=== PATIENT | female | born 1955 | race Two or more races ===

== ENCOUNTER 2016-03-25 16:49 | Emergency (ER) | payer MEDICAID ==
[~2016-03-25] VITALS: Ht 165.1 cm; Wt 102.1 kg
[~2016-03-25 16:49] MED LIST: ALBU18 IN; ALBU2TAB4 NEB; PRED10SO PO
[2016-03-25 17:57] LABS: Basophils # (auto) 0.1 uL; Basophils % (auto) 0.9 % (0.0-2.0); DEFINITIVE VIEW TRANSMISSION; Eosinophils # (auto) 0.4 uL; Eosinophils % (auto) 5.8 % (0.0-7.0); Hemoglobin 9.3 g/dL (12.2-16.2); Lymphocytes # (auto) 2.8 uL; Mean Corpuscular Hemoglobin 23.3 pg (28.0-32.0); Mean Corpuscular Volume 74.9 fL (80.0-100.0); Mean Platelet Volume 8.7 fL (7.4-10.4); Monocytes # (auto) 0.5 uL; Monocytes % (auto) 6.9 % (0.0-12.0); Neutrophils # (auto) 3.8 uL; Neutrophils % (auto) 49.4 % (37.0-80.0); Platelet Count (auto) 312 10^3/uL (140-450); Red Cell Distribution Width 18.5 % (11.6-16.0); White Blood Cell 7.6 10^3/uL (4.4-10.8)
[2016-03-25 18:04] LABS: Albumin 3.2 g/dL (3.4-5.0); BUN/Creatinine Ratio 19.8; Calcium 8.3 mg/dL (8.5-10.1); Magnesium 2.3 mg/dL (1.6-2.6); Potassium 4.2 mmol/L (3.5-5.1)
[2016-03-25 18:07] LABS: Bilirubin, Total 0.2 mg/dL (0.2-1.0); Total Protein 6.9 g/dL (6.4-8.2)
[2016-03-25 19:07] VITALS: BP 122/80
[2016-03-25] MEDS ORDERED: SODIUM CHLORIDE 0.9% 1,000 ML IV ONE (19:08)
[2016-03-25] MEDS ORDERED: MORPHINE SULFATE 4 MG/ML SYRG IV ONE (19:15)
[2016-03-25] MEDS ORDERED: ONDANSETRON HCL 4 MG/2 ML VIAL IV ONE (19:15)
[2016-03-25 19:46] LABS: Anisocytosis Slight; Hypochromia Slight; Platelet Estimate Adequate
[2016-03-25] MEDS ORDERED: PROMETHAZINE HCL 25 MG/ML 1ML IV ONE (20:00)
== END 2016-03-25 20:48 | disposition home or self-care (01) ==
LOC: ER 16:52
DX: R10.9 Unspecified abdominal pain (principal); R11.2 Nausea with vomiting, unspecified; E11.9 Type 2 diabetes mellitus without complications; J45.909 Unspecified asthma, uncomplicated; Z88.6 Allergy status to analgesic agent; Z88.1 Allergy status to other antibiotic agents; Z88.8 Allergy status to other drugs, medicaments and biological substances; Z90.49 Acquired absence of other specified parts of digestive tract; Z90.710 Acquired absence of both cervix and uterus; Z87.440 Personal history of urinary (tract) infections
CPT/HCPCS: 36415; 71010; 74176; 80053; 83690; 83735; 84484; 85025; 93005; 96361; 96374; 96375; 99285; J2270; J2550; J7030

== ENCOUNTER 2016-03-30 10:34 | Inpatient (IN) | payer MEDICAID ==
[~2016-03-30] VITALS: Ht 165.1 cm; Wt 99.2 kg
[2016-03-30] MEDS ORDERED: SODIUM CHLORIDE 0.9% 1,000 ML IV ONE (11:38)
[2016-03-30] MEDS ORDERED: PROMETHAZINE HCL 25 MG/ML 1ML IV ONE (11:45)
[2016-03-30] MEDS ORDERED: IPRATROPIUM BROM 0.5 MG/2.5ML INH SOL NEB ONE (11:45)
[2016-03-30] MEDS ORDERED: NALBUPHINE HCL 10 MG/1ml INJECTION IV ONE (11:45)
[2016-03-30] MEDS ORDERED: ALBUTEROL SULF 2.5 MG/0.5ML(0.5%) NEB SOLN NEB ONE (11:45)
[2016-03-30 12:01] LABS: Albumin 3.7 g/dL (3.4-5.0); BUN/Creatinine Ratio 29.7; Bilirubin, Total 0.3 mg/dL (0.2-1.0); Calcium 8.8 mg/dL (8.5-10.1); Potassium 4.3 mmol/L (3.5-5.1); Total Protein 7.4 g/dL (6.4-8.2)
[2016-03-30 12:03] LABS: Amylase 82 U/L (25-115)
[2016-03-30 12:49] LABS: Basophils # (auto) 0.1 uL; Basophils % (auto) 0.9 % (0.0-2.0); DEFINITIVE VIEW TRANSMISSION; Eosinophils # (auto) 0.5 uL; Eosinophils % (auto) 7.9 % (0.0-7.0); Hematocrit 32.5 % (36.0-46.0); Hemoglobin 10.3 g/dL (12.2-16.2); Lymphocytes # (auto) 1.7 uL; Lymphocytes % (auto) 24.8 % (10.0-50.0); Mean Corpuscular Hemoglobin 23.7 pg (28.0-32.0); Mean Corpuscular Hgb Conc. 31.6 g/dL (32.0-36.0); Mean Platelet Volume 8.7 fL (7.4-10.4); Monocytes # (auto) 0.5 uL; Monocytes % (auto) 8.1 % (0.0-12.0); Neutrophils # (auto) 3.9 uL; Neutrophils % (auto) 58.3 % (37.0-80.0); Platelet Count (auto) 292 10^3/uL (140-450); Red Cell Distribution Width 18.5 % (11.6-16.0); White Blood Cell 6.7 10^3/uL (4.4-10.8)
[2016-03-30] MEDS ORDERED: PIPERACILLIN-TAZOB 3.375GM 100 ML IV ONE (13:15)
[2016-03-30] MEDS ORDERED: DEXTROSE (50%) 50ML SYRG IV PRN (13:30)
[2016-03-30] MEDS ORDERED: NITROGLYCERIN 0.4 MG SL TAB SL PRN (13:30)
[2016-03-30] MEDS ORDERED: MORPHINE SULFATE 4 MG/ML SYRG IV PRN (13:30)
[2016-03-30] MEDS ORDERED: LORazepam 0.5 MG TAB PO PRN (13:30)
[2016-03-30] MEDS ORDERED: ALBUTEROL SULF 2.5 MG/0.5ML(0.5%) NEB SOLN NEB PRN (13:30)
[2016-03-30] MEDS ORDERED: MORPHINE SULF INJ 2 MG/ML SYRINGE 1ML IV PRN (13:30)
[2016-03-30] MEDS ORDERED: cefTRIAXone 1GM/50ML D5W 50 ML IV ONE (13:45)
[2016-03-30] MEDS: SODIUM CHLORIDE 0.9% 1,000 ML IV SCH ×2 (14:32→20:31)
[2016-03-30] MEDS: FAMOTIDINE (10MG/ML) 2ML VL IV SCH (14:32)
[2016-03-30 15:40] LABS: Urine Bilirubin Negative (Negative); Urine Blood TRACE /uL (Negative); Urine Color Yellow (Yellow); Urine Glucose Normal (Normal); Urine Ketone Negative (Negative); Urine Mucus FEW (None Seen); Urine Nitrite Negative (Negative); Urine RBC 2 /hpf (0 - 4); Urine Squamous Epithelial Cell FEW /hpf (<5); Urine Urobilinogen Normal (Negative)
[2016-03-30] MEDS: MORPHINE SULF INJ 2 MG/ML SYRINGE 1ML IV PRN ×2 (15:54→20:44)
[2016-03-30] MEDS: metroNIDAZOLE 500MG/100ML 100 ML IV SCH ×2 (15:54→21:11)
[2016-03-30 16:26] VITALS: BP 135/58
[2016-03-30] MEDS: ACCU-CHEK COMFORT CURVE STRIP VI SCH ×2 (17:41→23:40)
[2016-03-30] MEDS: ALBUTEROL SULF 2.5 MG/0.5ML(0.5%) NEB SOLN NEB SCH (18:00)
[2016-03-30 22:00] VITALS: BP 106/58
[2016-03-30 22:48] VITALS: BP 135/58
[2016-03-30] MEDS: TEMAZEPAM 15 MG CAP PO PRN (23:43)
[2016-03-31] MEDS: FAMOTIDINE (10MG/ML) 2ML VL IV SCH ×2 (01:04→13:51)
[2016-03-31] MEDS: ALBUTEROL SULF 2.5 MG/0.5ML(0.5%) NEB SOLN NEB SCH ×4 (01:08→19:25)
[2016-03-31] MEDS: SODIUM CHLORIDE 0.9% 1,000 ML IV SCH ×4 (03:27→22:39)
[2016-03-31] MEDS: metroNIDAZOLE 500MG/100ML 100 ML IV SCH ×3 (05:36→21:54)
[2016-03-31] MEDS: ACCU-CHEK COMFORT CURVE STRIP VI SCH ×3 (05:40→17:14)
[2016-03-31] MEDS: MORPHINE SULF INJ 2 MG/ML SYRINGE 1ML IV PRN ×4 (05:46→21:54)
[2016-03-31 05:52] VITALS: BP 127/58
[2016-03-31 07:13] LABS: Albumin 3.3 g/dL (3.4-5.0); BUN/Creatinine Ratio 21.1; Bilirubin, Total 0.5 mg/dL (0.2-1.0); Calcium 8.6 mg/dL (8.5-10.1); Total Protein 6.4 g/dL (6.4-8.2)
[2016-03-31 08:03] LABS: Basophils # (auto) 0 uL; Basophils % (auto) 0.8 % (0.0-2.0); DEFINITIVE VIEW TRANSMISSION; Eosinophils # (auto) 0.4 uL; Eosinophils % (auto) 7.3 % (0.0-7.0); Hematocrit 30.4 % (36.0-46.0); Hemoglobin 9.6 g/dL (12.2-16.2); Lymphocytes # (auto) 1.3 uL; Lymphocytes % (auto) 22.6 % (10.0-50.0); Mean Corpuscular Hemoglobin 23.5 pg (28.0-32.0); Mean Corpuscular Hgb Conc. 31.5 g/dL (32.0-36.0); Mean Corpuscular Volume 74.3 fL (80.0-100.0); Mean Platelet Volume 8.4 fL (7.4-10.4); Monocytes # (auto) 0.4 uL; Monocytes % (auto) 6.9 % (0.0-12.0); Neutrophils # (auto) 3.6 uL; Neutrophils % (auto) 62.4 % (37.0-80.0); Platelet Count (auto) 325 10^3/uL (140-450); Red Cell Distribution Width 18.6 % (11.6-16.0); White Blood Cell 5.8 10^3/uL (4.4-10.8)
[2016-03-31 08:40] VITALS: BP 120/57
[2016-03-31] MEDS: cefTRIAXone 1GM/50ML D5W 50 ML IV SCH (09:19)
[2016-03-31 12:35] VITALS: BP 128/67
[2016-03-31] MEDS ORDERED: PROMETHAZINE-DM 5 ML ORAL SYRUP PO PRN (13:30)
[2016-03-31 17:00] VITALS: BP 133/69
[2016-03-31] MEDS: PROMETHAZINE HCL 25 MG/ML 1ML IV PRN (17:07)
[2016-03-31 22:00] VITALS: BP 153/58
[2016-04-01] MEDS: ALBUTEROL SULF 2.5 MG/0.5ML(0.5%) NEB SOLN NEB SCH ×4 (00:31→18:02)
[2016-04-01] MEDS: FAMOTIDINE (10MG/ML) 2ML VL IV SCH ×2 (02:13→14:04)
[2016-04-01] MEDS: MORPHINE SULF INJ 2 MG/ML SYRINGE 1ML IV PRN ×4 (02:21→21:42)
[2016-04-01] MEDS: SODIUM CHLORIDE 0.9% 1,000 ML IV SCH ×3 (05:23→20:47)
[2016-04-01] MEDS: metroNIDAZOLE 500MG/100ML 100 ML IV SCH ×3 (05:51→21:37)
[2016-04-01] MEDS: ACCU-CHEK COMFORT CURVE STRIP VI SCH ×4 (05:53→17:30)
[2016-04-01 06:10] VITALS: BP 114/78
[2016-04-01 06:24] LABS: Basophils # (auto) 0 uL; Basophils % (auto) 0.8 % (0.0-2.0); DEFINITIVE VIEW TRANSMISSION; Eosinophils # (auto) 0.5 uL; Eosinophils % (auto) 8.7 % (0.0-7.0); Hematocrit 28.1 % (36.0-46.0); Lymphocytes # (auto) 1.1 uL; Mean Corpuscular Hemoglobin 23.7 pg (28.0-32.0); Mean Corpuscular Volume 74.2 fL (80.0-100.0); Mean Platelet Volume 8.2 fL (7.4-10.4); Monocytes # (auto) 0.4 uL; Monocytes % (auto) 8.1 % (0.0-12.0); Neutrophils # (auto) 3.1 uL; Neutrophils % (auto) 60.4 % (37.0-80.0); Platelet Count (auto) 287 10^3/uL (140-450); Red Cell Distribution Width 18.6 % (11.6-16.0); White Blood Cell 5.2 10^3/uL (4.4-10.8)
[2016-04-01 06:52] LABS: Albumin 3.2 g/dL (3.4-5.0); BUN/Creatinine Ratio 11.8; Bilirubin, Total 0.4 mg/dL (0.2-1.0); Calcium 8.7 mg/dL (8.5-10.1); Potassium 3.8 mmol/L (3.5-5.1); Total Protein 6.4 g/dL (6.4-8.2)
[2016-04-01 08:09] VITALS: BP 129/66
[2016-04-01] MEDS: cefTRIAXone 1GM/50ML D5W 50 ML IV SCH (08:54)
[2016-04-01 13:23] VITALS: BP 126/82
[2016-04-01 17:01] VITALS: BP 111/68
[2016-04-01] MEDS: SUCRALFATE 1 GM/10 ML ORAL SUSP PO SCH ×2 (17:33→21:37)
[2016-04-01 21:52] VITALS: BP 115/50
[2016-04-01] MEDS: TEMAZEPAM 15 MG CAP PO PRN (22:46)
[2016-04-02] MEDS: ACCU-CHEK COMFORT CURVE STRIP VI SCH ×4 (00:18→17:49)
[2016-04-02] MEDS: ALBUTEROL SULF 2.5 MG/0.5ML(0.5%) NEB SOLN NEB SCH ×4 (00:48→18:49)
[2016-04-02] MEDS: FAMOTIDINE (10MG/ML) 2ML VL IV SCH ×2 (01:33→14:29)
[2016-04-02] MEDS: SODIUM CHLORIDE 0.9% 1,000 ML IV SCH ×4 (01:33→22:44)
[2016-04-02] MEDS: ACETAMINOPHEN 325 MG TAB PO PRN ×2 (04:06→22:15)
[2016-04-02] MEDS: MORPHINE SULF INJ 2 MG/ML SYRINGE 1ML IV PRN ×4 (04:11→22:43)
[2016-04-02 05:03] VITALS: BP 133/48
[2016-04-02] MEDS: metroNIDAZOLE 500MG/100ML 100 ML IV SCH ×3 (06:29→22:16)
[2016-04-02] MEDS: SUCRALFATE 1 GM/10 ML ORAL SUSP PO SCH ×4 (06:29→22:16)
[2016-04-02] MEDS: PROMETHAZINE HCL 25 MG/ML 1ML IV PRN ×2 (08:49→16:40)
[2016-04-02] MEDS: cefTRIAXone 1GM/50ML D5W 50 ML IV SCH (08:49)
[2016-04-02 09:00] VITALS: BP 108/57
[2016-04-02 10:45] LABS: Albumin 3.1 g/dL (3.4-5.0); BUN/Creatinine Ratio 15.1; Bilirubin, Total 0.2 mg/dL (0.2-1.0); Calcium 9.2 mg/dL (8.5-10.1); Potassium 3.8 mmol/L (3.5-5.1); Total Protein 6.6 g/dL (6.4-8.2)
[2016-04-02 12:04] VITALS: BP 119/53
[2016-04-02 16:56] VITALS: BP 122/50
[2016-04-02 22:00] VITALS: BP 119/58
[2016-04-03] MEDS: ACCU-CHEK COMFORT CURVE STRIP VI SCH ×2 (00:28→06:12)
[2016-04-03] MEDS: ALBUTEROL SULF 2.5 MG/0.5ML(0.5%) NEB SOLN NEB SCH ×5 (00:28→23:33)
[2016-04-03] MEDS: FAMOTIDINE (10MG/ML) 2ML VL IV SCH ×2 (01:40→12:38)
[2016-04-03] MEDS: MORPHINE SULF INJ 2 MG/ML SYRINGE 1ML IV PRN ×5 (04:28→20:54)
[2016-04-03 05:33] VITALS: BP 108/56
[2016-04-03] MEDS: metroNIDAZOLE 500MG/100ML 100 ML IV SCH ×3 (06:11→22:08)
[2016-04-03] MEDS: SODIUM CHLORIDE 0.9% 1,000 ML IV SCH ×3 (06:12→16:08)
[2016-04-03] MEDS: SUCRALFATE 1 GM/10 ML ORAL SUSP PO SCH ×4 (06:12→22:08)
[2016-04-03 06:15] LABS: Basophils # (auto) 0 uL; Basophils % (auto) 0.7 % (0.0-2.0); DEFINITIVE VIEW TRANSMISSION; Eosinophils # (auto) 0.5 uL; Eosinophils % (auto) 10.9 % (0.0-7.0); Hematocrit 27.9 % (36.0-46.0); Hemoglobin 8.8 g/dL (12.2-16.2); Lymphocytes # (auto) 1.6 uL; Mean Corpuscular Hemoglobin 23.6 pg (28.0-32.0); Mean Corpuscular Hgb Conc. 31.4 g/dL (32.0-36.0); Mean Corpuscular Volume 74.9 fL (80.0-100.0); Mean Platelet Volume 8.7 fL (7.4-10.4); Monocytes # (auto) 0.4 uL; Neutrophils # (auto) 1.9 uL; Neutrophils % (auto) 43.4 % (37.0-80.0); Platelet Count (auto) 283 10^3/uL (140-450); Red Cell Distribution Width 18.5 % (11.6-16.0); White Blood Cell 4.3 10^3/uL (4.4-10.8)
[2016-04-03 06:41] LABS: BUN/Creatinine Ratio 13.7; Bilirubin, Total 0.3 mg/dL (0.2-1.0); Calcium 8.4 mg/dL (8.5-10.1); Potassium 3.9 mmol/L (3.5-5.1); Total Protein 6.2 g/dL (6.4-8.2)
[2016-04-03] MEDS: cefTRIAXone 1GM/50ML D5W 50 ML IV SCH (08:42)
[2016-04-03 09:00] VITALS: BP 101/59
[2016-04-03 09:05] VITALS: BP 122/50
[2016-04-03 13:00] VITALS: BP 118/42
[2016-04-03] MEDS ORDERED: methylPREDNISolone SOD SUCC 125 MG/2 ML VL IV ONE (16:30)
[2016-04-03 16:44] VITALS: BP 150/65
[2016-04-03] MEDS ORDERED: AZITHROMYCIN 500MG/D5W 250ML 250 ML IV ONE (16:45)
[2016-04-03] MEDS: BUDESONIDE (INHALATION) 0.5 MG/2 ML NEB NEB SCH (18:23)
[2016-04-03 22:00] VITALS: BP 113/68
[2016-04-04] MEDS: SODIUM CHLORIDE 0.9% 1,000 ML IV SCH ×3 (00:11→13:28)
[2016-04-04] MEDS: FAMOTIDINE (10MG/ML) 2ML VL IV SCH ×2 (01:31→13:50)
[2016-04-04] MEDS: MORPHINE SULF INJ 2 MG/ML SYRINGE 1ML IV PRN ×2 (02:52→09:02)
[2016-04-04] MEDS: ACETAMINOPHEN 325 MG TAB PO PRN (05:02)
[2016-04-04 05:47] VITALS: BP 126/75
[2016-04-04] MEDS: SUCRALFATE 1 GM/10 ML ORAL SUSP PO SCH ×2 (05:51→11:46)
[2016-04-04] MEDS: metroNIDAZOLE 500MG/100ML 100 ML IV SCH ×2 (05:51→13:50)
[2016-04-04] MEDS: ALBUTEROL SULF 2.5 MG/0.5ML(0.5%) NEB SOLN NEB SCH ×2 (06:14→11:17)
[2016-04-04] MEDS: BUDESONIDE (INHALATION) 0.5 MG/2 ML NEB NEB SCH (06:15)
[2016-04-04 09:00] VITALS: BP 117/73
[2016-04-04] MEDS: cefTRIAXone 1GM/50ML D5W 50 ML IV SCH (09:01)
[2016-04-04] MEDS ORDERED: AZITHROMYCIN 500MG/D5W 250ML 250 ML IV SCH (10:00)
[2016-04-04 10:15] VITALS: BP 117/73
[2016-04-04 13:38] VITALS: BP 87/66
== END 2016-04-04 15:40 | disposition home or self-care (01) | DRG 282 ==
LOC: ER 10:35 → TELE 10:36 → TELE-CENTR 16:21 → CENTRAL 04-01 09:25
PROVIDERS: ADMIT Internal Medicine; ATTEND Internal Medicine
DX: K85.90 Acute pancreatitis without necrosis or infection, unspecified (principal); N39.0 Urinary tract infection, site not specified; E11.9 Type 2 diabetes mellitus without complications; G89.29 Other chronic pain; E66.9 Obesity, unspecified; D64.9 Anemia, unspecified; K86.1 Other chronic pancreatitis; J45.909 Unspecified asthma, uncomplicated; Z87.11 Personal history of peptic ulcer disease; Z86.718 Personal history of other venous thrombosis and embolism; Z80.0 Family history of malignant neoplasm of digestive organs; Z80.1 Family history of malignant neoplasm of trachea, bronchus and lung; Z80.3 Family history of malignant neoplasm of breast; Z80.41 Family history of malignant neoplasm of ovary; Z80.7 Family history of other malignant neoplasms of lymphoid, hematopoietic and related tissues; Z80.8 Family history of malignant neoplasm of other organs or systems; Z82.0 Family history of epilepsy and other diseases of the nervous system; Z82.3 Family history of stroke; Z82.49 Family history of ischemic heart disease and other diseases of the circulatory system; Z82.5 Family history of asthma and other chronic lower respiratory diseases; Z83.3 Family history of diabetes mellitus; Z68.36 Body mass index [BMI] 36.0-36.9, adult; Z90.49 Acquired absence of other specified parts of digestive tract; Z90.710 Acquired absence of both cervix and uterus; Z88.6 Allergy status to analgesic agent; Z88.1 Allergy status to other antibiotic agents; Z88.8 Allergy status to other drugs, medicaments and biological substances; Z90.89 Acquired absence of other organs; Z81.8 Family history of other mental and behavioral disorders
CPT/HCPCS: 36415; 71010; 74176; 80053; 80061; 81001; 82150; 82378; 82962; 83036; 83690; 84484; 85025; 85049; 85652; 86141; 87040; 94640; 94761; 96361; 96365; 96375; J0696; J3490

== ENCOUNTER 2016-05-04 16:54 | Emergency (ER) | payer MEDICAID ==
[~2016-05-04] VITALS: Ht 165.1 cm; Wt 97.7 kg
[2016-05-04] MEDS ORDERED: IPRATROPIUM BROM 0.5 MG/2.5ML INH SOL NEB ONE (17:15)
[2016-05-04] MEDS ORDERED: ALBUTEROL SULF 2.5 MG/0.5ML(0.5%) NEB SOLN NEB ONE (17:15)
[2016-05-04 17:48] LABS: Basophils # (auto) 0.1 uL; DEFINITIVE VIEW TRANSMISSION; Eosinophils # (auto) 0.6 uL; Eosinophils % (auto) 10.3 % (0.0-7.0); Hemoglobin 9.1 g/dL (12.2-16.2); Lymphocytes # (auto) 2.1 uL; Lymphocytes % (auto) 35.5 % (10.0-50.0); Mean Corpuscular Hemoglobin 22.5 pg (28.0-32.0); Mean Corpuscular Hgb Conc. 30.5 g/dL (32.0-36.0); Mean Corpuscular Volume 73.7 fL (80.0-100.0); Mean Platelet Volume 8.6 fL (7.4-10.4); Monocytes # (auto) 0.3 uL; Monocytes % (auto) 5.9 % (0.0-12.0); Neutrophils # (auto) 2.8 uL; Neutrophils % (auto) 47.3 % (37.0-80.0); Platelet Count (auto) 358 10^3/uL (140-450); Red Cell Distribution Width 17.9 % (11.6-16.0); White Blood Cell 5.9 10^3/uL (4.4-10.8)
[2016-05-04 17:55] LABS: Albumin 3.6 g/dL (3.4-5.0); Alkaline Phosphatase 143 U/L (45-117); Anion Gap 8 (5-15); Aspartate Aminotransferase 22 U/L (15-37); BUN/Creatinine Ratio 30.6; Bilirubin, Total 0.2 mg/dL (0.2-1.0); Blood Urea Nitrogen 19 mg/dL (7-18); Calcium 8.5 mg/dL (8.5-10.1); Carbon Dioxide 23 mmol/L (21-32); Chloride 111 mmol/L (98-107); GFR African American 126 mL/min; GFR Non-African American 104 mL/min; Glucose 115 mg/dL (74-106); Potassium 4.1 mmol/L (3.5-5.1); Sodium 142 mmol/L (136-145); Total Protein 7.2 g/dL (6.4-8.2)
[2016-05-04 18:23] LABS: Hypochromia Moderate; Platelet Estimate Adequate
[2016-05-05] MEDS ORDERED: LORazepam 2MG/ML-1ML VIAL IV ONE (07:45)
[2016-05-05] MEDS ORDERED: IPRATROPIUM BROM 0.5 MG/2.5ML INH SOL NEB ONE ×2 (07:45→08:00)
[2016-05-05] MEDS ORDERED: ALBUTEROL SULF 2.5 MG/0.5ML(0.5%) NEB SOLN NEB ONE ×2 (07:45→08:00)
[2016-05-05] MEDS ORDERED: methylPREDNISolone SOD SUCC 125 MG/2 ML VL IV ONE (07:45)
[2016-05-05 08:23] LABS: Amylase 51 U/L (25-115)
[2016-05-05] MEDS ORDERED: KETOROLAC TROMETH 30 MG/ML 1ML VIAL IV ONE (09:15)
[2016-05-05] MEDS ORDERED: PIPERACILLIN-TAZOB 3.375GM 100 ML IV ONE (09:15)
[2016-05-05 09:52] VITALS: BP 116/53
== END 2016-05-05 11:31 | disposition home or self-care (01) ==
LOC: ER 17:01
DX: J45.901 Unspecified asthma with (acute) exacerbation (principal); E11.9 Type 2 diabetes mellitus without complications
CPT/HCPCS: 36415; 71020; 80053; 82150; 83690; 84484; 85025; 87040; 93005; 94640; 94761; 96365; 96375; 99285; J1885; J2060; J2543; J2930

== ENCOUNTER 2016-05-10 17:14 | Inpatient (IN) | payer MEDICAID ==
[~2016-05-10] VITALS: Ht 165.1 cm; Wt 100.5 kg
[2016-05-10 17:58] LABS: Basophils # (auto) 0.1 uL; Basophils % (auto) 0.7 % (0.0-2.0); DEFINITIVE VIEW TRANSMISSION; Eosinophils # (auto) 0.6 uL; Eosinophils % (auto) 8.6 % (0.0-7.0); Hematocrit 30.4 % (36.0-46.0); Hemoglobin 9.9 g/dL (12.2-16.2); Lymphocytes # (auto) 2.7 uL; Lymphocytes % (auto) 37.2 % (10.0-50.0); Mean Corpuscular Hemoglobin 23.4 pg (28.0-32.0); Mean Corpuscular Hgb Conc. 32.4 g/dL (32.0-36.0); Mean Corpuscular Volume 72.2 fL (80.0-100.0); Mean Platelet Volume 8.2 fL (7.4-10.4); Monocytes # (auto) 0.4 uL; Neutrophils # (auto) 3.4 uL; Neutrophils % (auto) 47.5 % (37.0-80.0); Platelet Count (auto) 376 10^3/uL (140-450); Red Cell Distribution Width 18.1 % (11.6-16.0); White Blood Cell 7.2 10^3/uL (4.4-10.8)
[2016-05-10 18:18] LABS: Albumin 3.7 g/dL (3.4-5.0); Alkaline Phosphatase 151 U/L (45-117); Anion Gap 10 (5-15); Aspartate Aminotransferase 23 U/L (15-37); BUN/Creatinine Ratio 33.9; Bilirubin, Total 0.3 mg/dL (0.2-1.0); Blood Urea Nitrogen 19 mg/dL (7-18); Calcium 8.7 mg/dL (8.5-10.1); Carbon Dioxide 25 mmol/L (21-32); Chloride 109 mmol/L (98-107); GFR African American 142 mL/min; GFR Non-African American 117 mL/min; Glucose 115 mg/dL (74-106); Potassium 4.2 mmol/L (3.5-5.1); Sodium 144 mmol/L (136-145); Total Protein 7.4 g/dL (6.4-8.2)
[2016-05-10] MEDS ORDERED: ALBUTEROL SULF 2.5 MG/0.5ML(0.5%) NEB SOLN HHN STA (18:35)
[2016-05-10] MEDS ORDERED: HYDROmorphone HCL 2 MG/ML VL IV ONE (18:45)
[2016-05-10] MEDS ORDERED: methylPREDNISolone SOD SUCC 125 MG/2 ML VL IV ONE (18:45)
[2016-05-10] MEDS ORDERED: IPRATROPIUM BROM 0.5 MG/2.5ML INH SOL NEB ONE (18:45)
[2016-05-10] MEDS ORDERED: PROMETHAZINE HCL 25 MG/ML 1ML IV ONE (18:45)
[2016-05-10] MEDS ORDERED: LEVOFLOXACIN 500MG 100 ML IV ONE (18:45)
[2016-05-10 19:06] LABS: Amylase 52 U/L (25-115)
[2016-05-10 19:23] LABS: Hypochromia Moderate; Platelet Estimate Adequate
[2016-05-10 19:46] LABS: B-Type Natriuretic Peptide 16.54 pg/mL (0-100)
[2016-05-10] MEDS ORDERED: ENOXAPARIN SOD 30 MG/0.3 ML SYRINGE SC SCH (21:14)
[2016-05-10] MEDS ORDERED: NITROGLYCERIN 0.4 MG SL TAB SL PRN (21:15)
[2016-05-10] MEDS ORDERED: ONDANSETRON HCL 4 MG/2 ML VIAL IV PRN (21:15)
[2016-05-10] MEDS ORDERED: MORPHINE SULF INJ 2 MG/ML SYRINGE 1ML IV PRN (21:15)
[2016-05-10] MEDS: SODIUM CHLORIDE 0.9% 1,000 ML IV SCH (21:16)
[2016-05-10] MEDS: ALBUTEROL SULF 2.5 MG/0.5ML(0.5%) NEB SOLN NEB SCH (22:00)
[2016-05-10] MEDS: IPRATROPIUM BROM 0.5 MG/2.5ML INH SOL NEB SCH (22:00)
[2016-05-10 22:30] VITALS: BP 106/55
[2016-05-10 22:47] VITALS: BP 115/60
[2016-05-11] VITALS (9 sets, daily range): BP systolic 100–130; BP diastolic 48–87
[2016-05-11] MEDS ORDERED: IPRATROPIUM BROM 0.5 MG/2.5ML INH SOL NEB SCH
[2016-05-11] MEDS ORDERED: LOR05T PO (00:21)
[2016-05-11] MEDS: HYDROmorphone HCL 2 MG/ML VL IV PRN ×6 (00:40→23:08)
[2016-05-11] MEDS: ALBUTEROL SULF 2.5 MG/0.5ML(0.5%) NEB SOLN NEB SCH ×6 (02:00→22:40)
[2016-05-11] MEDS: IPRATROPIUM BROM 0.5 MG/2.5ML INH SOL NEB SCH ×6 (04:02→22:40)
[2016-05-11 06:11] LABS: Basophils # (auto) 0 uL; Basophils % (auto) 0.1 % (0.0-2.0); DEFINITIVE VIEW TRANSMISSION; Eosinophils # (auto) 0 uL; Hematocrit 27.2 % (36.0-46.0); Hemoglobin 8.6 g/dL (12.2-16.2); Lymphocytes # (auto) 0.6 uL; Mean Corpuscular Hemoglobin 23.2 pg (28.0-32.0); Mean Corpuscular Hgb Conc. 31.8 g/dL (32.0-36.0); Mean Corpuscular Volume 72.9 fL (80.0-100.0); Mean Platelet Volume 8.9 fL (7.4-10.4); Monocytes # (auto) 0 uL; Monocytes % (auto) 0.3 % (0.0-12.0); Neutrophils # (auto) 7.6 uL; Neutrophils % (auto) 92.6 % (37.0-80.0); Platelet Count (auto) 301 10^3/uL (140-450); White Blood Cell 8.2 10^3/uL (4.4-10.8)
[2016-05-11 06:27] LABS: Albumin 3.3 g/dL (3.4-5.0); Calcium 8.9 mg/dL (8.5-10.1); Potassium 4.2 mmol/L (3.5-5.1)
[2016-05-11 06:30] LABS: Bilirubin, Total 0.2 mg/dL (0.2-1.0); Total Protein 6.6 g/dL (6.4-8.2)
[2016-05-11] MEDS ORDERED: methylPREDNISolone SOD SUCC 40 MG/ML VL IV SCH (10:00)
[2016-05-11] MEDS ORDERED: AZITHROMYCIN 250 MG TAB PO SCH (10:00)
[2016-05-11] MEDS ORDERED: LEVOFLOXACIN 500MG 100 ML IV SCH (10:00)
[2016-05-11] MEDS: ENOXAPARIN SOD 40 MG/0.4 ML SYRINGE SC SCH (10:12)
[2016-05-11] MEDS: PANTOPRAZOLE SODIUM 40 MG/10 ML VIAL IV SCH (10:24)
[2016-05-11] MEDS: SODIUM CHLORIDE 0.9% 1,000 ML IV SCH ×2 (11:25→23:07)
[2016-05-11] MEDS ORDERED: LEVOFLOXACIN 500MG 100 ML IV ONE (13:45)
[2016-05-11] MEDS ORDERED: TUSSINEX PO PRN (14:00)
[2016-05-11] MEDS ORDERED: DEXTROSE (50%) 50ML SYRG IV ONE (14:00)
[2016-05-11] MEDS ORDERED: guaiFENesin 200 MG/10 ML UD PO PRN (14:15)
[2016-05-11] MEDS: guaiFENesin 200 MG/10 ML UD PO PRN (16:32)
[2016-05-11] MEDS: methylPREDNISolone SOD SUCC 40 MG/ML VL IV SCH ×2 (16:33→23:06)
[2016-05-11] MEDS ORDERED: InsuLIN REG 1unit/0.01ml Soln (100units/ml) SC ONE (17:00)
[2016-05-11] MEDS ORDERED: ACCU-CHEK COMFORT CURVE STRIP VI ONE (17:00)
[2016-05-11] MEDS: ZOLPIDEM TARTRATE 5 MG TAB PO PRN (23:07)
[2016-05-12] MEDS: ALBUTEROL SULF 2.5 MG/0.5ML(0.5%) NEB SOLN NEB SCH ×6 (02:00→22:00)
[2016-05-12] MEDS: IPRATROPIUM BROM 0.5 MG/2.5ML INH SOL NEB SCH ×6 (02:00→22:00)
[2016-05-12 05:10] VITALS: BP 116/50
[2016-05-12 05:30] LABS: Basophils # (auto) 0 uL; DEFINITIVE VIEW TRANSMISSION; Eosinophils # (auto) 0 uL; Hematocrit 27.3 % (36.0-46.0); Hemoglobin 8.8 g/dL (12.2-16.2); Lymphocytes # (auto) 0.6 uL; Lymphocytes % (auto) 4.9 % (10.0-50.0); Mean Corpuscular Hemoglobin 23.4 pg (28.0-32.0); Mean Corpuscular Hgb Conc. 32.3 g/dL (32.0-36.0); Mean Corpuscular Volume 72.6 fL (80.0-100.0); Mean Platelet Volume 8.9 fL (7.4-10.4); Monocytes # (auto) 0.2 uL; Monocytes % (auto) 1.4 % (0.0-12.0); Neutrophils # (auto) 11.7 uL; Neutrophils % (auto) 93.7 % (37.0-80.0); Platelet Count (auto) 316 10^3/uL (140-450); Red Cell Distribution Width 18.6 % (11.6-16.0); White Blood Cell 12.5 10^3/uL (4.4-10.8)
[2016-05-12 05:43] LABS: Potassium 4.3 mmol/L (3.5-5.1)
[2016-05-12] MEDS: methylPREDNISolone SOD SUCC 40 MG/ML VL IV SCH ×3 (05:43→22:14)
[2016-05-12] MEDS: HYDROmorphone HCL 2 MG/ML VL IV PRN ×5 (05:44→22:11)
[2016-05-12 05:48] LABS: Albumin 3.3 g/dL (3.4-5.0); BUN/Creatinine Ratio 23.8; Calcium 8.9 mg/dL (8.5-10.1)
[2016-05-12 06:02] LABS: Bilirubin, Total 0.3 mg/dL (0.2-1.0); Total Protein 6.7 g/dL (6.4-8.2)
[2016-05-12] MEDS: guaiFENesin 200 MG/10 ML UD PO PRN ×3 (06:41→22:15)
[2016-05-12 08:00] VITALS: BP 111/68
[2016-05-12] MEDS ORDERED: DEXTROSE (50%) 50ML SYRG IV PRN (09:30)
[2016-05-12] MEDS: PANTOPRAZOLE SODIUM 40 MG/10 ML VIAL IV SCH (09:35)
[2016-05-12] MEDS: LEVOFLOXACIN 500MG 100 ML IV SCH (09:35)
[2016-05-12] MEDS: ENOXAPARIN SOD 40 MG/0.4 ML SYRINGE SC SCH (09:35)
[2016-05-12] MEDS: ACCU-CHEK COMFORT CURVE STRIP VI SCH ×3 (12:03→22:19)
[2016-05-12] MEDS: InsuLIN REG 1unit/0.01ml Soln (100units/ml) SC SCH ×3 (12:05→22:00)
[2016-05-12 13:00] VITALS: BP 131/69
[2016-05-12] MEDS: SODIUM CHLORIDE 0.9% 1,000 ML IV SCH ×2 (16:38→23:38)
[2016-05-12 17:00] VITALS: BP 134/67
[2016-05-12 22:09] VITALS: BP 126/62
[2016-05-12] MEDS: ZOLPIDEM TARTRATE 5 MG TAB PO PRN (22:13)
[2016-05-12] MEDS: LACTULOSE 20Gm/30ML SOLN PO PRN (22:14)
[2016-05-13] MEDS: IPRATROPIUM BROM 0.5 MG/2.5ML INH SOL NEB SCH ×6 (02:00→22:10)
[2016-05-13] MEDS: ALBUTEROL SULF 2.5 MG/0.5ML(0.5%) NEB SOLN NEB SCH ×6 (02:00→22:10)
[2016-05-13] MEDS: guaiFENesin 200 MG/10 ML UD PO PRN ×4 (04:37→21:34)
[2016-05-13] MEDS: HYDROmorphone HCL 2 MG/ML VL IV PRN ×4 (04:45→21:35)
[2016-05-13 05:11] VITALS: BP 126/77
[2016-05-13] MEDS: methylPREDNISolone SOD SUCC 40 MG/ML VL IV SCH ×3 (05:43→21:34)
[2016-05-13] MEDS: ACCU-CHEK COMFORT CURVE STRIP VI SCH ×4 (05:49→21:41)
[2016-05-13] MEDS: InsuLIN REG 1unit/0.01ml Soln (100units/ml) SC SCH ×4 (06:01→21:56)
[2016-05-13 06:20] LABS: Basophils # (auto) 0.1 uL; Basophils % (auto) 0.6 % (0.0-2.0); DEFINITIVE VIEW TRANSMISSION; Eosinophils # (auto) 0 uL; Hemoglobin 8.5 g/dL (12.2-16.2); Lymphocytes # (auto) 0.8 uL; Lymphocytes % (auto) 6.6 % (10.0-50.0); Mean Corpuscular Hemoglobin 22.9 pg (28.0-32.0); Mean Corpuscular Hgb Conc. 31.5 g/dL (32.0-36.0); Mean Corpuscular Volume 72.5 fL (80.0-100.0); Monocytes # (auto) 0.3 uL; Monocytes % (auto) 2.1 % (0.0-12.0); Neutrophils # (auto) 11.5 uL; Neutrophils % (auto) 90.7 % (37.0-80.0); Platelet Count (auto) 309 10^3/uL (140-450); Red Cell Distribution Width 18.4 % (11.6-16.0); White Blood Cell 12.7 10^3/uL (4.4-10.8)
[2016-05-13 07:10] LABS: Albumin 3.2 g/dL (3.4-5.0); BUN/Creatinine Ratio 27.4; Bilirubin, Total 0.2 mg/dL (0.2-1.0); Potassium 4.1 mmol/L (3.5-5.1); Total Protein 6.4 g/dL (6.4-8.2)
[2016-05-13 09:00] VITALS: BP 124/67
[2016-05-13] MEDS: ENOXAPARIN SOD 40 MG/0.4 ML SYRINGE SC SCH (09:33)
[2016-05-13] MEDS: LEVOFLOXACIN 500MG 100 ML IV SCH (09:33)
[2016-05-13] MEDS: PANTOPRAZOLE SODIUM 40 MG/10 ML VIAL IV SCH (09:33)
[2016-05-13] MEDS: LACTULOSE 20Gm/30ML SOLN PO PRN (09:33)
[2016-05-13] MEDS: SODIUM CHLORIDE 0.9% 1,000 ML IV SCH ×2 (11:36→17:32)
[2016-05-13 13:00] VITALS: BP 116/55
[2016-05-13 21:03] VITALS: BP 104/65
[2016-05-13] MEDS: ZOLPIDEM TARTRATE 5 MG TAB PO PRN (22:21)
[2016-05-14] VITALS (9 sets, daily range): BP systolic 104–145; BP diastolic 58–82
[2016-05-14] MEDS: IPRATROPIUM BROM 0.5 MG/2.5ML INH SOL NEB SCH ×6 (02:15→22:21)
[2016-05-14] MEDS: ALBUTEROL SULF 2.5 MG/0.5ML(0.5%) NEB SOLN NEB SCH ×6 (02:15→22:21)
[2016-05-14] MEDS: methylPREDNISolone SOD SUCC 40 MG/ML VL IV SCH ×3 (05:28→22:12)
[2016-05-14] MEDS: guaiFENesin 200 MG/10 ML UD PO PRN ×2 (05:51→14:58)
[2016-05-14] MEDS: HYDROmorphone HCL 2 MG/ML VL IV PRN ×4 (05:51→22:22)
[2016-05-14] MEDS: InsuLIN REG 1unit/0.01ml Soln (100units/ml) SC SCH ×4 (05:54→22:50)
[2016-05-14] MEDS: ACCU-CHEK COMFORT CURVE STRIP VI SCH ×4 (05:54→22:00)
[2016-05-14 06:11] LABS: Basophils # (auto) 0 uL; DEFINITIVE VIEW TRANSMISSION; Eosinophils # (auto) 0 uL; Hematocrit 25.4 % (36.0-46.0); Hemoglobin 8.2 g/dL (12.2-16.2); Lymphocytes # (auto) 1.1 uL; Lymphocytes % (auto) 14.7 % (10.0-50.0); Mean Corpuscular Hemoglobin 23.4 pg (28.0-32.0); Mean Corpuscular Hgb Conc. 32.3 g/dL (32.0-36.0); Mean Corpuscular Volume 72.5 fL (80.0-100.0); Mean Platelet Volume 8.4 fL (7.4-10.4); Monocytes # (auto) 0.4 uL; Monocytes % (auto) 5.2 % (0.0-12.0); Neutrophils # (auto) 6.1 uL; Neutrophils % (auto) 80.1 % (37.0-80.0); Platelet Count (auto) 277 10^3/uL (140-450); Red Cell Distribution Width 18.7 % (11.6-16.0); White Blood Cell 7.7 10^3/uL (4.4-10.8)
[2016-05-14 06:25] LABS: Albumin 2.9 g/dL (3.4-5.0); Calcium 8.3 mg/dL (8.5-10.1)
[2016-05-14 06:27] LABS: BUN/Creatinine Ratio 25.8
[2016-05-14 06:30] LABS: Bilirubin, Total 0.2 mg/dL (0.2-1.0); Total Protein 5.9 g/dL (6.4-8.2)
[2016-05-14] MEDS: LEVOFLOXACIN 500MG 100 ML IV SCH (10:23)
[2016-05-14] MEDS: ENOXAPARIN SOD 40 MG/0.4 ML SYRINGE SC SCH (10:23)
[2016-05-14] MEDS: PANTOPRAZOLE SODIUM 40 MG/10 ML VIAL IV SCH (10:23)
[2016-05-14] MEDS: SODIUM CHLORIDE 0.9% 1,000 ML IV SCH (13:00)
[2016-05-14] MEDS ORDERED: PROMETHAZINE HCL 25 MG/ML 1ML IV PRN (17:15)
[2016-05-15] MEDS: SODIUM CHLORIDE 0.9% 1,000 ML IV SCH (01:14)
[2016-05-15] MEDS: ALBUTEROL SULF 2.5 MG/0.5ML(0.5%) NEB SOLN NEB SCH ×3 (02:07→10:00)
[2016-05-15] MEDS: IPRATROPIUM BROM 0.5 MG/2.5ML INH SOL NEB SCH ×3 (02:07→10:00)
[2016-05-15 05:22] VITALS: BP 138/70
[2016-05-15] MEDS: methylPREDNISolone SOD SUCC 40 MG/ML VL IV SCH (06:27)
[2016-05-15] MEDS: ACCU-CHEK COMFORT CURVE STRIP VI SCH (06:28)
[2016-05-15] MEDS: InsuLIN REG 1unit/0.01ml Soln (100units/ml) SC SCH (06:29)
[2016-05-15 08:00] VITALS: BP 122/71
[2016-05-15 09:00] VITALS: BP 142/74
[2016-05-15] MEDS: HYDROmorphone HCL 2 MG/ML VL IV PRN (09:51)
[2016-05-15] MEDS: PANTOPRAZOLE SODIUM 40 MG/10 ML VIAL IV SCH (09:51)
[2016-05-15] MEDS: ENOXAPARIN SOD 40 MG/0.4 ML SYRINGE SC SCH (09:52)
[2016-05-15] MEDS: LEVOFLOXACIN 500MG 100 ML IV SCH (09:53)
== END 2016-05-15 11:07 | disposition home or self-care (01) | DRG 140 ==
LOC: ER 17:19 → TELE-WESTW 17:20
PROVIDERS: ADMIT Family Medicine; ATTEND Internal Medicine
DX: J44.0 Chronic obstructive pulmonary disease with (acute) lower respiratory infection (principal); J18.9 Pneumonia, unspecified organism; E44.0 Moderate protein-calorie malnutrition; J45.901 Unspecified asthma with (acute) exacerbation; K86.1 Other chronic pancreatitis; D64.9 Anemia, unspecified; M17.0 Bilateral primary osteoarthritis of knee; J98.11 Atelectasis; E11.9 Type 2 diabetes mellitus without complications; I10 Essential (primary) hypertension; Z80.9 Family history of malignant neoplasm, unspecified; Z90.49 Acquired absence of other specified parts of digestive tract; Z87.11 Personal history of peptic ulcer disease; Z90.710 Acquired absence of both cervix and uterus; Z90.89 Acquired absence of other organs; Z82.3 Family history of stroke; Z83.3 Family history of diabetes mellitus; Z82.49 Family history of ischemic heart disease and other diseases of the circulatory system; Z68.36 Body mass index [BMI] 36.0-36.9, adult
CPT/HCPCS: 36415; 71010; 71020; 73564; 80053; 82150; 82962; 83605; 83690; 83880; 84484; 85025; 87040; 93005; 94640; 94644; 96365; 96372; 96375; 97116; 97530; C9113; J1815; J1956

== ENCOUNTER 2016-06-22 10:24 | Inpatient (IN) | payer MEDICAID ==
[~2016-06-22] VITALS: Ht 165.1 cm; Wt 102.6 kg
[~2016-06-22 10:24] MED LIST changes: +LOR05T PO
[2016-06-22] MEDS ORDERED: ALBUTEROL SULF 2.5 MG/0.5ML(0.5%) NEB SOLN NEB ONE ×2 (10:30→13:30)
[2016-06-22] MEDS ORDERED: IPRATROPIUM BROM 0.5 MG/2.5ML INH SOL NEB ONE ×2 (10:30→13:30)
[2016-06-22 13:24] LABS: Urine Bilirubin Negative (Negative); Urine Blood Negative /uL (Negative); Urine Color Yellow (Yellow); Urine Glucose Normal (Normal); Urine Ketone Negative (Negative); Urine Nitrite Negative (Negative); Urine RBC <1 /hpf (0 - 4); Urine Squamous Epithelial Cell FEW /hpf (<5); Urine Urobilinogen Normal (Negative); Urine pH 6.5 (5.0-8.0)
[2016-06-22] MEDS ORDERED: SODIUM CHLORIDE 0.9% 1,000 ML IV ONE (13:25)
[2016-06-22] MEDS ORDERED: methylPREDNISolone SOD SUCC 125 MG/2 ML VL IV ONE (13:30)
[2016-06-22 14:05] LABS: DEFINITIVE VIEW TRANSMISSION; Hematocrit 29.1 % (36.0-46.0); Hemoglobin 9.2 g/dL (12.2-16.2); Mean Corpuscular Hemoglobin 22.9 pg (28.0-32.0); Mean Corpuscular Hgb Conc. 31.6 g/dL (32.0-36.0); Mean Corpuscular Volume 72.3 fL (80.0-100.0); Mean Platelet Volume 8.5 fL (7.4-10.4); Platelet Count (auto) 336 10^3/uL (140-450); Red Cell Distribution Width 19.6 % (11.6-16.0); White Blood Cell 6.8 10^3/uL (4.4-10.8)
[2016-06-22 14:11] LABS: Metamyelocytes % 0; Myelocytes % 0; Promyelocytes % 0; Reactive Lymphocytes 0
[2016-06-22 14:21] LABS: Albumin 3.8 g/dL (3.4-5.0); Calcium 8.6 mg/dL (8.5-10.1); Magnesium 2.4 mg/dL (1.6-2.6); Potassium 3.9 mmol/L (3.5-5.1)
[2016-06-22 14:25] LABS: Bilirubin, Total 0.3 mg/dL (0.2-1.0)
[2016-06-22 14:27] LABS: Anisocytosis Slight; Platelet Estimate Adequate
[2016-06-22 14:28] LABS: Hypochromia Slight
[2016-06-22] MEDS ORDERED: ALBUTEROL SULF 2.5 MG/0.5ML(0.5%) NEB SOLN NEB PRN (17:45)
[2016-06-22] MEDS ORDERED: DEXTROSE (50%) 50ML SYRG IV PRN (17:45)
[2016-06-22] MEDS ORDERED: LORazepam 0.5 MG TAB PO PRN (17:45)
[2016-06-22] MEDS ORDERED: MORPHINE SULF INJ 2 MG/ML SYRINGE 1ML IV PRN (17:45)
[2016-06-22] MEDS ORDERED: PROCHLORPERAZINE EDISYLATE 5 MG/ML 2ML VIAL IV PRN (17:45)
[2016-06-22] MEDS ORDERED: ACETAMINOPHEN 500 MG TAB PO PRN (17:45)
[2016-06-22] MEDS ORDERED: NITROGLYCERIN 0.4 MG SL TAB SL PRN (17:45)
[2016-06-22] MEDS ORDERED: LACTULOSE 20Gm/30ML SOLN PO PRN (17:45)
[2016-06-22] MEDS: MORPHINE SULFATE 4 MG/ML SYRG IV PRN ×2 (17:53→23:36)
[2016-06-22] MEDS: IPRATROPIUM BROM 0.5 MG/2.5ML INH SOL NEB SCH (18:34)
[2016-06-22] MEDS: ALBUTEROL SULF 2.5 MG/0.5ML(0.5%) NEB SOLN NEB SCH (18:34)
[2016-06-22] MEDS: ENOXAPARIN SOD 40 MG/0.4 ML SYRINGE SC SCH (18:42)
[2016-06-22] MEDS: DOXYCYCLINE HYC 100MG/250ML 250 ML IV SCH (18:42)
[2016-06-22] MEDS: SODIUM CHLORIDE 0.9% 1,000 ML IV SCH (18:42)
[2016-06-22] MEDS: methylPREDNISolone SOD SUCC 40 MG/ML VL IV SCH (18:42)
[2016-06-22 20:00] VITALS: BP 137/66
[2016-06-22] MEDS: MORPHINE SULF INJ 2 MG/ML SYRINGE 1ML IV PRN (21:01)
[2016-06-22] MEDS: ACCU-CHEK COMFORT CURVE STRIP VI SCH (21:59)
[2016-06-22] MEDS: InsuLIN REG 1unit/0.01ml Soln (100units/ml) SC SCH (22:00)
[2016-06-22] MEDS ORDERED: IPRASOL39 NEB (23:47)
[2016-06-23] VITALS (8 sets, daily range): BP systolic 91–137; BP diastolic 41–83
[2016-06-23] MEDS: methylPREDNISolone SOD SUCC 40 MG/ML VL IV SCH ×4 (00:40→17:40)
[2016-06-23] MEDS: MORPHINE SULFATE 4 MG/ML SYRG IV PRN ×2 (04:00→08:45)
[2016-06-23] MEDS: DOXYCYCLINE HYC 100MG/250ML 250 ML IV SCH ×2 (05:35→17:40)
[2016-06-23] MEDS: InsuLIN REG 1unit/0.01ml Soln (100units/ml) SC SCH ×4 (06:19→22:31)
[2016-06-23] MEDS: ACCU-CHEK COMFORT CURVE STRIP VI SCH ×4 (06:19→22:00)
[2016-06-23] MEDS: MORPHINE SULF INJ 2 MG/ML SYRINGE 1ML IV PRN ×2 (06:20→17:40)
[2016-06-23] MEDS: SODIUM CHLORIDE 0.9% 1,000 ML IV SCH ×2 (06:20→20:11)
[2016-06-23] MEDS: ALBUTEROL SULF 2.5 MG/0.5ML(0.5%) NEB SOLN NEB SCH ×4 (06:24→18:39)
[2016-06-23] MEDS: IPRATROPIUM BROM 0.5 MG/2.5ML INH SOL NEB SCH ×4 (06:24→18:39)
[2016-06-23 07:10] LABS: Basophils # (auto) 0 uL; Basophils % (auto) 0.1 % (0.0-2.0); DEFINITIVE VIEW TRANSMISSION; Eosinophils # (auto) 0 uL; Hematocrit 26.9 % (36.0-46.0); Hemoglobin 8.5 g/dL (12.2-16.2); Lymphocytes # (auto) 0.7 uL; Lymphocytes % (auto) 8.8 % (10.0-50.0); Mean Corpuscular Hemoglobin 23.3 pg (28.0-32.0); Mean Corpuscular Hgb Conc. 31.6 g/dL (32.0-36.0); Mean Corpuscular Volume 73.6 fL (80.0-100.0); Mean Platelet Volume 9.5 fL (7.4-10.4); Monocytes # (auto) 0.1 uL; Monocytes % (auto) 1.1 % (0.0-12.0); Neutrophils # (auto) 7.2 uL; Platelet Count (auto) 177 10^3/uL (140-450)
[2016-06-23 07:11] LABS: Red Cell Distribution Width 20.1 % (11.6-16.0)
[2016-06-23 07:34] LABS: Albumin 3.2 g/dL (3.4-5.0); Calcium 8.6 mg/dL (8.5-10.1); Potassium 4.3 mmol/L (3.5-5.1)
[2016-06-23 07:36] LABS: BUN/Creatinine Ratio 22.8
[2016-06-23 07:40] LABS: Bilirubin, Total 0.3 mg/dL (0.2-1.0); Total Protein 6.3 g/dL (6.4-8.2)
[2016-06-23 08:07] LABS: Anisocytosis Slight; Hypochromia Slight; Platelet Estimate Adequate
[2016-06-23] MEDS ORDERED: THROAT LOZENGES(CEPASTAT) MT PRN (09:00)
[2016-06-23] MEDS ORDERED: DEXTROSE (50%) 50ML SYRG IV PRN (09:15)
[2016-06-23] MEDS: ENOXAPARIN SOD 40 MG/0.4 ML SYRINGE SC SCH (09:57)
[2016-06-23] MEDS: PROMETHAZINE-DM 5 ML ORAL SYRUP GT PRN ×2 (10:27→22:33)
[2016-06-23] MEDS ORDERED: InsuLIN REG 1unit/0.01ml Soln (100units/ml) SC SCH (11:30)
[2016-06-23] MEDS: Boost Glucose Control 8 Ounces PO SCH (17:55)
[2016-06-23] MEDS: TEMAZEPAM 15 MG CAP PO PRN (22:39)
[2016-06-24] MEDS: ALBUTEROL SULF 2.5 MG/0.5ML(0.5%) NEB SOLN NEB SCH ×4 (00:35→19:16)
[2016-06-24] MEDS: IPRATROPIUM BROM 0.5 MG/2.5ML INH SOL NEB SCH ×4 (00:35→19:16)
[2016-06-24] MEDS: methylPREDNISolone SOD SUCC 40 MG/ML VL IV SCH ×4 (00:59→22:27)
[2016-06-24] MEDS: MORPHINE SULF INJ 2 MG/ML SYRINGE 1ML IV PRN ×3 (03:00→21:56)
[2016-06-24 05:00] VITALS: BP 99/53
[2016-06-24 05:46] LABS: Basophils # (auto) 0 uL; DEFINITIVE VIEW TRANSMISSION; Eosinophils # (auto) 0 uL; Hematocrit 27.9 % (36.0-46.0); Hemoglobin 8.8 g/dL (12.2-16.2); Lymphocytes # (auto) 0.6 uL; Lymphocytes % (auto) 4.8 % (10.0-50.0); Mean Corpuscular Hemoglobin 23.5 pg (28.0-32.0); Mean Corpuscular Hgb Conc. 31.7 g/dL (32.0-36.0); Mean Corpuscular Volume 74.2 fL (80.0-100.0); Mean Platelet Volume 9.1 fL (7.4-10.4); Monocytes # (auto) 0.2 uL; Monocytes % (auto) 1.7 % (0.0-12.0); Neutrophils # (auto) 11.5 uL; Neutrophils % (auto) 93.5 % (37.0-80.0); Platelet Count (auto) 290 10^3/uL (140-450); Red Cell Distribution Width 19.7 % (11.6-16.0); White Blood Cell 12.4 10^3/uL (4.4-10.8)
[2016-06-24] MEDS: DOXYCYCLINE HYC 100MG/250ML 250 ML IV SCH ×2 (06:00→18:05)
[2016-06-24] MEDS: ACCU-CHEK COMFORT CURVE STRIP VI SCH ×4 (06:05→22:00)
[2016-06-24 06:09] LABS: Potassium 4.6 mmol/L (3.5-5.1)
[2016-06-24 06:11] LABS: Albumin 3.4 g/dL (3.4-5.0); BUN/Creatinine Ratio 25.4; Calcium 8.7 mg/dL (8.5-10.1)
[2016-06-24 06:20] LABS: Bilirubin, Total 0.2 mg/dL (0.2-1.0); Total Protein 6.6 g/dL (6.4-8.2)
[2016-06-24] MEDS: InsuLIN REG 1unit/0.01ml Soln (100units/ml) SC SCH ×4 (07:13→22:39)
[2016-06-24 07:32] LABS: Anisocytosis Slight; Hypochromia Slight; Platelet Estimate Adequate
[2016-06-24 08:00] VITALS: BP 115/55
[2016-06-24] MEDS: Boost Glucose Control 8 Ounces PO SCH ×2 (08:00→17:59)
[2016-06-24 08:27] VITALS: BP 115/55
[2016-06-24] MEDS: SODIUM CHLORIDE 0.9% 1,000 ML IV SCH ×2 (09:31→23:05)
[2016-06-24] MEDS: ENOXAPARIN SOD 40 MG/0.4 ML SYRINGE SC SCH (10:51)
[2016-06-24 12:39] VITALS: BP 121/60
[2016-06-24] MEDS: PROMETHAZINE-DM 5 ML ORAL SYRUP GT PRN (13:44)
[2016-06-24 16:59] VITALS: BP 110/45
[2016-06-24 21:17] VITALS: BP 107/46
[2016-06-24] MEDS: TEMAZEPAM 15 MG CAP PO PRN (22:26)
[2016-06-25] MEDS: ALBUTEROL SULF 2.5 MG/0.5ML(0.5%) NEB SOLN NEB SCH ×4 (00:41→18:00)
[2016-06-25] MEDS: IPRATROPIUM BROM 0.5 MG/2.5ML INH SOL NEB SCH ×3 (00:41→11:43)
[2016-06-25] MEDS: MORPHINE SULF INJ 2 MG/ML SYRINGE 1ML IV PRN ×4 (03:23→21:22)
[2016-06-25 04:56] VITALS: BP 102/54
[2016-06-25 06:00] LABS: Basophils # (auto) 0 uL; DEFINITIVE VIEW TRANSMISSION; Eosinophils # (auto) 0 uL; Hematocrit 26.4 % (36.0-46.0); Hemoglobin 8.5 g/dL (12.2-16.2); Lymphocytes # (auto) 0.8 uL; Lymphocytes % (auto) 8.8 % (10.0-50.0); Mean Corpuscular Hemoglobin 23.4 pg (28.0-32.0); Mean Corpuscular Hgb Conc. 32.2 g/dL (32.0-36.0); Mean Corpuscular Volume 72.7 fL (80.0-100.0); Mean Platelet Volume 8.9 fL (7.4-10.4); Monocytes # (auto) 0.3 uL; Neutrophils # (auto) 8.2 uL; Neutrophils % (auto) 88.2 % (37.0-80.0); Platelet Count (auto) 280 10^3/uL (140-450); White Blood Cell 9.3 10^3/uL (4.4-10.8)
[2016-06-25 06:18] LABS: Potassium 4.9 mmol/L (3.5-5.1)
[2016-06-25] MEDS: DOXYCYCLINE HYC 100MG/250ML 250 ML IV SCH ×2 (06:21→18:12)
[2016-06-25 06:24] LABS: Albumin 3.1 g/dL (3.4-5.0); BUN/Creatinine Ratio 32.4; Calcium 8.4 mg/dL (8.5-10.1)
[2016-06-25 06:26] LABS: Bilirubin, Total 0.2 mg/dL (0.2-1.0); Total Protein 6.1 g/dL (6.4-8.2)
[2016-06-25 06:36] LABS: Anisocytosis Slight; Hypochromia Slight; Ovalocytes FEW; Platelet Estimate Adequate
[2016-06-25] MEDS: InsuLIN REG 1unit/0.01ml Soln (100units/ml) SC SCH ×4 (07:00→22:00)
[2016-06-25] MEDS: ACCU-CHEK COMFORT CURVE STRIP VI SCH ×4 (07:00→22:00)
[2016-06-25 07:11] VITALS: BP 114/72
[2016-06-25] MEDS: Boost Glucose Control 8 Ounces PO SCH ×2 (08:00→18:08)
[2016-06-25 08:20] VITALS: BP 114/72
[2016-06-25] MEDS: methylPREDNISolone SOD SUCC 40 MG/ML VL IV SCH ×2 (09:41→22:35)
[2016-06-25] MEDS: ENOXAPARIN SOD 40 MG/0.4 ML SYRINGE SC SCH (09:41)
[2016-06-25] MEDS: PROMETHAZINE-DM 5 ML ORAL SYRUP GT PRN (09:44)
[2016-06-25 11:48] VITALS: BP 117/46
[2016-06-25] MEDS: SODIUM CHLORIDE 0.9% 1,000 ML IV SCH (12:11)
[2016-06-25 16:20] VITALS: BP 111/68
[2016-06-25 22:00] VITALS: BP 105/55
[2016-06-26] VITALS (7 sets, daily range): BP systolic 105–114; BP diastolic 53–68
[2016-06-26] MEDS: ALBUTEROL SULF 2.5 MG/0.5ML(0.5%) NEB SOLN NEB SCH ×4 (00:25→18:39)
[2016-06-26] MEDS: IPRATROPIUM BROM 0.5 MG/2.5ML INH SOL NEB SCH ×4 (00:25→18:39)
[2016-06-26] MEDS: SODIUM CHLORIDE 0.9% 1,000 ML IV SCH ×2 (01:31→13:42)
[2016-06-26] MEDS: MORPHINE SULF INJ 2 MG/ML SYRINGE 1ML IV PRN ×4 (04:20→22:02)
[2016-06-26] MEDS: DOXYCYCLINE HYC 100MG/250ML 250 ML IV SCH (06:32)
[2016-06-26] MEDS: InsuLIN REG 1unit/0.01ml Soln (100units/ml) SC SCH ×4 (07:00→22:03)
[2016-06-26] MEDS: ACCU-CHEK COMFORT CURVE STRIP VI SCH ×4 (07:08→22:02)
[2016-06-26] MEDS: Boost Glucose Control 8 Ounces PO SCH ×2 (08:00→17:48)
[2016-06-26] MEDS: ENOXAPARIN SOD 40 MG/0.4 ML SYRINGE SC SCH (09:44)
[2016-06-26] MEDS: methylPREDNISolone SOD SUCC 40 MG/ML VL IV SCH ×2 (09:48→22:01)
[2016-06-26] MEDS: PROMETHAZINE-DM 5 ML ORAL SYRUP GT PRN (10:17)
[2016-06-26] MEDS: DOXYCYCLINE 100 MG TAB/CAP PO SCH (22:02)
[2016-06-27] MEDS: ALBUTEROL SULF 2.5 MG/0.5ML(0.5%) NEB SOLN NEB SCH ×3 (00:18→11:32)
[2016-06-27] MEDS: IPRATROPIUM BROM 0.5 MG/2.5ML INH SOL NEB SCH ×3 (00:18→11:32)
[2016-06-27] MEDS: MORPHINE SULF INJ 2 MG/ML SYRINGE 1ML IV PRN (04:43)
[2016-06-27] MEDS: PROMETHAZINE-DM 5 ML ORAL SYRUP GT PRN (04:43)
[2016-06-27 05:00] VITALS: BP 107/77
[2016-06-27 05:56] LABS: Basophils # (auto) 0 uL; Basophils % (auto) 0.1 % (0.0-2.0); DEFINITIVE VIEW TRANSMISSION; Eosinophils # (auto) 0 uL; Hematocrit 27.4 % (36.0-46.0); Hemoglobin 8.5 g/dL (12.2-16.2); Lymphocytes % (auto) 15.9 % (10.0-50.0); Mean Corpuscular Hemoglobin 22.9 pg (28.0-32.0); Mean Corpuscular Hgb Conc. 31.1 g/dL (32.0-36.0); Mean Corpuscular Volume 73.6 fL (80.0-100.0); Mean Platelet Volume 9.2 fL (7.4-10.4); Monocytes # (auto) 0.2 uL; Monocytes % (auto) 3.8 % (0.0-12.0); Neutrophils # (auto) 5.1 uL; Neutrophils % (auto) 80.2 % (37.0-80.0); Platelet Count (auto) 286 10^3/uL (140-450); Red Cell Distribution Width 19.8 % (11.6-16.0); White Blood Cell 6.4 10^3/uL (4.4-10.8)
[2016-06-27] MEDS: InsuLIN REG 1unit/0.01ml Soln (100units/ml) SC SCH ×2 (06:20→12:23)
[2016-06-27] MEDS: ACCU-CHEK COMFORT CURVE STRIP VI SCH ×2 (06:20→12:22)
[2016-06-27 06:34] LABS: BUN/Creatinine Ratio 37.5; Bilirubin, Total 0.2 mg/dL (0.2-1.0); Calcium 8.5 mg/dL (8.5-10.1); Potassium 4.5 mmol/L (3.5-5.1); Total Protein 6.1 g/dL (6.4-8.2)
[2016-06-27 08:00] VITALS: BP 102/48
[2016-06-27] MEDS: SODIUM CHLORIDE 0.9% 1,000 ML IV SCH (08:00)
[2016-06-27] MEDS: Boost Glucose Control 8 Ounces PO SCH (08:16)
[2016-06-27 08:24] VITALS: BP 102/48
[2016-06-27] MEDS: methylPREDNISolone SOD SUCC 40 MG/ML VL IV SCH (09:23)
[2016-06-27] MEDS: DOXYCYCLINE 100 MG TAB/CAP PO SCH (09:23)
[2016-06-27 11:44] VITALS: BP 122/49
[2016-06-27 12:28] VITALS: BP 122/49
== END 2016-06-27 13:45 | disposition home or self-care (01) | DRG 143 ==
LOC: ER 10:24 → TELE 10:25 → TELE-WESTW 20:00
PROVIDERS: ADMIT Internal Medicine; ATTEND Internal Medicine
DX: J80 Acute respiratory distress syndrome (principal); E44.0 Moderate protein-calorie malnutrition; J44.1 Chronic obstructive pulmonary disease with (acute) exacerbation; N39.0 Urinary tract infection, site not specified; J45.41 Moderate persistent asthma with (acute) exacerbation; Z90.3 Acquired absence of stomach [part of]; E11.9 Type 2 diabetes mellitus without complications; D50.9 Iron deficiency anemia, unspecified; E78.5 Hyperlipidemia, unspecified; D63.8 Anemia in other chronic diseases classified elsewhere; F41.9 Anxiety disorder, unspecified; F41.1 Generalized anxiety disorder; G89.29 Other chronic pain; D64.9 Anemia, unspecified; R79.89 Other specified abnormal findings of blood chemistry; Z80.0 Family history of malignant neoplasm of digestive organs; Z80.1 Family history of malignant neoplasm of trachea, bronchus and lung; Z80.3 Family history of malignant neoplasm of breast; Z86.718 Personal history of other venous thrombosis and embolism; Z80.41 Family history of malignant neoplasm of ovary; Z80.8 Family history of malignant neoplasm of other organs or systems; Z81.8 Family history of other mental and behavioral disorders; Z82.0 Family history of epilepsy and other diseases of the nervous system; Z82.3 Family history of stroke; Z82.49 Family history of ischemic heart disease and other diseases of the circulatory system; Z82.5 Family history of asthma and other chronic lower respiratory diseases; Z82.62 Family history of osteoporosis; Z83.3 Family history of diabetes mellitus; Z87.11 Personal history of peptic ulcer disease; Z90.49 Acquired absence of other specified parts of digestive tract; Z90.89 Acquired absence of other organs; Z90.710 Acquired absence of both cervix and uterus; Z82.61 Family history of arthritis; Z88.6 Allergy status to analgesic agent; Z88.8 Allergy status to other drugs, medicaments and biological substances; Z68.37 Body mass index [BMI] 37.0-37.9, adult
CPT/HCPCS: 36415; 71020; 80053; 81001; 82962; 83036; 83735; 84443; 85007; 85025; 85027; 93005; 94640; 94761; 96361; 96374; J1815; J3490

== ENCOUNTER 2016-08-20 14:53 | Inpatient (IN) | payer MEDICAID ==
[~2016-08-20] VITALS: Ht 165.1 cm; Wt 112.5 kg
[~2016-08-20 14:53] MED LIST changes: +IPRASOL39 NEB
[2016-08-20] MEDS ORDERED: ALBUTEROL SULF 2.5 MG/0.5ML(0.5%) NEB SOLN NEB ONE ×2 (15:30→19:45)
[2016-08-20] MEDS ORDERED: IPRATROPIUM BROM 0.5 MG/2.5ML INH SOL NEB ONE ×2 (15:30→19:45)
[2016-08-20 16:21] LABS: Basophils # (auto) 0 uL; Basophils % (auto) 0.3 % (0.0-2.0); DEFINITIVE VIEW TRANSMISSION; Eosinophils # (auto) 0.1 uL; Eosinophils % (auto) 1.2 % (0.0-7.0); Hemoglobin 9.9 g/dL (12.2-16.2); Lymphocytes # (auto) 2.7 uL; Lymphocytes % (auto) 23.6 % (10.0-50.0); Mean Corpuscular Hemoglobin 23.3 pg (28.0-32.0); Mean Corpuscular Hgb Conc. 31.8 g/dL (32.0-36.0); Mean Corpuscular Volume 73.2 fL (80.0-100.0); Mean Platelet Volume 8.5 fL (7.4-10.4); Monocytes # (auto) 0.6 uL; Monocytes % (auto) 5.6 % (0.0-12.0); Neutrophils # (auto) 7.8 uL; Neutrophils % (auto) 69.3 % (37.0-80.0); Platelet Count (auto) 443 10^3/uL (140-450); Red Cell Distribution Width 19.1 % (11.6-16.0); White Blood Cell 11.2 10^3/uL (4.4-10.8)
[2016-08-20 16:35] LABS: Calcium 8.8 mg/dL (8.5-10.1); Chloride 112 mmol/L (98-107); Potassium 3.8 mmol/L (3.5-5.1); Sodium 146 mmol/L (136-145)
[2016-08-20 16:39] LABS: Albumin 3.4 g/dL (3.4-5.0); Anion Gap 13 (5-15); Aspartate Aminotransferase 14 U/L (15-37); BUN/Creatinine Ratio 35.9; Blood Urea Nitrogen 23 mg/dL (7-18); Carbon Dioxide 21 mmol/L (21-32); GFR African American 121 mL/min; GFR Non-African American 100 mL/min; Glucose 117 mg/dL (74-106); Magnesium 2.1 mg/dL (1.6-2.6)
[2016-08-20 16:44] LABS: Alkaline Phosphatase 127 U/L (45-117); Bilirubin, Total 0.2 mg/dL (0.2-1.0); Total Protein 7.2 g/dL (6.4-8.2)
[2016-08-20 16:45] LABS: Anisocytosis Slight; Hypochromia Moderate; Microcytosis Moderate; Platelet Estimate Adequate
[2016-08-20] MEDS ORDERED: ONDANSETRON HCL 4 MG/2 ML VIAL IV ONE (20:30)
[2016-08-20] MEDS ORDERED: methylPREDNISolone SOD SUCC 125 MG/2 ML VL IV ONE (20:30)
[2016-08-20] MEDS ORDERED: MORPHINE SULFATE 4 MG/ML SYRG IV ONE (20:30)
[2016-08-20] MEDS ORDERED: SODIUM CHLORIDE 0.9% 1,000 ML IV ONE (20:30)
[2016-08-20 20:49] LABS: Amylase 71 U/L (25-115)
[2016-08-20] MEDS ORDERED: cefTRIAXone 1GM/50ML D5W 50 ML IV ONE (21:30)
[2016-08-20] MEDS ORDERED: ACETAMINOPHEN 325 MG TAB PO PRN (22:30)
[2016-08-20] MEDS ORDERED: DEXTROSE (50%) 50ML SYRG IV PRN (22:30)
[2016-08-20] MEDS: NALBUPHINE HCL 10 MG/1ml INJECTION IV PRN (23:25)
[2016-08-20 23:30] VITALS: BP 123/63
[2016-08-20 23:36] VITALS: BP 123/63
[2016-08-21] VITALS (7 sets, daily range): BP systolic 92–130; BP diastolic 44–63
[2016-08-21] MEDS: ACCU-CHEK COMFORT CURVE STRIP VI SCH ×4 (00:05→18:22)
[2016-08-21] MEDS: InsuLIN REG 1unit/0.01ml Soln (100units/ml) SC SCH ×4 (00:21→18:22)
[2016-08-21] MEDS: TEMAZEPAM 15 MG CAP PO PRN ×2 (00:22→21:18)
[2016-08-21] MEDS ORDERED: CYAN100023 PO (00:57)
[2016-08-21] MEDS ORDERED: MULTCAP45 PO (00:57)
[2016-08-21] MEDS ORDERED: MELA3TAB27 PO (00:57)
[2016-08-21] MEDS ORDERED: ASCO100T PO (00:57)
[2016-08-21] MEDS: ALBUTEROL SULF 2.5 MG/0.5ML(0.5%) NEB SOLN NEB PRN ×5 (05:41→22:11)
[2016-08-21] MEDS: IPRATROPIUM BROM 0.5 MG/2.5ML INH SOL NEB PRN ×5 (05:41→22:11)
[2016-08-21 07:01] LABS: Basophils # (auto) 0 uL; Basophils % (auto) 0.1 % (0.0-2.0); DEFINITIVE VIEW TRANSMISSION; Eosinophils # (auto) 0 uL; Hematocrit 28.5 % (36.0-46.0); Hemoglobin 9.1 g/dL (12.2-16.2); Lymphocytes # (auto) 0.5 uL; Lymphocytes % (auto) 6.6 % (10.0-50.0); Mean Corpuscular Hemoglobin 23.1 pg (28.0-32.0); Mean Corpuscular Hgb Conc. 31.8 g/dL (32.0-36.0); Mean Corpuscular Volume 72.6 fL (80.0-100.0); Monocytes # (auto) 0.1 uL; Monocytes % (auto) 0.6 % (0.0-12.0); Neutrophils # (auto) 7.7 uL; Neutrophils % (auto) 92.7 % (37.0-80.0); Platelet Count (auto) 387 10^3/uL (140-450); Red Cell Distribution Width 18.8 % (11.6-16.0); White Blood Cell 8.3 10^3/uL (4.4-10.8)
[2016-08-21 07:41] LABS: Albumin 3.4 g/dL (3.4-5.0); BUN/Creatinine Ratio 32.4; Bilirubin, Total 0.3 mg/dL (0.2-1.0); Calcium 8.9 mg/dL (8.5-10.1); Potassium 4.5 mmol/L (3.5-5.1); Total Protein 6.6 g/dL (6.4-8.2)
[2016-08-21] MEDS: NALBUPHINE HCL 10 MG/1ml INJECTION IV PRN ×3 (07:41→21:12)
[2016-08-21] MEDS: methylPREDNISolone SOD SUCC 125 MG/2 ML VL IV SCH ×2 (09:53→21:12)
[2016-08-21] MEDS: FAMOTIDINE 20 MG TAB PO SCH ×2 (09:54→21:11)
[2016-08-21] MEDS: ENOXAPARIN SOD 40 MG/0.4 ML SYRINGE SC SCH (09:54)
[2016-08-21] MEDS: cefTRIAXone 1GM/50ML D5W 50 ML IV SCH (09:54)
[2016-08-21] MEDS ORDERED: PROMETHAZINE-DM 5 ML ORAL SYRUP GT PRN (10:00)
[2016-08-21] MEDS: Boost Glucose Control 8 Ounces PO SCH ×2 (14:21→18:22)
[2016-08-21] MEDS: PROMETHAZINE-DM 5 ML ORAL SYRUP PO PRN (20:03)
[2016-08-22] MEDS: ACCU-CHEK COMFORT CURVE STRIP VI SCH ×5 (00:10→23:38)
[2016-08-22] MEDS: InsuLIN REG 1unit/0.01ml Soln (100units/ml) SC SCH ×5 (00:11→23:38)
[2016-08-22] MEDS: ALBUTEROL SULF 2.5 MG/0.5ML(0.5%) NEB SOLN NEB PRN ×3 (02:15→14:31)
[2016-08-22] MEDS: IPRATROPIUM BROM 0.5 MG/2.5ML INH SOL NEB PRN ×3 (02:15→14:31)
[2016-08-22] MEDS: PROMETHAZINE-DM 5 ML ORAL SYRUP PO PRN ×2 (03:38→21:45)
[2016-08-22] MEDS: NALBUPHINE HCL 10 MG/1ml INJECTION IV PRN ×3 (03:43→21:45)
[2016-08-22 05:00] VITALS: BP 115/43
[2016-08-22 05:47] LABS: Basophils # (auto) 0 uL; Basophils % (auto) 0.1 % (0.0-2.0); DEFINITIVE VIEW TRANSMISSION; Eosinophils # (auto) 0 uL; Hemoglobin 8.5 g/dL (12.2-16.2); Lymphocytes # (auto) 0.6 uL; Lymphocytes % (auto) 4.2 % (10.0-50.0); Mean Corpuscular Hemoglobin 23.1 pg (28.0-32.0); Mean Corpuscular Hgb Conc. 31.6 g/dL (32.0-36.0); Mean Corpuscular Volume 73.1 fL (80.0-100.0); Mean Platelet Volume 9.1 fL (7.4-10.4); Monocytes # (auto) 0.3 uL; Monocytes % (auto) 1.7 % (0.0-12.0); Neutrophils # (auto) 14.5 uL; Platelet Count (auto) 377 10^3/uL (140-450); Red Cell Distribution Width 19.7 % (11.6-16.0); White Blood Cell 15.4 10^3/uL (4.4-10.8)
[2016-08-22 05:59] LABS: BUN/Creatinine Ratio 29.7; Calcium 8.6 mg/dL (8.5-10.1); Potassium 4.4 mmol/L (3.5-5.1)
[2016-08-22 06:02] LABS: Bilirubin, Total 0.2 mg/dL (0.2-1.0); Total Protein 6.6 g/dL (6.4-8.2)
[2016-08-22 08:00] VITALS: BP 120/67
[2016-08-22] MEDS: Boost Glucose Control 8 Ounces PO SCH ×3 (08:00→18:00)
[2016-08-22] MEDS: cefTRIAXone 1GM/50ML D5W 50 ML IV SCH (09:37)
[2016-08-22] MEDS: SOD CHL 0.45% 1,000 ML IV SCH ×2 (09:45→23:25)
[2016-08-22 09:48] VITALS: BP 120/67
[2016-08-22] MEDS: FAMOTIDINE 20 MG TAB PO SCH ×2 (10:18→21:44)
[2016-08-22] MEDS: methylPREDNISolone SOD SUCC 125 MG/2 ML VL IV SCH ×2 (10:19→21:44)
[2016-08-22] MEDS: ENOXAPARIN SOD 40 MG/0.4 ML SYRINGE SC SCH (10:20)
[2016-08-22 13:56] VITALS: BP 120/84
[2016-08-22 17:15] VITALS: BP 117/46
[2016-08-22 21:27] VITALS: BP 131/69
[2016-08-22] MEDS: TEMAZEPAM 15 MG CAP PO PRN (21:45)
[2016-08-22] MEDS: BUDESONIDE (INHALATION) 0.5 MG/2 ML NEB NEB SCH (21:54)
[2016-08-22] MEDS: IPRATROPIUM BROM 0.5 MG/2.5ML INH SOL NEB SCH (21:54)
[2016-08-23] VITALS (7 sets, daily range): BP systolic 117–125; BP diastolic 59–68
[2016-08-23] MEDS: PROMETHAZINE-DM 5 ML ORAL SYRUP PO PRN ×2 (05:29→21:53)
[2016-08-23] MEDS: NALBUPHINE HCL 10 MG/1ml INJECTION IV PRN ×2 (05:29→13:37)
[2016-08-23] MEDS: ACCU-CHEK COMFORT CURVE STRIP VI SCH ×4 (05:30→23:14)
[2016-08-23] MEDS: InsuLIN REG 1unit/0.01ml Soln (100units/ml) SC SCH ×5 (05:32→23:18)
[2016-08-23] MEDS: IPRATROPIUM BROM 0.5 MG/2.5ML INH SOL NEB SCH ×5 (05:43→22:32)
[2016-08-23] MEDS: ALBUTEROL SULF 2.5 MG/0.5ML(0.5%) NEB SOLN NEB SCH ×5 (05:44→22:32)
[2016-08-23] MEDS: BUDESONIDE (INHALATION) 0.5 MG/2 ML NEB NEB SCH ×2 (05:46→18:40)
[2016-08-23 06:04] LABS: Basophils # (auto) 0 uL; DEFINITIVE VIEW TRANSMISSION; Eosinophils # (auto) 0 uL; Hematocrit 26.7 % (36.0-46.0); Hemoglobin 8.5 g/dL (12.2-16.2); Lymphocytes # (auto) 0.7 uL; Lymphocytes % (auto) 6.2 % (10.0-50.0); Mean Corpuscular Hemoglobin 23.1 pg (28.0-32.0); Mean Corpuscular Hgb Conc. 31.9 g/dL (32.0-36.0); Mean Corpuscular Volume 72.7 fL (80.0-100.0); Mean Platelet Volume 9.2 fL (7.4-10.4); Monocytes # (auto) 0.1 uL; Monocytes % (auto) 1.2 % (0.0-12.0); Neutrophils # (auto) 10.9 uL; Neutrophils % (auto) 92.6 % (37.0-80.0); Platelet Count (auto) 336 10^3/uL (140-450); Red Cell Distribution Width 18.8 % (11.6-16.0); White Blood Cell 11.8 10^3/uL (4.4-10.8)
[2016-08-23 06:24] LABS: Potassium 4.4 mmol/L (3.5-5.1)
[2016-08-23 06:28] LABS: Albumin 2.9 g/dL (3.4-5.0); BUN/Creatinine Ratio 40.6; Calcium 8.4 mg/dL (8.5-10.1)
[2016-08-23 06:31] LABS: Bilirubin, Total 0.1 mg/dL (0.2-1.0); Total Protein 6.5 g/dL (6.4-8.2)
[2016-08-23] MEDS: Boost Glucose Control 8 Ounces PO SCH ×3 (08:00→18:13)
[2016-08-23] MEDS: cefTRIAXone 1GM/50ML D5W 50 ML IV SCH (08:56)
[2016-08-23] MEDS: FAMOTIDINE 20 MG TAB PO SCH ×2 (10:33→21:37)
[2016-08-23] MEDS: methylPREDNISolone SOD SUCC 125 MG/2 ML VL IV SCH ×2 (10:34→21:53)
[2016-08-23] MEDS: ENOXAPARIN SOD 40 MG/0.4 ML SYRINGE SC SCH (10:34)
[2016-08-23] MEDS: SOD CHL 0.45% 1,000 ML IV SCH (12:47)
[2016-08-23] MEDS: HYDROmorphone HCL 2 MG/ML VL IV PRN ×2 (16:49→21:37)
[2016-08-23] MEDS: TEMAZEPAM 15 MG CAP PO PRN (21:37)
[2016-08-24] VITALS (7 sets, daily range): BP systolic 107–127; BP diastolic 49–66
[2016-08-24] MEDS: IPRATROPIUM BROM 0.5 MG/2.5ML INH SOL NEB SCH ×6 (02:09→22:18)
[2016-08-24] MEDS: SOD CHL 0.45% 1,000 ML IV SCH ×2 (02:44→16:55)
[2016-08-24] MEDS: PROMETHAZINE-DM 5 ML ORAL SYRUP PO PRN ×4 (04:37→22:03)
[2016-08-24] MEDS: HYDROmorphone HCL 2 MG/ML VL IV PRN ×5 (05:38→22:51)
[2016-08-24] MEDS: methylPREDNISolone SOD SUCC 125 MG/2 ML VL IV SCH ×3 (05:38→22:03)
[2016-08-24] MEDS: ACCU-CHEK COMFORT CURVE STRIP VI SCH ×4 (06:00→23:44)
[2016-08-24] MEDS: ALBUTEROL SULF 2.5 MG/0.5ML(0.5%) NEB SOLN NEB SCH ×4 (06:15→18:20)
[2016-08-24] MEDS: BUDESONIDE (INHALATION) 0.5 MG/2 ML NEB NEB SCH ×2 (06:16→22:18)
[2016-08-24] MEDS: InsuLIN REG 1unit/0.01ml Soln (100units/ml) SC SCH ×4 (07:35→23:44)
[2016-08-24 08:13] LABS: Albumin 2.9 g/dL (3.4-5.0); BUN/Creatinine Ratio 34.8; Bilirubin, Total 0.2 mg/dL (0.2-1.0); Calcium 8.5 mg/dL (8.5-10.1); Potassium 3.9 mmol/L (3.5-5.1); Total Protein 5.9 g/dL (6.4-8.2)
[2016-08-24 09:17] LABS: Basophils # (auto) 0 uL; DEFINITIVE VIEW TRANSMISSION; Eosinophils # (auto) 0 uL; Lymphocytes # (auto) 0.8 uL; Lymphocytes % (auto) 8.5 % (10.0-50.0); Monocytes % (auto) 1.6 % (0.0-12.0); Neutrophils # (auto) 8.5 uL; Neutrophils % (auto) 89.9 % (37.0-80.0); White Blood Cell 9.4 10^3/uL (4.4-10.8)
[2016-08-24 09:26] LABS: Hemoglobin 8.3 g/dL (12.2-16.2); Mean Corpuscular Hemoglobin 23.2 pg (28.0-32.0); Mean Corpuscular Hgb Conc. 32.1 g/dL (32.0-36.0); Mean Corpuscular Volume 72.3 fL (80.0-100.0); Mean Platelet Volume 9.2 fL (7.4-10.4); Monocytes # (auto) 0.1 uL; Platelet Count (auto) 328 10^3/uL (140-450); Red Cell Distribution Width 19.2 % (11.6-16.0)
[2016-08-24 09:37] LABS: Anisocytosis Slight; Hypochromia Moderate; Microcytosis Moderate; Platelet Estimate Adequate
[2016-08-24] MEDS: Boost Glucose Control 8 Ounces PO SCH ×3 (10:22→17:21)
[2016-08-24] MEDS: ENOXAPARIN SOD 40 MG/0.4 ML SYRINGE SC SCH (10:23)
[2016-08-24] MEDS: cefTRIAXone 1GM/50ML D5W 50 ML IV SCH (10:23)
[2016-08-24] MEDS: FAMOTIDINE 20 MG TAB PO SCH ×2 (10:23→22:03)
[2016-08-24] MEDS: TEMAZEPAM 15 MG CAP PO PRN (23:42)
[2016-08-25] MEDS: IPRATROPIUM BROM 0.5 MG/2.5ML INH SOL NEB SCH ×6 (02:00→22:46)
[2016-08-25] MEDS: HYDROmorphone HCL 2 MG/ML VL IV PRN ×5 (02:54→21:08)
[2016-08-25] MEDS: SOD CHL 0.45% 1,000 ML IV SCH (04:22)
[2016-08-25] MEDS: PROMETHAZINE-DM 5 ML ORAL SYRUP PO PRN ×4 (04:40→21:34)
[2016-08-25 05:00] VITALS: BP 105/57
[2016-08-25 05:44] LABS: Basophils # (auto) 0 uL; Basophils % (auto) 0.1 % (0.0-2.0); DEFINITIVE VIEW TRANSMISSION; Eosinophils # (auto) 0 uL; Hematocrit 28.7 % (36.0-46.0); Hemoglobin 9.3 g/dL (12.2-16.2); Lymphocytes # (auto) 0.8 uL; Lymphocytes % (auto) 6.7 % (10.0-50.0); Mean Corpuscular Hemoglobin 23.2 pg (28.0-32.0); Mean Corpuscular Hgb Conc. 32.3 g/dL (32.0-36.0); Mean Platelet Volume 8.4 fL (7.4-10.4); Monocytes # (auto) 0.3 uL; Monocytes % (auto) 2.4 % (0.0-12.0); Neutrophils # (auto) 10.7 uL; Neutrophils % (auto) 90.8 % (37.0-80.0); Platelet Count (auto) 367 10^3/uL (140-450); Red Cell Distribution Width 18.2 % (11.6-16.0); White Blood Cell 11.8 10^3/uL (4.4-10.8)
[2016-08-25] MEDS: methylPREDNISolone SOD SUCC 125 MG/2 ML VL IV SCH ×3 (05:53→21:34)
[2016-08-25] MEDS: ACCU-CHEK COMFORT CURVE STRIP VI SCH ×4 (05:54→23:51)
[2016-08-25] MEDS: InsuLIN REG 1unit/0.01ml Soln (100units/ml) SC SCH ×4 (05:56→23:52)
[2016-08-25 06:04] LABS: Bilirubin, Total 0.2 mg/dL (0.2-1.0); Calcium 8.4 mg/dL (8.5-10.1); Potassium 4.2 mmol/L (3.5-5.1); Total Protein 6.2 g/dL (6.4-8.2)
[2016-08-25] MEDS: ALBUTEROL SULF 2.5 MG/0.5ML(0.5%) NEB SOLN NEB SCH ×4 (06:37→18:43)
[2016-08-25 07:47] VITALS: BP 117/64
[2016-08-25 08:18] VITALS: BP 117/64
[2016-08-25] MEDS: FAMOTIDINE 20 MG TAB PO SCH ×2 (09:05→21:34)
[2016-08-25] MEDS: ENOXAPARIN SOD 40 MG/0.4 ML SYRINGE SC SCH (09:05)
[2016-08-25] MEDS: cefTRIAXone 1GM/50ML D5W 50 ML IV SCH (09:05)
[2016-08-25] MEDS: Boost Glucose Control 8 Ounces PO SCH ×3 (09:09→18:10)
[2016-08-25] MEDS: BUDESONIDE (INHALATION) 0.5 MG/2 ML NEB NEB SCH ×2 (10:16→22:46)
[2016-08-25 13:03] VITALS: BP 110/49
[2016-08-25 16:30] VITALS: BP 114/59
[2016-08-25] MEDS: TEMAZEPAM 15 MG CAP PO PRN (21:34)
[2016-08-25 22:00] VITALS: BP 117/61
[2016-08-26] MEDS: HYDROmorphone HCL 2 MG/ML VL IV PRN ×5 (01:21→21:02)
[2016-08-26] MEDS: IPRATROPIUM BROM 0.5 MG/2.5ML INH SOL NEB SCH ×6 (03:09→23:05)
[2016-08-26 05:33] VITALS: BP 115/61
[2016-08-26] MEDS: PROMETHAZINE-DM 5 ML ORAL SYRUP PO PRN ×3 (05:40→21:03)
[2016-08-26] MEDS: ACCU-CHEK COMFORT CURVE STRIP VI SCH ×3 (05:40→17:57)
[2016-08-26] MEDS: InsuLIN REG 1unit/0.01ml Soln (100units/ml) SC SCH ×3 (05:43→17:57)
[2016-08-26] MEDS: methylPREDNISolone SOD SUCC 125 MG/2 ML VL IV SCH ×3 (05:47→21:41)
[2016-08-26] MEDS: ALBUTEROL SULF 2.5 MG/0.5ML(0.5%) NEB SOLN NEB SCH ×4 (06:04→18:41)
[2016-08-26 06:40] LABS: Basophils # (auto) 0 uL; DEFINITIVE VIEW TRANSMISSION; Eosinophils # (auto) 0 uL; Hematocrit 26.5 % (36.0-46.0); Hemoglobin 8.6 g/dL (12.2-16.2); Lymphocytes % (auto) 9.8 % (10.0-50.0); Mean Corpuscular Hemoglobin 23.5 pg (28.0-32.0); Mean Corpuscular Hgb Conc. 32.5 g/dL (32.0-36.0); Mean Corpuscular Volume 72.2 fL (80.0-100.0); Mean Platelet Volume 8.5 fL (7.4-10.4); Monocytes # (auto) 0.5 uL; Monocytes % (auto) 4.8 % (0.0-12.0); Neutrophils # (auto) 8.5 uL; Neutrophils % (auto) 85.4 % (37.0-80.0); Platelet Count (auto) 335 10^3/uL (140-450); Red Cell Distribution Width 18.2 % (11.6-16.0); White Blood Cell 9.9 10^3/uL (4.4-10.8)
[2016-08-26] MEDS: SOD CHL 0.45% 1,000 ML IV SCH ×2 (07:02→19:55)
[2016-08-26 07:07] LABS: Albumin 2.8 g/dL (3.4-5.0); BUN/Creatinine Ratio 48.3; Bilirubin, Total 0.2 mg/dL (0.2-1.0); Calcium 8.3 mg/dL (8.5-10.1); Potassium 4.4 mmol/L (3.5-5.1); Total Protein 5.8 g/dL (6.4-8.2)
[2016-08-26 07:46] VITALS: BP 128/63
[2016-08-26 08:05] VITALS: BP 128/63
[2016-08-26] MEDS: Boost Glucose Control 8 Ounces PO SCH ×3 (09:17→17:56)
[2016-08-26] MEDS: cefTRIAXone 1GM/50ML D5W 50 ML IV SCH (09:18)
[2016-08-26] MEDS: ENOXAPARIN SOD 40 MG/0.4 ML SYRINGE SC SCH (10:11)
[2016-08-26] MEDS: FAMOTIDINE 20 MG TAB PO SCH ×2 (10:11→21:41)
[2016-08-26] MEDS: BUDESONIDE (INHALATION) 0.5 MG/2 ML NEB NEB SCH ×2 (10:22→18:42)
[2016-08-26 12:32] VITALS: BP 115/68
[2016-08-26 16:31] VITALS: BP 108/64
[2016-08-26] MEDS: TEMAZEPAM 15 MG CAP PO PRN (21:40)
[2016-08-26 22:00] VITALS: BP 114/61
[2016-08-27] VITALS (7 sets, daily range): BP systolic 106–138; BP diastolic 52–78
[2016-08-27] MEDS: HYDROmorphone HCL 2 MG/ML VL IV PRN ×5 (01:21→21:08)
[2016-08-27] MEDS: IPRATROPIUM BROM 0.5 MG/2.5ML INH SOL NEB SCH ×6 (02:00→22:22)
[2016-08-27] MEDS: PROMETHAZINE-DM 5 ML ORAL SYRUP PO PRN ×2 (04:32→21:07)
[2016-08-27] MEDS: methylPREDNISolone SOD SUCC 125 MG/2 ML VL IV SCH ×3 (05:41→21:08)
[2016-08-27] MEDS: ACCU-CHEK COMFORT CURVE STRIP VI SCH ×4 (05:42→18:17)
[2016-08-27] MEDS: ALBUTEROL SULF 2.5 MG/0.5ML(0.5%) NEB SOLN NEB SCH ×4 (05:53→18:26)
[2016-08-27] MEDS: InsuLIN REG 1unit/0.01ml Soln (100units/ml) SC SCH ×4 (05:54→18:21)
[2016-08-27 06:32] LABS: BUN/Creatinine Ratio 40.7; Calcium 8.1 mg/dL (8.5-10.1)
[2016-08-27] MEDS: Boost Glucose Control 8 Ounces PO SCH ×3 (07:41→18:17)
[2016-08-27] MEDS: BUDESONIDE (INHALATION) 0.5 MG/2 ML NEB NEB SCH ×2 (09:34→22:23)
[2016-08-27] MEDS: cefTRIAXone 1GM/50ML D5W 50 ML IV SCH (09:47)
[2016-08-27] MEDS: SOD CHL 0.45% 1,000 ML IV SCH ×2 (09:47→23:05)
[2016-08-27] MEDS: ENOXAPARIN SOD 40 MG/0.4 ML SYRINGE SC SCH (09:48)
[2016-08-27] MEDS: FAMOTIDINE 20 MG TAB PO SCH ×2 (09:48→21:07)
[2016-08-27] MEDS: TEMAZEPAM 15 MG CAP PO PRN (21:49)
[2016-08-28] MEDS: IPRATROPIUM BROM 0.5 MG/2.5ML INH SOL NEB SCH ×3 (02:01→09:58)
[2016-08-28 05:36] VITALS: BP 126/60
[2016-08-28] MEDS: HYDROmorphone HCL 2 MG/ML VL IV PRN ×2 (05:46→10:17)
[2016-08-28] MEDS: ACCU-CHEK COMFORT CURVE STRIP VI SCH ×3 (05:46→12:00)
[2016-08-28] MEDS: methylPREDNISolone SOD SUCC 125 MG/2 ML VL IV SCH (05:46)
[2016-08-28] MEDS: PROMETHAZINE-DM 5 ML ORAL SYRUP PO PRN ×2 (05:47→10:18)
[2016-08-28] MEDS: ALBUTEROL SULF 2.5 MG/0.5ML(0.5%) NEB SOLN NEB SCH ×2 (05:53→09:58)
[2016-08-28] MEDS: InsuLIN REG 1unit/0.01ml Soln (100units/ml) SC SCH ×3 (06:09→12:00)
[2016-08-28 06:54] LABS: Basophils # (auto) 0 uL; DEFINITIVE VIEW TRANSMISSION; Eosinophils # (auto) 0 uL; Eosinophils % (auto) 0.1 % (0.0-7.0); Hematocrit 27.8 % (36.0-46.0); Hemoglobin 8.9 g/dL (12.2-16.2); Lymphocytes # (auto) 0.7 uL; Lymphocytes % (auto) 6.2 % (10.0-50.0); Mean Corpuscular Hemoglobin 23.3 pg (28.0-32.0); Mean Corpuscular Hgb Conc. 32.1 g/dL (32.0-36.0); Mean Corpuscular Volume 72.5 fL (80.0-100.0); Mean Platelet Volume 8.7 fL (7.4-10.4); Monocytes # (auto) 0.4 uL; Monocytes % (auto) 3.9 % (0.0-12.0); Neutrophils # (auto) 9.6 uL; Neutrophils % (auto) 89.8 % (37.0-80.0); Platelet Count (auto) 336 10^3/uL (140-450); Red Cell Distribution Width 18.2 % (11.6-16.0); SUSPECT VIEW TRANSMISSION; White Blood Cell 10.6 10^3/uL (4.4-10.8)
[2016-08-28 06:55] LABS: Potassium 4.4 mmol/L (3.5-5.1)
[2016-08-28 06:57] LABS: Albumin 2.8 g/dL (3.4-5.0); Calcium 8.4 mg/dL (8.5-10.1)
[2016-08-28 07:07] LABS: Bilirubin, Total 0.2 mg/dL (0.2-1.0); Total Protein 5.8 g/dL (6.4-8.2)
[2016-08-28 07:12] LABS: Allen Test Modified; Base Excess 3.1 mmol/L (-2.0-2.0); Blood 02Sat 87.6 % (96-100); Blood COHb 0.3 % (0.5-1.5); Blood MetHb 0.4 % (0.0-1.5); HCO3 27.2 mmol/L (22-26.0); HHb 12.3 % (0.0-5.0); MODE ROOM AIR; PO2 54.9 mmHg (80.0-100.0); PO2(T) 54.9 mmHg (80.0-100.0); Sample Type Arterial; pH 7.451 (7.350-7.450)
[2016-08-28 08:00] VITALS: BP 104/50
[2016-08-28] MEDS: Boost Glucose Control 8 Ounces PO SCH ×2 (08:00→12:00)
[2016-08-28] MEDS: cefTRIAXone 1GM/50ML D5W 50 ML IV SCH (08:57)
[2016-08-28 09:00] VITALS: BP 109/50
[2016-08-28] MEDS: BUDESONIDE (INHALATION) 0.5 MG/2 ML NEB NEB SCH (09:58)
[2016-08-28] MEDS: ENOXAPARIN SOD 40 MG/0.4 ML SYRINGE SC SCH (10:17)
[2016-08-28] MEDS: FAMOTIDINE 20 MG TAB PO SCH (10:18)
[2016-08-28] MEDS: SOD CHL 0.45% 1,000 ML IV SCH (12:25)
[2016-08-28 13:00] VITALS: BP 127/73
[2016-08-28 13:17] VITALS: BP 104/50
== END 2016-08-28 14:05 | disposition home or self-care (01) | DRG 141 ==
LOC: ER 15:11 → TELE 15:12 → CENTRAL 23:15
PROVIDERS: ADMIT Nurse Practitioner; ATTEND Internal Medicine
DX: J45.901 Unspecified asthma with (acute) exacerbation (principal); E44.0 Moderate protein-calorie malnutrition; J44.0 Chronic obstructive pulmonary disease with (acute) lower respiratory infection; E11.9 Type 2 diabetes mellitus without complications; Z68.41 Body mass index [BMI] 40.0-44.9, adult; Z90.3 Acquired absence of stomach [part of]; J20.9 Acute bronchitis, unspecified; D63.8 Anemia in other chronic diseases classified elsewhere; Z85.89 Personal history of malignant neoplasm of other organs and systems; Z87.11 Personal history of peptic ulcer disease; Z80.0 Family history of malignant neoplasm of digestive organs; E66.01 Morbid (severe) obesity due to excess calories; J44.1 Chronic obstructive pulmonary disease with (acute) exacerbation; Z80.1 Family history of malignant neoplasm of trachea, bronchus and lung; Z80.3 Family history of malignant neoplasm of breast; Z80.41 Family history of malignant neoplasm of ovary; Z80.8 Family history of malignant neoplasm of other organs or systems; Z81.8 Family history of other mental and behavioral disorders; Z82.0 Family history of epilepsy and other diseases of the nervous system; Z82.3 Family history of stroke; Z82.49 Family history of ischemic heart disease and other diseases of the circulatory system; Z82.5 Family history of asthma and other chronic lower respiratory diseases; Z82.62 Family history of osteoporosis; Z83.3 Family history of diabetes mellitus; Z98.84 Bariatric surgery status; Z90.89 Acquired absence of other organs; Z90.49 Acquired absence of other specified parts of digestive tract; Z90.710 Acquired absence of both cervix and uterus; Z71.89 Other specified counseling; Z88.6 Allergy status to analgesic agent; Z88.5 Allergy status to narcotic agent; Z88.8 Allergy status to other drugs, medicaments and biological substances; Z82.61 Family history of arthritis; Z84.89 Family history of other specified conditions; Z83.49 Family history of other endocrine, nutritional and metabolic diseases
CPT/HCPCS: 36415; 36600; 71020; 80048; 80053; 82150; 82805; 82962; 83690; 83735; 84484; 85025; 87070; 87081; 87205; 93005; 94640; 96365; 96375; 99291; J0696; J1815; J2405

== ENCOUNTER 2016-09-21 14:41 | Emergency (ER) | payer MEDICAID ==
[~2016-09-21] VITALS: Ht 165.1 cm; Wt 99.8 kg
[~2016-09-21 14:41] MED LIST changes: +ASCO100T PO; +CYAN100023 PO; +MELA3TAB27 PO; +MULTCAP45 PO
[2016-09-21 15:27] LABS: Basophils # (auto) 0 uL; Basophils % (auto) 0.8 % (0.0-2.0); CONDITION Y; DEFINITIVE SEE PRINTOUT; Eosinophils # (auto) 0.1 uL; Eosinophils % (auto) 2.6 % (0.0-7.0); Hematocrit 29.8 % (36.0-46.0); Hemoglobin 9.5 g/dL (12.2-16.2); Lymphocytes # (auto) 1.9 uL; Lymphocytes % (auto) 42.8 % (10.0-50.0); Mean Corpuscular Hemoglobin 23.4 pg (28.0-32.0); Mean Corpuscular Hgb Conc. 31.9 g/dL (32.0-36.0); Mean Corpuscular Volume 73.4 fL (80.0-100.0); Mean Platelet Volume 8.3 fL (7.4-10.4); Monocytes # (auto) 0.4 uL; Monocytes % (auto) 8.7 % (0.0-12.0); Neutrophils % (auto) 45.1 % (37.0-80.0); Platelet Count (auto) 348 10^3/uL (140-450); White Blood Cell 4.5 10^3/uL (4.4-10.8)
[2016-09-21 15:38] LABS: Red Cell Distribution Width 20.2 % (11.6-16.0)
[2016-09-21 15:43] LABS: Albumin 3.3 g/dL (3.4-5.0); Amylase 60 U/L (25-115); Anion Gap 9 (5-15); Aspartate Aminotransferase 23 U/L (15-37); Blood Urea Nitrogen 13 mg/dL (7-18); Calcium 8.6 mg/dL (8.5-10.1); Carbon Dioxide 24 mmol/L (21-32); Chloride 111 mmol/L (98-107); GFR African American 125 mL/min; GFR Non-African American 104 mL/min; Glucose 157 mg/dL (74-106); Potassium 4.2 mmol/L (3.5-5.1); Sodium 144 mmol/L (136-145)
[2016-09-21 15:47] LABS: Alkaline Phosphatase 189 U/L (45-117); Bilirubin, Total 0.3 mg/dL (0.2-1.0); Total Protein 7.1 g/dL (6.4-8.2)
[2016-09-21 15:51] LABS: Hypochromia Moderate; Platelet Estimate Adequate
[2016-09-21 15:52] LABS: Anisocytosis Slight; Ovalocytes FEW; Polychromasia Slight
[2016-09-21 15:53] LABS: Burr Cells FEW; Giant Platelets Few
[2016-09-22] MEDS ORDERED: SODIUM CHLORIDE 0.9% 1,000 ML IV ONE (01:45)
[2016-09-22] MEDS ORDERED: MORPHINE SULFATE 4 MG/ML SYRG IV ONE (01:45)
[2016-09-22 01:56] LABS: Urine Bilirubin Negative (Negative); Urine Blood Negative /uL (Negative); Urine Color Yellow (Yellow); Urine Glucose Normal (Normal); Urine Ketone Negative (Negative); Urine Mucus FEW (None Seen); Urine Nitrite Negative (Negative); Urine RBC 8 /hpf (0 - 4); Urine Squamous Epithelial Cell FEW /hpf (<5); Urine Urobilinogen Normal (Negative)
[2016-09-22] MEDS ORDERED: cefTRIAXone 1GM/50ML D5W 50 ML IV ONE (03:00)
[2016-09-22 04:27] VITALS: BP 110/54
== END 2016-09-22 04:30 | disposition home or self-care (01) ==
LOC: ER 14:41
DX: K29.70 Gastritis, unspecified, without bleeding (principal); J45.909 Unspecified asthma, uncomplicated; E66.01 Morbid (severe) obesity due to excess calories; Z68.36 Body mass index [BMI] 36.0-36.9, adult; E11.9 Type 2 diabetes mellitus without complications; K21.9 Gastro-esophageal reflux disease without esophagitis; Z87.440 Personal history of urinary (tract) infections; Z90.49 Acquired absence of other specified parts of digestive tract; Z88.6 Allergy status to analgesic agent; Z88.1 Allergy status to other antibiotic agents; Z90.710 Acquired absence of both cervix and uterus
CPT/HCPCS: 36415; 74176; 80053; 81001; 82150; 83690; 84484; 85025; 93005; 96361; 96365; 96375; 99285; J0696; J2270; J7030

== ENCOUNTER 2016-10-24 07:05 | Emergency (ER) | payer MEDICAID ==
[~2016-10-24] VITALS: Ht 165.1 cm; Wt 99.8 kg
[2016-10-24 07:54] LABS: Basophils # (auto) 0.1 uL; Basophils % (auto) 1.2 % (0.0-2.0); CONDITION Y; DEFINITIVE SEE PRINTOUT; Eosinophils # (auto) 0.7 uL; Eosinophils % (auto) 13.3 % (0.0-7.0); Hematocrit 28.3 % (36.0-46.0); Lymphocytes # (auto) 1.7 uL; Lymphocytes % (auto) 31.7 % (10.0-50.0); Mean Corpuscular Hemoglobin 23.1 pg (28.0-32.0); Mean Corpuscular Hgb Conc. 31.9 g/dL (32.0-36.0); Mean Corpuscular Volume 72.4 fL (80.0-100.0); Mean Platelet Volume 8.6 fL (7.4-10.4); Monocytes # (auto) 0.3 uL; Neutrophils # (auto) 2.6 uL; Neutrophils % (auto) 47.8 % (37.0-80.0); Platelet Count (auto) 310 10^3/uL (140-450); Red Cell Distribution Width 19.3 % (11.6-16.0); White Blood Cell 5.4 10^3/uL (4.4-10.8)
[2016-10-24 08:00] LABS: Hemoglobin 9.2 g/dL (12.2-16.2)
[2016-10-24 08:26] LABS: Albumin 3.3 g/dL (3.4-5.0); Alkaline Phosphatase 119 U/L (45-117); Anion Gap 9 (5-15); Aspartate Aminotransferase 15 U/L (15-37); BUN/Creatinine Ratio 28.3; Bilirubin, Total 0.3 mg/dL (0.2-1.0); Blood Urea Nitrogen 17 mg/dL (7-18); Calcium 8.5 mg/dL (8.5-10.1); Carbon Dioxide 27 mmol/L (21-32); Chloride 108 mmol/L (98-107); GFR African American 130 mL/min; GFR Non-African American 108 mL/min; Glucose 100 mg/dL (74-106); Potassium 4.2 mmol/L (3.5-5.1); Sodium 144 mmol/L (136-145); Total Protein 6.8 g/dL (6.4-8.2)
[2016-10-24] MEDS ORDERED: SODIUM CHLORIDE 0.9% 1,000 ML IV ONE (08:41)
[2016-10-24] MEDS ORDERED: FAMOTIDINE 20 MG TAB PO ONE (08:45)
[2016-10-24] MEDS ORDERED: NALBUPHINE HCL 10 MG/1ml INJECTION IV ONE (08:45)
[2016-10-24] MEDS ORDERED: ALBUTEROL SULF 2.5 MG/0.5ML(0.5%) NEB SOLN NEB ONE (08:45)
[2016-10-24] MEDS ORDERED: IPRATROPIUM BROM 0.5 MG/2.5ML INH SOL NEB ONE (08:45)
[2016-10-24] MEDS ORDERED: PROMETHAZINE HCL 25 MG/ML 1ML IV PRN (08:45)
[2016-10-24 10:43] VITALS: BP 122/46
[2016-10-24 10:59] LABS: Urine Bilirubin Negative (Negative); Urine Blood Negative /uL (Negative); Urine Color Yellow (Yellow); Urine Glucose Normal (Normal); Urine Ketone Negative (Negative); Urine Mucus FEW (None Seen); Urine Nitrite Negative (Negative); Urine RBC <1 /hpf (0 - 4); Urine Squamous Epithelial Cell FEW /hpf (<5); Urine Urobilinogen Normal (Negative); Urine pH 5.5 (5.0-8.0)
== END 2016-10-24 13:29 ==
LOC: ER 07:05
DX: J44.1 Chronic obstructive pulmonary disease with (acute) exacerbation (principal); J45.901 Unspecified asthma with (acute) exacerbation; D50.8 Other iron deficiency anemias; E66.09 Other obesity due to excess calories; N39.0 Urinary tract infection, site not specified; E11.9 Type 2 diabetes mellitus without complications; K21.9 Gastro-esophageal reflux disease without esophagitis; Z90.710 Acquired absence of both cervix and uterus; Z90.89 Acquired absence of other organs; Z90.49 Acquired absence of other specified parts of digestive tract
CPT/HCPCS: 36415; 71020; 80053; 81001; 83690; 83735; 84484; 85025; 93005; 94640; 94761; 96361; 96374; 96375; 99285; J2300; J2550; J7030

== ENCOUNTER 2016-11-07 21:28 | Inpatient (IN) | payer MEDICAID ==
[~2016-11-07] VITALS: Ht 165.1 cm; Wt 97.0 kg
[2016-11-07] MEDS ORDERED: ALBUTEROL SULF 2.5 MG/0.5ML(0.5%) NEB SOLN NEB ONE (22:15)
[2016-11-07] MEDS ORDERED: IPRATROPIUM BROM 0.5 MG/2.5ML INH SOL NEB ONE (22:15)
[2016-11-07 22:32] LABS: Basophils # (auto) 0.1 uL; Basophils % (auto) 0.9 % (0.0-2.0); CONDITION Y; DEFINITIVE SEE PRINTOUT; Hematocrit 31.1 % (36.0-46.0); Hemoglobin 9.9 g/dL (12.2-16.2); Lymphocytes # (auto) 3.1 uL; Lymphocytes % (auto) 36.1 % (10.0-50.0); Mean Corpuscular Hemoglobin 23.2 pg (28.0-32.0); Mean Corpuscular Hgb Conc. 31.7 g/dL (32.0-36.0); Mean Corpuscular Volume 73.3 fL (80.0-100.0); Mean Platelet Volume 8.7 fL (7.4-10.4); Monocytes # (auto) 0.6 uL; Monocytes % (auto) 6.6 % (0.0-12.0); Neutrophils # (auto) 3.9 uL; Neutrophils % (auto) 45.4 % (37.0-80.0); Platelet Count (auto) 396 10^3/uL (140-450); White Blood Cell 8.7 10^3/uL (4.4-10.8)
[2016-11-07 22:45] LABS: Red Cell Distribution Width 21.8 % (11.6-16.0)
[2016-11-07 22:46] LABS: INR 1.01 (0.9-1.15); Partial Thromboplastin Time 23.3 sec (22.64-33.71)
[2016-11-07 22:49] LABS: Anisocytosis Moderate; Hypochromia Moderate; Microcytosis Moderate; Ovalocytes FEW; Platelet Estimate Adequate
[2016-11-07 22:50] LABS: Albumin 3.6 g/dL (3.4-5.0); Anion Gap 11 (5-15); Aspartate Aminotransferase 17 U/L (15-37); BUN/Creatinine Ratio 31.3; Blood Urea Nitrogen 21 mg/dL (7-18); Calcium 8.5 mg/dL (8.5-10.1); Carbon Dioxide 22 mmol/L (21-32); Chloride 111 mmol/L (98-107); GFR African American 115 mL/min; GFR Non-African American 95 mL/min; Glucose 114 mg/dL (74-106); Magnesium 2.4 mg/dL (1.6-2.6); Potassium 3.9 mmol/L (3.5-5.1); Sodium 144 mmol/L (136-145)
[2016-11-07 22:55] LABS: Alkaline Phosphatase 127 U/L (45-117); Bilirubin, Total 0.2 mg/dL (0.2-1.0); Total Protein 7.2 g/dL (6.4-8.2)
[2016-11-07 22:58] LABS: B-Type Natriuretic Peptide 12.44 pg/mL (0-100)
[2016-11-07 22:59] LABS: Temperature: 22.7 C (20.0-25.0)
[2016-11-08] MEDS ORDERED: MORPHINE SULFATE 4 MG/ML SYRG IV ONE (02:15)
[2016-11-08] MEDS ORDERED: cefTRIAXone 1GM/50ML D5W 50 ML IV ONE (02:15)
[2016-11-08] MEDS ORDERED: SODIUM CHLORIDE 0.9% 1,000 ML IV ONE (02:15)
[2016-11-08] MEDS ORDERED: methylPREDNISolone SOD SUCC 125 MG/2 ML VL IV ONE (02:15)
[2016-11-08] MEDS ORDERED: ONDANSETRON HCL 4 MG/2 ML VIAL IV ONE (02:15)
[2016-11-08] MEDS ORDERED: ALBUTEROL SULF 2.5 MG/0.5ML(0.5%) NEB SOLN NEB ONE (03:00)
[2016-11-08] MEDS ORDERED: IPRATROPIUM BROM 0.5 MG/2.5ML INH SOL NEB ONE (03:00)
[2016-11-08] MEDS: IPRATROPIUM BROM 0.5 MG/2.5ML INH SOL NEB SCH ×5 (05:30→22:00)
[2016-11-08] MEDS: ALBUTEROL SULF 2.5 MG/0.5ML(0.5%) NEB SOLN NEB SCH ×5 (05:30→22:00)
[2016-11-08] MEDS ORDERED: NITROGLYCERIN 0.4 MG SL TAB SL PRN (06:30)
[2016-11-08] MEDS ORDERED: MORPHINE SULF INJ 2 MG/ML SYRINGE 1ML IV PRN (06:30)
[2016-11-08] MEDS ORDERED: DEXTROSE (50%) 50ML SYRG IV PRN (06:30)
[2016-11-08] MEDS ORDERED: LORazepam 0.5 MG TAB PO PRN (06:30)
[2016-11-08 08:39] VITALS: BP 109/63
[2016-11-08] MEDS: FERROUS SULFATE 325 MG TAB PO SCH ×2 (09:39→18:29)
[2016-11-08] MEDS: cefTRIAXone 1GM/50ML D5W 50 ML IV SCH (09:40)
[2016-11-08] MEDS: methylPREDNISolone SOD SUCC 125 MG/2 ML VL IV SCH ×2 (09:41→21:16)
[2016-11-08] MEDS: ENOXAPARIN SOD 40 MG/0.4 ML SYRINGE SC SCH (09:42)
[2016-11-08] MEDS: FAMOTIDINE 20 MG TAB PO SCH ×2 (09:42→21:16)
[2016-11-08] MEDS: ACCU-CHEK COMFORT CURVE STRIP VI SCH ×3 (12:23→23:44)
[2016-11-08] MEDS: InsuLIN REG 1unit/0.01ml Soln (100units/ml) SC SCH ×3 (12:27→23:44)
[2016-11-08] MEDS: HYDROmorphone HCL 2 MG/ML VL IV PRN ×3 (15:13→23:06)
[2016-11-08] MEDS: ONDANSETRON HCL 4 MG/2 ML VIAL IV PRN ×2 (15:13→16:00)
[2016-11-08 18:34] VITALS: BP 129/69
[2016-11-08 22:00] VITALS: BP 108/52
[2016-11-08] MEDS: BUDESONIDE (INHALATION) 0.5 MG/2 ML NEB NEB SCH (22:00)
[2016-11-08] MEDS: ZOLPIDEM TARTRATE 5 MG TAB PO PRN (23:45)
[2016-11-09 05:00] VITALS: BP 107/42
[2016-11-09] MEDS: ALBUTEROL SULF 2.5 MG/0.5ML(0.5%) NEB SOLN NEB SCH ×6 (05:44→22:07)
[2016-11-09] MEDS: IPRATROPIUM BROM 0.5 MG/2.5ML INH SOL NEB SCH ×6 (05:44→22:07)
[2016-11-09] MEDS: BUDESONIDE (INHALATION) 0.5 MG/2 ML NEB NEB SCH ×2 (05:44→18:03)
[2016-11-09] MEDS: InsuLIN REG 1unit/0.01ml Soln (100units/ml) SC SCH ×3 (05:53→17:28)
[2016-11-09] MEDS: HYDROmorphone HCL 2 MG/ML VL IV PRN ×3 (05:54→21:40)
[2016-11-09] MEDS: ACCU-CHEK COMFORT CURVE STRIP VI SCH ×3 (05:54→17:28)
[2016-11-09] MEDS: ONDANSETRON HCL 4 MG/2 ML VIAL IV PRN (06:18)
[2016-11-09 06:22] LABS: Basophils # (auto) 0 uL; CONDITION Y; DEFINITIVE SEE PRINTOUT; Eosinophils # (auto) 0 uL; Hematocrit 27.1 % (36.0-46.0); Hemoglobin 8.8 g/dL (12.2-16.2); Lymphocytes # (auto) 0.7 uL; Lymphocytes % (auto) 5.5 % (10.0-50.0); Mean Corpuscular Hemoglobin 24.1 pg (28.0-32.0); Mean Corpuscular Hgb Conc. 32.6 g/dL (32.0-36.0); Mean Corpuscular Volume 73.8 fL (80.0-100.0); Monocytes # (auto) 0.4 uL; Monocytes % (auto) 2.7 % (0.0-12.0); Neutrophils # (auto) 12.4 uL; Neutrophils % (auto) 91.8 % (37.0-80.0); Platelet Count (auto) 321 10^3/uL (140-450); White Blood Cell 13.5 10^3/uL (4.4-10.8)
[2016-11-09 06:37] LABS: Red Cell Distribution Width 21.8 % (11.6-16.0)
[2016-11-09 06:56] LABS: Albumin 3.1 g/dL (3.4-5.0); BUN/Creatinine Ratio 34.4; Calcium 8.9 mg/dL (8.5-10.1); Potassium 4.6 mmol/L (3.5-5.1)
[2016-11-09 06:58] LABS: Bilirubin, Total 0.2 mg/dL (0.2-1.0); Total Protein 6.5 g/dL (6.4-8.2)
[2016-11-09 07:42] LABS: Platelet Estimate Adequate
[2016-11-09 07:43] LABS: Anisocytosis Slight; Hypochromia Slight; Ovalocytes FEW
[2016-11-09] MEDS: FERROUS SULFATE 325 MG TAB PO SCH ×2 (09:24→17:27)
[2016-11-09] MEDS: cefTRIAXone 1GM/50ML D5W 50 ML IV SCH (09:24)
[2016-11-09 09:29] VITALS: BP 102/38
[2016-11-09] MEDS: IPRATROPIUM BROM 0.5 MG/2.5ML INH SOL NEB PRN (11:40)
[2016-11-09] MEDS: ALBUTEROL SULF 2.5 MG/0.5ML(0.5%) NEB SOLN NEB PRN (11:41)
[2016-11-09] MEDS: methylPREDNISolone SOD SUCC 125 MG/2 ML VL IV SCH ×2 (11:44→21:39)
[2016-11-09] MEDS: FAMOTIDINE 20 MG TAB PO SCH ×2 (11:45→21:40)
[2016-11-09] MEDS: ENOXAPARIN SOD 40 MG/0.4 ML SYRINGE SC SCH (11:45)
[2016-11-09 12:59] VITALS: BP 94/40
[2016-11-09] MEDS: ACETYLCYSTEINE 10 %(100MG/ML) SOL 4ML NEB SCH ×2 (14:17→22:07)
[2016-11-09 17:39] VITALS: BP 110/49
[2016-11-09 21:51] VITALS: BP 114/54
[2016-11-09] MEDS: ZOLPIDEM TARTRATE 5 MG TAB PO PRN (22:23)
[2016-11-10] VITALS (7 sets, daily range): BP systolic 89–129; BP diastolic 39–61
[2016-11-10] MEDS: ACCU-CHEK COMFORT CURVE STRIP VI SCH ×5 (00:20→23:53)
[2016-11-10] MEDS: InsuLIN REG 1unit/0.01ml Soln (100units/ml) SC SCH ×5 (00:20→23:53)
[2016-11-10] MEDS: ALBUTEROL SULF 2.5 MG/0.5ML(0.5%) NEB SOLN NEB SCH ×6 (02:05→22:42)
[2016-11-10] MEDS: IPRATROPIUM BROM 0.5 MG/2.5ML INH SOL NEB SCH ×6 (02:05→22:41)
[2016-11-10] MEDS: HYDROmorphone HCL 2 MG/ML VL IV PRN ×5 (05:30→23:33)
[2016-11-10 06:04] LABS: Basophils # (auto) 0 uL; CONDITION Y; DEFINITIVE SEE PRINTOUT; Eosinophils # (auto) 0 uL; Hematocrit 27.3 % (36.0-46.0); Hemoglobin 8.7 g/dL (12.2-16.2); Lymphocytes # (auto) 0.6 uL; Lymphocytes % (auto) 4.6 % (10.0-50.0); Mean Corpuscular Hemoglobin 23.6 pg (28.0-32.0); Mean Corpuscular Hgb Conc. 31.8 g/dL (32.0-36.0); Mean Corpuscular Volume 74.3 fL (80.0-100.0); Mean Platelet Volume 9.2 fL (7.4-10.4); Monocytes # (auto) 0.2 uL; Monocytes % (auto) 1.2 % (0.0-12.0); Neutrophils # (auto) 12.7 uL; Neutrophils % (auto) 94.2 % (37.0-80.0); Platelet Count (auto) 316 10^3/uL (140-450); White Blood Cell 13.4 10^3/uL (4.4-10.8)
[2016-11-10] MEDS: ACETYLCYSTEINE 10 %(100MG/ML) SOL 4ML NEB SCH ×3 (06:20→22:42)
[2016-11-10 06:22] LABS: Red Cell Distribution Width 23.1 % (11.6-16.0)
[2016-11-10 06:40] LABS: Albumin 3.1 g/dL (3.4-5.0); BUN/Creatinine Ratio 42.9; Bilirubin, Total 0.6 mg/dL (0.2-1.0); Calcium 8.7 mg/dL (8.5-10.1); Potassium 4.5 mmol/L (3.5-5.1); Total Protein 6.5 g/dL (6.4-8.2)
[2016-11-10 06:59] LABS: Anisocytosis Slight; Hypochromia Slight; Ovalocytes FEW; Platelet Estimate Adequate
[2016-11-10] MEDS: FERROUS SULFATE 325 MG TAB PO SCH ×2 (08:03→17:51)
[2016-11-10] MEDS: cefTRIAXone 1GM/50ML D5W 50 ML IV SCH (08:04)
[2016-11-10] MEDS: BUDESONIDE (INHALATION) 0.5 MG/2 ML NEB NEB SCH ×2 (09:25→22:42)
[2016-11-10] MEDS: ENOXAPARIN SOD 40 MG/0.4 ML SYRINGE SC SCH (09:42)
[2016-11-10] MEDS: methylPREDNISolone SOD SUCC 125 MG/2 ML VL IV SCH ×2 (09:42→23:32)
[2016-11-10] MEDS: FAMOTIDINE 20 MG TAB PO SCH ×2 (09:42→23:32)
[2016-11-10] MEDS: ONDANSETRON HCL 4 MG/2 ML VIAL IV PRN (14:41)
[2016-11-11] VITALS (8 sets, daily range): BP systolic 114–135; BP diastolic 34–65
[2016-11-11] MEDS: IPRATROPIUM BROM 0.5 MG/2.5ML INH SOL NEB SCH ×6 (02:36→22:42)
[2016-11-11] MEDS: ALBUTEROL SULF 2.5 MG/0.5ML(0.5%) NEB SOLN NEB SCH ×6 (02:36→22:42)
[2016-11-11] MEDS: HYDROmorphone HCL 2 MG/ML VL IV PRN ×5 (05:52→23:26)
[2016-11-11] MEDS: ACETYLCYSTEINE 10 %(100MG/ML) SOL 4ML NEB SCH ×3 (05:58→22:42)
[2016-11-11] MEDS: BUDESONIDE (INHALATION) 0.5 MG/2 ML NEB NEB SCH ×2 (05:58→19:51)
[2016-11-11 06:24] LABS: Basophils # (auto) 0 uL; CONDITION Y; DEFINITIVE SEE PRINTOUT; Eosinophils # (auto) 0 uL; Hematocrit 28.5 % (36.0-46.0); Hemoglobin 9.1 g/dL (12.2-16.2); Lymphocytes # (auto) 0.6 uL; Mean Corpuscular Hemoglobin 23.7 pg (28.0-32.0); Mean Corpuscular Hgb Conc. 31.9 g/dL (32.0-36.0); Mean Corpuscular Volume 74.3 fL (80.0-100.0); Mean Platelet Volume 9.1 fL (7.4-10.4); Monocytes # (auto) 0.2 uL; Monocytes % (auto) 1.5 % (0.0-12.0); Neutrophils # (auto) 11.3 uL; Neutrophils % (auto) 93.5 % (37.0-80.0); Platelet Count (auto) 325 10^3/uL (140-450); White Blood Cell 12.1 10^3/uL (4.4-10.8)
[2016-11-11] MEDS: ACCU-CHEK COMFORT CURVE STRIP VI SCH ×4 (06:25→23:35)
[2016-11-11] MEDS: InsuLIN REG 1unit/0.01ml Soln (100units/ml) SC SCH ×4 (06:25→23:35)
[2016-11-11 06:26] LABS: Red Cell Distribution Width 22.4 % (11.6-16.0)
[2016-11-11 06:46] LABS: Potassium 4.7 mmol/L (3.5-5.1)
[2016-11-11 06:50] LABS: Albumin 3.1 g/dL (3.4-5.0); BUN/Creatinine Ratio 39.7
[2016-11-11 06:52] LABS: Bilirubin, Total 0.1 mg/dL (0.2-1.0); Total Protein 6.5 g/dL (6.4-8.2)
[2016-11-11 07:12] LABS: Anisocytosis Slight; Hypochromia Slight; Ovalocytes FEW; Platelet Estimate Adequate
[2016-11-11] MEDS: FERROUS SULFATE 325 MG TAB PO SCH ×2 (08:12→17:44)
[2016-11-11] MEDS: cefTRIAXone 1GM/50ML D5W 50 ML IV SCH (08:13)
[2016-11-11] MEDS: methylPREDNISolone SOD SUCC 125 MG/2 ML VL IV SCH ×2 (09:42→22:28)
[2016-11-11] MEDS: ENOXAPARIN SOD 40 MG/0.4 ML SYRINGE SC SCH (09:43)
[2016-11-11] MEDS: FAMOTIDINE 20 MG TAB PO SCH ×2 (09:43→22:28)
[2016-11-11] MEDS: FLUCONAZOLE 100MG/50ML 50 ML IV SCH (09:45)
[2016-11-11] MEDS: ONDANSETRON HCL 4 MG/2 ML VIAL IV PRN (15:30)
[2016-11-11] MEDS: ZOLPIDEM TARTRATE 5 MG TAB PO PRN ×2 (22:29)
[2016-11-12] MEDS: IPRATROPIUM BROM 0.5 MG/2.5ML INH SOL NEB SCH ×6 (02:25→22:05)
[2016-11-12] MEDS: ALBUTEROL SULF 2.5 MG/0.5ML(0.5%) NEB SOLN NEB SCH ×6 (02:25→22:05)
[2016-11-12] MEDS: ONDANSETRON HCL 4 MG/2 ML VIAL IV PRN ×3 (05:04→19:29)
[2016-11-12] MEDS: HYDROmorphone HCL 2 MG/ML VL IV PRN ×5 (05:04→21:45)
[2016-11-12] MEDS: ACCU-CHEK COMFORT CURVE STRIP VI SCH ×4 (05:33→23:57)
[2016-11-12] MEDS: InsuLIN REG 1unit/0.01ml Soln (100units/ml) SC SCH ×4 (05:33→23:57)
[2016-11-12 05:38] VITALS: BP 117/66
[2016-11-12] MEDS: ACETYLCYSTEINE 10 %(100MG/ML) SOL 4ML NEB SCH ×2 (06:20→13:49)
[2016-11-12 06:36] LABS: Potassium 4.5 mmol/L (3.5-5.1)
[2016-11-12 06:40] LABS: BUN/Creatinine Ratio 34.4; Calcium 8.7 mg/dL (8.5-10.1)
[2016-11-12 06:43] LABS: Basophils # (auto) 0 uL; CONDITION Y; DEFINITIVE SEE PRINTOUT; Eosinophils # (auto) 0 uL; Eosinophils % (auto) 0.1 % (0.0-7.0); Hematocrit 28.5 % (36.0-46.0); Hemoglobin 9.2 g/dL (12.2-16.2); Lymphocytes # (auto) 0.6 uL; Lymphocytes % (auto) 6.6 % (10.0-50.0); Mean Corpuscular Hemoglobin 23.9 pg (28.0-32.0); Mean Corpuscular Hgb Conc. 32.1 g/dL (32.0-36.0); Mean Corpuscular Volume 74.5 fL (80.0-100.0); Mean Platelet Volume 9.1 fL (7.4-10.4); Monocytes # (auto) 0.3 uL; Monocytes % (auto) 2.7 % (0.0-12.0); Neutrophils # (auto) 8.9 uL; Neutrophils % (auto) 90.6 % (37.0-80.0); Platelet Count (auto) 298 10^3/uL (140-450); Red Cell Distribution Width 22.4 % (11.6-16.0); White Blood Cell 9.8 10^3/uL (4.4-10.8)
[2016-11-12 06:49] LABS: Bilirubin, Total 0.2 mg/dL (0.2-1.0); Total Protein 6.4 g/dL (6.4-8.2)
[2016-11-12 07:20] LABS: Burr Cells FEW; Platelet Estimate Adequate
[2016-11-12 07:21] LABS: Anisocytosis Moderate; Hypochromia Moderate; Ovalocytes FEW; Stomatocytes Few
[2016-11-12] MEDS: cefTRIAXone 1GM/50ML D5W 50 ML IV SCH (07:53)
[2016-11-12] MEDS: FERROUS SULFATE 325 MG TAB PO SCH ×2 (07:53→17:24)
[2016-11-12 08:00] VITALS: BP 121/58
[2016-11-12 08:40] VITALS: BP 121/58
[2016-11-12] MEDS: methylPREDNISolone SOD SUCC 125 MG/2 ML VL IV SCH ×2 (09:19→21:45)
[2016-11-12] MEDS: FAMOTIDINE 20 MG TAB PO SCH ×2 (09:19→21:44)
[2016-11-12] MEDS: ENOXAPARIN SOD 40 MG/0.4 ML SYRINGE SC SCH (09:19)
[2016-11-12] MEDS: FLUCONAZOLE 100MG/50ML 50 ML IV SCH (09:20)
[2016-11-12] MEDS: BUDESONIDE (INHALATION) 0.5 MG/2 ML NEB NEB SCH ×2 (09:46→22:05)
[2016-11-12 12:34] VITALS: BP 125/59
[2016-11-12 16:46] VITALS: BP_SYST 117; BP_SYST 126; BP_DIAS 67; BP_DIAS 76
[2016-11-12 22:00] VITALS: BP 127/65
[2016-11-12] MEDS ORDERED: DOCUSATE SOD 100 MG CAP PO ONE (22:15)
[2016-11-12] MEDS: ZOLPIDEM TARTRATE 5 MG TAB PO PRN (22:59)
[2016-11-13] MEDS: HYDROmorphone HCL 2 MG/ML VL IV PRN ×5 (04:43→21:46)
[2016-11-13 05:00] VITALS: BP 114/58
[2016-11-13] MEDS: ACCU-CHEK COMFORT CURVE STRIP VI SCH ×4 (05:41→23:43)
[2016-11-13] MEDS: InsuLIN REG 1unit/0.01ml Soln (100units/ml) SC SCH ×4 (05:41→23:43)
[2016-11-13] MEDS: ALBUTEROL SULF 2.5 MG/0.5ML(0.5%) NEB SOLN NEB SCH ×5 (06:00→21:55)
[2016-11-13] MEDS: IPRATROPIUM BROM 0.5 MG/2.5ML INH SOL NEB SCH ×5 (06:00→21:55)
[2016-11-13 09:00] VITALS: BP 112/72
[2016-11-13] MEDS: cefTRIAXone 1GM/50ML D5W 50 ML IV SCH (09:00)
[2016-11-13] MEDS: FERROUS SULFATE 325 MG TAB PO SCH ×2 (09:01→18:23)
[2016-11-13] MEDS: PROMETHAZINE HCL 6.25 MG/5 ML ORAL SYRUP PO PRN (09:13)
[2016-11-13] MEDS: BUDESONIDE (INHALATION) 0.5 MG/2 ML NEB NEB SCH ×2 (10:21→18:11)
[2016-11-13] MEDS: FAMOTIDINE 20 MG TAB PO SCH ×2 (10:50→21:45)
[2016-11-13] MEDS: ENOXAPARIN SOD 40 MG/0.4 ML SYRINGE SC SCH (10:50)
[2016-11-13] MEDS: methylPREDNISolone SOD SUCC 125 MG/2 ML VL IV SCH ×2 (11:51→21:45)
[2016-11-13 13:00] VITALS: BP 134/73
[2016-11-13] MEDS: FLUCONAZOLE 100MG/50ML 50 ML IV SCH (14:18)
[2016-11-13 16:49] VITALS: BP 122/69
[2016-11-13] MEDS: ONDANSETRON HCL 4 MG/2 ML VIAL IV PRN (17:45)
[2016-11-13 20:00] VITALS: BP 103/61
[2016-11-13 22:00] VITALS: BP 103/61
[2016-11-13] MEDS: ZOLPIDEM TARTRATE 5 MG TAB PO PRN (22:46)
[2016-11-14] MEDS: IPRATROPIUM BROM 0.5 MG/2.5ML INH SOL NEB SCH ×6 (02:13→22:26)
[2016-11-14] MEDS: ALBUTEROL SULF 2.5 MG/0.5ML(0.5%) NEB SOLN NEB SCH ×6 (02:14→22:26)
[2016-11-14] MEDS: HYDROmorphone HCL 2 MG/ML VL IV PRN ×5 (05:26→23:26)
[2016-11-14] MEDS: ACCU-CHEK COMFORT CURVE STRIP VI SCH ×4 (05:34→23:37)
[2016-11-14] MEDS: InsuLIN REG 1unit/0.01ml Soln (100units/ml) SC SCH ×4 (05:35→23:37)
[2016-11-14 05:45] VITALS: BP 127/75
[2016-11-14] MEDS: PROMETHAZINE HCL 6.25 MG/5 ML ORAL SYRUP PO PRN ×2 (05:49→10:15)
[2016-11-14 06:15] LABS: Basophils # (auto) 0 uL; CONDITION Y; DEFINITIVE SEE PRINTOUT; Eosinophils # (auto) 0 uL; Hematocrit 29.9 % (36.0-46.0); Hemoglobin 9.6 g/dL (12.2-16.2); Lymphocytes # (auto) 0.7 uL; Lymphocytes % (auto) 8.4 % (10.0-50.0); Mean Corpuscular Hemoglobin 23.8 pg (28.0-32.0); Mean Corpuscular Hgb Conc. 32.1 g/dL (32.0-36.0); Mean Corpuscular Volume 74.1 fL (80.0-100.0); Mean Platelet Volume 9.1 fL (7.4-10.4); Monocytes # (auto) 0.2 uL; Monocytes % (auto) 2.6 % (0.0-12.0); Neutrophils # (auto) 7.3 uL; Platelet Count (auto) 302 10^3/uL (140-450); White Blood Cell 8.2 10^3/uL (4.4-10.8)
[2016-11-14 06:21] LABS: Red Cell Distribution Width 22.9 % (11.6-16.0)
[2016-11-14 06:37] LABS: Albumin 3.1 g/dL (3.4-5.0); BUN/Creatinine Ratio 41.1; Calcium 8.6 mg/dL (8.5-10.1); Potassium 4.6 mmol/L (3.5-5.1)
[2016-11-14 06:40] LABS: Bilirubin, Total 0.2 mg/dL (0.2-1.0)
[2016-11-14] MEDS: BUDESONIDE (INHALATION) 0.5 MG/2 ML NEB NEB SCH ×2 (06:52→22:26)
[2016-11-14 06:58] LABS: Platelet Estimate Adequate
[2016-11-14 07:01] LABS: Anisocytosis Moderate; Hypochromia Moderate; Ovalocytes FEW
[2016-11-14 09:00] VITALS: BP 127/69
[2016-11-14] MEDS: FERROUS SULFATE 325 MG TAB PO SCH ×2 (09:50→17:41)
[2016-11-14] MEDS: cefTRIAXone 1GM/50ML D5W 50 ML IV SCH (09:50)
[2016-11-14] MEDS: FAMOTIDINE 20 MG TAB PO SCH ×2 (09:51→22:38)
[2016-11-14] MEDS: methylPREDNISolone SOD SUCC 125 MG/2 ML VL IV SCH ×2 (09:51→22:38)
[2016-11-14] MEDS: ENOXAPARIN SOD 40 MG/0.4 ML SYRINGE SC SCH (09:52)
[2016-11-14] MEDS: FLUCONAZOLE 100MG/50ML 50 ML IV SCH (10:00)
[2016-11-14 13:00] VITALS: BP 112/68
[2016-11-14] MEDS: ONDANSETRON HCL 4 MG/2 ML VIAL IV PRN (19:23)
[2016-11-14 20:00] VITALS: BP 111/60
[2016-11-14 22:00] VITALS: BP 111/60
[2016-11-14] MEDS: ZOLPIDEM TARTRATE 5 MG TAB PO PRN (22:38)
[2016-11-15] MEDS: IPRATROPIUM BROM 0.5 MG/2.5ML INH SOL NEB SCH ×6 (02:32→22:53)
[2016-11-15] MEDS: ALBUTEROL SULF 2.5 MG/0.5ML(0.5%) NEB SOLN NEB SCH ×6 (02:32→22:53)
[2016-11-15] MEDS: PROMETHAZINE HCL 6.25 MG/5 ML ORAL SYRUP PO PRN ×2 (02:50→10:18)
[2016-11-15 02:58] VITALS: BP 111/60
[2016-11-15 05:00] VITALS: BP 100/54
[2016-11-15] MEDS: ACCU-CHEK COMFORT CURVE STRIP VI SCH ×3 (05:34→18:11)
[2016-11-15] MEDS: InsuLIN REG 1unit/0.01ml Soln (100units/ml) SC SCH ×3 (05:35→18:00)
[2016-11-15] MEDS: HYDROmorphone HCL 2 MG/ML VL IV PRN ×4 (05:41→18:29)
[2016-11-15 09:00] VITALS: BP 103/51
[2016-11-15] MEDS: methylPREDNISolone SOD SUCC 125 MG/2 ML VL IV SCH ×2 (09:43→21:51)
[2016-11-15] MEDS: FAMOTIDINE 20 MG TAB PO SCH ×2 (09:43→21:51)
[2016-11-15] MEDS: cefTRIAXone 1GM/50ML D5W 50 ML IV SCH (09:43)
[2016-11-15] MEDS: ENOXAPARIN SOD 40 MG/0.4 ML SYRINGE SC SCH (09:44)
[2016-11-15] MEDS: FERROUS SULFATE 325 MG TAB PO SCH ×2 (09:56→18:28)
[2016-11-15] MEDS: BUDESONIDE (INHALATION) 0.5 MG/2 ML NEB NEB SCH ×2 (10:00→22:53)
[2016-11-15] MEDS: FLUCONAZOLE 100MG/50ML 50 ML IV SCH (10:00)
[2016-11-15 11:44] LABS: Basophils # (auto) 0 uL; CONDITION Y; DEFINITIVE SEE PRINTOUT; Eosinophils # (auto) 0 uL; Hematocrit 30.1 % (36.0-46.0); Hemoglobin 9.7 g/dL (12.2-16.2); Lymphocytes # (auto) 0.7 uL; Lymphocytes % (auto) 8.2 % (10.0-50.0); Mean Corpuscular Hgb Conc. 32.1 g/dL (32.0-36.0); Mean Corpuscular Volume 74.8 fL (80.0-100.0); Monocytes # (auto) 0.4 uL; Monocytes % (auto) 4.6 % (0.0-12.0); Neutrophils # (auto) 6.9 uL; Neutrophils % (auto) 87.2 % (37.0-80.0); Platelet Count (auto) 302 10^3/uL (140-450); White Blood Cell 7.9 10^3/uL (4.4-10.8)
[2016-11-15 11:51] LABS: Red Cell Distribution Width 22.5 % (11.6-16.0)
[2016-11-15 12:01] LABS: BUN/Creatinine Ratio 51.9; Calcium 8.4 mg/dL (8.5-10.1); Potassium 4.3 mmol/L (3.5-5.1)
[2016-11-15 12:03] LABS: Bilirubin, Total 0.2 mg/dL (0.2-1.0); Total Protein 6.1 g/dL (6.4-8.2)
[2016-11-15 12:36] LABS: Anisocytosis Slight; Hypochromia Slight; Platelet Estimate Adequate
[2016-11-15 13:00] VITALS: BP 126/60
[2016-11-15 20:00] VITALS: BP 103/56
[2016-11-15 21:50] VITALS: BP 103/56
[2016-11-15] MEDS: ZOLPIDEM TARTRATE 5 MG TAB PO PRN (21:51)
[2016-11-16] MEDS: ACCU-CHEK COMFORT CURVE STRIP VI SCH ×5 (00:04→23:26)
[2016-11-16] MEDS: HYDROmorphone HCL 2 MG/ML VL IV PRN ×5 (00:04→21:37)
[2016-11-16] MEDS: IPRATROPIUM BROM 0.5 MG/2.5ML INH SOL NEB SCH ×3 (02:47→10:04)
[2016-11-16] MEDS: ALBUTEROL SULF 2.5 MG/0.5ML(0.5%) NEB SOLN NEB SCH ×3 (02:47→10:04)
[2016-11-16 05:00] VITALS: BP 106/67
[2016-11-16] MEDS: InsuLIN REG 1unit/0.01ml Soln (100units/ml) SC SCH ×5 (06:00→23:31)
[2016-11-16 06:21] LABS: Basophils # (auto) 0 uL; CONDITION Y; DEFINITIVE SEE PRINTOUT; Eosinophils # (auto) 0 uL; Hemoglobin 9.5 g/dL (12.2-16.2); Lymphocytes # (auto) 0.5 uL; Lymphocytes % (auto) 8.9 % (10.0-50.0); Mean Corpuscular Hemoglobin 23.7 pg (28.0-32.0); Mean Corpuscular Hgb Conc. 31.8 g/dL (32.0-36.0); Mean Corpuscular Volume 74.6 fL (80.0-100.0); Mean Platelet Volume 9.6 fL (7.4-10.4); Monocytes # (auto) 0.1 uL; Monocytes % (auto) 2.4 % (0.0-12.0); Neutrophils # (auto) 4.9 uL; Neutrophils % (auto) 88.7 % (37.0-80.0); Platelet Count (auto) 268 10^3/uL (140-450); White Blood Cell 5.6 10^3/uL (4.4-10.8)
[2016-11-16] MEDS: BUDESONIDE (INHALATION) 0.5 MG/2 ML NEB NEB SCH ×2 (06:21→21:42)
[2016-11-16 06:48] LABS: Potassium 4.6 mmol/L (3.5-5.1)
[2016-11-16 06:53] LABS: Albumin 2.9 g/dL (3.4-5.0); BUN/Creatinine Ratio 41.5; Calcium 8.4 mg/dL (8.5-10.1)
[2016-11-16 06:54] LABS: Bilirubin, Total 0.3 mg/dL (0.2-1.0); Total Protein 6.1 g/dL (6.4-8.2)
[2016-11-16 07:13] LABS: Red Cell Distribution Width 22.7 % (11.6-16.0)
[2016-11-16 07:19] LABS: Anisocytosis Slight; Hypochromia Slight; Platelet Estimate Adequate
[2016-11-16] MEDS: FERROUS SULFATE 325 MG TAB PO SCH ×2 (08:03→18:37)
[2016-11-16 08:12] VITALS: BP 112/60
[2016-11-16] MEDS: cefTRIAXone 1GM/50ML D5W 50 ML IV SCH (09:02)
[2016-11-16] MEDS: FAMOTIDINE 20 MG TAB PO SCH (09:02)
[2016-11-16] MEDS: ENOXAPARIN SOD 40 MG/0.4 ML SYRINGE SC SCH (09:02)
[2016-11-16] MEDS: FLUCONAZOLE 100MG/50ML 50 ML IV SCH (10:18)
[2016-11-16] MEDS: methylPREDNISolone SOD SUCC 125 MG/2 ML VL IV SCH (10:18)
[2016-11-16 12:00] VITALS: BP 127/63
[2016-11-16] MEDS: ONDANSETRON HCL 4 MG/2 ML VIAL IV PRN ×2 (12:23→22:57)
[2016-11-16] MEDS: IPRATROPIUM BROM 0.5 MG/2.5ML INH SOL NEB PRN (13:41)
[2016-11-16] MEDS: ALBUTEROL SULF 2.5 MG/0.5ML(0.5%) NEB SOLN NEB PRN (13:41)
[2016-11-16 17:00] VITALS: BP 106/68
[2016-11-16 20:00] VITALS: BP 112/58
[2016-11-16] MEDS: methylPREDNISolone SOD SUCC 40 MG/ML VL IV SCH (21:36)
[2016-11-16] MEDS: PANTOPRAZOLE 40 MG TAB PO SCH (21:37)
[2016-11-16 22:00] VITALS: BP 112/58
[2016-11-16] MEDS: ZOLPIDEM TARTRATE 5 MG TAB PO PRN (22:43)
[2016-11-17] MEDS: HYDROmorphone HCL 2 MG/ML VL IV PRN ×4 (03:04→18:20)
[2016-11-17 05:10] VITALS: BP 111/43
[2016-11-17] MEDS: ONDANSETRON HCL 4 MG/2 ML VIAL IV PRN ×3 (05:40→18:20)
[2016-11-17] MEDS: InsuLIN REG 1unit/0.01ml Soln (100units/ml) SC SCH ×3 (05:48→17:15)
[2016-11-17] MEDS: ACCU-CHEK COMFORT CURVE STRIP VI SCH ×3 (05:48→17:15)
[2016-11-17] MEDS: BUDESONIDE (INHALATION) 0.5 MG/2 ML NEB NEB SCH ×2 (06:36→18:37)
[2016-11-17] MEDS: IPRATROPIUM BROM 0.5 MG/2.5ML INH SOL NEB PRN ×5 (06:36→22:25)
[2016-11-17] MEDS: ALBUTEROL SULF 2.5 MG/0.5ML(0.5%) NEB SOLN NEB PRN ×5 (06:36→22:25)
[2016-11-17 08:07] VITALS: BP 99/50
[2016-11-17] MEDS: cefTRIAXone 1GM/50ML D5W 50 ML IV SCH (08:47)
[2016-11-17] MEDS: methylPREDNISolone SOD SUCC 40 MG/ML VL IV SCH ×2 (08:47→21:58)
[2016-11-17] MEDS: PANTOPRAZOLE 40 MG TAB PO SCH ×2 (08:47→21:57)
[2016-11-17] MEDS: ENOXAPARIN SOD 40 MG/0.4 ML SYRINGE SC SCH (08:47)
[2016-11-17] MEDS: FERROUS SULFATE 325 MG TAB PO SCH ×2 (08:47→17:14)
[2016-11-17] MEDS: FLUCONAZOLE 100MG/50ML 50 ML IV SCH (08:48)
[2016-11-17 12:43] VITALS: BP 98/62
[2016-11-17 17:16] VITALS: BP 100/42
[2016-11-17 20:00] VITALS: BP 117/61
[2016-11-17] MEDS: ZOLPIDEM TARTRATE 5 MG TAB PO PRN (21:57)
[2016-11-17 22:00] VITALS: BP 117/61
[2016-11-18] MEDS: HYDROmorphone HCL 2 MG/ML VL IV PRN ×2 (00:11→08:22)
[2016-11-18] MEDS: ACCU-CHEK COMFORT CURVE STRIP VI SCH ×3 (00:11→11:49)
[2016-11-18] MEDS: InsuLIN REG 1unit/0.01ml Soln (100units/ml) SC SCH ×3 (00:20→11:49)
[2016-11-18] MEDS: ALBUTEROL SULF 2.5 MG/0.5ML(0.5%) NEB SOLN NEB PRN ×2 (02:07→10:05)
[2016-11-18] MEDS: IPRATROPIUM BROM 0.5 MG/2.5ML INH SOL NEB PRN ×2 (02:07→10:05)
[2016-11-18] MEDS: ONDANSETRON HCL 4 MG/2 ML VIAL IV PRN ×3 (02:21→14:11)
[2016-11-18 04:10] VITALS: BP 100/42
[2016-11-18 05:05] VITALS: BP 107/63
[2016-11-18 05:49] LABS: Basophils # (auto) 0 uL; CONDITION Y; DEFINITIVE SEE PRINTOUT; Eosinophils # (auto) 0 uL; Hematocrit 30.9 % (36.0-46.0); Hemoglobin 9.8 g/dL (12.2-16.2); Lymphocytes # (auto) 0.6 uL; Lymphocytes % (auto) 10.4 % (10.0-50.0); Mean Corpuscular Hemoglobin 23.9 pg (28.0-32.0); Mean Corpuscular Hgb Conc. 31.8 g/dL (32.0-36.0); Mean Corpuscular Volume 75.2 fL (80.0-100.0); Mean Platelet Volume 9.2 fL (7.4-10.4); Monocytes # (auto) 0.2 uL; Monocytes % (auto) 3.5 % (0.0-12.0); Neutrophils % (auto) 86.1 % (37.0-80.0); Platelet Count (auto) 253 10^3/uL (140-450); SUSPECT SEE PRINTOUT; White Blood Cell 5.8 10^3/uL (4.4-10.8)
[2016-11-18 05:51] LABS: Red Cell Distribution Width 22.9 % (11.6-16.0)
[2016-11-18 06:15] LABS: Albumin 2.8 g/dL (3.4-5.0); BUN/Creatinine Ratio 34.3; Bilirubin, Total 0.2 mg/dL (0.2-1.0); Calcium 8.6 mg/dL (8.5-10.1); Potassium 4.8 mmol/L (3.5-5.1); Total Protein 5.9 g/dL (6.4-8.2)
[2016-11-18 06:57] LABS: Anisocytosis Slight; Burr Cells FEW; Hypochromia Slight; Ovalocytes FEW; Platelet Estimate Adequate
[2016-11-18 07:59] VITALS: BP 106/70
[2016-11-18 08:00] VITALS: BP 106/70
[2016-11-18] MEDS: cefTRIAXone 1GM/50ML D5W 50 ML IV SCH (09:08)
[2016-11-18] MEDS: FERROUS SULFATE 325 MG TAB PO SCH (09:13)
[2016-11-18] MEDS: methylPREDNISolone SOD SUCC 40 MG/ML VL IV SCH (09:13)
[2016-11-18] MEDS: ENOXAPARIN SOD 40 MG/0.4 ML SYRINGE SC SCH (09:14)
[2016-11-18] MEDS: PANTOPRAZOLE 40 MG TAB PO SCH (09:14)
[2016-11-18] MEDS: BUDESONIDE (INHALATION) 0.5 MG/2 ML NEB NEB SCH (10:05)
[2016-11-18] MEDS: FLUCONAZOLE 100MG/50ML 50 ML IV SCH (10:21)
[2016-11-18 12:00] VITALS: BP 125/72
== END 2016-11-18 15:05 | disposition home or self-care (01) | DRG 140 ==
LOC: ER 21:33 → TELE 21:34 → TELE-E-ADS 11-08 16:25 → TELE-WESTW 11-08 18:10
PROVIDERS: ADMIT Nurse Practitioner; ATTEND Internal Medicine
DX: J44.0 Chronic obstructive pulmonary disease with (acute) lower respiratory infection (principal); J96.11 Chronic respiratory failure with hypoxia; Z99.81 Dependence on supplemental oxygen; J45.901 Unspecified asthma with (acute) exacerbation; K86.1 Other chronic pancreatitis; K29.70 Gastritis, unspecified, without bleeding; J44.1 Chronic obstructive pulmonary disease with (acute) exacerbation; K21.9 Gastro-esophageal reflux disease without esophagitis; D64.9 Anemia, unspecified; E11.9 Type 2 diabetes mellitus without complications; E66.9 Obesity, unspecified; J20.9 Acute bronchitis, unspecified; F41.9 Anxiety disorder, unspecified; K59.00 Constipation, unspecified; Z81.8 Family history of other mental and behavioral disorders; Z68.35 Body mass index [BMI] 35.0-35.9, adult; Z82.0 Family history of epilepsy and other diseases of the nervous system; Z82.3 Family history of stroke; Z82.49 Family history of ischemic heart disease and other diseases of the circulatory system; Z82.5 Family history of asthma and other chronic lower respiratory diseases; Z83.3 Family history of diabetes mellitus; Z87.11 Personal history of peptic ulcer disease; Z90.3 Acquired absence of stomach [part of]; Z90.89 Acquired absence of other organs; Z90.49 Acquired absence of other specified parts of digestive tract; Z90.710 Acquired absence of both cervix and uterus; Z80.8 Family history of malignant neoplasm of other organs or systems; Z88.6 Allergy status to analgesic agent; Z88.1 Allergy status to other antibiotic agents; Z88.8 Allergy status to other drugs, medicaments and biological substances; Z79.899 Other long term (current) drug therapy
CPT/HCPCS: 36415; 71020; 74176; 80053; 82962; 83690; 83735; 83880; 84443; 84484; 85025; 85379; 85610; 85730; 93005; 94640; 94761; 96365; 96372; 96375; 96376; J0696; J1450; J1815; J2405

== ENCOUNTER 2017-01-17 14:47 | Inpatient (IN) | payer MEDICAID ==
[~2017-01-17] VITALS: Ht 165.1 cm; Wt 97.7 kg
[~2017-01-17 14:47] MED LIST changes: -LOR05T PO; -MELA3TAB27 PO; -PRED10SO PO
[2017-01-17 16:09] LABS: Basophils # (auto) 0 uL; Basophils % (auto) 0.4 % (0.0-2.0); Eosinophils # (auto) 0 uL; Eosinophils % (auto) 0.1 % (0.0-7.0); Hematocrit 39.2 % (36.0-46.0); Hemoglobin 11.7 g/dL (12.2-16.2); Lymphocytes # (auto) 0.4 uL; Lymphocytes % (auto) 6.1 % (10.0-50.0); Mean Corpuscular Hemoglobin 25.4 pg (28.0-32.0); Mean Corpuscular Hgb Conc. 29.8 g/dL (32.0-36.0); Mean Corpuscular Volume 85.1 fL (80.0-100.0); Mean Platelet Volume 8.2 fL (6.9-10.8); Monocytes # (auto) 0.1 uL; Monocytes % (auto) 0.9 % (0.0-12.0); Neutrophils # (auto) 6.4 uL; Neutrophils % (auto) 92.5 % (37.0-80.0); Platelet Count (auto) 278 10^3/uL (140-450); White Blood Cell 6.9 10^3/uL (4.4-10.8)
[2017-01-17 16:10] LABS: Albumin 3.7 g/dL (3.4-5.0); Alkaline Phosphatase 142 U/L (45-117); Anion Gap 10 (5-15); Aspartate Aminotransferase 29 U/L (15-37); BUN/Creatinine Ratio 22.2; Bilirubin, Total 0.3 mg/dL (0.2-1.0); Blood Urea Nitrogen 20 mg/dL (7-18); Calcium 9.1 mg/dL (8.5-10.1); Carbon Dioxide 21 mmol/L (21-32); Chloride 110 mmol/L (98-107); GFR African American 82 mL/min; GFR Non-African American 67 mL/min; Glucose 273 mg/dL (74-106); Potassium 4.1 mmol/L (3.5-5.1); Sodium 141 mmol/L (136-145)
[2017-01-17 16:13] LABS: Red Cell Distribution Width 21.5 % (11.8-14.3)
[2017-01-17 19:24] LABS: Anisocytosis Slight; Ovalocytes FEW; Platelet Estimate Adequate
[2017-01-17] MEDS ORDERED: ALBUTEROL SULF 2.5 MG/0.5ML(0.5%) NEB SOLN NEB ONE ×2 (21:15)
[2017-01-17] MEDS ORDERED: IPRATROPIUM BROM 0.5 MG/2.5ML INH SOL NEB ONE ×2 (21:15)
[2017-01-18] MEDS ORDERED: ONDANSETRON HCL 4 MG/2 ML VIAL IV ONE ×2 (01:00→05:45)
[2017-01-18] MEDS ORDERED: HYDROmorphone HCL 2 MG/ML VL IV ONE ×2 (01:00→05:45)
[2017-01-18] MEDS ORDERED: SODIUM CHLORIDE 0.9% 1,000 ML IV ONE (01:00)
[2017-01-18] MEDS ORDERED: methylPREDNISolone SOD SUCC 125 MG/2 ML VL IV ONE (01:00)
[2017-01-18] MEDS ORDERED: LEVOFLOXACIN 750MG 150 ML IV ONE (01:00)
[2017-01-18 04:36] LABS: B-Type Natriuretic Peptide 12.8 pg/mL (0-100); Temperature: 22.4 C (20.0-25.0)
[2017-01-18 04:42] LABS: INR 1.05 (0.9-1.15); Partial Thromboplastin Time 22.9 sec (22.64-33.71); Prothrombin Time 11.4 sec (9.37-12.3)
[2017-01-18] MEDS ORDERED: DEXTROSE (50%) 50ML SYRG IV PRN (05:30)
[2017-01-18] MEDS ORDERED: ALBUMIN 5% 250 ML IV ONE (05:30)
[2017-01-18] MEDS ORDERED: MORPHINE SULFATE 10 MG/ML INJ 1ML SDV IV PRN ×2 (05:30)
[2017-01-18] MEDS ORDERED: traMADol HCL 50 MG TAB PO PRN (05:30)
[2017-01-18] MEDS ORDERED: NITROGLYCERIN 0.4 MG SL TAB SL PRN (05:30)
[2017-01-18] MEDS: SODIUM CHLORIDE 0.9% 1,000 ML IV SCH ×2 (05:42→17:52)
[2017-01-18] MEDS ORDERED: IPRATROPIUM BROM 0.5 MG/2.5ML INH SOL NEB ONE (05:45)
[2017-01-18] MEDS ORDERED: ALBUTEROL SULF 2.5 MG/0.5ML(0.5%) NEB SOLN NEB ONE (05:45)
[2017-01-18] MEDS ORDERED: InsuLIN REG 1unit/0.01ml Soln (100units/ml) SC SCH (06:00)
[2017-01-18] MEDS: cefTRIAXone 1GM/50ML D5W 50 ML IV SCH (06:23)
[2017-01-18] MEDS: ACCU-CHEK COMFORT CURVE STRIP VI SCH ×4 (06:36→22:54)
[2017-01-18] MEDS: ALBUTEROL SULF 2.5 MG/0.5ML(0.5%) NEB SOLN NEB PRN ×4 (10:30→22:43)
[2017-01-18] MEDS: IPRATROPIUM BROM 0.5 MG/2.5ML INH SOL NEB PRN ×4 (10:30→22:43)
[2017-01-18] MEDS: PANTOPRAZOLE 40 MG TAB PO SCH (10:35)
[2017-01-18] MEDS: ENOXAPARIN SOD 40 MG/0.4 ML SYRINGE SC SCH (10:35)
[2017-01-18] MEDS: methylPREDNISolone SOD SUCC 125 MG/2 ML VL IV SCH ×2 (10:45→22:54)
[2017-01-18] MEDS ORDERED: CHOL20007 PO (11:29)
[2017-01-18] MEDS ORDERED: PROMETHAZINE W/CODEINE 5 ML ORAL SYRUP PO PRN (11:30)
[2017-01-18 11:39] VITALS: BP 106/61
[2017-01-18 11:39] LABS: Urine Bilirubin Negative (Negative); Urine Blood 1+ /uL (Negative); Urine Color Yellow (Yellow); Urine Glucose Normal (Normal); Urine Ketone Negative (Negative); Urine Mucus FEW (None Seen); Urine Nitrite Negative (Negative); Urine RBC 1 /hpf (0 - 4); Urine Squamous Epithelial Cell FEW /hpf (<5); Urine Urobilinogen Normal (Negative); Urine pH 5.5 (5.0-8.0)
[2017-01-18] MEDS: InsuLIN REG 1unit/0.01ml Soln (100units/ml) SC SCH ×3 (12:09→23:36)
[2017-01-18 13:00] VITALS: BP 102/68
[2017-01-18] MEDS: MORPHINE SULFATE 10 MG/ML INJ 1ML SDV IV PRN ×3 (14:27→22:54)
[2017-01-18 17:00] VITALS: BP 98/41
[2017-01-18 22:00] VITALS: BP 104/52
[2017-01-18] MEDS: TEMAZEPAM 15 MG CAP PO PRN (22:00)
[2017-01-19] MEDS: ALBUTEROL SULF 2.5 MG/0.5ML(0.5%) NEB SOLN NEB PRN (02:50)
[2017-01-19] MEDS: IPRATROPIUM BROM 0.5 MG/2.5ML INH SOL NEB PRN (02:50)
[2017-01-19 05:00] VITALS: BP 110/61
[2017-01-19] MEDS: SODIUM CHLORIDE 0.9% 1,000 ML IV SCH ×2 (05:46→13:35)
[2017-01-19] MEDS: ACCU-CHEK COMFORT CURVE STRIP VI SCH ×3 (05:46→17:33)
[2017-01-19] MEDS: cefTRIAXone 1GM/50ML D5W 50 ML IV SCH (05:46)
[2017-01-19 05:50] LABS: Basophils # (auto) 0 uL; Basophils % (auto) 0.1 % (0.0-2.0); Eosinophils # (auto) 0 uL; Hematocrit 30.6 % (36.0-46.0); Hemoglobin 9.8 g/dL (12.2-16.2); Lymphocytes # (auto) 0.5 uL; Lymphocytes % (auto) 3.8 % (10.0-50.0); Mean Corpuscular Hgb Conc. 32.1 g/dL (32.0-36.0)
[2017-01-19 05:52] LABS: Mean Corpuscular Hemoglobin 25.3 pg (28.0-32.0); Mean Corpuscular Volume 78.7 fL (80.0-100.0); Mean Platelet Volume 8.6 fL (6.9-10.8); Monocytes # (auto) 0.3 uL; Monocytes % (auto) 2.2 % (0.0-12.0); Neutrophils # (auto) 11.5 uL; Neutrophils % (auto) 93.9 % (37.0-80.0); Platelet Count (auto) 255 10^3/uL (140-450); White Blood Cell 12.3 10^3/uL (4.4-10.8)
[2017-01-19 05:53] LABS: Albumin 3.1 g/dL (3.4-5.0); BUN/Creatinine Ratio 31.1; Calcium 8.9 mg/dL (8.5-10.1); Potassium 4.7 mmol/L (3.5-5.1)
[2017-01-19 05:54] LABS: Red Cell Distribution Width 20.3 % (11.8-14.3)
[2017-01-19 05:56] LABS: Bilirubin, Total 0.2 mg/dL (0.2-1.0); Total Protein 6.5 g/dL (6.4-8.2)
[2017-01-19] MEDS: IPRATROPIUM BROM 0.5 MG/2.5ML INH SOL NEB SCH ×5 (05:59→22:17)
[2017-01-19] MEDS: ALBUTEROL SULF 2.5 MG/0.5ML(0.5%) NEB SOLN NEB SCH ×5 (05:59→22:17)
[2017-01-19] MEDS: InsuLIN REG 1unit/0.01ml Soln (100units/ml) SC SCH ×3 (06:07→17:33)
[2017-01-19 06:47] LABS: Anisocytosis Slight; Microcytosis Slight; Ovalocytes FEW; Platelet Estimate Adequate
[2017-01-19] MEDS: PROMETHAZINE HCL 6.25 MG/5 ML ORAL SYRUP PO PRN ×3 (06:49→18:38)
[2017-01-19] MEDS ORDERED: PNEUMOCOCCAL VACC POLYS 25 MCG/0.5 ML VIAL IM ONE (07:45)
[2017-01-19] MEDS ORDERED: INFLUENZA QUAD 2017-2018 0.5 ML SYRG IM ONE (07:45)
[2017-01-19 09:00] VITALS: BP 75/42
[2017-01-19 09:10] VITALS: BP 105/45
[2017-01-19] MEDS: methylPREDNISolone SOD SUCC 125 MG/2 ML VL IV SCH ×2 (09:46→20:45)
[2017-01-19] MEDS: PANTOPRAZOLE 40 MG TAB PO SCH (09:46)
[2017-01-19] MEDS: MORPHINE SULFATE 10 MG/ML INJ 1ML SDV IV PRN ×3 (09:46→21:04)
[2017-01-19] MEDS: ENOXAPARIN SOD 40 MG/0.4 ML SYRINGE SC SCH (09:46)
[2017-01-19 13:00] VITALS: BP 99/49
[2017-01-19 17:00] VITALS: BP 103/48
[2017-01-19] MEDS: TEMAZEPAM 15 MG CAP PO PRN (20:44)
[2017-01-19 21:58] VITALS: BP 113/54
[2017-01-20] MEDS: MORPHINE SULFATE 10 MG/ML INJ 1ML SDV IV PRN ×5 (01:49→20:14)
[2017-01-20] MEDS: ALBUTEROL SULF 2.5 MG/0.5ML(0.5%) NEB SOLN NEB SCH ×6 (02:04→22:04)
[2017-01-20] MEDS: IPRATROPIUM BROM 0.5 MG/2.5ML INH SOL NEB SCH ×6 (02:04→22:04)
[2017-01-20] MEDS: PROMETHAZINE HCL 6.25 MG/5 ML ORAL SYRUP PO PRN ×3 (04:27→22:06)
[2017-01-20] MEDS: cefTRIAXone 1GM/50ML D5W 50 ML IV SCH (04:27)
[2017-01-20 04:59] VITALS: BP 127/68
[2017-01-20 05:22] LABS: Basophils # (auto) 0 uL; Basophils % (auto) 0.1 % (0.0-2.0); Eosinophils # (auto) 0 uL; Hemoglobin 9.5 g/dL (12.2-16.2); Lymphocytes # (auto) 0.8 uL; Monocytes # (auto) 0.3 uL; Neutrophils # (auto) 10.2 uL
[2017-01-20 05:24] LABS: Hematocrit 29.6 % (36.0-46.0); Lymphocytes % (auto) 7.2 % (10.0-50.0); Mean Corpuscular Hemoglobin 25.3 pg (28.0-32.0); Mean Corpuscular Hgb Conc. 31.9 g/dL (32.0-36.0); Mean Corpuscular Volume 79.4 fL (80.0-100.0); Mean Platelet Volume 8.6 fL (6.9-10.8); Monocytes % (auto) 2.3 % (0.0-12.0); Neutrophils % (auto) 90.4 % (37.0-80.0); Platelet Count (auto) 245 10^3/uL (140-450); White Blood Cell 11.3 10^3/uL (4.4-10.8)
[2017-01-20] MEDS: InsuLIN REG 1unit/0.01ml Soln (100units/ml) SC SCH ×5 (05:28→21:57)
[2017-01-20 05:29] LABS: Red Cell Distribution Width 20.5 % (11.8-14.3)
[2017-01-20 05:42] LABS: Albumin 2.9 g/dL (3.4-5.0); Calcium 8.5 mg/dL (8.5-10.1); Potassium 4.3 mmol/L (3.5-5.1)
[2017-01-20 05:45] LABS: BUN/Creatinine Ratio 38.6
[2017-01-20 05:47] LABS: Bilirubin, Total 0.1 mg/dL (0.2-1.0)
[2017-01-20] MEDS: ACCU-CHEK COMFORT CURVE STRIP VI SCH ×5 (06:00→21:56)
[2017-01-20 07:03] LABS: Anisocytosis Slight; Hypochromia Slight; Ovalocytes FEW; Platelet Estimate Adequate
[2017-01-20] MEDS: SODIUM CHLORIDE 0.9% 1,000 ML IV SCH ×2 (07:17→17:16)
[2017-01-20 09:00] VITALS: BP 134/72
[2017-01-20] MEDS: ENOXAPARIN SOD 40 MG/0.4 ML SYRINGE SC SCH (09:15)
[2017-01-20] MEDS: PANTOPRAZOLE 40 MG TAB PO SCH (09:15)
[2017-01-20] MEDS: methylPREDNISolone SOD SUCC 125 MG/2 ML VL IV SCH ×2 (09:16→21:56)
[2017-01-20] MEDS: ONDANSETRON HCL 4 MG/2 ML VIAL IV PRN (12:51)
[2017-01-20 13:00] VITALS: BP 129/91
[2017-01-20 17:00] VITALS: BP 157/74
[2017-01-20] MEDS: TEMAZEPAM 15 MG CAP PO PRN (21:57)
[2017-01-20 22:00] VITALS: BP 117/60
[2017-01-21] MEDS: MORPHINE SULFATE 10 MG/ML INJ 1ML SDV IV PRN ×5 (02:05→19:50)
[2017-01-21] MEDS: IPRATROPIUM BROM 0.5 MG/2.5ML INH SOL NEB SCH ×5 (02:20→18:58)
[2017-01-21] MEDS: ALBUTEROL SULF 2.5 MG/0.5ML(0.5%) NEB SOLN NEB SCH ×5 (02:20→18:57)
[2017-01-21] MEDS ORDERED: PROMETHAZINE HCL 6.25 MG/5 ML ORAL SYRUP ONE ×2 (04:30)
[2017-01-21] MEDS: PROMETHAZINE HCL 6.25 MG/5 ML ORAL SYRUP PO PRN ×2 (04:45→21:45)
[2017-01-21 04:55] VITALS: BP 119/59
[2017-01-21 06:08] LABS: Basophils # (auto) 0 uL; Eosinophils # (auto) 0 uL; Mean Platelet Volume 8.9 fL (6.9-10.8); Monocytes # (auto) 0.3 uL; Monocytes % (auto) 3.8 % (0.0-12.0)
[2017-01-21 06:15] LABS: Basophils % (auto) 0.1 % (0.0-2.0); Hematocrit 31.6 % (36.0-46.0); Hemoglobin 10.2 g/dL (12.2-16.2); Lymphocytes # (auto) 0.7 uL; Lymphocytes % (auto) 11.2 % (10.0-50.0); Mean Corpuscular Hemoglobin 25.6 pg (28.0-32.0); Mean Corpuscular Hgb Conc. 32.3 g/dL (32.0-36.0); Mean Corpuscular Volume 79.2 fL (80.0-100.0); Neutrophils # (auto) 5.6 uL; Neutrophils % (auto) 84.9 % (37.0-80.0); Nucleated Red Blood Cells % 0.1 %; Platelet Count (auto) 242 10^3/uL (140-450); White Blood Cell 6.6 10^3/uL (4.4-10.8)
[2017-01-21 06:19] LABS: Red Cell Distribution Width 20.3 % (11.8-14.3)
[2017-01-21] MEDS: cefTRIAXone 1GM/50ML D5W 50 ML IV SCH (06:33)
[2017-01-21] MEDS: ACCU-CHEK COMFORT CURVE STRIP VI SCH ×4 (06:33→21:45)
[2017-01-21] MEDS: InsuLIN REG 1unit/0.01ml Soln (100units/ml) SC SCH ×4 (06:34→21:45)
[2017-01-21 06:45] LABS: BUN/Creatinine Ratio 39.3; Calcium 8.8 mg/dL (8.5-10.1); Platelet Estimate Adequate; Potassium 4.3 mmol/L (3.5-5.1)
[2017-01-21 06:46] LABS: Anisocytosis Slight; Hypochromia Slight; Microcytosis Slight; Ovalocytes FEW
[2017-01-21] MEDS: SODIUM CHLORIDE 0.9% 1,000 ML IV SCH ×2 (07:39→20:47)
[2017-01-21 08:00] VITALS: BP 126/63
[2017-01-21] MEDS: ENOXAPARIN SOD 40 MG/0.4 ML SYRINGE SC SCH (09:48)
[2017-01-21] MEDS: PANTOPRAZOLE 40 MG TAB PO SCH (09:48)
[2017-01-21] MEDS: methylPREDNISolone SOD SUCC 125 MG/2 ML VL IV SCH ×2 (09:48→21:40)
[2017-01-21] MEDS ORDERED: MONTELUKAST SODIUM 10 MG TAB PO ONE (10:00)
[2017-01-21] MEDS ORDERED: IPRATROPIUM BROM 0.5 MG/2.5ML INH SOL NEB PRN (11:00)
[2017-01-21] MEDS ORDERED: BUDESONIDE (INHALATION) 0.5 MG/2 ML NEB NEB ONE (11:00)
[2017-01-21 12:00] VITALS: BP 122/67
[2017-01-21] MEDS: THEOPHYLLINE 80 MG/15ml ORAL Elixir PO SCH ×2 (15:07→21:40)
[2017-01-21 17:15] VITALS: BP 135/59
[2017-01-21] MEDS: BUDESONIDE (INHALATION) 0.5 MG/2 ML NEB NEB SCH (18:58)
[2017-01-21] MEDS: MONTELUKAST SODIUM 10 MG TAB PO SCH (21:39)
[2017-01-21] MEDS: TEMAZEPAM 15 MG CAP PO PRN (21:45)
[2017-01-21 22:00] VITALS: BP 105/55
[2017-01-21 22:10] VITALS: BP 105/55
[2017-01-22] MEDS: ALBUTEROL SULF 2.5 MG/0.5ML(0.5%) NEB SOLN NEB SCH ×4 (00:26→18:15)
[2017-01-22] MEDS: IPRATROPIUM BROM 0.5 MG/2.5ML INH SOL NEB SCH ×4 (00:27→18:15)
[2017-01-22] MEDS: MORPHINE SULFATE 10 MG/ML INJ 1ML SDV IV PRN ×6 (02:09→19:42)
[2017-01-22 05:08] VITALS: BP 107/57
[2017-01-22] MEDS: BUDESONIDE (INHALATION) 0.5 MG/2 ML NEB NEB SCH ×2 (06:28→18:15)
[2017-01-22] MEDS: ACCU-CHEK COMFORT CURVE STRIP VI SCH ×3 (06:41→17:25)
[2017-01-22] MEDS: InsuLIN REG 1unit/0.01ml Soln (100units/ml) SC SCH ×3 (06:42→17:26)
[2017-01-22] MEDS: THEOPHYLLINE 80 MG/15ml ORAL Elixir PO SCH ×3 (06:42→21:45)
[2017-01-22] MEDS: cefTRIAXone 1GM/50ML D5W 50 ML IV SCH (06:42)
[2017-01-22] MEDS: THROAT LOZENGES(CEPASTAT) MT PRN ×4 (07:48→17:28)
[2017-01-22 08:00] VITALS: BP 112/70
[2017-01-22] MEDS: SODIUM CHLORIDE 0.9% 1,000 ML IV SCH ×2 (08:51→20:27)
[2017-01-22 09:20] VITALS: BP 112/70
[2017-01-22] MEDS: PANTOPRAZOLE 40 MG TAB PO SCH (09:37)
[2017-01-22] MEDS: methylPREDNISolone SOD SUCC 125 MG/2 ML VL IV SCH ×2 (09:38→21:44)
[2017-01-22] MEDS: ENOXAPARIN SOD 40 MG/0.4 ML SYRINGE SC SCH (09:39)
[2017-01-22] MEDS: ONDANSETRON HCL 4 MG/2 ML VIAL IV PRN ×2 (09:46→19:01)
[2017-01-22 12:30] VITALS: BP 114/70
[2017-01-22 16:39] VITALS: BP 124/70
[2017-01-22] MEDS: PROMETHAZINE HCL 6.25 MG/5 ML ORAL SYRUP PO PRN (20:57)
[2017-01-22 21:30] VITALS: BP 123/69
[2017-01-22] MEDS: MONTELUKAST SODIUM 10 MG TAB PO SCH (21:44)
[2017-01-22] MEDS: TEMAZEPAM 15 MG CAP PO PRN (21:45)
[2017-01-23] VITALS (7 sets, daily range): BP systolic 109–118; BP diastolic 57–71
[2017-01-23] MEDS: IPRATROPIUM BROM 0.5 MG/2.5ML INH SOL NEB SCH ×4 (00:32→19:46)
[2017-01-23] MEDS: ALBUTEROL SULF 2.5 MG/0.5ML(0.5%) NEB SOLN NEB SCH ×4 (00:32→19:45)
[2017-01-23] MEDS: MORPHINE SULFATE 10 MG/ML INJ 1ML SDV IV PRN ×4 (01:02→15:01)
[2017-01-23] MEDS: THROAT LOZENGES(CEPASTAT) MT PRN ×5 (04:30→22:19)
[2017-01-23] MEDS: ACCU-CHEK COMFORT CURVE STRIP VI SCH ×5 (05:29→23:57)
[2017-01-23] MEDS: THEOPHYLLINE 80 MG/15ml ORAL Elixir PO SCH ×3 (05:34→22:16)
[2017-01-23] MEDS: PROMETHAZINE HCL 6.25 MG/5 ML ORAL SYRUP PO PRN (05:34)
[2017-01-23] MEDS: InsuLIN REG 1unit/0.01ml Soln (100units/ml) SC SCH ×5 (05:34→23:58)
[2017-01-23 05:48] LABS: Basophils # (auto) 0 uL; Eosinophils # (auto) 0 uL; Lymphocytes # (auto) 0.9 uL; Mean Corpuscular Hemoglobin 25.5 pg (28.0-32.0); Mean Corpuscular Hgb Conc. 32.1 g/dL (32.0-36.0); Mean Platelet Volume 8.7 fL (6.9-10.8); Monocytes # (auto) 0.3 uL
[2017-01-23 05:50] LABS: Hematocrit 32.1 % (36.0-46.0); Hemoglobin 10.3 g/dL (12.2-16.2); Lymphocytes % (auto) 11.1 % (10.0-50.0); Mean Corpuscular Volume 79.5 fL (80.0-100.0); Monocytes % (auto) 3.9 % (0.0-12.0); Neutrophils # (auto) 6.7 uL; Platelet Count (auto) 244 10^3/uL (140-450); White Blood Cell 7.9 10^3/uL (4.4-10.8)
[2017-01-23 06:00] LABS: Red Cell Distribution Width 20.1 % (11.8-14.3)
[2017-01-23 06:01] LABS: BUN/Creatinine Ratio 29.2; Calcium 8.8 mg/dL (8.5-10.1); Potassium 4.3 mmol/L (3.5-5.1)
[2017-01-23 06:03] LABS: Bilirubin, Total 0.2 mg/dL (0.2-1.0); Total Protein 6.2 g/dL (6.4-8.2)
[2017-01-23 06:46] LABS: Anisocytosis Slight; Large Platelets A; Microcytosis Slight
[2017-01-23 06:47] LABS: Ovalocytes FEW; Platelet Estimate Adequate
[2017-01-23] MEDS: BUDESONIDE (INHALATION) 0.5 MG/2 ML NEB NEB SCH ×2 (07:03→19:46)
[2017-01-23] MEDS: ONDANSETRON HCL 4 MG/2 ML VIAL IV PRN ×2 (08:11→16:25)
[2017-01-23] MEDS: ENOXAPARIN SOD 40 MG/0.4 ML SYRINGE SC SCH (09:15)
[2017-01-23] MEDS: methylPREDNISolone SOD SUCC 125 MG/2 ML VL IV SCH ×2 (09:15→22:16)
[2017-01-23] MEDS: PANTOPRAZOLE 40 MG TAB PO SCH (09:15)
[2017-01-23] MEDS: SODIUM CHLORIDE 0.9% 1,000 ML IV SCH ×2 (09:16→22:20)
[2017-01-23] MEDS: MONTELUKAST SODIUM 10 MG TAB PO SCH (22:16)
[2017-01-23] MEDS: TEMAZEPAM 15 MG CAP PO PRN (22:16)
[2017-01-24] MEDS: ALBUTEROL SULF 2.5 MG/0.5ML(0.5%) NEB SOLN NEB SCH ×4 (00:47→19:06)
[2017-01-24] MEDS: IPRATROPIUM BROM 0.5 MG/2.5ML INH SOL NEB SCH ×4 (00:48→19:06)
[2017-01-24] MEDS: THROAT LOZENGES(CEPASTAT) MT PRN ×5 (03:10→19:48)
[2017-01-24] MEDS: ONDANSETRON HCL 4 MG/2 ML VIAL IV PRN ×2 (04:52→17:25)
[2017-01-24] MEDS: SODIUM CHLORIDE 0.9% 1,000 ML IV SCH ×2 (04:52→23:47)
[2017-01-24 05:00] VITALS: BP 113/64
[2017-01-24] MEDS: ACCU-CHEK COMFORT CURVE STRIP VI SCH ×3 (05:50→17:09)
[2017-01-24] MEDS: THEOPHYLLINE 80 MG/15ml ORAL Elixir PO SCH ×3 (05:50→22:31)
[2017-01-24] MEDS: InsuLIN REG 1unit/0.01ml Soln (100units/ml) SC SCH ×3 (05:51→17:09)
[2017-01-24] MEDS: BUDESONIDE (INHALATION) 0.5 MG/2 ML NEB NEB SCH ×2 (07:00→19:06)
[2017-01-24 08:00] VITALS: BP 115/77
[2017-01-24] MEDS: ENOXAPARIN SOD 40 MG/0.4 ML SYRINGE SC SCH (08:46)
[2017-01-24] MEDS: PANTOPRAZOLE 40 MG TAB PO SCH (08:46)
[2017-01-24] MEDS: methylPREDNISolone SOD SUCC 125 MG/2 ML VL IV SCH ×2 (08:47→22:31)
[2017-01-24 09:00] VITALS: BP 115/77
[2017-01-24] MEDS: PROMETHAZINE HCL 6.25 MG/5 ML ORAL SYRUP PO PRN (09:33)
[2017-01-24] MEDS: HYDROmorphone HCL 2 MG/ML VL IV PRN ×3 (11:43→22:32)
[2017-01-24 13:00] VITALS: BP 104/52
[2017-01-24 16:29] VITALS: BP 117/63
[2017-01-24 22:00] VITALS: BP 111/46
[2017-01-24] MEDS: MONTELUKAST SODIUM 10 MG TAB PO SCH (22:31)
[2017-01-24] MEDS: TEMAZEPAM 15 MG CAP PO PRN (23:38)
[2017-01-25] MEDS: ACCU-CHEK COMFORT CURVE STRIP VI SCH ×4 (00:10→17:13)
[2017-01-25] MEDS: IPRATROPIUM BROM 0.5 MG/2.5ML INH SOL NEB SCH ×4 (00:33→19:10)
[2017-01-25] MEDS: ALBUTEROL SULF 2.5 MG/0.5ML(0.5%) NEB SOLN NEB SCH ×4 (00:33→19:11)
[2017-01-25] MEDS: THROAT LOZENGES(CEPASTAT) MT PRN ×3 (01:51→16:00)
[2017-01-25 05:00] VITALS: BP 103/48
[2017-01-25] MEDS: THEOPHYLLINE 80 MG/15ml ORAL Elixir PO SCH ×3 (05:47→21:41)
[2017-01-25 05:53] LABS: Basophils # (auto) 0 uL; Eosinophils # (auto) 0 uL; Hemoglobin 10.2 g/dL (12.2-16.2); Lymphocytes # (auto) 0.9 uL; Monocytes # (auto) 0.3 uL; Nucleated Red Blood Cells % 0.1 %; White Blood Cell 6.6 10^3/uL (4.4-10.8)
[2017-01-25 05:56] LABS: Hematocrit 31.4 % (36.0-46.0); Lymphocytes % (auto) 13.3 % (10.0-50.0); Mean Corpuscular Hemoglobin 25.8 pg (28.0-32.0); Mean Corpuscular Hgb Conc. 32.6 g/dL (32.0-36.0); Mean Platelet Volume 8.6 fL (6.9-10.8); Monocytes % (auto) 4.3 % (0.0-12.0); Neutrophils # (auto) 5.4 uL; Neutrophils % (auto) 82.4 % (37.0-80.0); Platelet Count (auto) 247 10^3/uL (140-450); Red Cell Distribution Width 19.4 % (11.8-14.3)
[2017-01-25] MEDS: InsuLIN REG 1unit/0.01ml Soln (100units/ml) SC SCH ×4 (05:59→17:20)
[2017-01-25] MEDS: HYDROmorphone HCL 2 MG/ML VL IV PRN ×4 (06:00→21:40)
[2017-01-25 06:07] LABS: Albumin 3.3 g/dL (3.4-5.0); Potassium 4.1 mmol/L (3.5-5.1)
[2017-01-25 06:09] LABS: BUN/Creatinine Ratio 40.9
[2017-01-25 06:20] LABS: Bilirubin, Total 0.3 mg/dL (0.2-1.0); Total Protein 6.5 g/dL (6.4-8.2)
[2017-01-25] MEDS: BUDESONIDE (INHALATION) 0.5 MG/2 ML NEB NEB SCH ×2 (06:48→19:11)
[2017-01-25 09:00] VITALS: BP 117/64
[2017-01-25] MEDS: PANTOPRAZOLE 40 MG TAB PO SCH (10:11)
[2017-01-25] MEDS: methylPREDNISolone SOD SUCC 125 MG/2 ML VL IV SCH ×2 (10:11→21:40)
[2017-01-25] MEDS: ENOXAPARIN SOD 40 MG/0.4 ML SYRINGE SC SCH (10:12)
[2017-01-25] MEDS: ONDANSETRON HCL 4 MG/2 ML VIAL IV PRN ×3 (10:12→21:40)
[2017-01-25] MEDS: SODIUM CHLORIDE 0.9% 1,000 ML IV SCH (11:50)
[2017-01-25 13:00] VITALS: BP 134/82
[2017-01-25 17:00] VITALS: BP 106/61
[2017-01-25] MEDS: MONTELUKAST SODIUM 10 MG TAB PO SCH (21:39)
[2017-01-25] MEDS: TEMAZEPAM 15 MG CAP PO PRN (21:41)
[2017-01-25 22:00] VITALS: BP 102/51
[2017-01-26] VITALS (7 sets, daily range): BP systolic 105–122; BP diastolic 56–68
[2017-01-26] MEDS: SODIUM CHLORIDE 0.9% 1,000 ML IV SCH ×2 (00:47→12:24)
[2017-01-26] MEDS: ALBUTEROL SULF 2.5 MG/0.5ML(0.5%) NEB SOLN NEB SCH ×4 (01:02→18:29)
[2017-01-26] MEDS: IPRATROPIUM BROM 0.5 MG/2.5ML INH SOL NEB SCH ×4 (01:02→18:30)
[2017-01-26] MEDS: InsuLIN REG 1unit/0.01ml Soln (100units/ml) SC SCH ×4 (01:54→18:02)
[2017-01-26] MEDS: ACCU-CHEK COMFORT CURVE STRIP VI SCH ×4 (01:54→17:56)
[2017-01-26] MEDS: THROAT LOZENGES(CEPASTAT) MT PRN ×3 (01:55→15:42)
[2017-01-26] MEDS: HYDROmorphone HCL 2 MG/ML VL IV PRN ×5 (04:59→21:58)
[2017-01-26] MEDS: THEOPHYLLINE 80 MG/15ml ORAL Elixir PO SCH ×3 (05:48→22:32)
[2017-01-26 05:53] LABS: Basophils # (auto) 0 uL; Eosinophils # (auto) 0 uL; Hemoglobin 10.1 g/dL (12.2-16.2); Nucleated Red Blood Cells % 0.1 %; White Blood Cell 5.8 10^3/uL (4.4-10.8)
[2017-01-26 05:56] LABS: Hematocrit 31.1 % (36.0-46.0); Lymphocytes # (auto) 0.6 uL; Lymphocytes % (auto) 9.6 % (10.0-50.0); Mean Corpuscular Hemoglobin 25.7 pg (28.0-32.0); Mean Corpuscular Hgb Conc. 32.5 g/dL (32.0-36.0); Mean Platelet Volume 8.7 fL (6.9-10.8); Monocytes # (auto) 0.2 uL; Monocytes % (auto) 2.7 % (0.0-12.0); Neutrophils % (auto) 87.7 % (37.0-80.0); Platelet Count (auto) 236 10^3/uL (140-450); Red Cell Distribution Width 19.5 % (11.8-14.3)
[2017-01-26 06:06] LABS: Albumin 2.9 g/dL (3.4-5.0); BUN/Creatinine Ratio 28.4; Calcium 8.8 mg/dL (8.5-10.1); Potassium 4.3 mmol/L (3.5-5.1)
[2017-01-26 06:09] LABS: Bilirubin, Total 0.2 mg/dL (0.2-1.0)
[2017-01-26] MEDS: BUDESONIDE (INHALATION) 0.5 MG/2 ML NEB NEB SCH ×2 (07:10→18:30)
[2017-01-26] MEDS: methylPREDNISolone SOD SUCC 125 MG/2 ML VL IV SCH ×2 (09:19→21:56)
[2017-01-26] MEDS: ENOXAPARIN SOD 40 MG/0.4 ML SYRINGE SC SCH (09:20)
[2017-01-26] MEDS: PANTOPRAZOLE 40 MG TAB PO SCH (09:20)
[2017-01-26] MEDS: ONDANSETRON HCL 4 MG/2 ML VIAL IV PRN ×2 (10:28→17:56)
[2017-01-26] MEDS: SUCRALFATE 1 GM/10 ML ORAL SUSP PO SCH ×2 (17:48→21:56)
[2017-01-26] MEDS: BOOST 8 ounces PO SCH (17:49)
[2017-01-26] MEDS: MONTELUKAST SODIUM 10 MG TAB PO SCH (21:53)
[2017-01-26] MEDS: TEMAZEPAM 15 MG CAP PO PRN (21:54)
[2017-01-27] MEDS: IPRATROPIUM BROM 0.5 MG/2.5ML INH SOL NEB SCH ×4 (00:25→18:18)
[2017-01-27] MEDS: ALBUTEROL SULF 2.5 MG/0.5ML(0.5%) NEB SOLN NEB SCH ×4 (00:25→18:18)
[2017-01-27] MEDS: HYDROmorphone HCL 2 MG/ML VL IV PRN ×6 (01:59→23:15)
[2017-01-27] MEDS: PROMETHAZINE HCL 6.25 MG/5 ML ORAL SYRUP PO PRN (02:39)
[2017-01-27] MEDS: SODIUM CHLORIDE 0.9% 1,000 ML IV SCH ×2 (03:12→14:33)
[2017-01-27 05:00] VITALS: BP 105/60
[2017-01-27] MEDS: InsuLIN REG 1unit/0.01ml Soln (100units/ml) SC SCH ×5 (06:00→23:27)
[2017-01-27 06:03] LABS: Basophils # (auto) 0 uL; Eosinophils # (auto) 0 uL; Eosinophils % (auto) 0.1 % (0.0-7.0); Hemoglobin 10.2 g/dL (12.2-16.2); Mean Corpuscular Hemoglobin 25.6 pg (28.0-32.0); Mean Platelet Volume 8.5 fL (6.9-10.8); Monocytes # (auto) 0.9 uL; Neutrophils # (auto) 5.3 uL; Nucleated Red Blood Cells % 0.1 %; White Blood Cell 9.3 10^3/uL (4.4-10.8)
[2017-01-27 06:08] LABS: Hematocrit 31.4 % (36.0-46.0); Lymphocytes # (auto) 3.2 uL; Mean Corpuscular Hgb Conc. 32.4 g/dL (32.0-36.0); Monocytes % (auto) 9.3 % (0.0-12.0); Neutrophils % (auto) 56.6 % (37.0-80.0); Platelet Count (auto) 243 10^3/uL (140-450); Red Cell Distribution Width 19.4 % (11.8-14.3)
[2017-01-27] MEDS: BUDESONIDE (INHALATION) 0.5 MG/2 ML NEB NEB SCH ×2 (06:10→18:19)
[2017-01-27 06:26] LABS: Potassium 3.5 mmol/L (3.5-5.1)
[2017-01-27] MEDS: ACCU-CHEK COMFORT CURVE STRIP VI SCH ×5 (06:26→23:27)
[2017-01-27] MEDS: SUCRALFATE 1 GM/10 ML ORAL SUSP PO SCH ×4 (06:31→22:40)
[2017-01-27 06:34] LABS: Albumin 3.1 g/dL (3.4-5.0); BUN/Creatinine Ratio 39.4; Bilirubin, Total 0.4 mg/dL (0.2-1.0); Calcium 8.9 mg/dL (8.5-10.1); Total Protein 6.2 g/dL (6.4-8.2)
[2017-01-27] MEDS: THEOPHYLLINE 80 MG/15ml ORAL Elixir PO SCH ×4 (06:35→22:40)
[2017-01-27] MEDS: BOOST 8 ounces PO SCH ×3 (07:19→17:02)
[2017-01-27 08:00] VITALS: BP 105/60
[2017-01-27 09:00] VITALS: BP 110/59
[2017-01-27] MEDS: methylPREDNISolone SOD SUCC 125 MG/2 ML VL IV SCH ×2 (10:38→22:39)
[2017-01-27] MEDS: ENOXAPARIN SOD 40 MG/0.4 ML SYRINGE SC SCH (10:38)
[2017-01-27] MEDS: PANTOPRAZOLE 40 MG TAB PO SCH (10:38)
[2017-01-27] MEDS: THROAT LOZENGES(CEPASTAT) MT PRN ×2 (10:45→22:40)
[2017-01-27 13:00] VITALS: BP 101/52
[2017-01-27] MEDS: ONDANSETRON HCL 4 MG/2 ML VIAL IV PRN ×2 (13:15→23:15)
[2017-01-27 15:37] LABS: Albumin 3.6 g/dL (3.4-5.0); BUN/Creatinine Ratio 30.6; Bilirubin, Total 0.4 mg/dL (0.2-1.0); Calcium 8.7 mg/dL (8.5-10.1); Potassium 4.3 mmol/L (3.5-5.1)
[2017-01-27 17:00] VITALS: BP 106/63
[2017-01-27 22:00] VITALS: BP 97/47
[2017-01-27] MEDS: MONTELUKAST SODIUM 10 MG TAB PO SCH (22:40)
[2017-01-27] MEDS: TEMAZEPAM 15 MG CAP PO PRN (22:41)
[2017-01-28] MEDS: ALBUTEROL SULF 2.5 MG/0.5ML(0.5%) NEB SOLN NEB SCH ×4 (00:26→20:21)
[2017-01-28] MEDS: IPRATROPIUM BROM 0.5 MG/2.5ML INH SOL NEB SCH ×4 (00:27→20:21)
[2017-01-28] MEDS: THROAT LOZENGES(CEPASTAT) MT PRN ×3 (02:23→16:13)
[2017-01-28] MEDS: SODIUM CHLORIDE 0.9% 1,000 ML IV SCH ×2 (02:47→15:53)
[2017-01-28] MEDS: HYDROmorphone HCL 2 MG/ML VL IV PRN ×5 (03:20→20:13)
[2017-01-28 05:00] VITALS: BP 103/56
[2017-01-28] MEDS: ACCU-CHEK COMFORT CURVE STRIP VI SCH ×3 (06:07→17:54)
[2017-01-28] MEDS: SUCRALFATE 1 GM/10 ML ORAL SUSP PO SCH ×4 (06:08→21:28)
[2017-01-28] MEDS: THEOPHYLLINE 80 MG/15ml ORAL Elixir PO SCH ×3 (06:08→22:30)
[2017-01-28] MEDS: InsuLIN REG 1unit/0.01ml Soln (100units/ml) SC SCH ×3 (06:09→17:55)
[2017-01-28] MEDS: BOOST 8 ounces PO SCH (08:00)
[2017-01-28 09:00] VITALS: BP 110/51
[2017-01-28] MEDS: ONDANSETRON HCL 4 MG/2 ML VIAL IV PRN ×4 (09:10→20:13)
[2017-01-28] MEDS: PANTOPRAZOLE 40 MG TAB PO SCH (09:50)
[2017-01-28] MEDS: ENOXAPARIN SOD 40 MG/0.4 ML SYRINGE SC SCH (09:50)
[2017-01-28] MEDS: methylPREDNISolone SOD SUCC 125 MG/2 ML VL IV SCH ×2 (09:51→22:30)
[2017-01-28] MEDS ORDERED: INFLUENZA QUAD 2017-2018 0.5 ML SYRG IM ONE (11:00)
[2017-01-28] MEDS ORDERED: PNEUMOCOCCAL VACC POLYS 25 MCG/0.5 ML VIAL IM ONE (11:00)
[2017-01-28] MEDS: BUDESONIDE (INHALATION) 0.5 MG/2 ML NEB NEB SCH ×2 (11:24→20:21)
[2017-01-28] MEDS: Boost Breeze 8 Ounces PO SCH ×2 (12:13→17:54)
[2017-01-28 13:00] VITALS: BP 116/60
[2017-01-28 17:00] VITALS: BP 108/72
[2017-01-28 22:00] VITALS: BP 109/64
[2017-01-28] MEDS: TEMAZEPAM 15 MG CAP PO PRN (22:30)
[2017-01-28] MEDS: MONTELUKAST SODIUM 10 MG TAB PO SCH (22:30)
[2017-01-29] MEDS: InsuLIN REG 1unit/0.01ml Soln (100units/ml) SC SCH ×5 (00:29→23:53)
[2017-01-29] MEDS: ACCU-CHEK COMFORT CURVE STRIP VI SCH ×5 (00:29→23:53)
[2017-01-29] MEDS: ONDANSETRON HCL 4 MG/2 ML VIAL IV PRN ×6 (00:30→21:24)
[2017-01-29] MEDS: HYDROmorphone HCL 2 MG/ML VL IV PRN ×6 (00:30→21:26)
[2017-01-29] MEDS: IPRATROPIUM BROM 0.5 MG/2.5ML INH SOL NEB SCH ×4 (00:46→19:29)
[2017-01-29] MEDS: ALBUTEROL SULF 2.5 MG/0.5ML(0.5%) NEB SOLN NEB SCH ×4 (00:46→19:29)
[2017-01-29] MEDS: SODIUM CHLORIDE 0.9% 1,000 ML IV SCH ×3 (03:47→23:09)
[2017-01-29 05:00] VITALS: BP 118/69
[2017-01-29] MEDS: BUDESONIDE (INHALATION) 0.5 MG/2 ML NEB NEB SCH ×2 (05:34→19:30)
[2017-01-29 05:52] LABS: BUN/Creatinine Ratio 33.3; Calcium 8.8 mg/dL (8.5-10.1); Potassium 3.8 mmol/L (3.5-5.1)
[2017-01-29 05:54] LABS: Bilirubin, Total 0.3 mg/dL (0.2-1.0); Total Protein 6.2 g/dL (6.4-8.2)
[2017-01-29] MEDS: THEOPHYLLINE 80 MG/15ml ORAL Elixir PO SCH ×3 (05:57→22:48)
[2017-01-29] MEDS: SUCRALFATE 1 GM/10 ML ORAL SUSP PO SCH ×4 (06:24→21:24)
[2017-01-29] MEDS: Boost Breeze 8 Ounces PO SCH ×3 (08:30→17:51)
[2017-01-29 09:00] VITALS: BP 124/66
[2017-01-29 09:08] VITALS: BP 118/69
[2017-01-29] MEDS: PANTOPRAZOLE 40 MG TAB PO SCH ×2 (09:37→22:44)
[2017-01-29] MEDS: ENOXAPARIN SOD 40 MG/0.4 ML SYRINGE SC SCH (09:37)
[2017-01-29] MEDS: methylPREDNISolone SOD SUCC 125 MG/2 ML VL IV SCH ×2 (09:37→22:47)
[2017-01-29 13:00] VITALS: BP 105/59
[2017-01-29] MEDS ORDERED: LACTULOSE 20Gm/30ML SOLN PO PRN (13:30)
[2017-01-29] MEDS ORDERED: HYOSCYAMINE SULF 0.125 MG TAB PO PRN (13:30)
[2017-01-29] MEDS: METOCLOPRAMIDE HCL 5MG/ml INJ 2ml VIAL IV SCH ×2 (14:26→22:47)
[2017-01-29 17:00] VITALS: BP 93/53
[2017-01-29] MEDS: PANCREATIC ENZYMES 4200 UNIT CAP PO SCH (17:51)
[2017-01-29 22:00] VITALS: BP 111/55
[2017-01-29] MEDS: MONTELUKAST SODIUM 10 MG TAB PO SCH (22:43)
[2017-01-29] MEDS: TEMAZEPAM 15 MG CAP PO PRN (22:46)
[2017-01-30] VITALS (7 sets, daily range): BP systolic 100–112; BP diastolic 44–61
[2017-01-30] MEDS: IPRATROPIUM BROM 0.5 MG/2.5ML INH SOL NEB SCH ×4 (00:43→20:05)
[2017-01-30] MEDS: ALBUTEROL SULF 2.5 MG/0.5ML(0.5%) NEB SOLN NEB SCH ×4 (00:43→20:07)
[2017-01-30] MEDS: METOCLOPRAMIDE HCL 5MG/ml INJ 2ml VIAL IV SCH (05:31)
[2017-01-30] MEDS: THEOPHYLLINE 80 MG/15ml ORAL Elixir PO SCH ×3 (05:32→21:24)
[2017-01-30] MEDS: HYDROmorphone HCL 2 MG/ML VL IV PRN ×4 (05:32→21:25)
[2017-01-30] MEDS: ACCU-CHEK COMFORT CURVE STRIP VI SCH ×4 (05:32→23:46)
[2017-01-30] MEDS: ONDANSETRON HCL 4 MG/2 ML VIAL IV PRN ×4 (05:32→21:26)
[2017-01-30] MEDS: InsuLIN REG 1unit/0.01ml Soln (100units/ml) SC SCH ×4 (05:43→23:46)
[2017-01-30] MEDS: SUCRALFATE 1 GM/10 ML ORAL SUSP PO SCH ×4 (06:19→21:24)
[2017-01-30 06:42] LABS: Basophils # (auto) 0 uL; Basophils % (auto) 0.1 % (0.0-2.0); Eosinophils # (auto) 0 uL; Lymphocytes # (auto) 0.6 uL; Monocytes # (auto) 0.1 uL; Neutrophils # (auto) 3.8 uL; White Blood Cell 4.5 10^3/uL (4.4-10.8)
[2017-01-30 06:44] LABS: BUN/Creatinine Ratio 21.3; Calcium 8.9 mg/dL (8.5-10.1); Potassium 4.2 mmol/L (3.5-5.1)
[2017-01-30 06:45] LABS: Hematocrit 30.7 % (36.0-46.0); Hemoglobin 9.9 g/dL (12.2-16.2); Lymphocytes % (auto) 13.8 % (10.0-50.0); Mean Corpuscular Hemoglobin 25.9 pg (28.0-32.0); Mean Corpuscular Hgb Conc. 32.1 g/dL (32.0-36.0); Mean Corpuscular Volume 80.6 fL (80.0-100.0); Monocytes % (auto) 2.1 % (0.0-12.0); Nucleated Red Blood Cells % 0.1 %; Platelet Count (auto) 168 10^3/uL (140-450); Red Cell Distribution Width 19.9 % (11.8-14.3)
[2017-01-30 06:47] LABS: Bilirubin, Total 0.2 mg/dL (0.2-1.0); Total Protein 5.9 g/dL (6.4-8.2)
[2017-01-30] MEDS: BUDESONIDE (INHALATION) 0.5 MG/2 ML NEB NEB SCH ×2 (07:14→20:07)
[2017-01-30] MEDS: PANCREATIC ENZYMES 4200 UNIT CAP PO SCH ×3 (08:38→18:00)
[2017-01-30] MEDS: Boost Breeze 8 Ounces PO SCH ×3 (08:38→18:00)
[2017-01-30] MEDS: PANTOPRAZOLE 40 MG TAB PO SCH ×2 (09:41→21:25)
[2017-01-30] MEDS: methylPREDNISolone SOD SUCC 125 MG/2 ML VL IV SCH ×2 (09:41→21:24)
[2017-01-30] MEDS: ENOXAPARIN SOD 40 MG/0.4 ML SYRINGE SC SCH (09:42)
[2017-01-30] MEDS: METOCLOPRAMIDE HCL 10 MG TAB PO SCH ×2 (13:51→21:25)
[2017-01-30] MEDS: SODIUM CHLORIDE 0.9% 1,000 ML IV SCH (18:00)
[2017-01-30] MEDS: MONTELUKAST SODIUM 10 MG TAB PO SCH (21:25)
[2017-01-30] MEDS: TEMAZEPAM 15 MG CAP PO PRN (23:05)
[2017-01-31] MEDS: IPRATROPIUM BROM 0.5 MG/2.5ML INH SOL NEB SCH ×3 (01:00→12:14)
[2017-01-31] MEDS: ALBUTEROL SULF 2.5 MG/0.5ML(0.5%) NEB SOLN NEB SCH ×3 (01:00→12:14)
[2017-01-31 05:00] VITALS: BP 105/55
[2017-01-31] MEDS: HYDROmorphone HCL 2 MG/ML VL IV PRN ×2 (05:12→09:29)
[2017-01-31] MEDS: ACCU-CHEK COMFORT CURVE STRIP VI SCH (05:36)
[2017-01-31] MEDS: SODIUM CHLORIDE 0.9% 1,000 ML IV SCH (05:36)
[2017-01-31] MEDS: METOCLOPRAMIDE HCL 10 MG TAB PO SCH (05:36)
[2017-01-31] MEDS: THEOPHYLLINE 80 MG/15ml ORAL Elixir PO SCH (05:36)
[2017-01-31] MEDS: InsuLIN REG 1unit/0.01ml Soln (100units/ml) SC SCH (05:46)
[2017-01-31] MEDS: SUCRALFATE 1 GM/10 ML ORAL SUSP PO SCH ×2 (06:35→11:30)
[2017-01-31] MEDS: BUDESONIDE (INHALATION) 0.5 MG/2 ML NEB NEB SCH (07:36)
[2017-01-31] MEDS: Boost Breeze 8 Ounces PO SCH (07:47)
[2017-01-31] MEDS: PANCREATIC ENZYMES 4200 UNIT CAP PO SCH (07:47)
[2017-01-31 08:00] VITALS: BP 99/62
[2017-01-31 09:00] VITALS: BP 99/62
[2017-01-31] MEDS: PANTOPRAZOLE 40 MG TAB PO SCH (09:20)
[2017-01-31] MEDS: methylPREDNISolone SOD SUCC 125 MG/2 ML VL IV SCH (09:21)
[2017-01-31] MEDS: ENOXAPARIN SOD 40 MG/0.4 ML SYRINGE SC SCH (09:21)
[2017-01-31] MEDS: ONDANSETRON HCL 4 MG/2 ML VIAL IV PRN (09:28)
[2017-01-31 11:08] VITALS: BP 99/62
== END 2017-01-31 11:55 | disposition home or self-care (01) | DRG 282 ==
LOC: ER 14:47 → TELE 14:48 → TELE-WESTW 01-18 07:21 → TELE-E-ADS 01-18 07:43 → TELE-WESTW 01-18 10:22
PROVIDERS: ADMIT Nurse Practitioner; ATTEND Internal Medicine
DX: K85.90 Acute pancreatitis without necrosis or infection, unspecified (principal); J44.0 Chronic obstructive pulmonary disease with (acute) lower respiratory infection; E44.0 Moderate protein-calorie malnutrition; J45.901 Unspecified asthma with (acute) exacerbation; J44.1 Chronic obstructive pulmonary disease with (acute) exacerbation; K86.1 Other chronic pancreatitis; K21.9 Gastro-esophageal reflux disease without esophagitis; D63.8 Anemia in other chronic diseases classified elsewhere; E66.9 Obesity, unspecified; G89.29 Other chronic pain; E11.9 Type 2 diabetes mellitus without complications; J20.9 Acute bronchitis, unspecified; K59.00 Constipation, unspecified; Z79.4 Long term (current) use of insulin; Z80.0 Family history of malignant neoplasm of digestive organs; Z81.8 Family history of other mental and behavioral disorders; Z82.0 Family history of epilepsy and other diseases of the nervous system; Z82.3 Family history of stroke; Z82.49 Family history of ischemic heart disease and other diseases of the circulatory system; Z82.5 Family history of asthma and other chronic lower respiratory diseases; Z83.3 Family history of diabetes mellitus; Z87.11 Personal history of peptic ulcer disease; Z90.3 Acquired absence of stomach [part of]; Z98.84 Bariatric surgery status; Z90.49 Acquired absence of other specified parts of digestive tract; Z90.710 Acquired absence of both cervix and uterus; Z88.6 Allergy status to analgesic agent; Z88.5 Allergy status to narcotic agent; Z88.8 Allergy status to other drugs, medicaments and biological substances; Z88.1 Allergy status to other antibiotic agents; Z68.35 Body mass index [BMI] 35.0-35.9, adult
CPT/HCPCS: 36415; 71020; 74176; 80048; 80053; 81001; 82785; 82962; 83036; 83690; 83880; 84443; 84484; 85025; 85379; 85610; 85730; 87040; 87081; 93005; 94010; 94640; 94761; 96365; 96366; 96375; 96376; J0696; J1815; J1956; J2405

== ENCOUNTER 2017-03-16 16:05 | Inpatient (IN) | payer MEDICAID ==
[~2017-03-16] VITALS: Ht 165.1 cm; Wt 99.5 kg
[~2017-03-16 16:05] MED LIST changes: -ASCO100T PO; +CHOL20007 PO; -CYAN100023 PO
[2017-03-16] MEDS ORDERED: IPRATROPIUM BROM 0.5 MG/2.5ML INH SOL NEB ONE ×2 (16:45→21:15)
[2017-03-16] MEDS ORDERED: ALBUTEROL SULF 2.5 MG/0.5ML(0.5%) NEB SOLN NEB ONE (16:45)
[2017-03-16 17:27] LABS: Basophils # (auto) 0.1 uL; Basophils % (auto) 1.4 % (0.0-2.0); Nucleated Red Blood Cells % 0.7 %
[2017-03-16 17:28] LABS: Eosinophils % (auto) 12.7 % (0.0-7.0); Hematocrit 34.7 % (36.0-46.0); Hemoglobin 11.2 g/dL (12.2-16.2); Lymphocytes # (auto) 1.9 uL; Mean Corpuscular Hemoglobin 25.8 pg (28.0-32.0); Mean Corpuscular Hgb Conc. 32.4 g/dL (32.0-36.0); Mean Corpuscular Volume 79.5 fL (80.0-100.0); Monocytes # (auto) 0.5 uL; Monocytes % (auto) 5.9 % (0.0-12.0); Neutrophils # (auto) 4.4 uL; Platelet Count (auto) 304 10^3/uL (140-450); Red Blood Cells 4.36 10^6/uL (4.0-5.20); Red Cell Distribution Width 17.5 % (11.8-14.3); White Blood Cell 7.9 10^3/uL (4.4-10.8)
[2017-03-16 17:48] LABS: Alanine Aminotransferase 20 U/L (13-56); Albumin 3.7 g/dL (3.4-5.0); Alkaline Phosphatase 126 U/L (45-117); Anion Gap 10 (5-15); Aspartate Aminotransferase 16 U/L (15-37); BUN/Creatinine Ratio 35.4; Bilirubin, Total 0.3 mg/dL (0.2-1.0); Blood Urea Nitrogen 23 mg/dL (7-18); Carbon Dioxide 21 mmol/L (21-32); Chloride 111 mmol/L (98-107); GFR African American 119 mL/min; GFR Non-African American 98 mL/min; Glucose 117 mg/dL (74-106); Potassium 3.8 mmol/L (3.5-5.1); Sodium 142 mmol/L (136-145); Total Protein 7.7 g/dL (6.4-8.2)
[2017-03-16 19:35] LABS: Urine Bacteria NONE SEEN /hpf (None Seen); Urine Blood 1+ /uL (Negative); Urine Mucus FEW (None Seen); Urine WBC 230 /hpf (0 - 5)
[2017-03-16] MEDS ORDERED: methylPREDNISolone SOD SUCC 125 MG/2 ML VL IV ONE (20:45)
[2017-03-16] MEDS ORDERED: MORPHINE SULFATE 4 MG/ML SYR/VIAL IV ONE (20:45)
[2017-03-16] MEDS ORDERED: IPRATROPIUM BROM 0.5 MG/2.5ML INH SOL HHN ONE (20:45)
[2017-03-16] MEDS ORDERED: ONDANSETRON HCL 4 MG/2 ML VIAL IV ONE (20:45)
[2017-03-16] MEDS ORDERED: ALBUTEROL SULF 2.5 MG/0.5ML(0.5%) NEB SOLN HHN ONE (20:45)
[2017-03-16] MEDS ORDERED: cefTRIAXone 1GM/10ml IVPUSH 10 ML IV ONE (20:45)
[2017-03-16] MEDS ORDERED: MORPHINE SULFATE 4 MG/ML SYR/VIAL IV PRN (23:45)
[2017-03-17] VITALS (7 sets, daily range): BP systolic 94–140; BP diastolic 50–71
[2017-03-17] MEDS ORDERED: ALBUTEROL SULF 2.5 MG/0.5ML(0.5%) NEB SOLN ONE (00:10)
[2017-03-17] MEDS ORDERED: IPRATROPIUM BROM 0.5 MG/2.5ML INH SOL ONE (00:10)
[2017-03-17] MEDS: DOXYCYCLINE HYC 100MG/250ML 250 ML IV SCH ×2 (00:57→10:35)
[2017-03-17] MEDS ORDERED: METO10TA3 PO (02:04)
[2017-03-17] MEDS: IPRATROPIUM BROM 0.5 MG/2.5ML INH SOL NEB SCH ×4 (02:17→18:00)
[2017-03-17] MEDS: ALBUTEROL SULF 2.5 MG/0.5ML(0.5%) NEB SOLN NEB SCH ×4 (02:17→18:00)
[2017-03-17] MEDS: MORPHINE SULFATE 10 MG/ML INJ 1ML SDV IV PRN ×4 (07:01→20:41)
[2017-03-17 10:06] LABS: Basophils # (auto) 0 uL; Basophils % (auto) 0.5 % (0.0-2.0); Eosinophils # (auto) 0 uL; Eosinophils % (auto) 0.1 % (0.0-7.0); Hemoglobin 9.8 g/dL (12.2-16.2); Monocytes # (auto) 0.3 uL; Neutrophils # (auto) 4.1 uL
[2017-03-17 10:08] LABS: Hematocrit 30.3 % (36.0-46.0); Lymphocytes # (auto) 0.7 uL; Lymphocytes % (auto) 13.4 % (10.0-50.0); Mean Corpuscular Hgb Conc. 32.4 g/dL (32.0-36.0); Mean Corpuscular Volume 79.2 fL (80.0-100.0); Monocytes % (auto) 5.1 % (0.0-12.0); Neutrophils % (auto) 80.9 % (37.0-80.0); Nucleated Red Blood Cells % 0.2 %; Platelet Count (auto) 243 10^3/uL (140-450); Red Blood Cells 3.82 10^6/uL (4.0-5.20); Red Cell Distribution Width 17.6 % (11.8-14.3)
[2017-03-17 10:10] LABS: Mean Corpuscular Hemoglobin 25.6 pg (28.0-32.0)
[2017-03-17 10:21] LABS: BUN/Creatinine Ratio 31.7; Calcium 8.6 mg/dL (8.5-10.1); Potassium 4.3 mmol/L (3.5-5.1)
[2017-03-17] MEDS: ONDANSETRON HCL 4 MG/2 ML VIAL IV PRN (14:50)
[2017-03-17] MEDS: cefTRIAXone 1GM/10ml IVPUSH 10 ML IV SCH (20:40)
[2017-03-17] MEDS ORDERED: TEMAZEPAM 15 MG CAP PO ONE (23:15)
[2017-03-18] VITALS (8 sets, daily range): BP systolic 82–112; BP diastolic 42–67
[2017-03-18] MEDS: IPRATROPIUM BROM 0.5 MG/2.5ML INH SOL NEB SCH ×4 (00:47→18:10)
[2017-03-18] MEDS: ALBUTEROL SULF 2.5 MG/0.5ML(0.5%) NEB SOLN NEB SCH ×4 (00:47→18:10)
[2017-03-18] MEDS: DOXYCYCLINE HYC 100MG/250ML 250 ML IV SCH ×2 (02:06→13:11)
[2017-03-18] MEDS: ONDANSETRON HCL 4 MG/2 ML VIAL IV PRN ×3 (02:06→21:48)
[2017-03-18] MEDS ORDERED: guaiFENesin-COD 10 ML UD PO PRN (15:30)
[2017-03-18] MEDS: MORPHINE SULFATE 10 MG/ML INJ 1ML SDV IV PRN ×2 (15:38→21:48)
[2017-03-18] MEDS: methylPREDNISolone SOD SUCC 40 MG/ML VL IV SCH ×2 (15:52→21:48)
[2017-03-18] MEDS: PROMETHAZINE-DM 5 ML ORAL SYRUP GT PRN (17:38)
[2017-03-18] MEDS: BUDESONIDE (INHALATION) 0.5 MG/2 ML NEB NEB SCH (18:10)
[2017-03-18] MEDS: cefTRIAXone 1GM/10ml IVPUSH 10 ML IV SCH (21:22)
[2017-03-18] MEDS: DOXYCYCLINE 100 MG TAB/CAP PO SCH (21:47)
[2017-03-19] MEDS: MORPHINE SULFATE 10 MG/ML INJ 1ML SDV IV PRN ×5 (03:25→20:36)
[2017-03-19] MEDS: PROMETHAZINE-DM 5 ML ORAL SYRUP GT PRN ×4 (03:25→20:37)
[2017-03-19] MEDS: ONDANSETRON HCL 4 MG/2 ML VIAL IV PRN ×2 (03:25→11:10)
[2017-03-19] MEDS: methylPREDNISolone SOD SUCC 40 MG/ML VL IV SCH ×4 (03:26→22:06)
[2017-03-19 05:00] VITALS: BP 126/92
[2017-03-19] MEDS: ALBUTEROL SULF 2.5 MG/0.5ML(0.5%) NEB SOLN NEB SCH ×4 (07:30→20:59)
[2017-03-19] MEDS: IPRATROPIUM BROM 0.5 MG/2.5ML INH SOL NEB SCH ×4 (07:30→20:59)
[2017-03-19] MEDS: BUDESONIDE (INHALATION) 0.5 MG/2 ML NEB NEB SCH ×2 (07:35→20:59)
[2017-03-19 08:58] VITALS: BP 112/57
[2017-03-19] MEDS: DOXYCYCLINE 100 MG TAB/CAP PO SCH ×2 (10:15→22:03)
[2017-03-19 13:38] VITALS: BP 110/55
[2017-03-19 16:56] VITALS: BP 103/52
[2017-03-19 20:00] VITALS: BP 97/69
[2017-03-19] MEDS: TEMAZEPAM 15 MG CAP PO PRN (22:04)
[2017-03-19] MEDS: cefTRIAXone 1GM/10ml IVPUSH 10 ML IV SCH (22:05)
[2017-03-19 22:51] VITALS: BP 97/69
[2017-03-20] MEDS: IPRATROPIUM BROM 0.5 MG/2.5ML INH SOL NEB SCH ×4 (01:50→19:37)
[2017-03-20] MEDS: ALBUTEROL SULF 2.5 MG/0.5ML(0.5%) NEB SOLN NEB SCH ×4 (01:50→19:37)
[2017-03-20] MEDS: MORPHINE SULFATE 10 MG/ML INJ 1ML SDV IV PRN ×5 (04:14→20:55)
[2017-03-20] MEDS: methylPREDNISolone SOD SUCC 40 MG/ML VL IV SCH ×4 (04:14→22:14)
[2017-03-20] MEDS: PROMETHAZINE-DM 5 ML ORAL SYRUP GT PRN ×5 (04:14→20:54)
[2017-03-20 05:48] VITALS: BP 104/40
[2017-03-20] MEDS: BUDESONIDE (INHALATION) 0.5 MG/2 ML NEB NEB SCH ×2 (06:26→19:38)
[2017-03-20 08:31] VITALS: BP 104/49
[2017-03-20 09:03] VITALS: BP 128/56
[2017-03-20] MEDS: DOXYCYCLINE 100 MG TAB/CAP PO SCH ×2 (09:34→22:13)
[2017-03-20 13:30] VITALS: BP 135/59
[2017-03-20 17:21] VITALS: BP 107/50
[2017-03-20 20:00] VITALS: BP 94/63
[2017-03-20] MEDS: cefTRIAXone 1GM/10ml IVPUSH 10 ML IV SCH (20:55)
[2017-03-20] MEDS: TEMAZEPAM 15 MG CAP PO PRN (22:14)
[2017-03-21] VITALS (8 sets, daily range): BP systolic 94–119; BP diastolic 53–68
[2017-03-21] MEDS: IPRATROPIUM BROM 0.5 MG/2.5ML INH SOL NEB SCH ×4 (00:31→19:13)
[2017-03-21] MEDS: ALBUTEROL SULF 2.5 MG/0.5ML(0.5%) NEB SOLN NEB SCH ×4 (00:32→19:13)
[2017-03-21] MEDS: MORPHINE SULFATE 10 MG/ML INJ 1ML SDV IV PRN ×4 (02:15→17:47)
[2017-03-21] MEDS: PROMETHAZINE-DM 5 ML ORAL SYRUP GT PRN ×5 (02:15→21:22)
[2017-03-21] MEDS: methylPREDNISolone SOD SUCC 40 MG/ML VL IV SCH ×4 (04:15→21:30)
[2017-03-21] MEDS: BUDESONIDE (INHALATION) 0.5 MG/2 ML NEB NEB SCH ×2 (07:30→19:13)
[2017-03-21] MEDS: DOXYCYCLINE 100 MG TAB/CAP PO SCH (08:58)
[2017-03-21] MEDS: ONDANSETRON HCL 4 MG/2 ML VIAL IV PRN (11:04)
[2017-03-21] MEDS ORDERED: AMOXICILLIN/CLAVUL 875 MG TAB PO ONE (12:15)
[2017-03-21] MEDS ORDERED: methylPREDNISolone SOD SUCC 125 MG/2 ML VL ONE (20:55)
[2017-03-21] MEDS ORDERED: MORPHINE SULF INJ 2 MG/ML SYRINGE 1ML ONE (21:16)
[2017-03-21] MEDS: AMOXICILLIN/CLAVUL 875 MG TAB PO SCH (21:21)
[2017-03-21] MEDS: TEMAZEPAM 15 MG CAP PO PRN (21:22)
[2017-03-22] MEDS: ALBUTEROL SULF 2.5 MG/0.5ML(0.5%) NEB SOLN NEB SCH ×6 (00:54→22:02)
[2017-03-22] MEDS: IPRATROPIUM BROM 0.5 MG/2.5ML INH SOL NEB SCH ×6 (00:54→22:03)
[2017-03-22] MEDS ORDERED: MORPHINE SULF INJ 2 MG/ML SYRINGE 1ML ONE (04:19)
[2017-03-22] MEDS: methylPREDNISolone SOD SUCC 125 MG/2 ML VL IV SCH ×4 (04:25→22:02)
[2017-03-22] MEDS: PROMETHAZINE-DM 5 ML ORAL SYRUP GT PRN ×5 (04:27→23:12)
[2017-03-22 05:00] VITALS: BP 135/57
[2017-03-22 05:54] LABS: Basophils # (auto) 0 uL; Eosinophils # (auto) 0 uL; Hemoglobin 10.4 g/dL (12.2-16.2); Lymphocytes # (auto) 0.5 uL; Monocytes # (auto) 0.1 uL
[2017-03-22 05:57] LABS: Eosinophils % (auto) 0.1 % (0.0-7.0); Hematocrit 32.2 % (36.0-46.0); Lymphocytes % (auto) 9.3 % (10.0-50.0); Mean Corpuscular Hemoglobin 25.8 pg (28.0-32.0); Mean Corpuscular Hgb Conc. 32.4 g/dL (32.0-36.0); Mean Corpuscular Volume 79.5 fL (80.0-100.0); Monocytes % (auto) 1.5 % (0.0-12.0); Neutrophils # (auto) 5.1 uL; Neutrophils % (auto) 89.1 % (37.0-80.0); Nucleated Red Blood Cells % 0.1 %; Platelet Count (auto) 247 10^3/uL (140-450); Red Blood Cells 4.04 10^6/uL (4.0-5.20); Red Cell Distribution Width 17.4 % (11.8-14.3); White Blood Cell 5.7 10^3/uL (4.4-10.8)
[2017-03-22 06:21] LABS: Albumin 2.9 g/dL (3.4-5.0); BUN/Creatinine Ratio 36.9; Calcium 8.7 mg/dL (8.5-10.1); Potassium 4.5 mmol/L (3.5-5.1)
[2017-03-22 06:24] LABS: Bilirubin, Total 0.2 mg/dL (0.2-1.0); Total Protein 6.4 g/dL (6.4-8.2)
[2017-03-22 08:00] VITALS: BP 101/82
[2017-03-22 09:00] VITALS: BP 101/82
[2017-03-22] MEDS: AMOXICILLIN/CLAVUL 875 MG TAB PO SCH (09:24)
[2017-03-22] MEDS: MORPHINE SULFATE 10 MG/ML INJ 1ML SDV IV PRN ×4 (09:24→23:13)
[2017-03-22] MEDS ORDERED: cefTRIAXone 1GM/10ml IVPUSH 10 ML IV ONE (09:45)
[2017-03-22] MEDS: BUDESONIDE (INHALATION) 0.5 MG/2 ML NEB NEB SCH ×2 (10:26→18:48)
[2017-03-22 13:00] VITALS: BP 112/50
[2017-03-22 17:04] VITALS: BP 117/66
[2017-03-22 22:00] VITALS: BP 101/79
[2017-03-22] MEDS: TEMAZEPAM 15 MG CAP PO PRN (22:03)
[2017-03-23] MEDS: methylPREDNISolone SOD SUCC 125 MG/2 ML VL IV SCH ×4 (03:52→22:42)
[2017-03-23] MEDS: MORPHINE SULFATE 10 MG/ML INJ 1ML SDV IV PRN ×4 (03:53→19:00)
[2017-03-23 04:38] VITALS: BP 107/64
[2017-03-23] MEDS: IPRATROPIUM BROM 0.5 MG/2.5ML INH SOL NEB SCH ×3 (06:14→20:11)
[2017-03-23] MEDS: ALBUTEROL SULF 2.5 MG/0.5ML(0.5%) NEB SOLN NEB SCH ×3 (06:14→20:11)
[2017-03-23] MEDS: PROMETHAZINE-DM 5 ML ORAL SYRUP GT PRN ×4 (09:31→22:43)
[2017-03-23] MEDS: cefTRIAXone 1GM/10ml IVPUSH 10 ML IV SCH (09:32)
[2017-03-23] MEDS: ONDANSETRON HCL 4 MG/2 ML VIAL IV PRN (09:32)
[2017-03-23] MEDS: BUDESONIDE (INHALATION) 0.5 MG/2 ML NEB NEB SCH ×2 (11:33→20:11)
[2017-03-23 12:30] VITALS: BP 128/61
[2017-03-23 12:41] LABS: Basophils # (auto) 0 uL; Eosinophils # (auto) 0 uL; Lymphocytes # (auto) 0.5 uL; Neutrophils # (auto) 6.7 uL; White Blood Cell 7.3 10^3/uL (4.4-10.8)
[2017-03-23 12:43] LABS: Hematocrit 32.1 % (36.0-46.0); Hemoglobin 10.2 g/dL (12.2-16.2); Lymphocytes % (auto) 6.6 % (10.0-50.0); Mean Corpuscular Hemoglobin 25.1 pg (28.0-32.0); Mean Corpuscular Hgb Conc. 31.9 g/dL (32.0-36.0); Mean Corpuscular Volume 78.6 fL (80.0-100.0); Monocytes # (auto) 0.1 uL; Neutrophils % (auto) 91.4 % (37.0-80.0); Nucleated Red Blood Cells % 0.1 %; Platelet Count (auto) 240 10^3/uL (140-450); Red Blood Cells 4.08 10^6/uL (4.0-5.20); Red Cell Distribution Width 17.6 % (11.8-14.3)
[2017-03-23 12:57] LABS: BUN/Creatinine Ratio 32.3; Calcium 8.6 mg/dL (8.5-10.1); Potassium 4.5 mmol/L (3.5-5.1)
[2017-03-23 15:45] VITALS: BP 126/60
[2017-03-23 17:19] VITALS: BP 127/76
[2017-03-23 22:00] VITALS: BP 108/52
[2017-03-23] MEDS: TEMAZEPAM 15 MG CAP PO PRN (22:44)
[2017-03-24] MEDS: MORPHINE SULF INJ 2 MG/ML SYRINGE 1ML IV PRN ×3 (00:38→09:52)
[2017-03-24] MEDS: methylPREDNISolone SOD SUCC 40 MG/ML VL IV SCH ×2 (04:32→11:40)
[2017-03-24] MEDS: PROMETHAZINE-DM 5 ML ORAL SYRUP GT PRN ×2 (04:32→09:52)
[2017-03-24 05:00] VITALS: BP 129/58
[2017-03-24] MEDS: IPRATROPIUM BROM 0.5 MG/2.5ML INH SOL NEB SCH ×3 (05:52→13:22)
[2017-03-24] MEDS: ALBUTEROL SULF 2.5 MG/0.5ML(0.5%) NEB SOLN NEB SCH ×3 (05:52→13:22)
[2017-03-24 09:00] VITALS: BP 124/65
[2017-03-24] MEDS: BUDESONIDE (INHALATION) 0.5 MG/2 ML NEB NEB SCH (09:43)
[2017-03-24] MEDS: cefTRIAXone 1GM/10ml IVPUSH 10 ML IV SCH (09:52)
[2017-03-24 13:10] VITALS: BP 112/65
[2017-03-24 14:43] VITALS: BP 124/65
== END 2017-03-24 15:50 | disposition home or self-care (01) | DRG 140 ==
LOC: ER 16:05 → OVERFLOW 16:06 → WEST WING 03-17 00:20
PROVIDERS: ADMIT Nurse Practitioner Family; ATTEND Internal Medicine
DX: J44.0 Chronic obstructive pulmonary disease with (acute) lower respiratory infection (principal); Z99.81 Dependence on supplemental oxygen; E44.0 Moderate protein-calorie malnutrition; J45.901 Unspecified asthma with (acute) exacerbation; K86.1 Other chronic pancreatitis; N39.0 Urinary tract infection, site not specified; J44.1 Chronic obstructive pulmonary disease with (acute) exacerbation; K21.9 Gastro-esophageal reflux disease without esophagitis; E11.9 Type 2 diabetes mellitus without complications; E66.9 Obesity, unspecified; E78.5 Hyperlipidemia, unspecified; F41.9 Anxiety disorder, unspecified; J20.9 Acute bronchitis, unspecified; D64.9 Anemia, unspecified; Z88.6 Allergy status to analgesic agent; Z88.1 Allergy status to other antibiotic agents; Z88.5 Allergy status to narcotic agent; Z88.8 Allergy status to other drugs, medicaments and biological substances; Z80.0 Family history of malignant neoplasm of digestive organs; Z81.8 Family history of other mental and behavioral disorders; Z82.0 Family history of epilepsy and other diseases of the nervous system; Z82.49 Family history of ischemic heart disease and other diseases of the circulatory system; Z82.3 Family history of stroke; Z82.5 Family history of asthma and other chronic lower respiratory diseases; Z83.3 Family history of diabetes mellitus; Z86.718 Personal history of other venous thrombosis and embolism; Z87.11 Personal history of peptic ulcer disease; Z90.710 Acquired absence of both cervix and uterus; Z90.3 Acquired absence of stomach [part of]; Z90.49 Acquired absence of other specified parts of digestive tract; Z68.36 Body mass index [BMI] 36.0-36.9, adult
CPT/HCPCS: 36415; 71010; 80048; 80053; 81001; 83735; 84484; 85025; 87400; 93005; 94640; 94761; 96374; 96375; J2405; J3490

== ENCOUNTER 2017-05-03 17:36 | Inpatient (IN) | payer MEDICAID ==
[~2017-05-03] VITALS: Ht 165.1 cm; Wt 100.4 kg
[~2017-05-03 17:36] MED LIST changes: +METO10TA3 PO
[2017-05-03] MEDS ORDERED: IPRATROPIUM BROM 0.5 MG/2.5ML INH SOL NEB ONE (18:00)
[2017-05-03] MEDS ORDERED: ALBUTEROL SULF 2.5 MG/0.5ML(0.5%) NEB SOLN NEB ONE (18:00)
[2017-05-03 19:18] LABS: Basophils # (auto) 0.1 uL; Eosinophils # (auto) 0.8 uL; Mean Corpuscular Hemoglobin 25.4 pg (28.0-32.0); Monocytes # (auto) 0.6 uL; Neutrophils # (auto) 4.8 uL; Platelet Count (auto) 322 10^3/uL (140-450)
[2017-05-03 19:20] LABS: Eosinophils % (auto) 9.5 % (0.0-7.0); Hematocrit 34.5 % (36.0-46.0); Hemoglobin 10.9 g/dL (12.2-16.2); Lymphocytes # (auto) 2.5 uL; Lymphocytes % (auto) 28.6 % (10.0-50.0); Mean Corpuscular Hgb Conc. 31.7 g/dL (32.0-36.0); Mean Corpuscular Volume 80.1 fL (80.0-100.0); Monocytes % (auto) 6.4 % (0.0-12.0); Neutrophils % (auto) 54.5 % (37.0-80.0); Nucleated Red Blood Cells % 0.3 %; Red Blood Cells 4.31 10^6/uL (4.0-5.20); Red Cell Distribution Width 18.6 % (11.8-14.3); White Blood Cell 8.8 10^3/uL (4.4-10.8)
[2017-05-03 19:36] LABS: Alanine Aminotransferase 27 U/L (13-56); Albumin 3.4 g/dL (3.4-5.0); Anion Gap 9 (5-15); Aspartate Aminotransferase 19 U/L (15-37); BUN/Creatinine Ratio 25.6; Blood Urea Nitrogen 23 mg/dL (7-18); Carbon Dioxide 23 mmol/L (21-32); Chloride 113 mmol/L (98-107); GFR African American 82 mL/min; GFR Non-African American 67 mL/min; Glucose 108 mg/dL (74-106); Magnesium 2.3 mg/dL (1.6-2.6); Potassium 3.9 mmol/L (3.5-5.1); Sodium 145 mmol/L (136-145)
[2017-05-03 19:41] LABS: Alkaline Phosphatase 140 U/L (45-117); Bilirubin, Total 0.2 mg/dL (0.2-1.0); Total Protein 7.1 g/dL (6.4-8.2)
[2017-05-03] MEDS ORDERED: methylPREDNISolone SOD SUCC 125 MG/2 ML VL IV ONE ×2 (20:00)
[2017-05-03] MEDS ORDERED: ONDANSETRON HCL 4 MG/2 ML VIAL IV ONE (20:00)
[2017-05-03] MEDS ORDERED: MORPHINE SULFATE 4 MG/ML SYR/VIAL IV ONE (20:00)
[2017-05-04] VITALS (7 sets, daily range): BP systolic 90–107; BP diastolic 38–59
[2017-05-04] MEDS ORDERED: cefTRIAXone 1GM/10ml IVPUSH 10 ML IV ONE (00:30)
[2017-05-04] MEDS ORDERED: PANTOPRAZOLE 40 MG/10 ML VIAL IV ONE (00:30)
[2017-05-04] MEDS ORDERED: ONDANSETRON HCL 4 MG/2 ML VIAL IV PRN (00:30)
[2017-05-04] MEDS ORDERED: ALBUTEROL SULF 2.5 MG/0.5ML(0.5%) NEB SOLN NEB PRN (00:30)
[2017-05-04] MEDS ORDERED: DOCUSATE SOD 100 MG CAP PO PRN (00:30)
[2017-05-04] MEDS ORDERED: IPRATROPIUM BROM 0.5 MG/2.5ML INH SOL NEB PRN (00:30)
[2017-05-04] MEDS ORDERED: IPRATROPIUM BROM 0.5 MG/2.5ML INH SOL NEB ONE (01:15)
[2017-05-04] MEDS ORDERED: ALBUTEROL SULF 2.5 MG/0.5ML(0.5%) NEB SOLN NEB ONE (01:15)
[2017-05-04] MEDS: IPRATROPIUM BROM 0.5 MG/2.5ML INH SOL NEB SCH ×5 (06:46→21:38)
[2017-05-04] MEDS: ALBUTEROL SULF 2.5 MG/0.5ML(0.5%) NEB SOLN NEB SCH ×5 (06:46→21:38)
[2017-05-04] MEDS: NALBUPHINE HCL 10 MG/1ml INJECTION IV PRN ×3 (08:10→20:50)
[2017-05-04] MEDS: PANTOPRAZOLE 40 MG/10 ML VIAL IV SCH (09:48)
[2017-05-04] MEDS: ENOXAPARIN SOD 40 MG/0.4 ML SYRINGE SC SCH (09:48)
[2017-05-04] MEDS ORDERED: DEXTROSE (50%) 50ML SYRG IV PRN (10:00)
[2017-05-04] MEDS ORDERED: methylPREDNISolone SOD SUCC 40 MG/ML VL IV ONE (10:15)
[2017-05-04] MEDS: ACCU-CHEK COMFORT CURVE STRIP VI SCH ×2 (11:33→17:11)
[2017-05-04] MEDS: InsuLIN REG 1unit/0.01ml Soln (100units/ml) SC SCH ×2 (11:46→17:27)
[2017-05-04] MEDS: cefTRIAXone 1GM/10ml IVPUSH 10 ML IV SCH (21:23)
[2017-05-04] MEDS: methylPREDNISolone SOD SUCC 40 MG/ML VL IV SCH (21:23)
[2017-05-04] MEDS ORDERED: LORazepam 0.5 MG TAB PO ONE (22:30)
[2017-05-05] MEDS: InsuLIN REG 1unit/0.01ml Soln (100units/ml) SC SCH ×5 (01:19→23:30)
[2017-05-05] MEDS: ACCU-CHEK COMFORT CURVE STRIP VI SCH ×5 (01:20→23:22)
[2017-05-05] MEDS: ALBUTEROL SULF 2.5 MG/0.5ML(0.5%) NEB SOLN NEB SCH ×6 (02:23→22:16)
[2017-05-05] MEDS: IPRATROPIUM BROM 0.5 MG/2.5ML INH SOL NEB SCH ×6 (02:24→22:15)
[2017-05-05] MEDS: ACETYLCYSTEINE 10 %(100MG/ML) SOL 4ML NEB SCH ×6 (02:24→22:16)
[2017-05-05] MEDS: TEMAZEPAM 15 MG CAP PO PRN (04:39)
[2017-05-05 05:00] VITALS: BP 108/41
[2017-05-05 07:17] LABS: Basophils # (auto) 0 uL; Eosinophils # (auto) 0 uL; Lymphocytes # (auto) 0.6 uL
[2017-05-05 07:21] LABS: Basophils % (auto) 0.1 % (0.0-2.0); Hematocrit 28.3 % (36.0-46.0); Lymphocytes % (auto) 4.7 % (10.0-50.0); Mean Corpuscular Hemoglobin 25.7 pg (28.0-32.0); Mean Corpuscular Hgb Conc. 31.9 g/dL (32.0-36.0); Mean Corpuscular Volume 80.4 fL (80.0-100.0); Monocytes # (auto) 0.3 uL; Monocytes % (auto) 2.5 % (0.0-12.0); Neutrophils # (auto) 11.8 uL; Neutrophils % (auto) 92.7 % (37.0-80.0); Platelet Count (auto) 249 10^3/uL (140-450); Red Blood Cells 3.53 10^6/uL (4.0-5.20); Red Cell Distribution Width 18.3 % (11.8-14.3); White Blood Cell 12.7 10^3/uL (4.4-10.8)
[2017-05-05 07:24] LABS: Calcium 8.5 mg/dL (8.5-10.1); Potassium 4.4 mmol/L (3.5-5.1)
[2017-05-05 07:26] LABS: BUN/Creatinine Ratio 32.1
[2017-05-05 07:35] LABS: Bilirubin, Total 0.2 mg/dL (0.2-1.0); Total Protein 6.1 g/dL (6.4-8.2)
[2017-05-05 09:00] VITALS: BP 80/37
[2017-05-05] MEDS: methylPREDNISolone SOD SUCC 40 MG/ML VL IV SCH ×2 (09:44→21:36)
[2017-05-05] MEDS: ENOXAPARIN SOD 40 MG/0.4 ML SYRINGE SC SCH (09:44)
[2017-05-05] MEDS: PANTOPRAZOLE 40 MG/10 ML VIAL IV SCH (09:44)
[2017-05-05] MEDS: NALBUPHINE HCL 10 MG/1ml INJECTION IV PRN ×3 (10:10→22:28)
[2017-05-05 13:00] VITALS: BP 112/61
[2017-05-05] MEDS: PROMETHAZINE HCL 6.25 MG/5 ML ORAL SYRUP PO PRN (13:17)
[2017-05-05 17:04] VITALS: BP 90/37
[2017-05-05] MEDS: cefTRIAXone 1GM/10ml IVPUSH 10 ML IV SCH (21:36)
[2017-05-05 22:00] VITALS: BP 107/49
[2017-05-06] MEDS: PROMETHAZINE HCL 6.25 MG/5 ML ORAL SYRUP PO PRN ×2 (02:00→09:50)
[2017-05-06] MEDS: IPRATROPIUM BROM 0.5 MG/2.5ML INH SOL NEB SCH ×6 (02:24→22:06)
[2017-05-06] MEDS: ACETYLCYSTEINE 10 %(100MG/ML) SOL 4ML NEB SCH ×6 (02:24→22:07)
[2017-05-06] MEDS: ALBUTEROL SULF 2.5 MG/0.5ML(0.5%) NEB SOLN NEB SCH ×6 (02:24→22:06)
[2017-05-06 05:00] VITALS: BP 107/47
[2017-05-06] MEDS: ACCU-CHEK COMFORT CURVE STRIP VI SCH ×4 (05:12→23:34)
[2017-05-06] MEDS: NALBUPHINE HCL 10 MG/1ml INJECTION IV PRN ×4 (05:12→23:15)
[2017-05-06 05:31] LABS: Basophils # (auto) 0 uL; Eosinophils # (auto) 0 uL; Hematocrit 27.5 % (36.0-46.0); Lymphocytes # (auto) 0.6 uL; Lymphocytes % (auto) 5.1 % (10.0-50.0); Monocytes # (auto) 0.2 uL
[2017-05-06 05:34] LABS: Mean Corpuscular Hemoglobin 26.4 pg (28.0-32.0); Mean Corpuscular Hgb Conc. 32.8 g/dL (32.0-36.0); Mean Corpuscular Volume 80.3 fL (80.0-100.0); Neutrophils # (auto) 10.2 uL; Neutrophils % (auto) 92.9 % (37.0-80.0); Nucleated Red Blood Cells % 0.1 %; Platelet Count (auto) 240 10^3/uL (140-450); Red Blood Cells 3.42 10^6/uL (4.0-5.20); Red Cell Distribution Width 18.2 % (11.8-14.3)
[2017-05-06] MEDS: InsuLIN REG 1unit/0.01ml Soln (100units/ml) SC SCH ×4 (05:42→23:34)
[2017-05-06 05:52] LABS: Albumin 2.8 g/dL (3.4-5.0); BUN/Creatinine Ratio 26.6; Bilirubin, Total 0.2 mg/dL (0.2-1.0); Calcium 8.4 mg/dL (8.5-10.1); Potassium 4.7 mmol/L (3.5-5.1); Total Protein 6.1 g/dL (6.4-8.2)
[2017-05-06 08:21] VITALS: BP 117/78
[2017-05-06] MEDS: ENOXAPARIN SOD 40 MG/0.4 ML SYRINGE SC SCH (09:48)
[2017-05-06] MEDS: methylPREDNISolone SOD SUCC 40 MG/ML VL IV SCH ×2 (09:48→21:51)
[2017-05-06] MEDS: PANTOPRAZOLE 40 MG/10 ML VIAL IV SCH (09:48)
[2017-05-06 12:41] VITALS: BP 107/56
[2017-05-06 16:19] VITALS: BP 109/64
[2017-05-06 18:32] VITALS: BP 109/64
[2017-05-06] MEDS: cefTRIAXone 1GM/10ml IVPUSH 10 ML IV SCH (21:51)
[2017-05-06 22:00] VITALS: BP 107/56
[2017-05-07] MEDS: ACETYLCYSTEINE 10 %(100MG/ML) SOL 4ML NEB SCH ×4 (02:14→15:08)
[2017-05-07] MEDS: IPRATROPIUM BROM 0.5 MG/2.5ML INH SOL NEB SCH ×5 (02:14→20:47)
[2017-05-07] MEDS: ALBUTEROL SULF 2.5 MG/0.5ML(0.5%) NEB SOLN NEB SCH ×5 (02:14→20:47)
[2017-05-07] MEDS: TEMAZEPAM 15 MG CAP PO PRN ×2 (02:32→23:17)
[2017-05-07] MEDS: NALBUPHINE HCL 10 MG/1ml INJECTION IV PRN ×4 (05:45→23:18)
[2017-05-07] MEDS: InsuLIN REG 1unit/0.01ml Soln (100units/ml) SC SCH ×3 (05:55→17:52)
[2017-05-07 06:00] VITALS: BP 102/62
[2017-05-07] MEDS: ACCU-CHEK COMFORT CURVE STRIP VI SCH ×4 (06:20→23:22)
[2017-05-07 08:00] VITALS: BP 112/60
[2017-05-07] MEDS: PROMETHAZINE HCL 6.25 MG/5 ML ORAL SYRUP PO PRN ×2 (08:18→16:08)
[2017-05-07 09:00] VITALS: BP 112/60
[2017-05-07] MEDS: ENOXAPARIN SOD 40 MG/0.4 ML SYRINGE SC SCH (10:10)
[2017-05-07] MEDS: PANTOPRAZOLE 40 MG/10 ML VIAL IV SCH (10:11)
[2017-05-07] MEDS: methylPREDNISolone SOD SUCC 40 MG/ML VL IV SCH (10:11)
[2017-05-07] MEDS: BOOST 8 ounces PO SCH ×2 (11:45→17:52)
[2017-05-07 13:00] VITALS: BP 124/61
[2017-05-07 16:38] VITALS: BP 132/85
[2017-05-07 21:50] VITALS: BP 107/75
[2017-05-07] MEDS: cefTRIAXone 1GM/10ml IVPUSH 10 ML IV SCH (21:54)
[2017-05-08 05:00] VITALS: BP 121/76
[2017-05-08] MEDS: NALBUPHINE HCL 10 MG/1ml INJECTION IV PRN ×3 (05:27→18:18)
[2017-05-08] MEDS: ACCU-CHEK COMFORT CURVE STRIP VI SCH (05:32)
[2017-05-08] MEDS: InsuLIN REG 1unit/0.01ml Soln (100units/ml) SC SCH ×2 (05:32)
[2017-05-08 06:21] LABS: Basophils # (auto) 0 uL; Basophils % (auto) 0.2 % (0.0-2.0); Eosinophils # (auto) 0 uL; Hemoglobin 9.7 g/dL (12.2-16.2); Monocytes # (auto) 0.6 uL; Neutrophils # (auto) 6.6 uL; Nucleated Red Blood Cells % 0.1 %
[2017-05-08 06:24] LABS: Eosinophils % (auto) 0.2 % (0.0-7.0); Hematocrit 29.9 % (36.0-46.0); Lymphocytes # (auto) 2.4 uL; Lymphocytes % (auto) 24.5 % (10.0-50.0); Mean Corpuscular Hemoglobin 26.1 pg (28.0-32.0); Mean Corpuscular Hgb Conc. 32.6 g/dL (32.0-36.0); Mean Corpuscular Volume 79.8 fL (80.0-100.0); Monocytes % (auto) 6.7 % (0.0-12.0); Neutrophils % (auto) 68.4 % (37.0-80.0); Platelet Count (auto) 265 10^3/uL (140-450); Red Blood Cells 3.74 10^6/uL (4.0-5.20); Red Cell Distribution Width 18.3 % (11.8-14.3); White Blood Cell 9.7 10^3/uL (4.4-10.8)
[2017-05-08 06:46] LABS: Potassium 4.2 mmol/L (3.5-5.1)
[2017-05-08 06:52] LABS: Albumin 2.9 g/dL (3.4-5.0); BUN/Creatinine Ratio 31.3; Calcium 8.4 mg/dL (8.5-10.1)
[2017-05-08 06:55] LABS: Bilirubin, Total 0.2 mg/dL (0.2-1.0); Total Protein 6.1 g/dL (6.4-8.2)
[2017-05-08] MEDS: ALBUTEROL SULF 2.5 MG/0.5ML(0.5%) NEB SOLN NEB SCH ×4 (07:11→18:39)
[2017-05-08] MEDS: IPRATROPIUM BROM 0.5 MG/2.5ML INH SOL NEB SCH ×4 (07:11→18:39)
[2017-05-08] MEDS: PROMETHAZINE HCL 6.25 MG/5 ML ORAL SYRUP PO PRN ×3 (07:28→18:20)
[2017-05-08] MEDS: BOOST 8 ounces PO SCH ×3 (08:39→18:20)
[2017-05-08 09:00] VITALS: BP 117/73
[2017-05-08] MEDS: PANTOPRAZOLE 40 MG/10 ML VIAL IV SCH (10:00)
[2017-05-08] MEDS: ENOXAPARIN SOD 40 MG/0.4 ML SYRINGE SC SCH (10:00)
[2017-05-08 13:00] VITALS: BP 111/53
[2017-05-08 17:00] VITALS: BP 100/55
[2017-05-08] MEDS: cefTRIAXone 1GM/10ml IVPUSH 10 ML IV SCH (21:52)
[2017-05-08 22:00] VITALS: BP 104/57
[2017-05-09] MEDS: PROMETHAZINE HCL 6.25 MG/5 ML ORAL SYRUP PO PRN ×3 (04:04→13:46)
[2017-05-09] MEDS: NALBUPHINE HCL 10 MG/1ml INJECTION IV PRN ×2 (04:05→10:44)
[2017-05-09 05:29] VITALS: BP 123/69
[2017-05-09 05:55] LABS: Basophils # (auto) 0 uL; Eosinophils # (auto) 0.3 uL; Neutrophils # (auto) 2.8 uL; Nucleated Red Blood Cells % 0.1 %; White Blood Cell 6.7 10^3/uL (4.4-10.8)
[2017-05-09 05:58] LABS: Basophils % (auto) 0.2 % (0.0-2.0); Hematocrit 32.8 % (36.0-46.0); Hemoglobin 10.6 g/dL (12.2-16.2); Lymphocytes # (auto) 3.1 uL; Lymphocytes % (auto) 46.2 % (10.0-50.0); Mean Corpuscular Hemoglobin 25.9 pg (28.0-32.0); Mean Corpuscular Hgb Conc. 32.4 g/dL (32.0-36.0); Monocytes # (auto) 0.5 uL; Neutrophils % (auto) 42.6 % (37.0-80.0); Platelet Count (auto) 282 10^3/uL (140-450); Red Cell Distribution Width 18.5 % (11.8-14.3)
[2017-05-09 06:09] LABS: BUN/Creatinine Ratio 29.7; Calcium 8.5 mg/dL (8.5-10.1); Potassium 4.6 mmol/L (3.5-5.1)
[2017-05-09] MEDS: ALBUTEROL SULF 2.5 MG/0.5ML(0.5%) NEB SOLN NEB SCH ×3 (06:26→15:01)
[2017-05-09] MEDS: IPRATROPIUM BROM 0.5 MG/2.5ML INH SOL NEB SCH ×3 (06:26→15:01)
[2017-05-09 08:53] VITALS: BP 98/52
[2017-05-09] MEDS: BOOST 8 ounces PO SCH ×2 (09:35→12:57)
[2017-05-09] MEDS: ENOXAPARIN SOD 40 MG/0.4 ML SYRINGE SC SCH (09:36)
[2017-05-09] MEDS: PANTOPRAZOLE 40 MG/10 ML VIAL IV SCH (09:36)
[2017-05-09 11:27] VITALS: BP 95/55
[2017-05-09 11:30] VITALS: BP 98/52
== END 2017-05-09 16:00 | disposition home or self-care (01) | DRG 141 ==
LOC: ER 17:38 → OVERFLOW 17:39 → WEST WING 05-04 02:30
PROVIDERS: ADMIT Nurse Practitioner; ATTEND Internal Medicine
DX: J45.901 Unspecified asthma with (acute) exacerbation (principal); E44.0 Moderate protein-calorie malnutrition; K86.1 Other chronic pancreatitis; E11.9 Type 2 diabetes mellitus without complications; E66.01 Morbid (severe) obesity due to excess calories; E88.09 Other disorders of plasma-protein metabolism, not elsewhere classified; J44.9 Chronic obstructive pulmonary disease, unspecified; Z90.3 Acquired absence of stomach [part of]; D64.9 Anemia, unspecified; F41.9 Anxiety disorder, unspecified; G89.4 Chronic pain syndrome; K29.00 Acute gastritis without bleeding; Z80.0 Family history of malignant neoplasm of digestive organs; Z81.8 Family history of other mental and behavioral disorders; Z82.0 Family history of epilepsy and other diseases of the nervous system; Z82.3 Family history of stroke; Z82.49 Family history of ischemic heart disease and other diseases of the circulatory system; Z82.5 Family history of asthma and other chronic lower respiratory diseases; Z83.3 Family history of diabetes mellitus; Z87.11 Personal history of peptic ulcer disease; Z90.49 Acquired absence of other specified parts of digestive tract; Z98.84 Bariatric surgery status; Z90.710 Acquired absence of both cervix and uterus; Z68.36 Body mass index [BMI] 36.0-36.9, adult; Z88.1 Allergy status to other antibiotic agents; Z88.6 Allergy status to analgesic agent; Z88.5 Allergy status to narcotic agent; Z88.8 Allergy status to other drugs, medicaments and biological substances
CPT/HCPCS: 36415; 71046; 74176; 80048; 80053; 82962; 83605; 83690; 83735; 84484; 85025; 85379; 87040; 93005; 94640; 96374; 96375; C9113; J1815; J2405

== ENCOUNTER 2017-05-25 11:43 | Emergency (ER) | payer MEDICAID ==
[~2017-05-25] VITALS: Ht 165.1 cm; Wt 97.5 kg
[2017-05-25 12:23] LABS: Basophils # (auto) 0 uL; Basophils % (auto) 0.4 % (0.0-2.0); Lymphocytes # (auto) 2.1 uL; Mean Corpuscular Hemoglobin 25.7 pg (28.0-32.0); Monocytes # (auto) 0.5 uL; Neutrophils # (auto) 3.9 uL; Nucleated Red Blood Cells % 0.1 %; Red Blood Cells 4.28 10^6/uL (4.0-5.20); White Blood Cell 6.8 10^3/uL (4.4-10.8)
[2017-05-25 12:24] LABS: Eosinophils # (auto) 0.4 uL; Eosinophils % (auto) 5.5 % (0.0-7.0); Hematocrit 34.3 % (36.0-46.0); Lymphocytes % (auto) 30.2 % (10.0-50.0); Mean Corpuscular Volume 80.2 fL (80.0-100.0); Monocytes % (auto) 6.9 % (0.0-12.0); Platelet Count (auto) 309 10^3/uL (140-450); Red Cell Distribution Width 18.6 % (11.8-14.3)
[2017-05-25 12:32] LABS: Urine Bacteria FEW /hpf (None Seen); Urine Blood 1+ /uL (Negative); Urine Mucus FEW (None Seen); Urine WBC 37 /hpf (0 - 5)
[2017-05-25 12:45] LABS: Alanine Aminotransferase 29 U/L (13-56); Albumin 3.4 g/dL (3.4-5.0); Alkaline Phosphatase 177 U/L (45-117); Amylase 45 U/L (25-115); Anion Gap 9 (5-15); Aspartate Aminotransferase 28 U/L (15-37); BUN/Creatinine Ratio 29.2; Bilirubin, Total 0.2 mg/dL (0.2-1.0); Blood Urea Nitrogen 19 mg/dL (7-18); Calcium 8.5 mg/dL (8.5-10.1); Carbon Dioxide 22 mmol/L (21-32); Chloride 112 mmol/L (98-107); GFR African American 119 mL/min; GFR Non-African American 98 mL/min; Glucose 121 mg/dL (74-106); Lipase 137 U/L (73-393); Magnesium 2.5 mg/dL (1.6-2.6); Potassium 3.7 mmol/L (3.5-5.1); Sodium 143 mmol/L (136-145)
[2017-05-25 13:08] VITALS: BP 126/60
[2017-05-25] MEDS ORDERED: PROMETHAZINE HCL 25 MG/ML 1ML IM ONE (13:30)
[2017-05-25] MEDS ORDERED: cefTRIAXone SOD 1,000 MG VL IM ONE (13:30)
[2017-05-25] MEDS ORDERED: LIDOCAINE 1% HCL (LOCAL ANESTH.) INJ 20ML MDV ONE (13:36)
== END 2017-05-25 14:31 | disposition home or self-care (01) ==
LOC: ER 11:43
DX: K52.9 Noninfective gastroenteritis and colitis, unspecified (principal); N39.0 Urinary tract infection, site not specified; D64.9 Anemia, unspecified; J45.909 Unspecified asthma, uncomplicated; K21.9 Gastro-esophageal reflux disease without esophagitis; G62.9 Polyneuropathy, unspecified; Z88.6 Allergy status to analgesic agent; Z88.8 Allergy status to other drugs, medicaments and biological substances; Z87.440 Personal history of urinary (tract) infections; Z90.710 Acquired absence of both cervix and uterus; Z90.49 Acquired absence of other specified parts of digestive tract
CPT/HCPCS: 36415; 80053; 81001; 82150; 83690; 83735; 84484; 85025; 93005; 96372; 99285; J0696; J2001; J2550

== ENCOUNTER 2017-06-25 15:12 | Emergency (ER) | payer MEDICAID ==
[~2017-06-25] VITALS: Ht 165.1 cm; Wt 99.3 kg
[2017-06-25 15:36] VITALS: BP 113/65
== END 2017-06-25 20:21 | disposition home or self-care (01) ==
LOC: ER 15:27
DX: S46.911A Strain of unspecified muscle, fascia and tendon at shoulder and upper arm level, right arm, initial encounter (principal); J44.9 Chronic obstructive pulmonary disease, unspecified; E11.9 Type 2 diabetes mellitus without complications; K21.9 Gastro-esophageal reflux disease without esophagitis; Z87.440 Personal history of urinary (tract) infections; Z90.49 Acquired absence of other specified parts of digestive tract; Z90.710 Acquired absence of both cervix and uterus; Z88.6 Allergy status to analgesic agent; Z88.8 Allergy status to other drugs, medicaments and biological substances; X58.XXXA Exposure to other specified factors, initial encounter; Y93.89 Activity, other specified; Y92.89 Other specified places as the place of occurrence of the external cause; Y99.8 Other external cause status
CPT/HCPCS: 93971

== ENCOUNTER 2017-08-08 13:09 | Inpatient (IN) | payer MEDICAID ==
[~2017-08-08] VITALS: Ht 165.1 cm; Wt 100.6 kg
[2017-08-08] MEDS ORDERED: SODIUM CHLORIDE 0.9% 1,000 ML IV ONE ×2 (13:31)
[2017-08-08 14:22] LABS: Basophils # (auto) 0 uL; Eosinophils # (auto) 0.4 uL; Hematocrit 37.1 % (36.0-46.0); Monocytes # (auto) 0.5 uL; Nucleated Red Blood Cells % 0.2 %; White Blood Cell 6.3 10^3/uL (4.4-10.8)
[2017-08-08 14:24] LABS: Basophils % (auto) 0.8 % (0.0-2.0); Eosinophils % (auto) 6.2 % (0.0-7.0); Hemoglobin 11.8 g/dL (12.2-16.2); Lymphocytes # (auto) 2.4 uL; Lymphocytes % (auto) 37.8 % (10.0-50.0); Mean Corpuscular Hemoglobin 26.3 pg (28.0-32.0); Mean Corpuscular Hgb Conc. 31.7 g/dL (32.0-36.0); Mean Corpuscular Volume 82.9 fL (80.0-100.0); Monocytes % (auto) 7.5 % (0.0-12.0); Neutrophils % (auto) 47.7 % (37.0-80.0); Platelet Count (auto) 266 10^3/uL (140-450); Red Blood Cells 4.48 10^6/uL (4.0-5.20); Red Cell Distribution Width 18.7 % (11.8-14.3)
[2017-08-08] MEDS ORDERED: NALBUPHINE HCL 10 MG/1ml INJECTION IV ONE (14:30)
[2017-08-08] MEDS: PROMETHAZINE HCL 25 MG/ML 1ML IV PRN ×2 (14:31→19:48)
[2017-08-08 14:38] LABS: Albumin 3.3 g/dL (3.4-5.0); Amylase 104 U/L (25-115); Anion Gap 9 (5-15); Blood Urea Nitrogen 19 mg/dL (7-18); Calcium 8.4 mg/dL (8.5-10.1); Carbon Dioxide 24 mmol/L (21-32); Chloride 108 mmol/L (98-107); Glucose 105 mg/dL (74-106); Lipase 1292 U/L (73-393); Partial Thromboplastin Time 24.6 sec (23.78-33.04); Potassium 3.9 mmol/L (3.5-5.1); Prothrombin Time 10.7 sec (9.27-12.13); Sodium 141 mmol/L (136-145)
[2017-08-08 14:39] LABS: Alanine Aminotransferase 29 U/L (13-56); Aspartate Aminotransferase 20 U/L (15-37); BUN/Creatinine Ratio 30.2; GFR African American 123 mL/min; GFR Non-African American 102 mL/min
[2017-08-08 14:45] LABS: Alkaline Phosphatase 117 U/L (45-117); Bilirubin, Total 0.3 mg/dL (0.2-1.0); Total Protein 6.9 g/dL (6.4-8.2)
[2017-08-08] MEDS ORDERED: PIPERACILLIN-TAZOB 3.375GM 100 ML IV ONE (15:00)
[2017-08-08] MEDS ORDERED: ONDANSETRON HCL 4 MG/2 ML VIAL IV ONE (15:00)
[2017-08-08] MEDS ORDERED: MORPHINE SULFATE 4 MG/ML SYR/VIAL IV ONE (15:00)
[2017-08-08] MEDS ORDERED: DEXTROSE (50%) 50ML SYRG IV PRN (15:30)
[2017-08-08] MEDS ORDERED: PROMETHAZINE HCL 25 MG/ML 1ML IV PRN (15:30)
[2017-08-08] MEDS ORDERED: NITROGLYCERIN 0.4 MG SL TAB SL PRN (15:30)
[2017-08-08] MEDS ORDERED: ALBUTEROL SULF 2.5 MG/0.5ML(0.5%) NEB SOLN NEB PRN (15:30)
[2017-08-08] MEDS ORDERED: PANTOPRAZOLE 40 MG/10 ML VIAL IV ONE (15:30)
[2017-08-08] MEDS ORDERED: LORazepam 2MG/ML-1ML VIAL IV PRN (15:30)
[2017-08-08] MEDS ORDERED: MORPHINE SULFATE 8mg/ml INJ SDV IV PRN (15:30)
[2017-08-08] MEDS: SODIUM CHLORIDE 0.9% 1,000 ML IV SCH ×2 (15:37→23:01)
[2017-08-08] MEDS: MORPHINE SULFATE 8mg/ml INJ SDV IV PRN ×3 (16:14→23:59)
[2017-08-08 16:40] LABS: Urine Bacteria FEW /hpf (None Seen); Urine Blood Negative /uL (Negative); Urine Mucus FEW (None Seen); Urine Specific Gravity 1.008 (1.001-1.035); Urine WBC 89 /hpf (0 - 5)
[2017-08-08] MEDS: InsuLIN REG 1unit/0.01ml Soln (100units/ml) SC SCH (18:00)
[2017-08-08] MEDS: ACCU-CHEK COMFORT CURVE STRIP VI SCH (18:14)
[2017-08-08] MEDS: ALBUTEROL SULF 2.5 MG/0.5ML(0.5%) NEB SOLN NEB SCH (18:26)
[2017-08-08] MEDS: IPRATROPIUM BROM 0.5 MG/2.5ML INH SOL NEB SCH (18:26)
[2017-08-08 21:23] VITALS: BP 92/41
[2017-08-08 22:07] VITALS: BP 100/58
[2017-08-08] MEDS: metroNIDAZOLE 500MG/100ML 100 ML IV SCH (23:01)
[2017-08-09] MEDS: ALBUTEROL SULF 2.5 MG/0.5ML(0.5%) NEB SOLN NEB SCH ×4 (00:44→18:18)
[2017-08-09] MEDS: IPRATROPIUM BROM 0.5 MG/2.5ML INH SOL NEB SCH ×4 (00:44→18:18)
[2017-08-09] MEDS: SODIUM CHLORIDE 0.9% 1,000 ML IV SCH ×4 (04:59→23:03)
[2017-08-09] MEDS: MORPHINE SULFATE 8mg/ml INJ SDV IV PRN ×5 (05:00→22:50)
[2017-08-09 05:02] VITALS: BP 92/58
[2017-08-09] MEDS: InsuLIN REG 1unit/0.01ml Soln (100units/ml) SC SCH ×5 (05:36→23:02)
[2017-08-09] MEDS: metroNIDAZOLE 500MG/100ML 100 ML IV SCH ×2 (05:36→13:58)
[2017-08-09] MEDS: ACCU-CHEK COMFORT CURVE STRIP VI SCH ×5 (05:36→23:03)
[2017-08-09 06:31] LABS: Basophils # (auto) 0 uL; Basophils % (auto) 0.6 % (0.0-2.0); Eosinophils # (auto) 0.2 uL; Lymphocytes # (auto) 0.5 uL; Monocytes # (auto) 0.4 uL; Neutrophils # (auto) 2.6 uL; Neutrophils % (auto) 70.3 % (37.0-80.0)
[2017-08-09 06:33] LABS: Eosinophils % (auto) 5.5 % (0.0-7.0); Hematocrit 34.3 % (36.0-46.0); Hemoglobin 10.9 g/dL (12.2-16.2); Lymphocytes % (auto) 13.7 % (10.0-50.0); Mean Corpuscular Hemoglobin 26.6 pg (28.0-32.0); Mean Corpuscular Hgb Conc. 31.7 g/dL (32.0-36.0); Mean Corpuscular Volume 83.7 fL (80.0-100.0); Monocytes % (auto) 9.9 % (0.0-12.0); Platelet Count (auto) 218 10^3/uL (140-450); Red Cell Distribution Width 18.9 % (11.8-14.3); White Blood Cell 3.6 10^3/uL (4.4-10.8)
[2017-08-09 06:51] LABS: Albumin 2.9 g/dL (3.4-5.0); Bilirubin, Total 0.7 mg/dL (0.2-1.0); Calcium 8.2 mg/dL (8.5-10.1); Potassium 3.9 mmol/L (3.5-5.1)
[2017-08-09 07:30] VITALS: BP 75/49
[2017-08-09 08:00] VITALS: BP 75/49
[2017-08-09] MEDS ORDERED: cefTRIAXone 1GM/10ml IVPUSH 10 ML IV SCH (09:00)
[2017-08-09] MEDS: PANTOPRAZOLE 40 MG/10 ML VIAL IV SCH (09:31)
[2017-08-09] MEDS: PROMETHAZINE HCL 25 MG/ML 1ML IV PRN ×4 (09:43→22:50)
[2017-08-09 11:43] VITALS: BP 85/38
[2017-08-09 16:31] VITALS: BP 92/38
[2017-08-09 21:52] VITALS: BP 93/51
[2017-08-10] VITALS (7 sets, daily range): BP systolic 88–110; BP diastolic 39–73
[2017-08-10] MEDS: ALBUTEROL SULF 2.5 MG/0.5ML(0.5%) NEB SOLN NEB SCH ×4 (00:30→19:15)
[2017-08-10] MEDS: IPRATROPIUM BROM 0.5 MG/2.5ML INH SOL NEB SCH ×4 (00:30→19:15)
[2017-08-10] MEDS: MORPHINE SULFATE 8mg/ml INJ SDV IV PRN ×4 (04:09→18:48)
[2017-08-10] MEDS: InsuLIN REG 1unit/0.01ml Soln (100units/ml) SC SCH ×3 (05:44→18:00)
[2017-08-10] MEDS: SODIUM CHLORIDE 0.9% 1,000 ML IV SCH (05:45)
[2017-08-10] MEDS: ACCU-CHEK COMFORT CURVE STRIP VI SCH ×3 (05:45→18:00)
[2017-08-10 07:30] LABS: Albumin 2.9 g/dL (3.4-5.0); BUN/Creatinine Ratio 17.6; Calcium 8.4 mg/dL (8.5-10.1)
[2017-08-10 07:33] LABS: Bilirubin, Total 0.9 mg/dL (0.2-1.0); Total Protein 6.2 g/dL (6.4-8.2)
[2017-08-10] MEDS: PANTOPRAZOLE 40 MG/10 ML VIAL IV SCH (09:11)
[2017-08-10] MEDS: D5W/SOD CHL 0.45% 1,000 ML IV SCH ×2 (15:00→21:40)
[2017-08-10] MEDS: PROMETHAZINE HCL 25 MG/ML 1ML IV PRN (18:49)
[2017-08-11] MEDS: PROMETHAZINE HCL 25 MG/ML 1ML IV PRN ×2 (00:41→06:15)
[2017-08-11] MEDS: MORPHINE SULFATE 8mg/ml INJ SDV IV PRN ×2 (00:42→06:15)
[2017-08-11] MEDS: ALBUTEROL SULF 2.5 MG/0.5ML(0.5%) NEB SOLN NEB SCH ×3 (00:51→11:43)
[2017-08-11] MEDS: IPRATROPIUM BROM 0.5 MG/2.5ML INH SOL NEB SCH ×3 (00:51→11:43)
[2017-08-11 05:04] VITALS: BP 87/42
[2017-08-11] MEDS: ACCU-CHEK COMFORT CURVE STRIP VI SCH ×2 (06:00)
[2017-08-11] MEDS: InsuLIN REG 1unit/0.01ml Soln (100units/ml) SC SCH ×2 (06:00)
[2017-08-11] MEDS: D5W/SOD CHL 0.45% 1,000 ML IV SCH (06:16)
[2017-08-11 06:49] LABS: Albumin 2.7 g/dL (3.4-5.0); Calcium 8.4 mg/dL (8.5-10.1); Potassium 3.9 mmol/L (3.5-5.1)
[2017-08-11 06:52] LABS: Bilirubin, Total 0.5 mg/dL (0.2-1.0); Total Protein 5.9 g/dL (6.4-8.2)
[2017-08-11 08:05] VITALS: BP 82/48
[2017-08-11 09:10] VITALS: BP 82/48
[2017-08-11 12:17] VITALS: BP 109/55
[2017-08-11 13:54] VITALS: BP 96/41
== END 2017-08-11 13:15 | disposition home or self-care (01) | DRG 282 ==
LOC: ER 13:18 → TELE 13:19 → TELE-WESTW 20:48
PROVIDERS: ADMIT Internal Medicine; ATTEND Internal Medicine
DX: K85.90 Acute pancreatitis without necrosis or infection, unspecified (principal); E44.0 Moderate protein-calorie malnutrition; J44.9 Chronic obstructive pulmonary disease, unspecified; E11.9 Type 2 diabetes mellitus without complications; D63.8 Anemia in other chronic diseases classified elsewhere; E66.9 Obesity, unspecified; K57.30 Diverticulosis of large intestine without perforation or abscess without bleeding; F41.9 Anxiety disorder, unspecified; J02.9 Acute pharyngitis, unspecified; G89.29 Other chronic pain; I70.8 Atherosclerosis of other arteries; K21.9 Gastro-esophageal reflux disease without esophagitis; K86.1 Other chronic pancreatitis; Z80.0 Family history of malignant neoplasm of digestive organs; Z81.8 Family history of other mental and behavioral disorders; Z82.0 Family history of epilepsy and other diseases of the nervous system; Z82.3 Family history of stroke; Z82.49 Family history of ischemic heart disease and other diseases of the circulatory system; Z82.5 Family history of asthma and other chronic lower respiratory diseases; Z83.3 Family history of diabetes mellitus; Z90.710 Acquired absence of both cervix and uterus; Z98.84 Bariatric surgery status; Z88.6 Allergy status to analgesic agent; Z88.5 Allergy status to narcotic agent; Z88.8 Allergy status to other drugs, medicaments and biological substances; Z79.899 Other long term (current) drug therapy; Z90.49 Acquired absence of other specified parts of digestive tract; Z90.89 Acquired absence of other organs; Z68.36 Body mass index [BMI] 36.0-36.9, adult
CPT/HCPCS: 36415; 71045; 74176; 80053; 80061; 81001; 82150; 82962; 83036; 83605; 83690; 84484; 85025; 85610; 85730; 87040; 93005; 94640; 96361; 96365; 96375; C9113; J1815; J2270; J2543; J3490

== ENCOUNTER 2017-11-15 13:48 | Inpatient (IN) | payer MEDICAID ==
[~2017-11-15] VITALS: Ht 165.1 cm; Wt 112.3 kg
[~2017-11-15 13:48] MED LIST changes: +ATOR10TA52 PO; +GABA800T97 PO
[2017-11-15] MEDS ORDERED: PANTOPRAZOLE 40 MG/10 ML VIAL IV STA (14:31)
[2017-11-15] MEDS ORDERED: SODIUM CHLORIDE 0.9% 500 ML IVB ONE (14:31)
[2017-11-15] MEDS ORDERED: ONDANSETRON HCL 4 MG/2 ML VIAL IV ONE (14:45)
[2017-11-15] MEDS ORDERED: MORPHINE SULFATE 4 MG/ML SYR/VIAL IV ONE (14:45)
[2017-11-15 14:49] LABS: Basophils # (auto) 0.1 uL; Basophils % (auto) 1.1 % (0.0-2.0); Eosinophils # (auto) 0.8 uL; Eosinophils % (auto) 13.4 % (0.0-7.0); Hematocrit 35.1 % (36.0-46.0); Hemoglobin 11.4 g/dL (12.2-16.2); Lymphocytes # (auto) 1.6 uL; Lymphocytes % (auto) 27.7 % (10.0-50.0); Mean Corpuscular Hemoglobin 27.2 pg (28.0-32.0); Mean Corpuscular Hgb Conc. 32.4 g/dL (32.0-36.0); Monocytes # (auto) 0.3 uL; Monocytes % (auto) 5.6 % (0.0-12.0); Neutrophils # (auto) 3.1 uL; Neutrophils % (auto) 52.2 % (37.0-80.0); Nucleated Red Blood Cells % 0.2 %; Platelet Count (auto) 248 10^3/uL (140-450); Red Blood Cells 4.18 10^6/uL (4.0-5.20); Red Cell Distribution Width 17.1 % (11.8-14.3); White Blood Cell 5.9 10^3/uL (4.4-10.8)
[2017-11-15 15:13] LABS: Amylase 84 U/L (25-115); Lipase 283 U/L (73-393); Magnesium 2.4 mg/dL (1.6-2.6)
[2017-11-15 15:14] LABS: Albumin 3.4 g/dL (3.4-5.0); BUN/Creatinine Ratio 18.9; Bilirubin, Total 0.3 mg/dL (0.2-1.0); Calcium 8.3 mg/dL (8.5-10.1); Potassium 4.2 mmol/L (3.5-5.1); Total Protein 7.2 g/dL (6.4-8.2)
[2017-11-15 15:19] LABS: Urine Bacteria NONE SEEN /hpf (None Seen); Urine Blood TRACE /uL (Negative); Urine Specific Gravity 1.011 (1.001-1.035); Urine WBC 6 /hpf (0 - 5)
[2017-11-15] MEDS: SODIUM CHLORIDE 0.9% 1,000 ML IV SCH (16:23)
[2017-11-15] MEDS ORDERED: LORazepam 0.5 MG TAB PO PRN (16:30)
[2017-11-15] MEDS ORDERED: MORPHINE SULFATE 4 MG/ML SYR/VIAL IV PRN (16:30)
[2017-11-15] MEDS ORDERED: DEXTROSE (50%) 50ML SYRG IV PRN (16:30)
[2017-11-15] MEDS ORDERED: cefTRIAXone 1GM/10ml IVPUSH 10 ML IV ONE (16:30)
[2017-11-15] MEDS ORDERED: NITROGLYCERIN 0.4 MG SL TAB SL PRN (16:30)
[2017-11-15] MEDS ORDERED: MORPHINE SULF INJ 2 MG/ML SYRINGE 1ML IV PRN (16:30)
[2017-11-15] MEDS: InsuLIN REG 1unit/0.01ml Soln (100units/ml) SC SCH ×2 (17:00→21:50)
[2017-11-15 17:23] LABS: Folate (Folic Acid) 8.53 ng/mL (5.38-24)
[2017-11-15] MEDS: ACCU-CHEK COMFORT CURVE STRIP VI SCH ×2 (17:24→21:50)
[2017-11-15 17:50] VITALS: BP 122/50
[2017-11-15 20:05] LABS: Alcohol, Urine < 3.0 mg/dL (0-5); Amphetamine Screen, Urine NEGATIVE (NEGATIVE); Barbiturate Scree,Urine NEGATIVE (NEGATIVE); Benzodiazephine Screen, Urine NEGATIVE (NEGATIVE); Cannabinoid Screen, Urine NEGATIVE (NEGATIVE); Cocaine Screen, Urine NEGATIVE (NEGATIVE); Opiate Scree,Urine NEGATIVE (NEGATIVE); Phencyclidine Screen, Urine NEGATIVE (NEGATIVE)
[2017-11-15] MEDS: ACETAMINOPHEN 500 MG TAB PO PRN (20:43)
[2017-11-15] MEDS: ATORVASTATIN 20 MG TAB PO SCH (21:38)
[2017-11-15] MEDS: GABAPENTIN 400 MG CAP PO SCH (21:38)
[2017-11-15] MEDS: METOCLOPRAMIDE HCL 10 MG TAB PO SCH (21:38)
[2017-11-15] MEDS: PROMETHAZINE HCL 25 MG/ML 1ML IV PRN (21:39)
[2017-11-15] MEDS: MORPHINE SULF INJ 2 MG/ML SYRINGE 1ML IV PRN (21:39)
[2017-11-15 21:54] VITALS: BP 107/56
[2017-11-15] MEDS ORDERED: METOCLOPRAMIDE HCL 10 MG PO SCH (22:00)
[2017-11-15] MEDS ORDERED: PATIENTS OWN MEDICATION (Gabapentin 800 MG) PO SCH (22:00)
[2017-11-16] MEDS: SODIUM CHLORIDE 0.9% 1,000 ML IV SCH ×3 (03:10→22:23)
[2017-11-16] MEDS: MORPHINE SULF INJ 2 MG/ML SYRINGE 1ML IV PRN ×4 (04:17→19:31)
[2017-11-16] MEDS: PROMETHAZINE HCL 25 MG/ML 1ML IV PRN ×4 (04:17→19:30)
[2017-11-16 04:49] VITALS: BP 104/58
[2017-11-16] MEDS: METOCLOPRAMIDE HCL 10 MG TAB PO SCH ×3 (06:16→21:20)
[2017-11-16] MEDS: ACCU-CHEK COMFORT CURVE STRIP VI SCH ×4 (06:17→21:21)
[2017-11-16] MEDS: InsuLIN REG 1unit/0.01ml Soln (100units/ml) SC SCH ×4 (06:17→21:21)
[2017-11-16 06:20] LABS: Basophils # (auto) 0 uL; Basophils % (auto) 1.2 % (0.0-2.0); Eosinophils # (auto) 0.5 uL; Eosinophils % (auto) 13.5 % (0.0-7.0); Hematocrit 34.2 % (36.0-46.0); Hemoglobin 11.1 g/dL (12.2-16.2); Lymphocytes # (auto) 0.6 uL; Lymphocytes % (auto) 17.4 % (10.0-50.0); Mean Corpuscular Hemoglobin 27.6 pg (28.0-32.0); Mean Corpuscular Hgb Conc. 32.5 g/dL (32.0-36.0); Mean Corpuscular Volume 85.1 fL (80.0-100.0); Monocytes # (auto) 0.3 uL; Neutrophils # (auto) 2.3 uL; Neutrophils % (auto) 60.9 % (37.0-80.0); Platelet Count (auto) 208 10^3/uL (140-450); Red Blood Cells 4.02 10^6/uL (4.0-5.20); Red Cell Distribution Width 17.2 % (11.8-14.3); White Blood Cell 3.7 10^3/uL (4.4-10.8)
[2017-11-16 09:00] VITALS: BP 108/50
[2017-11-16] MEDS: PANTOPRAZOLE 40 MG TAB PO SCH (09:37)
[2017-11-16] MEDS: cefTRIAXone 1GM/10ml IVPUSH 10 ML IV SCH (09:38)
[2017-11-16] MEDS ORDERED: PATIENTS OWN MEDICATION (Atorvastatin Calcium 1 TAB) PO SCH (10:00)
[2017-11-16 13:51] VITALS: BP 102/51
[2017-11-16 17:12] LABS: Amylase 164 U/L (25-115); Lipase 1817 U/L (73-393)
[2017-11-16 17:21] VITALS: BP 108/62
[2017-11-16] MEDS: GABAPENTIN 400 MG CAP PO SCH (21:20)
[2017-11-16] MEDS: ATORVASTATIN 20 MG TAB PO SCH (21:20)
[2017-11-16] MEDS: TEMAZEPAM 15 MG CAP PO PRN (21:22)
[2017-11-16 21:25] VITALS: BP 112/75
[2017-11-17 05:23] VITALS: BP 105/55
[2017-11-17] MEDS: PROMETHAZINE HCL 25 MG/ML 1ML IV PRN ×3 (06:15→17:52)
[2017-11-17] MEDS: METOCLOPRAMIDE HCL 10 MG TAB PO SCH ×2 (06:15→14:06)
[2017-11-17] MEDS: MORPHINE SULF INJ 2 MG/ML SYRINGE 1ML IV PRN ×4 (06:16→22:24)
[2017-11-17] MEDS: InsuLIN REG 1unit/0.01ml Soln (100units/ml) SC SCH ×4 (07:00→22:00)
[2017-11-17] MEDS: ACCU-CHEK COMFORT CURVE STRIP VI SCH ×2 (07:05→13:15)
[2017-11-17 08:00] VITALS: BP 101/55
[2017-11-17 08:11] VITALS: BP 101/55
[2017-11-17] MEDS: SODIUM CHLORIDE 0.9% 1,000 ML IV SCH (08:23)
[2017-11-17] MEDS: cefTRIAXone 1GM/10ml IVPUSH 10 ML IV SCH (10:10)
[2017-11-17] MEDS: PANTOPRAZOLE 40 MG TAB PO SCH (10:11)
[2017-11-17 14:16] VITALS: BP 113/64
[2017-11-17 17:05] VITALS: BP 126/63
[2017-11-17 18:16] LABS: Albumin 3.1 g/dL (3.4-5.0); BUN/Creatinine Ratio 14.7; Bilirubin, Total 0.5 mg/dL (0.2-1.0); Calcium 8.5 mg/dL (8.5-10.1); Potassium 3.5 mmol/L (3.5-5.1); Total Protein 6.9 g/dL (6.4-8.2)
[2017-11-17] MEDS: ATORVASTATIN 20 MG TAB PO SCH (22:14)
[2017-11-17] MEDS: GABAPENTIN 400 MG CAP PO SCH (22:14)
[2017-11-17] MEDS: TEMAZEPAM 15 MG CAP PO PRN (22:52)
[2017-11-18] VITALS (7 sets, daily range): BP systolic 109–142; BP diastolic 57–77
[2017-11-18] MEDS: MORPHINE SULF INJ 2 MG/ML SYRINGE 1ML IV PRN ×4 (04:30→21:24)
[2017-11-18] MEDS: InsuLIN REG 1unit/0.01ml Soln (100units/ml) SC SCH ×4 (06:15→21:41)
[2017-11-18 07:54] LABS: Hematocrit 35.8 % (36.0-46.0); Hemoglobin 11.6 g/dL (12.2-16.2); Mean Corpuscular Hgb Conc. 32.3 g/dL (32.0-36.0); Mean Corpuscular Volume 83.6 fL (80.0-100.0); Platelet Count (auto) 227 10^3/uL (140-450); Red Blood Cells 4.28 10^6/uL (4.0-5.20); Red Cell Distribution Width 17.3 % (11.8-14.3); White Blood Cell 4.5 10^3/uL (4.4-10.8)
[2017-11-18 08:01] LABS: Amylase 74 U/L (25-115); Lipase 367 U/L (73-393)
[2017-11-18 08:09] LABS: Band Neutrophils % (manual) 0; Basophils % (manual) 0 (0.0-2.0); Blast Cells 0; Myelocytes % 0; Promyelocytes % 0; Reactive Lymphocytes 0
[2017-11-18 09:14] LABS: Eosinophils % (manual) 13 (0-7); Lymphocytes % (manual) 35 (10.0-50.0); Metamyelocytes % 1; Monocytes % (manual) 3 (0-12)
[2017-11-18] MEDS: cefTRIAXone 1GM/10ml IVPUSH 10 ML IV SCH (09:25)
[2017-11-18] MEDS: PANTOPRAZOLE 40 MG TAB PO SCH (09:26)
[2017-11-18] MEDS: PROMETHAZINE HCL 25 MG/ML 1ML IV PRN ×2 (13:19→21:24)
[2017-11-18 15:38] LABS: Alanine Aminotransferase 156 U/L (13-56); Albumin 2.9 g/dL (3.4-5.0); Alkaline Phosphatase 303 U/L (45-117); Aspartate Aminotransferase 100 U/L (15-37); Bilirubin, Direct < 0.1 mg/dL (0-0.2); Bilirubin, Total 0.3 mg/dL (0.2-1.0); Total Protein 6.3 g/dL (6.4-8.2)
[2017-11-18] MEDS: SUCRALFATE 1 GM/10 ML ORAL SUSP GT SCH ×2 (18:00→21:22)
[2017-11-18] MEDS: ATORVASTATIN 20 MG TAB PO SCH (21:22)
[2017-11-18] MEDS: GABAPENTIN 400 MG CAP PO SCH (21:23)
[2017-11-19 05:00] VITALS: BP 112/49
[2017-11-19] MEDS: InsuLIN REG 1unit/0.01ml Soln (100units/ml) SC SCH ×4 (06:50→22:00)
[2017-11-19] MEDS: SUCRALFATE 1 GM/10 ML ORAL SUSP GT SCH ×4 (06:50→22:17)
[2017-11-19] MEDS: PROMETHAZINE HCL 25 MG/ML 1ML IV PRN ×4 (06:51→22:18)
[2017-11-19] MEDS: MORPHINE SULF INJ 2 MG/ML SYRINGE 1ML IV PRN ×4 (06:51→22:18)
[2017-11-19 07:34] LABS: Albumin 2.9 g/dL (3.4-5.0); BUN/Creatinine Ratio 15.2; Bilirubin, Total 0.4 mg/dL (0.2-1.0); Calcium 8.1 mg/dL (8.5-10.1); Total Protein 6.5 g/dL (6.4-8.2)
[2017-11-19 09:00] VITALS: BP 105/66
[2017-11-19] MEDS: cefTRIAXone 1GM/10ml IVPUSH 10 ML IV SCH (10:11)
[2017-11-19] MEDS: ACETAMINOPHEN 500 MG TAB PO PRN (10:11)
[2017-11-19] MEDS: PANTOPRAZOLE 40 MG TAB PO SCH (10:11)
[2017-11-19] MEDS ORDERED: LORazepam 2MG/ML-1ML VIAL IV ONE (11:15)
[2017-11-19 13:00] VITALS: BP 101/48
[2017-11-19 17:00] VITALS: BP 106/57
[2017-11-19 22:00] VITALS: BP 117/62
[2017-11-19] MEDS: GABAPENTIN 400 MG CAP PO SCH (22:17)
[2017-11-19] MEDS: TEMAZEPAM 15 MG CAP PO PRN (22:17)
[2017-11-19] MEDS: ATORVASTATIN 20 MG TAB PO SCH (22:17)
[2017-11-20] MEDS: PROMETHAZINE HCL 25 MG/ML 1ML IV PRN ×2 (04:34→09:19)
[2017-11-20] MEDS: MORPHINE SULF INJ 2 MG/ML SYRINGE 1ML IV PRN ×2 (04:34→09:19)
[2017-11-20] MEDS: SUCRALFATE 1 GM/10 ML ORAL SUSP GT SCH ×3 (04:34→17:00)
[2017-11-20 04:57] VITALS: BP 128/65
[2017-11-20] MEDS: InsuLIN REG 1unit/0.01ml Soln (100units/ml) SC SCH ×3 (06:57→17:00)
[2017-11-20 09:00] VITALS: BP 136/67
[2017-11-20] MEDS: cefTRIAXone 1GM/10ml IVPUSH 10 ML IV SCH (09:19)
[2017-11-20] MEDS: PANTOPRAZOLE 40 MG TAB PO SCH (09:19)
== END 2017-11-20 17:05 | disposition home or self-care (01) | DRG 282 ==
LOC: ER 13:54 → TELE 13:55 → TELE-CENTR 17:58
PROVIDERS: ADMIT Internal Medicine; ATTEND Internal Medicine Pulmonary Disease
DX: K85.90 Acute pancreatitis without necrosis or infection, unspecified (principal); Z68.41 Body mass index [BMI] 40.0-44.9, adult; E11.9 Type 2 diabetes mellitus without complications; J45.909 Unspecified asthma, uncomplicated; K21.9 Gastro-esophageal reflux disease without esophagitis; F41.9 Anxiety disorder, unspecified; E66.9 Obesity, unspecified; R55 Syncope and collapse; N39.0 Urinary tract infection, site not specified; Z88.6 Allergy status to analgesic agent; Z88.5 Allergy status to narcotic agent; Z88.8 Allergy status to other drugs, medicaments and biological substances; Z80.1 Family history of malignant neoplasm of trachea, bronchus and lung; Z80.0 Family history of malignant neoplasm of digestive organs; Z81.8 Family history of other mental and behavioral disorders; Z82.0 Family history of epilepsy and other diseases of the nervous system; Z82.3 Family history of stroke; Z82.49 Family history of ischemic heart disease and other diseases of the circulatory system; Z82.5 Family history of asthma and other chronic lower respiratory diseases; Z83.3 Family history of diabetes mellitus; Z90.49 Acquired absence of other specified parts of digestive tract; Z98.84 Bariatric surgery status; Z90.710 Acquired absence of both cervix and uterus
CPT/HCPCS: 36415; 74176; 74181; 80053; 80076; 80307; 81001; 82150; 82550; 82607; 82746; 82962; 83036; 83690; 83735; 84443; 84484; 85007; 85025; 85027; 85652; 87086; 87088; 87186; 93005; 94761; 96374; 96375; C9113; J0696; J2405

== ENCOUNTER 2017-12-31 16:38 | Emergency (ER) | payer MEDICAID ==
[~2017-12-31] VITALS: Ht 165.1 cm; Wt 102.1 kg
[~2017-12-31 16:38] MED LIST changes: -METO10TA3 PO
[2017-12-31 18:18] LABS: Basophils # (auto) 0.1 uL; Basophils % (auto) 0.8 % (0.0-2.0); Eosinophils # (auto) 0.4 uL; Eosinophils % (auto) 5.8 % (0.0-7.0); Hematocrit 36.2 % (36.0-46.0); Hemoglobin 11.9 g/dL (12.2-16.2); Lymphocytes # (auto) 1.8 uL; Lymphocytes % (auto) 25.5 % (10.0-50.0); Mean Corpuscular Hemoglobin 27.4 pg (28.0-32.0); Mean Corpuscular Hgb Conc. 32.8 g/dL (32.0-36.0); Mean Corpuscular Volume 83.4 fL (80.0-100.0); Monocytes # (auto) 0.4 uL; Neutrophils # (auto) 4.3 uL; Neutrophils % (auto) 61.9 % (37.0-80.0); Nucleated Red Blood Cells % 0.1 %; Platelet Count (auto) 259 10^3/uL (140-450); Red Blood Cells 4.34 10^6/uL (4.0-5.20); Red Cell Distribution Width 16.8 % (11.8-14.3); White Blood Cell 6.9 10^3/uL (4.4-10.8)
[2017-12-31 18:28] LABS: Urine Bacteria FEW /hpf (None Seen); Urine Blood 1+ /uL (Negative); Urine Mucus FEW (None Seen); Urine Specific Gravity 1.026 (1.001-1.035); Urine WBC 66 /hpf (0 - 5)
[2017-12-31 18:35] LABS: INR 0.99 (0.9-1.15); Partial Thromboplastin Time 23.8 sec (23.78-33.04); Prothrombin Time 10.6 sec (9.27-12.13)
[2017-12-31 18:37] LABS: Albumin 3.5 g/dL (3.4-5.0); Amylase 51 U/L (25-115); Anion Gap 9 (5-15); BUN/Creatinine Ratio 28.2; Blood Urea Nitrogen 20 mg/dL (7-18); Carbon Dioxide 24 mmol/L (21-32); Chloride 111 mmol/L (98-107); GFR African American 107 mL/min; GFR Non-African American 88 mL/min; Glucose 103 mg/dL (74-106); Lipase 159 U/L (73-393); Magnesium 2.3 mg/dL (1.6-2.6); Potassium 4.2 mmol/L (3.5-5.1); Sodium 144 mmol/L (136-145)
[2017-12-31 18:42] LABS: Alanine Aminotransferase 24 U/L (13-56); Alkaline Phosphatase 156 U/L (45-117); Aspartate Aminotransferase 20 U/L (15-37); Bilirubin, Total 0.2 mg/dL (0.2-1.0); Total Protein 7.4 g/dL (6.4-8.2)
[2017-12-31] MEDS ORDERED: MORPHINE SULFATE 4 MG/ML SYR/VIAL IV ONE (18:45)
[2017-12-31] MEDS ORDERED: ONDANSETRON HCL 4 MG/2 ML VIAL IV ONE (18:45)
[2017-12-31] MEDS ORDERED: cefTRIAXone 1GM/50ML D5W 50 ML IV ONE (21:15)
[2017-12-31 21:45] VITALS: BP 101/68
== END 2017-12-31 23:12 | disposition home or self-care (01) ==
LOC: ER 16:42
DX: N39.0 Urinary tract infection, site not specified (principal); J45.909 Unspecified asthma, uncomplicated; K21.9 Gastro-esophageal reflux disease without esophagitis; E11.9 Type 2 diabetes mellitus without complications; Z90.49 Acquired absence of other specified parts of digestive tract; Z88.6 Allergy status to analgesic agent; Z88.8 Allergy status to other drugs, medicaments and biological substances; Z90.710 Acquired absence of both cervix and uterus
CPT/HCPCS: 36415; 71045; 74176; 80053; 81001; 82150; 83690; 83735; 84484; 85025; 85610; 85730; 93005; 96365; 96375; 99285; J0696; J2270; J2405

== ENCOUNTER 2018-03-13 19:55 | Emergency (ER) | payer MEDICAID ==
[~2018-03-13] VITALS: Ht 165.1 cm; Wt 104.3 kg
[2018-03-13] MEDS ORDERED: ALBUTEROL SULF 2.5 MG/0.5ML(0.5%) NEB SOLN NEB ONE (20:30)
[2018-03-13] MEDS ORDERED: IPRATROPIUM BROM 0.5 MG/2.5ML INH SOL NEB ONE (20:30)
[2018-03-13 21:29] LABS: Eosinophils # (auto) 0.5 uL; Hemoglobin 11.3 g/dL (12.2-16.2); Mean Corpuscular Hemoglobin 25.6 pg (28.0-32.0); White Blood Cell 6.9 10^3/uL (4.4-10.8)
[2018-03-13 21:31] LABS: Basophils # (auto) 0.1 uL; Basophils % (auto) 0.8 % (0.0-2.0); Eosinophils % (auto) 7.5 % (0.0-7.0); Hematocrit 35.8 % (36.0-46.0); Lymphocytes # (auto) 2.9 uL; Lymphocytes % (auto) 41.3 % (10.0-50.0); Mean Corpuscular Hgb Conc. 31.5 g/dL (32.0-36.0); Mean Corpuscular Volume 81.2 fL (80.0-100.0); Monocytes # (auto) 0.6 uL; Monocytes % (auto) 8.2 % (0.0-12.0); Neutrophils # (auto) 2.9 uL; Neutrophils % (auto) 42.2 % (37.0-80.0); Nucleated Red Blood Cells % 0.2 %; Platelet Count (auto) 296 10^3/uL (140-450); Red Blood Cells 4.41 10^6/uL (4.0-5.20); Red Cell Distribution Width 15.8 % (11.8-14.3)
[2018-03-13 21:47] LABS: Alanine Aminotransferase 35 U/L (13-56); Albumin 3.3 g/dL (3.4-5.0); Amylase 69 U/L (25-115); Anion Gap 10 (5-15); Aspartate Aminotransferase 24 U/L (15-37); BUN/Creatinine Ratio 27.3; Blood Urea Nitrogen 21 mg/dL (7-18); Calcium 8.2 mg/dL (8.5-10.1); Carbon Dioxide 22 mmol/L (21-32); Chloride 111 mmol/L (98-107); GFR African American 97 mL/min; GFR Non-African American 80 mL/min; Glucose 131 mg/dL (74-106); Lipase 357 U/L (73-393); Magnesium 2.3 mg/dL (1.6-2.6); Potassium 3.8 mmol/L (3.5-5.1); Sodium 143 mmol/L (136-145)
[2018-03-13 21:52] LABS: Alkaline Phosphatase 181 U/L (45-117); Bilirubin, Total 0.3 mg/dL (0.2-1.0); Total Protein 7.3 g/dL (6.4-8.2)
[2018-03-14 01:49] LABS: Urine Bacteria NONE SEEN /hpf (None Seen); Urine Blood 1+ /uL (Negative); Urine Mucus MODERATE (None Seen); Urine Specific Gravity 1.028 (1.001-1.035); Urine WBC 327 /hpf (0 - 5)
[2018-03-14] MEDS ORDERED: ONDANSETRON HCL 4 MG/2 ML VIAL IV ONE (02:45)
[2018-03-14] MEDS ORDERED: methylPREDNISolone SOD SUCC 125 MG/2 ML VL IV ONE (02:45)
[2018-03-14] MEDS ORDERED: MORPHINE SULFATE 4 MG/ML SYR/VIAL IV ONE (03:15)
[2018-03-14] MEDS ORDERED: cefTRIAXone 1GM/50ML D5W 50 ML IV ONE (03:15)
[2018-03-14] MEDS ORDERED: SODIUM CHLORIDE 0.9% 1,000 ML IV ONE (03:15)
[2018-03-14 05:49] VITALS: BP 119/56
== END 2018-03-14 06:09 | disposition home or self-care (01) ==
LOC: ER 19:55
DX: J45.901 Unspecified asthma with (acute) exacerbation (principal); N39.0 Urinary tract infection, site not specified; R10.9 Unspecified abdominal pain; F41.9 Anxiety disorder, unspecified; E11.9 Type 2 diabetes mellitus without complications; K21.9 Gastro-esophageal reflux disease without esophagitis; Z90.49 Acquired absence of other specified parts of digestive tract; Z90.710 Acquired absence of both cervix and uterus; Z87.440 Personal history of urinary (tract) infections
CPT/HCPCS: 36415; 71045; 80053; 81001; 82150; 83690; 83735; 83880; 84484; 85025; 87086; 93005; 94640; 96365; 96375; 99284; J7030; J7611; J7644; J0696; J2405

== ENCOUNTER 2018-05-14 13:10 | Emergency (ER) | payer MEDICAID ==
[2018-05-14 13:30] VITALS: BP 124/47
[2018-05-14 14:41] LABS: Basophils # (auto) 0.1 uL; Hemoglobin 10.9 g/dL (12.2-16.2); Monocytes # (auto) 0.4 uL
[2018-05-14 14:43] LABS: Eosinophils # (auto) 0.5 uL; Eosinophils % (auto) 7.1 % (0.0-7.0); Hematocrit 33.7 % (36.0-46.0); Lymphocytes % (auto) 28.8 % (10.0-50.0); Mean Corpuscular Hemoglobin 25.8 pg (28.0-32.0); Mean Corpuscular Hgb Conc. 32.2 g/dL (32.0-36.0); Mean Corpuscular Volume 79.9 fL (80.0-100.0); Monocytes % (auto) 5.9 % (0.0-12.0); Neutrophils % (auto) 57.2 % (37.0-80.0); Nucleated Red Blood Cells % 0.6 %; Platelet Count (auto) 283 10^3/uL (140-450); Red Blood Cells 4.21 10^6/uL (4.0-5.20); Red Cell Distribution Width 16.3 % (11.8-14.3)
[2018-05-14 14:44] LABS: Alanine Aminotransferase 23 U/L (13-56); Albumin 3.6 g/dL (3.4-5.0); Anion Gap 5 (5-15); Aspartate Aminotransferase 20 U/L (15-37); Blood Urea Nitrogen 18 mg/dL (7-18); Calcium 8.5 mg/dL (8.5-10.1); Carbon Dioxide 26 mmol/L (21-32); Chloride 110 mmol/L (98-107); GFR African American 125 mL/min; GFR Non-African American 103 mL/min; Glucose 108 mg/dL (74-106); Magnesium 2.3 mg/dL (1.6-2.6); Potassium 4.3 mmol/L (3.5-5.1); Sodium 141 mmol/L (136-145)
[2018-05-14 14:48] LABS: Alkaline Phosphatase 166 U/L (45-117); Bilirubin, Total 0.2 mg/dL (0.2-1.0); Total Protein 7.2 g/dL (6.4-8.2)
== END 2018-05-14 15:37 | disposition left against medical advice (07) ==
LOC: ER 13:10
DX: R42 Dizziness and giddiness (principal); Z53.21 Procedure and treatment not carried out due to patient leaving prior to being seen by health care provider
CPT/HCPCS: 36415; 70450; 71046; 80053; 82962; 83735; 84484; 85025; 93005

== ENCOUNTER 2018-06-04 13:26 | Emergency (ER) | payer MEDICAID ==
[~2018-06-04] VITALS: Ht 165.1 cm; Wt 106.6 kg
[2018-06-04 15:00] VITALS: BP 141/67
[2018-06-04 16:03] LABS: Eosinophils # (auto) 0.5 uL; Mean Corpuscular Volume 79.1 fL (80.0-100.0); Monocytes # (auto) 0.4 uL; Neutrophils # (auto) 3.2 uL
[2018-06-04 16:06] LABS: Basophils # (auto) 0 uL; Basophils % (auto) 0.6 % (0.0-2.0); Eosinophils % (auto) 7.7 % (0.0-7.0); Hematocrit 32.3 % (36.0-46.0); Hemoglobin 10.3 g/dL (12.2-16.2); Lymphocytes % (auto) 33.2 % (10.0-50.0); Mean Corpuscular Hemoglobin 25.3 pg (28.0-32.0); Monocytes % (auto) 6.5 % (0.0-12.0); Nucleated Red Blood Cells % 0.3 %; Platelet Count (auto) 273 10^3/uL (140-450); Red Blood Cells 4.08 10^6/uL (4.0-5.20); Red Cell Distribution Width 15.7 % (11.8-14.3); White Blood Cell 6.2 10^3/uL (4.4-10.8)
[2018-06-04 16:12] LABS: Alanine Aminotransferase 25 U/L (13-56); Albumin 3.4 g/dL (3.4-5.0); Anion Gap 8 (5-15); Aspartate Aminotransferase 25 U/L (15-37); Blood Urea Nitrogen 16 mg/dL (7-18); Calcium 8.6 mg/dL (8.5-10.1); Carbon Dioxide 25 mmol/L (21-32); Chloride 110 mmol/L (98-107); GFR African American 121 mL/min; GFR Non-African American 100 mL/min; Glucose 89 mg/dL (74-106); Potassium 4.1 mmol/L (3.5-5.1); Sodium 143 mmol/L (136-145)
[2018-06-04] MEDS ORDERED: ALPRAZolam 0.5 MG TAB PO ONE (16:15)
[2018-06-04] MEDS ORDERED: ONDANSETRON ODT 4 MG TAB PO ONE (16:15)
[2018-06-04 16:17] LABS: Alkaline Phosphatase 176 U/L (45-117); Bilirubin, Total 0.3 mg/dL (0.2-1.0); Total Protein 7.1 g/dL (6.4-8.2)
== END 2018-06-04 16:55 | disposition home or self-care (01) ==
LOC: EDUNIT# 13:26 → EDBD 13:26 → ER 13:37
DX: F41.1 Generalized anxiety disorder (principal); D64.9 Anemia, unspecified; J45.909 Unspecified asthma, uncomplicated; E11.9 Type 2 diabetes mellitus without complications; K21.9 Gastro-esophageal reflux disease without esophagitis; Z87.440 Personal history of urinary (tract) infections; Z90.49 Acquired absence of other specified parts of digestive tract; Z90.710 Acquired absence of both cervix and uterus; Z88.6 Allergy status to analgesic agent; Z88.8 Allergy status to other drugs, medicaments and biological substances; Z79.899 Other long term (current) drug therapy
CPT/HCPCS: 36415; 80053; 83690; 84484; 85025; 93005; 99284; Q0162

== ENCOUNTER 2018-06-17 07:21 | Inpatient (IN) | payer MEDICAID ==
[~2018-06-17] VITALS: Ht 162.6 cm; Wt 106.2 kg
[2018-06-17] MEDS ORDERED: ALBUTEROL SULF 2.5 MG/0.5ML(0.5%) NEB SOLN ONE (07:42)
[2018-06-17] MEDS ORDERED: IPRATROPIUM BROM 0.5 MG/2.5ML INH SOL ONE (07:42)
[2018-06-17] MEDS ORDERED: ALBUTEROL SULF 2.5 MG/0.5ML(0.5%) NEB SOLN NEB ONE (08:00)
[2018-06-17] MEDS ORDERED: IPRATROPIUM BROM 0.5 MG/2.5ML INH SOL NEB ONE (08:00)
[2018-06-17 08:56] LABS: Basophils # (auto) 0 uL; Eosinophils # (auto) 0.1 uL; Hemoglobin 10.8 g/dL (12.2-16.2); Lymphocytes # (auto) 0.6 uL; Mean Corpuscular Hemoglobin 24.8 pg (28.0-32.0); Neutrophils # (auto) 4.1 uL; Platelet Count (auto) 277 10^3/uL (140-450); Red Blood Cells 4.36 10^6/uL (4.0-5.20); White Blood Cell 5.3 10^3/uL (4.4-10.8)
[2018-06-17 08:59] LABS: Basophils % (auto) 0.9 % (0.0-2.0); Eosinophils % (auto) 2.8 % (0.0-7.0); Hematocrit 34.1 % (36.0-46.0); Lymphocytes % (auto) 11.5 % (10.0-50.0); Mean Corpuscular Hgb Conc. 31.7 g/dL (32.0-36.0); Mean Corpuscular Volume 78.3 fL (80.0-100.0); Monocytes # (auto) 0.4 uL; Monocytes % (auto) 7.9 % (0.0-12.0); Neutrophils % (auto) 76.9 % (37.0-80.0)
[2018-06-17 09:09] LABS: Potassium 4.7 mmol/L (3.5-5.1)
[2018-06-17 09:16] LABS: Albumin 3.8 g/dL (3.4-5.0); BUN/Creatinine Ratio 15.4; Bilirubin, Total 0.4 mg/dL (0.2-1.0); Calcium 9.1 mg/dL (8.5-10.1); Total Protein 7.8 g/dL (6.4-8.2)
[2018-06-17] MEDS ORDERED: cefTRIAXone SOD 1,000 MG VL IM ONE (09:30)
[2018-06-17] MEDS ORDERED: LIDOCAINE 2% (LOCAL ANESTH.) PF 5ml SDV ONE (10:06)
[2018-06-17] MEDS ORDERED: HYDROcodone-ACET 5/325MG TAB PO PRN (11:15)
[2018-06-17] MEDS ORDERED: NITROGLYCERIN 0.4 MG SL TAB SL PRN (11:15)
[2018-06-17] MEDS ORDERED: SODIUM CHLORIDE 0.9% 1,000 ML IV ONE (11:15)
[2018-06-17] MEDS ORDERED: ACETAMINOPHEN 500 MG TAB PO PRN (11:15)
[2018-06-17] MEDS ORDERED: MORPHINE SULF INJ 2 MG/ML SYRINGE 1ML IV PRN ×2 (11:15→12:30)
[2018-06-17] MEDS ORDERED: ALPRAZolam 0.25 MG TAB PO PRN (11:15)
[2018-06-17] MEDS ORDERED: methylPREDNISolone SOD SUCC 125 MG/2 ML VL IV ONE (11:15)
[2018-06-17] MEDS: ALBUTEROL SULF 2.5 MG/0.5ML(0.5%) NEB SOLN NEB SCH ×2 (11:49→17:53)
[2018-06-17] MEDS: IPRATROPIUM BROM 0.5 MG/2.5ML INH SOL NEB SCH ×2 (11:49→17:53)
[2018-06-17] MEDS: MORPHINE SULF INJ 2 MG/ML SYRINGE 1ML IV PRN ×2 (12:49→20:28)
[2018-06-17] MEDS: ONDANSETRON HCL 4 MG/2 ML VIAL IV PRN ×2 (12:49→20:27)
[2018-06-17] MEDS: AZITHROMYCIN 500MG/ 250ML 250 ML IV SCH (12:49)
[2018-06-17 13:00] VITALS: BP 121/44
[2018-06-17] MEDS: BUDESONIDE (INHALATION) 0.5 MG/2 ML NEB NEB SCH (17:45)
[2018-06-17 20:15] VITALS: BP 110/64
[2018-06-17] MEDS ORDERED: PRED1SUS3 OP (20:40)
[2018-06-17] MEDS: methylPREDNISolone SOD SUCC 40 MG/ML VL IV SCH (21:17)
[2018-06-17] MEDS: IPRATROPIUM BROM 0.5 MG/2.5ML INH SOL NEB PRN (21:22)
[2018-06-17] MEDS: ALBUTEROL SULF 2.5 MG/0.5ML(0.5%) NEB SOLN NEB PRN (21:23)
[2018-06-17 22:00] VITALS: BP 110/64
[2018-06-17] MEDS: guaiFENesin-DM 100/10mg/5ml SYR PO PRN (23:09)
[2018-06-18] MEDS: prednisoLONE ACETATE 1% OPTH SUSP 5ML LEFTEYE SCH ×16 (01:00→15:00)
[2018-06-18] MEDS: IPRATROPIUM BROM 0.5 MG/2.5ML INH SOL NEB PRN (03:04)
[2018-06-18] MEDS: ALBUTEROL SULF 2.5 MG/0.5ML(0.5%) NEB SOLN NEB PRN (03:05)
[2018-06-18] MEDS: MORPHINE SULF INJ 2 MG/ML SYRINGE 1ML IV PRN (03:20)
[2018-06-18] MEDS: ONDANSETRON HCL 4 MG/2 ML VIAL IV PRN (03:20)
[2018-06-18 05:00] VITALS: BP 106/68
[2018-06-18 05:59] LABS: Basophils # (auto) 0 uL; Eosinophils # (auto) 0 uL; Lymphocytes # (auto) 0.4 uL; Monocytes # (auto) 0.1 uL; Neutrophils # (auto) 5.8 uL; Platelet Count (auto) 239 10^3/uL (140-450)
[2018-06-18 06:01] LABS: Hematocrit 29.8 % (36.0-46.0); Hemoglobin 9.7 g/dL (12.2-16.2); Lymphocytes % (auto) 6.1 % (10.0-50.0); Mean Corpuscular Hemoglobin 25.3 pg (28.0-32.0); Mean Corpuscular Hgb Conc. 32.6 g/dL (32.0-36.0); Mean Corpuscular Volume 77.8 fL (80.0-100.0); Monocytes % (auto) 1.7 % (0.0-12.0); Neutrophils % (auto) 92.2 % (37.0-80.0); Red Blood Cells 3.84 10^6/uL (4.0-5.20); Red Cell Distribution Width 15.7 % (11.8-14.3); White Blood Cell 6.3 10^3/uL (4.4-10.8)
[2018-06-18 06:11] LABS: Calcium 7.4 mg/dL (8.5-10.1); Potassium 4.1 mmol/L (3.5-5.1)
[2018-06-18 06:16] LABS: BUN/Creatinine Ratio 25.4
[2018-06-18] MEDS: ALBUTEROL SULF 2.5 MG/0.5ML(0.5%) NEB SOLN NEB SCH ×2 (06:28→11:54)
[2018-06-18] MEDS: IPRATROPIUM BROM 0.5 MG/2.5ML INH SOL NEB SCH ×2 (06:28→11:54)
[2018-06-18] MEDS: BUDESONIDE (INHALATION) 0.5 MG/2 ML NEB NEB SCH (06:28)
[2018-06-18] MEDS: guaiFENesin-DM 100/10mg/5ml SYR PO PRN ×2 (06:35→13:32)
[2018-06-18 08:00] VITALS: BP 129/71
[2018-06-18 08:34] VITALS: BP 129/71
[2018-06-18] MEDS ORDERED: cefTRIAXone 1GM/50ML D5W 50 ML IV SCH (09:00)
[2018-06-18] MEDS: methylPREDNISolone SOD SUCC 40 MG/ML VL IV SCH (09:47)
[2018-06-18] MEDS: AZITHROMYCIN 500MG/ 250ML 250 ML IV SCH (09:47)
[2018-06-18] MEDS ORDERED: PANTOPRAZOLE 40 MG/10 ML VIAL IV SCH (10:00)
[2018-06-18 11:57] VITALS: BP 107/63
[2018-06-18] MEDS ORDERED: OSELTAMIVIR 75 MG CAP PO SCH (13:00)
[2018-06-18] MEDS ORDERED: LEVO500T21 PO (13:14)
[2018-06-18] MEDS ORDERED: IPR002IS NEB (13:14)
[2018-06-18] MEDS ORDERED: ALB5IS NEB (13:14)
[2018-06-18] MEDS ORDERED: TAMIFLU PO (13:14)
[2018-06-18] MEDS ORDERED: PRED-559 PO (13:14)
[2018-06-18] MEDS ORDERED: DEXT1SYP9 PO (13:14)
[2018-06-18 16:30] VITALS: BP 109/57
== END 2018-06-18 16:49 | disposition home health service (06) | DRG 140 ==
LOC: ER 07:21 → OVERFLOW 11:13 → WEST WING 20:07
PROVIDERS: ADMIT Nurse Practitioner Acute Care; ATTEND Internal Medicine
DX: J44.0 Chronic obstructive pulmonary disease with (acute) lower respiratory infection (principal); J96.20 Acute and chronic respiratory failure, unspecified whether with hypoxia or hypercapnia; J11.08 Influenza due to unidentified influenza virus with specified pneumonia; D68.59 Other primary thrombophilia; Z99.81 Dependence on supplemental oxygen; E11.42 Type 2 diabetes mellitus with diabetic polyneuropathy; Z68.41 Body mass index [BMI] 40.0-44.9, adult; J44.1 Chronic obstructive pulmonary disease with (acute) exacerbation; D64.9 Anemia, unspecified; M19.90 Unspecified osteoarthritis, unspecified site; E66.9 Obesity, unspecified; F41.9 Anxiety disorder, unspecified; E78.5 Hyperlipidemia, unspecified; K21.9 Gastro-esophageal reflux disease without esophagitis; Z81.8 Family history of other mental and behavioral disorders; Z82.3 Family history of stroke; Z82.49 Family history of ischemic heart disease and other diseases of the circulatory system; Z82.0 Family history of epilepsy and other diseases of the nervous system; Z82.5 Family history of asthma and other chronic lower respiratory diseases; Z83.3 Family history of diabetes mellitus; Z86.73 Personal history of transient ischemic attack (TIA), and cerebral infarction without residual deficits; Z98.84 Bariatric surgery status; Z90.710 Acquired absence of both cervix and uterus; Z88.6 Allergy status to analgesic agent; Z88.5 Allergy status to narcotic agent; Z88.8 Allergy status to other drugs, medicaments and biological substances; Z90.49 Acquired absence of other specified parts of digestive tract
CPT/HCPCS: 36415; 71045; 71046; 80048; 80053; 80061; 83036; 83880; 84443; 85025; 87070; 87205; 87804; 93005; 94640; 96361; 96372; 96374; 96375; C9113; G0378; J0696; J2001; J2405

== ENCOUNTER 2018-12-06 10:03 | Emergency (ER) | payer MEDICAID ==
[~2018-12-06] VITALS: Ht 172.7 cm; Wt 109.8 kg
[~2018-12-06 10:03] MED LIST changes: -ALBU2TAB4 NEB; -ATOR10TA52 PO; +IPR002IS NEB; -IPRASOL39 NEB; +PRED1SUS4 OP
[2018-12-06 10:52] VITALS: BP 121/47
[2018-12-06 12:06] LABS: Basophils # (auto) 0.1 uL; Basophils % (auto) 1.1 % (0.0-2.0); Eosinophils # (auto) 0.3 uL; Eosinophils % (auto) 5.5 % (0.0-7.0); Hematocrit 37.9 % (36.0-46.0); Hemoglobin 12.4 g/dL (12.2-16.2); Lymphocytes # (auto) 1.3 uL; Lymphocytes % (auto) 21.9 % (10.0-50.0); Mean Corpuscular Hgb Conc. 32.8 g/dL (32.0-36.0); Mean Corpuscular Volume 82.4 fL (80.0-100.0); Monocytes # (auto) 0.4 uL; Monocytes % (auto) 6.5 % (0.0-12.0); Neutrophils # (auto) 3.7 uL; Nucleated Red Blood Cells % 0.1 %; Platelet Count (auto) 419 10^3/uL (140-450); Red Cell Distribution Width 23.1 % (11.8-14.3); White Blood Cell 5.7 10^3/uL (4.4-10.8)
[2018-12-06 12:25] LABS: BUN/Creatinine Ratio 21.1; Calcium 9.6 mg/dL (8.5-10.1); Potassium 4.7 mmol/L (3.5-5.1)
[2018-12-06] MEDS ORDERED: cefTRIAXone SOD 1,000 MG VL IM ONE (12:30)
== END 2018-12-06 13:13 | disposition home or self-care (01) ==
LOC: ER 10:06
DX: M25.562 Pain in left knee (principal); R22.41 Localized swelling, mass and lump, right lower limb; F41.9 Anxiety disorder, unspecified; J44.9 Chronic obstructive pulmonary disease, unspecified; E11.9 Type 2 diabetes mellitus without complications; K21.9 Gastro-esophageal reflux disease without esophagitis; Z96.651 Presence of right artificial knee joint; Z87.440 Personal history of urinary (tract) infections; Z86.2 Personal history of diseases of the blood and blood-forming organs and certain disorders involving the immune mechanism; Z79.899 Other long term (current) drug therapy; Z88.5 Allergy status to narcotic agent; Z88.6 Allergy status to analgesic agent; Z88.1 Allergy status to other antibiotic agents
CPT/HCPCS: 36415; 80048; 85025; 93971; 96372; 99284; J0696

== ENCOUNTER 2019-01-23 15:42 | Emergency (ER) | payer MEDICAID ==
[~2019-01-23] VITALS: Ht 165.1 cm; Wt 104.3 kg
[2019-01-23 16:19] VITALS: BP 108/68
[2019-01-23 16:50] LABS: Basophils # (auto) 0 uL; Basophils % (auto) 0.8 % (0.0-2.0); Eosinophils # (auto) 0.5 uL; Eosinophils % (auto) 9.7 % (0.0-7.0); Hematocrit 29.5 % (36.0-46.0); Hemoglobin 9.5 g/dL (12.2-16.2); Lymphocytes # (auto) 1.2 uL; Lymphocytes % (auto) 23.1 % (10.0-50.0); Mean Corpuscular Hemoglobin 27.8 pg (28.0-32.0); Mean Corpuscular Hgb Conc. 32.1 g/dL (32.0-36.0); Mean Corpuscular Volume 86.5 fL (80.0-100.0); Monocytes # (auto) 0.3 uL; Monocytes % (auto) 6.5 % (0.0-12.0); Neutrophils # (auto) 3.1 uL; Neutrophils % (auto) 59.9 % (37.0-80.0); Nucleated Red Blood Cells % 0.2 %; Platelet Count (auto) 276 10^3/uL (140-450); Red Blood Cells 3.41 10^6/uL (4.0-5.20); White Blood Cell 5.2 10^3/uL (4.4-10.8)
[2019-01-23 16:54] LABS: Red Cell Distribution Width 21.1 % (11.8-14.3)
[2019-01-23 17:04] LABS: INR 1.17 (0.9-1.15); Partial Thromboplastin Time 27.5 sec (23.64-32.05)
[2019-01-23 17:09] LABS: Albumin 2.6 g/dL (3.4-5.0); Anion Gap 8 (5-15); Blood Urea Nitrogen 6 mg/dL (7-18); Calcium 8.4 mg/dL (8.5-10.1); Carbon Dioxide 21 mmol/L (21-32); Chloride 110 mmol/L (98-107); Glucose 105 mg/dL (74-106); Potassium 4.2 mmol/L (3.5-5.1); Sodium 139 mmol/L (136-145)
[2019-01-23 17:13] LABS: Alanine Aminotransferase 30 U/L (13-56); Alkaline Phosphatase 157 U/L (45-117); Aspartate Aminotransferase 24 U/L (15-37); Bilirubin, Total 0.5 mg/dL (0.2-1.0); GFR African American 160 mL/min; GFR Non-African American 132 mL/min; Total Protein 6.5 g/dL (6.4-8.2)
== END 2019-01-23 18:22 | disposition home or self-care (01) ==
LOC: EDBD 15:42 → ER 15:42
DX: S76.011A Strain of muscle, fascia and tendon of right hip, initial encounter (principal); R55 Syncope and collapse; R42 Dizziness and giddiness; E44.0 Moderate protein-calorie malnutrition; J44.9 Chronic obstructive pulmonary disease, unspecified; E11.9 Type 2 diabetes mellitus without complications; K21.9 Gastro-esophageal reflux disease without esophagitis; Z68.38 Body mass index [BMI] 38.0-38.9, adult; Z87.440 Personal history of urinary (tract) infections; Z88.6 Allergy status to analgesic agent; Z90.49 Acquired absence of other specified parts of digestive tract; Z90.710 Acquired absence of both cervix and uterus; W18.39XA Other fall on same level, initial encounter; Y93.89 Activity, other specified; Y92.89 Other specified places as the place of occurrence of the external cause; Y99.8 Other external cause status
CPT/HCPCS: 36415; 72192; 80053; 84484; 85025; 85610; 85730; 93005; 94761

== ENCOUNTER 2019-04-20 00:04 | Emergency (ER) | payer MEDICAID ==
[~2019-04-20] VITALS: Ht 165.1 cm; Wt 99.8 kg
[2019-04-20 01:02] LABS: Basophils # (auto) 0.1 uL; Basophils % (auto) 0.9 % (0.0-2.0); Eosinophils # (auto) 0.5 uL; Eosinophils % (auto) 8.8 % (0.0-7.0); Hematocrit 35.2 % (36.0-46.0); Hemoglobin 11.6 g/dL (12.2-16.2); Lymphocytes % (auto) 33.8 % (10.0-50.0); Mean Corpuscular Hemoglobin 27.3 pg (28.0-32.0); Mean Corpuscular Hgb Conc. 32.9 g/dL (32.0-36.0); Mean Corpuscular Volume 83.2 fL (80.0-100.0); Monocytes # (auto) 0.3 uL; Neutrophils # (auto) 3.1 uL; Neutrophils % (auto) 51.5 % (37.0-80.0); Platelet Count (auto) 250 10^3/uL (140-450); Red Blood Cells 4.23 10^6/uL (4.0-5.20)
[2019-04-20 01:09] LABS: Urine Bacteria FEW /hpf (None Seen); Urine Blood TRACE /uL (Negative); Urine Mucus FEW (None Seen); Urine WBC 14 /hpf (0 - 5)
[2019-04-20 01:19] LABS: Alanine Aminotransferase 47 U/L (13-56); Albumin 3.3 g/dL (3.4-5.0); Anion Gap 8 (5-15); Aspartate Aminotransferase 92 U/L (15-37); Blood Urea Nitrogen 18 mg/dL (7-18); Calcium 8.5 mg/dL (8.5-10.1); Carbon Dioxide 25 mmol/L (21-32); Chloride 111 mmol/L (98-107); GFR African American 125 mL/min; GFR Non-African American 103 mL/min; Glucose 91 mg/dL (74-106); Lipase 629 U/L (73-393); Potassium 3.8 mmol/L (3.5-5.1); Sodium 144 mmol/L (136-145)
[2019-04-20 01:24] LABS: Alkaline Phosphatase 163 U/L (45-117); Bilirubin, Total 0.4 mg/dL (0.2-1.0); Total Protein 7.3 g/dL (6.4-8.2)
[2019-04-20 03:45] VITALS: BP 128/38
[2019-04-20] MEDS ORDERED: ONDANSETRON ODT 4 MG TAB PO ONE (03:45)
[2019-04-20] MEDS ORDERED: HYDROcodone-ACET 5/325MG TAB PO ONE (03:45)
[2019-04-20] MEDS ORDERED: MORPHINE SULF INJ 2 MG/ML SYRINGE 1ML IM ONE (05:00)
== END 2019-04-20 05:16 | disposition home or self-care (01) ==
LOC: ER 00:07
DX: N39.0 Urinary tract infection, site not specified (principal); K86.1 Other chronic pancreatitis; J44.9 Chronic obstructive pulmonary disease, unspecified; E11.9 Type 2 diabetes mellitus without complications; Z90.710 Acquired absence of both cervix and uterus; Z90.89 Acquired absence of other organs; Z88.1 Allergy status to other antibiotic agents; Z88.6 Allergy status to analgesic agent; Z88.8 Allergy status to other drugs, medicaments and biological substances
CPT/HCPCS: 36415; 80053; 81001; 83690; 84484; 85025; 93005; 96372; 99284; J2270; Q0162

== ENCOUNTER 2019-04-26 07:34 | Emergency (ER) | payer MEDICAID ==
[~2019-04-26] VITALS: Ht 165.1 cm; Wt 97.5 kg
[2019-04-26 10:19] LABS: Urine Bacteria NONE SEEN /hpf (None Seen); Urine Blood TRACE /uL (Negative); Urine Mucus FEW (None Seen); Urine Specific Gravity 1.018 (1.001-1.035); Urine WBC 1 /hpf (0 - 5)
[2019-04-26 10:19] LABS: Basophils # (auto) 0.1 uL; Eosinophils # (auto) 0.5 uL; Eosinophils % (auto) 8.6 % (0.0-7.0); Hemoglobin 12.5 g/dL (12.2-16.2); Lymphocytes # (auto) 1.4 uL; Lymphocytes % (auto) 22.7 % (10.0-50.0); Mean Corpuscular Hemoglobin 27.4 pg (28.0-32.0); Mean Corpuscular Hgb Conc. 32.9 g/dL (32.0-36.0); Mean Corpuscular Volume 83.5 fL (80.0-100.0); Monocytes # (auto) 0.3 uL; Monocytes % (auto) 5.3 % (0.0-12.0); Neutrophils # (auto) 3.7 uL; Neutrophils % (auto) 62.4 % (37.0-80.0); Platelet Count (auto) 278 10^3/uL (140-450); Red Blood Cells 4.55 10^6/uL (4.0-5.20); White Blood Cell 5.9 10^3/uL (4.4-10.8)
[2019-04-26 10:30] LABS: Albumin 3.8 g/dL (3.4-5.0); Calcium 9.3 mg/dL (8.5-10.1)
[2019-04-26 10:34] LABS: BUN/Creatinine Ratio 25.8; Bilirubin, Total 0.6 mg/dL (0.2-1.0); Total Protein 8.3 g/dL (6.4-8.2)
[2019-04-26] MEDS ORDERED: SODIUM CHLORIDE 0.9% 1,000 ML IV ONE (10:53)
[2019-04-26] MEDS ORDERED: SODIUM CHLORIDE 0.9% 500 ML IVB ONE (10:53)
[2019-04-26] MEDS ORDERED: PROMETHAZINE HCL 25 MG/ML 1ML IV PRN (11:00)
[2019-04-26] MEDS ORDERED: NALBUPHINE HCL 10 MG/1ml INJECTION IV ONE (11:00)
[2019-04-26] MEDS ORDERED: MORPHINE SULFATE 4 MG/ML SYR/VIAL IV ONE (11:15)
[2019-04-26 11:46] LABS: Magnesium 2.2 mg/dL (1.6-2.6)
[2019-04-26 13:33] VITALS: BP 100/56
== END 2019-04-26 13:42 | disposition home or self-care (01) ==
LOC: ER 07:34
DX: R10.9 Unspecified abdominal pain (principal); R11.2 Nausea with vomiting, unspecified; J44.9 Chronic obstructive pulmonary disease, unspecified; E11.9 Type 2 diabetes mellitus without complications; K21.9 Gastro-esophageal reflux disease without esophagitis; Z87.440 Personal history of urinary (tract) infections; Z90.49 Acquired absence of other specified parts of digestive tract; Z90.710 Acquired absence of both cervix and uterus
CPT/HCPCS: 36415; 71045; 74176; 80053; 81001; 83690; 83735; 85025; 93005; 96361; 96374; 96375; 99284; J2270; J2550; J7030; J7040

== ENCOUNTER 2019-05-20 12:16 | Emergency (ER) | payer MEDICAID ==
[~2019-05-20] VITALS: Ht 165.1 cm; Wt 94.8 kg
[2019-05-20] MEDS ORDERED: ALBUTEROL SULF 2.5 MG/0.5ML(0.5%) NEB SOLN NEB ONE (12:45)
[2019-05-20] MEDS ORDERED: IPRATROPIUM BROM 0.5 MG/2.5ML INH SOL NEB ONE (12:45)
[2019-05-20 12:51] LABS: Urine Bacteria NONE SEEN /hpf (None Seen); Urine Blood TRACE /uL (Negative); Urine Mucus FEW (None Seen); Urine WBC 4 /hpf (0 - 5)
[2019-05-20 13:28] LABS: Basophils # (auto) 0.1 10 ^3/uL (0-0.2); Basophils % (auto) 0.9 % (0.0-2.0); Eosinophils # (auto) 0.4 10 ^3/uL (0-0.8); Hemoglobin 12.1 g/dL (12.2-16.2); Monocytes # (auto) 0.4 10 ^3/uL (0-1.3); Neutrophils % (auto) 53.4 % (37.0-80.0); Nucleated Red Blood Cells % 0.1 %
[2019-05-20 13:31] LABS: Eosinophils % (auto) 6.3 % (0.0-7.0); Hematocrit 36.8 % (36.0-46.0); Lymphocytes # (auto) 2.1 10 ^3/uL (0.4-5.4); Lymphocytes % (auto) 33.8 % (10.0-50.0); Mean Corpuscular Hemoglobin 27.3 pg (28.0-32.0); Mean Corpuscular Volume 82.9 fL (80.0-100.0); Monocytes % (auto) 5.6 % (0.0-12.0); Neutrophils # (auto) 3.4 10 ^3/uL (1.6-8.6); Platelet Count (auto) 242 10^3/uL (140-450); Red Blood Cells 4.44 10^6/uL (4.0-5.20); Red Cell Distribution Width 16.8 % (11.8-14.3); White Blood Cell 6.3 10^3/uL (4.4-10.8)
[2019-05-20 13:44] LABS: Albumin 3.7 g/dL (3.4-5.0); Calcium 9.4 mg/dL (8.5-10.1); Potassium 4.2 mmol/L (3.5-5.1)
[2019-05-20 13:46] LABS: BUN/Creatinine Ratio 36.7
[2019-05-20 13:49] LABS: Bilirubin, Total 0.4 mg/dL (0.2-1.0)
[2019-05-20] MEDS ORDERED: PANTOPRAZOLE 40 MG/10 ML VIAL INJ IV ONE (16:45)
[2019-05-20] MEDS ORDERED: LIDOCAINE VISCOUS 2% 15ML UD PO ONE (16:45)
[2019-05-20] MEDS ORDERED: ALUM & MAG HYDROX-SIMETH LIQ(MAALOX) 30 ML PO ONE (16:45)
[2019-05-20] MEDS ORDERED: ONDANSETRON HCL 4 MG/2 ML VIAL IV ONE (16:45)
[2019-05-20] MEDS ORDERED: cefTRIAXone 1GM/50ML D5W 50 ML IV ONE (16:45)
[2019-05-20] MEDS ORDERED: SODIUM CHLORIDE 0.9% 500 ML IV ONE (20:30)
[2019-05-20] MEDS ORDERED: PROMETHAZINE HCL 25 MG/ML 1ML IV ONE (21:30)
[2019-05-20 22:33] VITALS: BP 104/47
== END 2019-05-20 23:08 | disposition home or self-care (01) ==
LOC: ER 12:16
DX: K29.70 Gastritis, unspecified, without bleeding (principal); N39.0 Urinary tract infection, site not specified; J44.9 Chronic obstructive pulmonary disease, unspecified; E11.9 Type 2 diabetes mellitus without complications; K21.9 Gastro-esophageal reflux disease without esophagitis; R51 Headache; Z90.49 Acquired absence of other specified parts of digestive tract; Z90.710 Acquired absence of both cervix and uterus; Z88.6 Allergy status to analgesic agent; Z88.8 Allergy status to other drugs, medicaments and biological substances
CPT/HCPCS: 36415; 70450; 74176; 80053; 81001; 82962; 83690; 85025; 94640; 96365; 96375; 99285; C9113; J0696; J2405; J2550; J7040; J7644

== ENCOUNTER 2019-06-05 12:17 | Inpatient (IN) | payer MEDICAID ==
[~2019-06-05] VITALS: Ht 165.1 cm; Wt 97.1 kg
[2019-06-05] MEDS ORDERED: SODIUM CHLORIDE 0.9% 500 ML IV ONE (12:53)
[2019-06-05] MEDS ORDERED: ONDANSETRON HCL 4 MG/2 ML VIAL IV ONE (13:00)
[2019-06-05] MEDS ORDERED: MORPHINE SULFATE 4 MG/ML SYR/VIAL IV ONE (13:15)
[2019-06-05 13:34] LABS: Basophils # (auto) 0.1 10 ^3/uL (0-0.2); Basophils % (auto) 0.7 % (0.0-2.0); Eosinophils # (auto) 0.5 10 ^3/uL (0-0.8); Hematocrit 37.3 % (36.0-46.0); Hemoglobin 12.2 g/dL (12.2-16.2); Lymphocytes # (auto) 1.2 10 ^3/uL (0.4-5.4); Lymphocytes % (auto) 17.1 % (10.0-50.0); Mean Corpuscular Hemoglobin 27.3 pg (28.0-32.0); Mean Corpuscular Hgb Conc. 32.7 g/dL (32.0-36.0); Mean Corpuscular Volume 83.4 fL (80.0-100.0); Monocytes # (auto) 0.4 10 ^3/uL (0-1.3); Monocytes % (auto) 5.3 % (0.0-12.0); Neutrophils # (auto) 4.9 10 ^3/uL (1.6-8.6); Neutrophils % (auto) 69.9 % (37.0-80.0); Nucleated Red Blood Cells % 0.2 %; Platelet Count (auto) 253 10^3/uL (140-450); Red Blood Cells 4.47 10^6/uL (4.0-5.20)
[2019-06-05 13:42] LABS: Alanine Aminotransferase 24 U/L (13-56); Albumin 3.5 g/dL (3.4-5.0); Anion Gap 7 (5-15); Blood Urea Nitrogen 18 mg/dL (7-18); Calcium 9.1 mg/dL (8.5-10.1); Carbon Dioxide 23 mmol/L (21-32); Chloride 110 mmol/L (98-107); Glucose 168 mg/dL (74-106); Lipase 150 U/L (73-393); Magnesium 2.3 mg/dL (1.6-2.6); Potassium 4.1 mmol/L (3.5-5.1); Sodium 140 mmol/L (136-145)
[2019-06-05 13:48] LABS: Alkaline Phosphatase 165 U/L (45-117); Aspartate Aminotransferase 26 U/L (15-37); BUN/Creatinine Ratio 24.7; Bilirubin, Total 0.3 mg/dL (0.2-1.0); GFR African American 103 mL/min; GFR Non-African American 85 mL/min; Total Protein 7.8 g/dL (6.4-8.2)
[2019-06-05 15:06] LABS: Urine Bacteria FEW /hpf (None Seen); Urine Blood Negative /uL (Negative); Urine Mucus FEW (None Seen); Urine Specific Gravity 1.024 (1.001-1.035); Urine WBC 10 /hpf (0 - 5)
[2019-06-05] MEDS ORDERED: cefTRIAXone 1GM/50ML D5W 50 ML IV ONE (16:00)
[2019-06-05] MEDS ORDERED: DEXTROSE (50%) 50ML SYRG IV PRN (16:00)
[2019-06-05] MEDS ORDERED: ACETAMINOPHEN 500 MG TAB PO PRN (16:00)
[2019-06-05] MEDS ORDERED: traMADol HCL 50 MG TAB PO PRN (16:00)
[2019-06-05] MEDS: SODIUM CHLORIDE 0.9% 1,000 ML IV SCH (16:14)
[2019-06-05] MEDS: FAMOTIDINE (10MG/ML) 2ML VL IV SCH (16:14)
--- NOTE | 2019-06-05 16:42 | NUR ---
MS admit from ER CHARLES MIKE admitted to MS after SBAR received. Patient oriented to María Casanova primary RN, unit, room, bed, and unit policies regarding patient care and visiting hours. Patient weighed by bed scale and encouraged to call if they need something. Instructed patient on POC, fall precautions and to call for assistance as needed. Patient verbalized understanding. Patient has personal standard rolling walker at bedside. Fall precautions in place with call light within reach.
[2019-06-05 16:51] VITALS: BP 121/60
--- NOTE | 2019-06-05 16:51 | NUR ---
Paged RE: breathing treatment order Paged Dr. Patiño. Patient requesting breathing treatment.
--- NOTE | 2019-06-05 16:53 | NUR ---
Updated Dr. Patiño RE: breathing treatment request verbalized understanding. to place order.
--- NOTE | 2019-06-05 17:19 | NUR ---
Paged RT to request a breathing treatment.
[2019-06-05 17:21] VITALS: BP 121/60
[2019-06-05] MEDS: ALBUTEROL SULF 2.5 MG/0.5ML(0.5%) NEB SOLN NEB SCH (18:18)
[2019-06-05] MEDS: IPRATROPIUM BROM 0.5 MG/2.5ML INH SOL NEB SCH (18:18)
[2019-06-05] MEDS ORDERED: PANT40TA2 PO (18:25)
[2019-06-05] MEDS ORDERED: CETI10TA80 PO (18:25)
[2019-06-05] MEDS ORDERED: CHOL20009 PO (18:25)
[2019-06-05] MEDS ORDERED: FLUO-125 PO (18:25)
[2019-06-05] MEDS ORDERED: BECL80AE11 IN (18:25)
[2019-06-05] MEDS ORDERED: PERCOT PO (18:25)
[2019-06-05] MEDS ORDERED: TRAM50TA2 PO (18:25)
[2019-06-05] MEDS ORDERED: ONDA-144 PO (18:25)
[2019-06-05] MEDS ORDERED: RIVA10TA PO (18:25)
[2019-06-05] MEDS ORDERED: POM NEB ×2 (18:25)
[2019-06-05] MEDS ORDERED: FLU01T PO (18:25)
[2019-06-05] MEDS ORDERED: GABA-339 PO (18:25)
[2019-06-05] MEDS ORDERED: ATOR10TA52 PO (18:25)
--- NOTE | 2019-06-05 18:25 | NUR ---
RT NOTE PT WAS SEEN BY RT FOR HHN TX. PT TOLERATES WELL VIA MASK. NO ADVERSE REACTION NOTED. CONT ORDERED Addendum: 06/05/19 at 1850 by Jenny Mayes RT Amended: Links added.
[2019-06-05] MEDS: ACCU-CHEK COMFORT CURVE STRIP VI SCH ×2 (18:35→23:57)
--- NOTE | 2019-06-05 18:47 | NUR ---
Closing note Patient resting in bed, respirations even and unlabored on 2 LPM NC, no distress noted. Fall precautions in place with call light within reach. Patient's personal walker at bedside.
[2019-06-05 18:53] VITALS: BP 121/60
[2019-06-05] MEDS: PROMETHAZINE HCL 25 MG/ML 1ML IV PRN (19:14)
[2019-06-05] MEDS: MORPHINE SULF INJ 2 MG/ML SYRINGE 1ML IV PRN (19:14)
--- NOTE | 2019-06-05 19:14 | NUR ---
Care endorsed to QI Gay.
--- NOTE | 2019-06-05 19:25 | NUR ---
Opening Shift Note Assumed care of patient, awake and alert. No S/S of distress/SOB or pain. Instructed on POC and to call for assist PRN, will continue to monitor for changes Q1hr and PRN. PATIENT RESTING IN BED, BED IN LOWEST POSITION, SIDE RALES UPX2, AND CALL LIGHT IN HAND.
[2019-06-05 20:18] VITALS: BP 102/52
[2019-06-05 22:17] VITALS: BP 102/52
[2019-06-05] MEDS: GABAPENTIN 400 MG CAP PO SCH (23:07)
[2019-06-05] MEDS: metroNIDAZOLE 500MG/100ML 100 ML IV SCH (23:07)
--- NOTE | 2019-06-05 23:16 | NUR ---
PATIENT REPORTING PAIN 6/10 PATIENT STATES THE PAIN IS BACK ULTRAM WAS GIVEN FOR PAIN 6/10, WILL REASSESS PAIN IN ONE HOUR.
[2019-06-06] MEDS: IPRATROPIUM BROM 0.5 MG/2.5ML INH SOL NEB SCH ×4 (00:06→18:45)
[2019-06-06] MEDS: ALBUTEROL SULF 2.5 MG/0.5ML(0.5%) NEB SOLN NEB SCH ×4 (00:07→18:45)
--- NOTE | 2019-06-06 00:11 | NUR ---
RT NOTE PT WAS SEEN BY RT FOR HHN TX. PT TOLERATES WELL VIA MASK. NO ADVERSE REACTION NOTED. CONT ORDERED Addendum: 06/06/19 at 0012 by Jenny Mayes RT Amended: Links added.
[2019-06-06] MEDS: SODIUM CHLORIDE 0.9% 1,000 ML IV SCH ×2 (02:06→11:09)
[2019-06-06] MEDS: FAMOTIDINE (10MG/ML) 2ML VL IV SCH ×2 (03:30→17:11)
[2019-06-06] MEDS: MORPHINE SULF INJ 2 MG/ML SYRINGE 1ML IV PRN (03:31)
--- NOTE | 2019-06-06 03:31 | NUR ---
PATIENT REQUESTING PAIN MEDICATION PATIENT SATES PAIN 8/10 AND REQUESTING PAIN MEDICATION, MORPHINE GIVEN IV AND WILL REASSESS PAIN IN 30MIN.
[2019-06-06 05:17] VITALS: BP 88/48
[2019-06-06] MEDS: ACCU-CHEK COMFORT CURVE STRIP VI SCH ×3 (05:50→18:24)
[2019-06-06] MEDS: metroNIDAZOLE 500MG/100ML 100 ML IV SCH ×3 (05:51→22:29)
[2019-06-06 05:56] LABS: Amylase 153 U/L (25-115); Lipase 1043 U/L (73-393)
[2019-06-06 09:00] VITALS: BP_SYST 89; BP_SYST 96; BP_DIAS 45; BP_DIAS 64
[2019-06-06] MEDS: cefTRIAXone 1GM/50ML D5W 50 ML IV SCH (09:27)
[2019-06-06] MEDS: ALBUTEROL SULF 2.5 MG/0.5ML(0.5%) NEB SOLN NEB PRN (10:13)
--- NOTE | 2019-06-06 10:34 | NUR ---
REGARDING SHORTNESS OF BREATH: PAGED RESPIRATORY THERAPY. PATIENT EXPERIENCING SHORTNESS OF BREATH. NEW ONSET WHEEZING NOTED.
--- NOTE | 2019-06-06 10:35 | NUR ---
LIZ JENKINS: LIZ JENKINS REGARDING PATIENTS COMPLAINTS OF SOB. NEW ONSET WHEEZING NOTED. AWAITING CALL BACK.
--- NOTE | 2019-06-06 11:25 | NUR ---
REGARDING PAGE TO Kiko REINA INFORMED OF PATIENTS NEW ONSET WHEEZING IN UPPER THROAT AREA. RECEIEVD ORDER FOR 125MG IV SOLUMEDROL ONE TIME NOW. WILL FOLLOW THROUGH.
[2019-06-06] MEDS ORDERED: methylPREDNISolone SOD SUCC 125 MG/2 ML VL IV ONE (11:30)
[2019-06-06 12:45] VITALS: BP 91/55
[2019-06-06 13:00] VITALS: BP 85/45
--- NOTE | 2019-06-06 14:39 | NUR ---
Nutrition Assessment Notes Please refer to link for full assessment notes. Est energy needs: 9642-4156 kcals (17-20 kcal/kgBW) Est protein needs: 68-75 gms/day (1.0-1.1 gm/kgAdjBW) Will continue to monitor and reassess prn. Addendum: 06/06/19 at [address] Amended: Links added.
[2019-06-06 17:00] VITALS: BP 100/43
--- NOTE | 2019-06-06 19:15 | NUR ---
Opening Shift Note Assumed care of patient, awake and alert. No S/S of distress/SOB. Discussed pain management with patient, patient complaining of 'some pain' patient BP running low at 99/41. Day RN informed BP runs low and when patient was given PRN pain meds, BP dropped. Patient verbalized understanding regarding low BP and effect pain medication has on BP. Instructed on POC and to call for assist PRN, will continue to monitor for changes Q1hr and PRN.
[2019-06-06 22:00] VITALS: BP 92/59
--- NOTE | 2019-06-06 22:05 | NUR ---
PT REFUSED ABG, SAT 97% ON 2L NC, NO SOB NOTED. PT AWAKE AND ALERT
[2019-06-06] MEDS: GABAPENTIN 400 MG CAP PO SCH (22:29)
[2019-06-06] MEDS: TEMAZEPAM 15 MG CAP PO PRN (22:30)
--- NOTE | 2019-06-06 23:04 | NUR ---
ALICE ALBERTO AT BS DR. Jones at bedside with patient. Gave new orders regarding Solumedrol, canceling ABG, and advancing diet as tolerated. Orders read back and verified.
--- NOTE | 2019-06-06 23:07 | NUR ---
Advance diet as tolerated Per Catalina Jones MD, advance diet from NPO to full liquid for breakfast 06/06. If patient tolerates diet, advance to regular diet by lunch. GI clearance if patient tolerates diet.
[2019-06-06 23:53] LABS: Albumin 2.8 g/dL (3.4-5.0); Calcium 8.4 mg/dL (8.5-10.1); Potassium 4.2 mmol/L (3.5-5.1)
[2019-06-06 23:55] LABS: Bilirubin, Total 0.4 mg/dL (0.2-1.0); Total Protein 6.5 g/dL (6.4-8.2)
[2019-06-07] MEDS: IPRATROPIUM BROM 0.5 MG/2.5ML INH SOL NEB SCH ×4 (00:13→19:18)
[2019-06-07] MEDS: ALBUTEROL SULF 2.5 MG/0.5ML(0.5%) NEB SOLN NEB SCH ×4 (00:13→19:18)
[2019-06-07] MEDS: ACCU-CHEK COMFORT CURVE STRIP VI SCH ×5 (00:29→23:43)
[2019-06-07] MEDS: FAMOTIDINE (10MG/ML) 2ML VL IV SCH ×2 (03:28→16:00)
--- NOTE | 2019-06-07 04:51 | NUR ---
RT PAGED Patient complaining of shortness of breath, RT paged for PRN breathing treatment. Will continue to monitor.
[2019-06-07 05:00] VITALS: BP 106/48
[2019-06-07] MEDS: MORPHINE SULF INJ 2 MG/ML SYRINGE 1ML IV PRN ×3 (05:00→22:04)
[2019-06-07] MEDS: PROMETHAZINE HCL 25 MG/ML 1ML IV PRN (05:18)
[2019-06-07] MEDS: metroNIDAZOLE 500MG/100ML 100 ML IV SCH (05:57)
[2019-06-07 06:34] LABS: Basophils # (auto) 0 10 ^3/uL (0-0.2); Basophils % (auto) 0.6 % (0.0-2.0); Eosinophils # (auto) 0 10 ^3/uL (0-0.8); Eosinophils % (auto) 0.4 % (0.0-7.0); Hematocrit 31.9 % (36.0-46.0); Hemoglobin 10.4 g/dL (12.2-16.2); Lymphocytes % (auto) 16.5 % (10.0-50.0); Mean Corpuscular Hemoglobin 27.2 pg (28.0-32.0); Mean Corpuscular Hgb Conc. 32.6 g/dL (32.0-36.0); Mean Corpuscular Volume 83.3 fL (80.0-100.0); Monocytes # (auto) 0.2 10 ^3/uL (0-1.3); Monocytes % (auto) 3.9 % (0.0-12.0); Neutrophils # (auto) 4.8 10 ^3/uL (1.6-8.6); Neutrophils % (auto) 78.6 % (37.0-80.0); Platelet Count (auto) 201 10^3/uL (140-450); Red Blood Cells 3.82 10^6/uL (4.0-5.20); Red Cell Distribution Width 16.8 % (11.8-14.3); White Blood Cell 6.1 10^3/uL (4.4-10.8)
--- NOTE | 2019-06-07 07:04 | NUR ---
Opening Shift Note: Assumed care of patient, awake and alert. No S/S of distress/SOB. Patient states no pain at this time. Bed in lowest locked position, side rails up x 2, call light within reach. Patients personal walker at bedside. Patient instructed on POC and to call for assist PRN, will continue to monitor for changes Q1hr and PRN.
[2019-06-07 09:00] VITALS: BP 90/50
[2019-06-07] MEDS: cefTRIAXone 1GM/50ML D5W 50 ML IV SCH ×2 (10:00→10:26)
--- NOTE | 2019-06-07 10:00 | NUR ---
0900 IV ANTIBIOTICS Not given due to no iv access at this time.
[2019-06-07] MEDS: methylPREDNISolone SOD SUCC 40 MG/ML VL IV SCH ×2 (10:26→22:03)
[2019-06-07 13:00] VITALS: BP 100/57
[2019-06-07] MEDS: ALBUTEROL SULF 2.5 MG/0.5ML(0.5%) NEB SOLN NEB PRN (16:23)
--- NOTE | 2019-06-07 16:49 | NUR ---
IV insertion: IV access obtained, via clean sterile technique by inserting 24 gauge catheter at right thumb after several attempt by this nurse, charge nurse Luigi and resource nurses Nadiya and Claire. IV secured properly. No trauma to site. Patient tolerated well. IV removal: Right AC IV DC'd with clean sterile technique, catheter fully intact. Pressure dressing applied to site. Patient tolerated well.
[2019-06-07 16:57] VITALS: BP 91/47
--- NOTE | 2019-06-07 18:49 | NUR ---
Dr. Catalina Jones called for update. New orders placed, read back and verified.
[2019-06-07] MEDS: ENOXAPARIN SOD 40 MG/0.4 ML SYRINGE SC SCH (18:55)
--- NOTE | 2019-06-07 19:09 | NUR ---
CLOSING NOTE: Patient resting in bed. No S/S of of distress, SOB or pain. Care endorsed to NOC RN.
--- NOTE | 2019-06-07 19:23 | NUR ---
Opening Shift Note Assumed care of patient, awake and alert. No S/S of distress/SOB or pain. Instructed on POC and to call for assist PRN, will continue to monitor for changes Q1hr and PRN.
[2019-06-07 19:29] LABS: Albumin 3.1 g/dL (3.4-5.0); Calcium 8.6 mg/dL (8.5-10.1); Potassium 3.5 mmol/L (3.5-5.1)
[2019-06-07 19:34] LABS: BUN/Creatinine Ratio 33.3; Bilirubin, Total 0.5 mg/dL (0.2-1.0); Total Protein 6.7 g/dL (6.4-8.2)
--- NOTE | 2019-06-07 20:24 | NUR ---
IV insertion IV access obtained, via clean sterile technique by inserting 22 gauge catheter at left arm. IV secured properly. No trauma to site. Patient tolerated well.
[2019-06-07 22:00] VITALS: BP 91/47
[2019-06-07] MEDS: GABAPENTIN 400 MG CAP PO SCH (22:03)
[2019-06-07] MEDS: TEMAZEPAM 15 MG CAP PO PRN (22:19)
[2019-06-08] MEDS: IPRATROPIUM BROM 0.5 MG/2.5ML INH SOL NEB SCH ×4 (00:55→18:20)
[2019-06-08] MEDS: ALBUTEROL SULF 2.5 MG/0.5ML(0.5%) NEB SOLN NEB SCH ×4 (00:55→18:20)
--- NOTE | 2019-06-08 01:33 | NUR ---
Urine Sample Urine sample collected via clean catch technique. Sample sent to lab per MD orders.
[2019-06-08] MEDS: FAMOTIDINE (10MG/ML) 2ML VL IV SCH ×2 (04:16→16:07)
[2019-06-08] MEDS: MORPHINE SULF INJ 2 MG/ML SYRINGE 1ML IV PRN ×4 (04:35→18:47)
[2019-06-08 05:00] VITALS: BP 128/58
[2019-06-08] MEDS: ACCU-CHEK COMFORT CURVE STRIP VI SCH ×2 (05:35→12:00)
[2019-06-08 09:00] VITALS: BP 97/62
[2019-06-08] MEDS ORDERED: IOHEXOL 300 MG/ML 100ML BOTTLE IJ ONE (09:38)
[2019-06-08] MEDS ORDERED: OMNIPAQUE ORAL SOLN 500ml 12mg/ml PO ONE (09:39)
[2019-06-08 09:40] LABS: Basophils # (auto) 0 10 ^3/uL (0-0.2); Basophils % (auto) 0.3 % (0.0-2.0); Eosinophils # (auto) 0 10 ^3/uL (0-0.8); Hematocrit 33.6 % (36.0-46.0); Lymphocytes # (auto) 0.6 10 ^3/uL (0.4-5.4); Lymphocytes % (auto) 9.2 % (10.0-50.0); Mean Corpuscular Hemoglobin 27.3 pg (28.0-32.0); Mean Corpuscular Hgb Conc. 32.6 g/dL (32.0-36.0); Mean Corpuscular Volume 83.8 fL (80.0-100.0); Monocytes # (auto) 0.2 10 ^3/uL (0-1.3); Monocytes % (auto) 2.5 % (0.0-12.0); Neutrophils # (auto) 5.7 10 ^3/uL (1.6-8.6); Platelet Count (auto) 210 10^3/uL (140-450); Red Blood Cells 4.02 10^6/uL (4.0-5.20); Red Cell Distribution Width 17.1 % (11.8-14.3); White Blood Cell 6.5 10^3/uL (4.4-10.8)
[2019-06-08 09:57] LABS: Albumin 3.2 g/dL (3.4-5.0); Calcium 9.1 mg/dL (8.5-10.1); Potassium 4.1 mmol/L (3.5-5.1)
[2019-06-08 10:05] LABS: BUN/Creatinine Ratio 30.9; Bilirubin, Total 0.3 mg/dL (0.2-1.0); Total Protein 7.1 g/dL (6.4-8.2)
[2019-06-08] MEDS: ENOXAPARIN SOD 40 MG/0.4 ML SYRINGE SC SCH (10:42)
[2019-06-08] MEDS: methylPREDNISolone SOD SUCC 40 MG/ML VL IV SCH (10:42)
--- NOTE | 2019-06-08 10:42 | NUR ---
STATED PAIN 10/10 IN ABDOMEN MEDICATED WITH MORPHINE 2 MG IVP.
--- NOTE | 2019-06-08 11:12 | NUR ---
PAIN NOW BETTER 06/25
[2019-06-08 13:00] VITALS: BP 108/52
[2019-06-08 17:00] VITALS: BP 100/45
--- NOTE | 2019-06-08 18:48 | NUR ---
PAIN 10/10 IN ABDOMEN. MEDICATED WITH MORPHINE 2 MG IVP.
[2019-06-08] MEDS: cefTRIAXone 1GM/50ML D5W 50 ML IV SCH (20:10)
[2019-06-08 22:03] VITALS: BP 95/40
[2019-06-08] MEDS: GABAPENTIN 400 MG CAP PO SCH (22:45)
[2019-06-09] VITALS (7 sets, daily range): BP systolic 94–126; BP diastolic 34–69
[2019-06-09] MEDS: ALBUTEROL SULF 2.5 MG/0.5ML(0.5%) NEB SOLN NEB SCH ×3 (00:15→12:00)
[2019-06-09] MEDS: IPRATROPIUM BROM 0.5 MG/2.5ML INH SOL NEB SCH ×3 (00:15→12:00)
--- NOTE | 2019-06-09 00:19 | NUR ---
Respiratory note: AT BEDSIDE FOR MED BUTCH [place].
[2019-06-09] MEDS: FAMOTIDINE (10MG/ML) 2ML VL IV SCH ×2 (03:55→16:11)
[2019-06-09] MEDS: MORPHINE SULF INJ 2 MG/ML SYRINGE 1ML IV PRN ×3 (05:00→13:13)
[2019-06-09 07:24] LABS: Basophils # (auto) 0 10 ^3/uL (0-0.2); Basophils % (auto) 0.7 % (0.0-2.0); Eosinophils # (auto) 0.1 10 ^3/uL (0-0.8); Eosinophils % (auto) 0.8 % (0.0-7.0); Hematocrit 31.2 % (36.0-46.0); Hemoglobin 10.4 g/dL (12.2-16.2); Lymphocytes # (auto) 2.1 10 ^3/uL (0.4-5.4); Lymphocytes % (auto) 31.5 % (10.0-50.0); Mean Corpuscular Hemoglobin 27.3 pg (28.0-32.0); Mean Corpuscular Hgb Conc. 33.2 g/dL (32.0-36.0); Mean Corpuscular Volume 82.4 fL (80.0-100.0); Monocytes # (auto) 0.4 10 ^3/uL (0-1.3); Monocytes % (auto) 5.7 % (0.0-12.0); Neutrophils # (auto) 4.1 10 ^3/uL (1.6-8.6); Neutrophils % (auto) 61.3 % (37.0-80.0); Nucleated Red Blood Cells % 0.1 %; Platelet Count (auto) 204 10^3/uL (140-450); Red Blood Cells 3.79 10^6/uL (4.0-5.20); Red Cell Distribution Width 16.9 % (11.8-14.3); White Blood Cell 6.6 10^3/uL (4.4-10.8)
[2019-06-09] MEDS ORDERED: MORPHINE SULF INJ 2 MG/ML SYRINGE 1ML ONE (08:57)
[2019-06-09] MEDS: cefTRIAXone 1GM/50ML D5W 50 ML IV SCH (09:05)
[2019-06-09] MEDS: ENOXAPARIN SOD 40 MG/0.4 ML SYRINGE SC SCH (09:06)
[2019-06-09] MEDS ORDERED: predniSONE 20 MG TAB PO SCH (10:00)
--- NOTE | 2019-06-09 14:11 | NUR ---
CALLED DR. MARCY Treadwell REGARDING CLEARANCE PER DR. JENKINS, SPOKE TO [facility]. [facility] STATED WILL PASS THE MESSAGE TO DR. GRETCHEN Treadwell. AWAITING FOR RESPONSE.
[2019-06-09] MEDS ORDERED: PRED20TA2 PO (14:13)
--- NOTE | 2019-06-09 14:13 | NUR ---
CALLED DR. KABA PER DR. JENKINS REGARDING CLEARANCE FOR DISCHARGE. ON ONE ANSWER THE PHONE, ONE MESSAGE WAS LEFT. AWAITING RESPONSE.
[2019-06-09] MEDS ORDERED: NITROFURANTOIN 100 mg CAP PO SCH (14:15)
[2019-06-09] MEDS ORDERED: NITR-52 PO (14:18)
--- NOTE | 2019-06-09 15:25 | NUR ---
CALLED DR. MARCY Treadwell AGAIN REGARDING DISCHARGE CLEARANCE. [facility] STATED WILL PAGE DR. VIDAL AGAIN. AWAITING CALL BACK.
--- NOTE | 2019-06-09 15:30 | NUR ---
RECEIVED PHONE CALL FROM DR. Mile VIDAL. STATED PT IS CLEARED FOR DISCHARGE.
--- NOTE | 2019-06-09 15:38 | NUR ---
DR. KABA CLEARED PT FOR DISCHARGE. MD RECOMMENDS PT TO GO HOME WITH AZITHROMYCIN 500MG ON THE FIRST DAY AND 250 MG FOR 4 DAYS. PREDNISONE 40MG DAILY.
[2019-06-09] MEDS ORDERED: THROAT LOZENGES(CEPASTAT) MT PRN (15:45)
[2019-06-09] MEDS ORDERED: AZIT250T9 PO (15:55)
[2019-06-09] MEDS ORDERED: AZITHROMYCIN 250 MG TAB PO ONE (16:00)
--- NOTE | 2019-06-09 18:45 | NUR ---
Discharge instructions given as ordered. Encourage to follow up with PMD Dr. Rg on 06/11/19 @ 1000 as instructed. All questions and concerns addressed. Patient verbalized understanding. Medication reconciliation form completed and copy given to patient. IV removed with catheter intact, pressure dressing applied. Patient taken to vehicle via wheelchair with all personal belongings, accompanied by staff and family member. No distress noted at time of departure.
[2019-06-09] MEDS ORDERED: DOXYCYCLINE 100 MG TAB/CAP PO SCH (22:00)
[2019-06-11 09:13] LABS: Hepatitis B Surface Antibody Negative
[2019-06-11 09:45] LABS: Hepatitis A Total Antibody Negative
[2019-06-11 10:09] LABS: Hepatitis B Core Total AB Negative; Hepatitis B Surface Antigen Negative (Negative); Hepatitis C Antibody Negative (Negative)
[2019-10-26] MEDS ORDERED: FER325T PO (13:06)
[2019-10-28] MEDS ORDERED: DOXY-346 PO (10:52)
[2019-11-06] MEDS ORDERED: DOXY-286 PO (13:20)
[2019-11-06] MEDS ORDERED: ASCO500T11 PO ×2 (13:20→13:21)
[2019-11-06] MEDS ORDERED: ZINC220T6 PO (13:20)
[2019-11-06] MEDS ORDERED: METH4PAK PO (13:20)
== END 2019-06-09 19:00 | disposition home or self-care (01) | DRG 282 ==
LOC: ER 12:19 → OVERFLOW 12:20 → WEST WING 16:42
PROVIDERS: ADMIT Internal Medicine; ATTEND Internal Medicine
DX: K85.90 Acute pancreatitis without necrosis or infection, unspecified (principal); J96.21 Acute and chronic respiratory failure with hypoxia; J45.901 Unspecified asthma with (acute) exacerbation; K21.9 Gastro-esophageal reflux disease without esophagitis; K86.1 Other chronic pancreatitis; K44.9 Diaphragmatic hernia without obstruction or gangrene; N39.0 Urinary tract infection, site not specified; E66.9 Obesity, unspecified; G89.29 Other chronic pain; K57.30 Diverticulosis of large intestine without perforation or abscess without bleeding; J44.9 Chronic obstructive pulmonary disease, unspecified; J98.11 Atelectasis; F41.9 Anxiety disorder, unspecified; K57.90 Diverticulosis of intestine, part unspecified, without perforation or abscess without bleeding; Z90.49 Acquired absence of other specified parts of digestive tract; Z88.5 Allergy status to narcotic agent; Z88.6 Allergy status to analgesic agent; Z88.1 Allergy status to other antibiotic agents; Z88.8 Allergy status to other drugs, medicaments and biological substances; Z90.710 Acquired absence of both cervix and uterus; Z68.35 Body mass index [BMI] 35.0-35.9, adult; Z79.899 Other long term (current) drug therapy
CPT/HCPCS: 36415; 71046; 74176; 74177; 80053; 81001; 82150; 82962; 83036; 83690; 83735; 84484; 85025; 86301; 86704; 86706; 86708; 86803; 87040; 87086; 87340; 87493; 93005; 94640; 96361; 96365; 96375; G0378; J0696; J2405; J3490

== ENCOUNTER → 2019-08-07 | Emergency (ER) | payer MEDICAID ==
[~2019-08-07] VITALS: Ht 165.1 cm; Wt 99.8 kg
[~2019-08-07] MED LIST changes: -ALBU18 IN; +ALBUTEROL SULF 2.5 MG/0.5ML(0.5%) NEB SOLN NEB ONE; +ALBUTEROL SULF 2.5 MG/0.5ML(0.5%) NEB SOLN ONE; +ASCO500T11 PO; +ATOR10TA52 PO; +AZIT250T9 PO; +BECL80AE11 IN; +CEPH-37 PO; +CETI10TA80 PO; -CHOL20007 PO; +CHOL20009 PO; +DOXY-286 PO; +DOXY-346 PO; +FER325T PO; +FLU01T PO; +FLUO-125 PO; +GABA-339 PO; -GABA800T97 PO; +IOHEXOL 300 MG/ML 100ML BOTTLE IJ ONE; -IPR002IS NEB; +IPRATROPIUM BROM 0.5 MG/2.5ML INH SOL NEB ONE; +IPRATROPIUM BROM 0.5 MG/2.5ML INH SOL ONE; +METH4PAK PO; +MORPHINE SULFATE 4 MG/ML SYR/VIAL IV ONE; -MULTCAP45 PO; +NITR-52 PO; +ONDA-144 PO; +ONDANSETRON HCL 4 MG/2 ML VIAL IV ONE; +PANT40TA2 PO; +PERCOT PO; +POM NEB; -PRED1SUS4 OP; +PRED20TA2 PO; +RIVA10TA PO; +SODIUM CHLORIDE 0.9% 1,000 ML IV ONE; +TRAM50TA2 PO; +ZINC220T6 PO; +cefTRIAXone 1GM/50ML D5W 50 ML IV ONE; +methylPREDNISolone SOD SUCC 125 MG/2 ML VL IV ONE
[2019-08-07 22:22] LABS: Urine Bacteria NONE SEEN /hpf (None Seen); Urine Blood TRACE /uL (Negative); Urine Mucus FEW (None Seen); Urine Specific Gravity 1.028 (1.001-1.035); Urine WBC 10 /hpf (0 - 5)
[2019-08-07 23:13] LABS: Basophils # (auto) 0.1 10 ^3/uL (0-0.2); Hemoglobin 11.2 g/dL (12.2-16.2); Lymphocytes # (auto) 2.3 10 ^3/uL (0.4-5.4); Monocytes # (auto) 0.4 10 ^3/uL (0-1.3); Monocytes % (auto) 5.9 % (0.0-12.0)
[2019-08-07 23:15] LABS: Basophils % (auto) 1.3 % (0.0-2.0); Eosinophils # (auto) 0.6 10 ^3/uL (0-0.8); Eosinophils % (auto) 7.8 % (0.0-7.0); Hematocrit 34.2 % (36.0-46.0); Lymphocytes % (auto) 33.2 % (10.0-50.0); Mean Corpuscular Hemoglobin 27.2 pg (28.0-32.0); Mean Corpuscular Hgb Conc. 32.7 g/dL (32.0-36.0); Mean Corpuscular Volume 83.2 fL (80.0-100.0); Neutrophils # (auto) 3.7 10 ^3/uL (1.6-8.6); Neutrophils % (auto) 51.8 % (37.0-80.0); Nucleated Red Blood Cells % 0.1 %; Platelet Count (auto) 273 10^3/uL (140-450); Red Blood Cells 4.11 10^6/uL (4.0-5.20); Red Cell Distribution Width 16.6 % (11.8-14.3); White Blood Cell 7.1 10^3/uL (4.4-10.8)
[2019-08-07 23:28] LABS: INR 1.12 (0.9-1.15); Partial Thromboplastin Time 24.8 sec (23.64-32.05)
[2019-08-07 23:29] LABS: Albumin 3.3 g/dL (3.4-5.0); Amylase 54 U/L (25-115); Anion Gap 6 (5-15); BUN/Creatinine Ratio 28.1; Blood Urea Nitrogen 18 mg/dL (7-18); Calcium 8.2 mg/dL (8.5-10.1); Carbon Dioxide 26 mmol/L (21-32); Chloride 110 mmol/L (98-107); GFR African American 120 mL/min; GFR Non-African American 99 mL/min; Glucose 99 mg/dL (74-106); Lipase 112 U/L (73-393); Sodium 142 mmol/L (136-145)
[2019-08-07 23:38] LABS: Alanine Aminotransferase 29 U/L (13-56); Alkaline Phosphatase 143 U/L (45-117); Aspartate Aminotransferase 25 U/L (15-37); Bilirubin, Total 0.2 mg/dL (0.2-1.0)
[2019-08-08 02:58] VITALS: BP 110/87
== END | disposition home or self-care (01) ==
LOC: ER 20:27
DX: N39.0 Urinary tract infection, site not specified (principal); K52.9 Noninfective gastroenteritis and colitis, unspecified; J45.901 Unspecified asthma with (acute) exacerbation; E66.9 Obesity, unspecified; K86.1 Other chronic pancreatitis; Z68.36 Body mass index [BMI] 36.0-36.9, adult
CPT/HCPCS: 36415; 71045; 74177; 80053; 81001; 82150; 83605; 83690; 83880; 84484; 85025; 85610; 85730; 87086; 93005; 94640; 96365; 96375; 99285; J0696; J2270; J2405; J2930; J7030; J7644; Q9967

== ENCOUNTER 2019-10-21 12:42 | Inpatient (IN) | payer MEDICARE, MEDICAID ==
[~2019-10-21] VITALS: Ht 165.1 cm; Wt 95.2 kg
[~2019-10-21 12:42] MED LIST changes: -ALBUTEROL SULF 2.5 MG/0.5ML(0.5%) NEB SOLN NEB ONE; -ALBUTEROL SULF 2.5 MG/0.5ML(0.5%) NEB SOLN ONE; -ASCO500T11 PO; -CEPH-37 PO; -DOXY-286 PO; -DOXY-346 PO; -FER325T PO; -IOHEXOL 300 MG/ML 100ML BOTTLE IJ ONE; -IPRATROPIUM BROM 0.5 MG/2.5ML INH SOL NEB ONE; -IPRATROPIUM BROM 0.5 MG/2.5ML INH SOL ONE; -METH4PAK PO; -MORPHINE SULFATE 4 MG/ML SYR/VIAL IV ONE; -ONDANSETRON HCL 4 MG/2 ML VIAL IV ONE; -SODIUM CHLORIDE 0.9% 1,000 ML IV ONE; -ZINC220T6 PO; -cefTRIAXone 1GM/50ML D5W 50 ML IV ONE; -methylPREDNISolone SOD SUCC 125 MG/2 ML VL IV ONE
[2019-10-21] MEDS ORDERED: SODIUM CHLORIDE 0.9% 1,000 ML IVB ONE (13:09)
[2019-10-21 13:23] LABS: Basophils # (auto) 0 10 ^3/uL (0-0.2); Basophils % (auto) 0.6 % (0.0-2.0); Eosinophils # (auto) 0.2 10 ^3/uL (0-0.8); Eosinophils % (auto) 2.7 % (0.0-7.0); Hematocrit 28.7 % (36.0-46.0); Hemoglobin 8.9 g/dL (12.2-16.2); Lymphocytes % (auto) 16.4 % (10.0-50.0); Mean Corpuscular Hemoglobin 26.1 pg (28.0-32.0); Mean Corpuscular Hgb Conc. 31.1 g/dL (32.0-36.0); Mean Corpuscular Volume 83.8 fL (80.0-100.0); Monocytes # (auto) 0.5 10 ^3/uL (0-1.3); Monocytes % (auto) 7.6 % (0.0-12.0); Neutrophils # (auto) 4.3 10 ^3/uL (1.6-8.6); Neutrophils % (auto) 72.7 % (37.0-80.0); Platelet Count (auto) 447 10^3/uL (140-450); Red Blood Cells 3.42 10^6/uL (4.0-5.20); White Blood Cell 5.9 10^3/uL (4.4-10.8)
[2019-10-21 13:40] LABS: Albumin 2.4 g/dL (3.4-5.0); BUN/Creatinine Ratio 35.6; Calcium 7.7 mg/dL (8.5-10.1); Potassium 3.9 mmol/L (3.5-5.1)
[2019-10-21 13:42] LABS: Magnesium 2.2 mg/dL (1.6-2.6)
[2019-10-21 13:43] LABS: Bilirubin, Total 0.3 mg/dL (0.2-1.0)
[2019-10-21 13:50] LABS: INR 1.12 (0.9-1.15); Partial Thromboplastin Time 25.1 sec (23.0-31.2)
[2019-10-21] MEDS ORDERED: traMADol HCL 50 MG TAB PO ONE ×2 (15:00→18:45)
[2019-10-21] MEDS ORDERED: LACTATED RINGER'S 1,000 ML IV ONE (19:15)
[2019-10-21] MEDS ORDERED: HYDROCORTISONE SOD SUCC 100 MG/2ML INJ VIAL IV ONE (19:15)
[2019-10-21] MEDS ORDERED: MORPHINE SULF INJ 2 MG/ML SYRINGE 1ML IV PRN (19:15)
[2019-10-21] MEDS ORDERED: NITROGLYCERIN 0.4 MG SL TAB SL PRN (19:15)
[2019-10-21] MEDS: LORazepam 2MG/ML-1ML VIAL IV PRN (22:44)
[2019-10-21 22:49] LABS: Urine Bacteria NONE SEEN /hpf (None Seen); Urine Blood Negative /uL (Negative); Urine Specific Gravity 1.009 (1.001-1.035); Urine WBC 2 /hpf (0 - 5)
[2019-10-22] VITALS (7 sets, daily range): BP systolic 88–110; BP diastolic 45–63
[2019-10-22] MEDS ORDERED: HYDROCORTISONE SOD SUCC 100 MG/2ML INJ VIAL IV SCH
[2019-10-22] MEDS ORDERED: VITAMINS A & D (TOPICAL) OINT 5GM TOP ONE (02:45)
[2019-10-22] MEDS ORDERED: VITAMINS A & D (TOPICAL) OINT 5GM TOP PRN (02:45)
[2019-10-22] MEDS ORDERED: ALBUTEROL SULF 2.5 MG/0.5ML(0.5%) NEB SOLN NEB PRN (02:45)
[2019-10-22] MEDS ORDERED: IPRATROPIUM BROM 0.5 MG/2.5ML INH SOL NEB PRN (02:45)
[2019-10-22] MEDS ORDERED: SOD CHL 0.45% 1,000 ML IV SCH (02:50)
[2019-10-22] MEDS ORDERED: DEXTROSE (50%) 50ML SYRG IV PRN (03:00)
[2019-10-22] MEDS ORDERED: ALUM & MAG HYDROX-SIMETH LIQ(MAALOX) 30 ML PO PRN (03:00)
[2019-10-22] MEDS ORDERED: NITROGLYCERIN 0.4 MG SL TAB SL PRN (03:00)
[2019-10-22] MEDS ORDERED: MORPHINE SULF INJ 2 MG/ML SYRINGE 1ML IV PRN ×2 (03:00)
[2019-10-22] MEDS ORDERED: HYDROcodone-ACET 5/325MG TAB PO PRN (03:00)
[2019-10-22] MEDS ORDERED: DOCUSATE SOD 100 MG CAP PO PRN (03:00)
[2019-10-22] MEDS: cefTRIAXone 1GM/50ML D5W 50 ML IV SCH (05:15)
[2019-10-22] MEDS: GABAPENTIN 300 MG CAP PO SCH ×3 (05:15→22:44)
[2019-10-22] MEDS: ACCU-CHEK COMFORT CURVE STRIP VI SCH ×2 (05:16→12:10)
[2019-10-22] MEDS: InsuLIN REG 1unit/0.01ml Soln (100units/ml) SC SCH ×2 (06:28→12:12)
[2019-10-22 07:31] LABS: Chloride 110 mmol/L (98-107); Potassium 4.1 mmol/L (3.5-5.1); Sodium 139 mmol/L (136-145)
[2019-10-22 07:34] LABS: INR 1.11 (0.9-1.15); Partial Thromboplastin Time 22.5 sec (23.0-31.2)
[2019-10-22 07:47] LABS: Basophils # (auto) 0 10 ^3/uL (0-0.2); Basophils % (auto) 0.5 % (0.0-2.0); Eosinophils # (auto) 0 10 ^3/uL (0-0.8); Hematocrit 27.6 % (36.0-46.0); Hemoglobin 8.8 g/dL (12.2-16.2); Lymphocytes # (auto) 0.5 10 ^3/uL (0.4-5.4); Lymphocytes % (auto) 8.9 % (10.0-50.0); Mean Corpuscular Hemoglobin 26.7 pg (28.0-32.0); Mean Corpuscular Hgb Conc. 31.9 g/dL (32.0-36.0); Mean Corpuscular Volume 83.8 fL (80.0-100.0); Monocytes # (auto) 0 10 ^3/uL (0-1.3); Monocytes % (auto) 0.8 % (0.0-12.0); Neutrophils # (auto) 5.3 10 ^3/uL (1.6-8.6); Neutrophils % (auto) 89.8 % (37.0-80.0); Platelet Count (auto) 447 10^3/uL (140-450); Red Cell Distribution Width 17.6 % (11.8-14.3); White Blood Cell 5.9 10^3/uL (4.4-10.8)
[2019-10-22 07:51] LABS: Alanine Aminotransferase 28 U/L (13-56); Albumin 2.5 g/dL (3.4-5.0); Alkaline Phosphatase 204 U/L (45-117); Anion Gap 5 (5-15); Aspartate Aminotransferase 41 U/L (15-37); Bilirubin, Total 0.2 mg/dL (0.2-1.0); Blood Urea Nitrogen 15 mg/dL (7-18); Calcium 8.3 mg/dL (8.5-10.1); Carbon Dioxide 24 mmol/L (21-32); GFR African American 159 mL/min; GFR Non-African American 132 mL/min; Glucose 177 mg/dL (74-106); Magnesium 2.3 mg/dL (1.6-2.6); Phosphorus 3.7 mg/dL (2.5-4.90); Total Protein 7.3 g/dL (6.4-8.2)
[2019-10-22 07:57] LABS: Cholesterol 144 mg/dL (< 200); HDL Cholesterol 25 mg/dL (40-59); LDL Cholesterol 119 mg/dL (< 100); Triglycerides 60 mg/dL (< 150)
[2019-10-22] MEDS: FLUoxetine HCL 20 MG CAP PO SCH (09:11)
[2019-10-22] MEDS: RIVAROXABAN 10 MG TAB PO SCH (09:11)
[2019-10-22] MEDS: CHOLECALCIFEROL (VITD3) 2,000 UNIT CAP PO SCH (09:12)
[2019-10-22] MEDS: PANCREATIC ENZYMES 4200 UNIT CAP PO SCH ×3 (09:13→17:38)
[2019-10-22] MEDS: PANTOPRAZOLE 40 MG TAB PO SCH (09:13)
[2019-10-22] MEDS: LORazepam 0.5 MG TAB PO PRN ×2 (09:18→22:44)
[2019-10-22] MEDS ORDERED: predniSONE 20 MG TAB PO SCH (10:00)
[2019-10-22] MEDS ORDERED: FLUDROCORTISONE ACETATE 0.1 MG TAB PO SCH (10:00)
[2019-10-22 10:01] LABS: Alcohol, Urine < 3.0 mg/dL (0-10); Amphetamine Screen, Urine NEGATIVE (NEGATIVE); Barbiturate Scree,Urine NEGATIVE (NEGATIVE); Benzodiazephine Screen, Urine NEGATIVE (NEGATIVE); Cannabinoid Screen, Urine POSITIVE (NEGATIVE); Cocaine Screen, Urine NEGATIVE (NEGATIVE); Opiate Scree,Urine NEGATIVE (NEGATIVE); Phencyclidine Screen, Urine NEGATIVE (NEGATIVE)
[2019-10-22 16:39] LABS: Hematocrit 29.2 % (36.0-46.0); Hemoglobin 9.1 g/dL (12.2-16.2)
[2019-10-22] MEDS: SODIUM CHLORIDE 0.9% 1,000 ML IV SCH (17:38)
[2019-10-22] MEDS: ONDANSETRON HCL 4 MG/2 ML VIAL IV PRN (17:40)
[2019-10-22] MEDS ORDERED: InsuLIN REG 1unit/0.01ml Soln (100units/ml) SC SCH (22:00)
[2019-10-22] MEDS: ATORVASTATIN 20 MG TAB PO SCH (22:44)
[2019-10-23 05:00] VITALS: BP 89/60
[2019-10-23] MEDS: GABAPENTIN 300 MG CAP PO SCH ×3 (06:00→22:12)
[2019-10-23 08:00] VITALS: BP 96/59
[2019-10-23] MEDS: PANTOPRAZOLE 40 MG TAB PO SCH (08:52)
[2019-10-23] MEDS: PANCREATIC ENZYMES 4200 UNIT CAP PO SCH ×3 (08:52→19:36)
[2019-10-23] MEDS: RIVAROXABAN 10 MG TAB PO SCH (08:53)
[2019-10-23] MEDS: FLUoxetine HCL 20 MG CAP PO SCH (08:53)
[2019-10-23] MEDS: predniSONE 20 MG TAB PO SCH (08:53)
[2019-10-23] MEDS: FLUDROCORTISONE ACETATE 0.1 MG TAB PO SCH (08:53)
[2019-10-23] MEDS: cefTRIAXone 1GM/50ML D5W 50 ML IV SCH (08:54)
[2019-10-23] MEDS: SODIUM CHLORIDE 0.9% 1,000 ML IV SCH ×2 (08:54→15:27)
[2019-10-23 09:00] VITALS: BP 96/46
[2019-10-23] MEDS ORDERED: predniSONE 20 MG TAB PO SCH (10:00)
[2019-10-23] MEDS: CHOLECALCIFEROL (VITD3) 2,000 UNIT CAP PO SCH (10:42)
[2019-10-23 13:00] VITALS: BP 94/49
[2019-10-23] MEDS: ACETAMINOPHEN 325 MG TAB PO PRN ×2 (15:29→22:13)
[2019-10-23 17:00] VITALS: BP 92/50
[2019-10-23] MEDS ORDERED: LORazepam 2MG/ML-1ML VIAL IV PRN (20:30)
[2019-10-23 22:00] VITALS: BP 96/40
[2019-10-23] MEDS: LORazepam 0.5 MG TAB PO PRN (22:12)
[2019-10-23] MEDS: ATORVASTATIN 20 MG TAB PO SCH (22:12)
[2019-10-24] MEDS: SODIUM CHLORIDE 0.9% 1,000 ML IV SCH ×2 (01:33→11:41)
[2019-10-24 05:00] VITALS: BP 113/57
[2019-10-24 05:29] LABS: % Iron Saturation 9.6 % (15-50)
[2019-10-24 05:39] LABS: Ferritin 31.4 ng/mL (10-322)
[2019-10-24] MEDS: GABAPENTIN 300 MG CAP PO SCH ×3 (06:20→21:29)
[2019-10-24 09:00] VITALS: BP 95/51
[2019-10-24] MEDS: PANCREATIC ENZYMES 4200 UNIT CAP PO SCH ×3 (09:20→17:36)
[2019-10-24] MEDS: cefTRIAXone 1GM/50ML D5W 50 ML IV SCH (09:21)
[2019-10-24] MEDS: FLUDROCORTISONE ACETATE 0.1 MG TAB PO SCH (10:20)
[2019-10-24] MEDS: predniSONE 20 MG TAB PO SCH (10:20)
[2019-10-24] MEDS: ONDANSETRON HCL 4 MG/2 ML VIAL IV PRN (10:20)
[2019-10-24] MEDS: MORPHINE SULF INJ 2 MG/ML SYRINGE 1ML IV PRN (10:20)
[2019-10-24] MEDS: FLUoxetine HCL 20 MG CAP PO SCH (10:21)
[2019-10-24] MEDS: RIVAROXABAN 10 MG TAB PO SCH (10:21)
[2019-10-24] MEDS: PANTOPRAZOLE 40 MG TAB PO SCH (10:21)
[2019-10-24] MEDS: CHOLECALCIFEROL (VITD3) 1,000UNIT=25mCg TAB PO SCH (10:47)
[2019-10-24 13:00] VITALS: BP 98/43
[2019-10-24 17:00] VITALS: BP 92/53
[2019-10-24] MEDS: FERROUS SULFATE 325 MG TAB PO SCH (17:35)
[2019-10-24] MEDS: ATORVASTATIN 20 MG TAB PO SCH (21:28)
[2019-10-24] MEDS: ACETAMINOPHEN 325 MG TAB PO PRN (21:29)
[2019-10-24 22:11] VITALS: BP 101/40
[2019-10-25] MEDS: SODIUM CHLORIDE 0.9% 1,000 ML IV SCH ×2 (04:16→21:53)
[2019-10-25] MEDS: LORazepam 2MG/ML-1ML VIAL IV PRN (04:41)
[2019-10-25 05:00] VITALS: BP 105/51
[2019-10-25] MEDS: GABAPENTIN 300 MG CAP PO SCH ×3 (05:08→21:53)
[2019-10-25 09:00] VITALS: BP 95/52
[2019-10-25] MEDS: PANCREATIC ENZYMES 4200 UNIT CAP PO SCH ×3 (09:30→17:32)
[2019-10-25] MEDS: FERROUS SULFATE 325 MG TAB PO SCH ×2 (09:30→17:32)
[2019-10-25] MEDS: CHOLECALCIFEROL (VITD3) 1,000UNIT=25mCg TAB PO SCH (09:59)
[2019-10-25] MEDS: PANTOPRAZOLE 40 MG TAB PO SCH (09:59)
[2019-10-25] MEDS: predniSONE 20 MG TAB PO SCH (09:59)
[2019-10-25] MEDS: RIVAROXABAN 10 MG TAB PO SCH (09:59)
[2019-10-25] MEDS: FLUoxetine HCL 20 MG CAP PO SCH (09:59)
[2019-10-25] MEDS: FLUDROCORTISONE ACETATE 0.1 MG TAB PO SCH (09:59)
[2019-10-25 13:00] VITALS: BP 95/56
[2019-10-25] MEDS: ACETAMINOPHEN 325 MG TAB PO PRN (13:15)
[2019-10-25 17:00] VITALS: BP 108/49
[2019-10-25] MEDS: MORPHINE SULF INJ 2 MG/ML SYRINGE 1ML IV PRN ×2 (17:05→21:53)
[2019-10-25 20:00] VITALS: BP 108/56
[2019-10-25] MEDS: ATORVASTATIN 20 MG TAB PO SCH (21:53)
[2019-10-25 22:00] VITALS: BP 108/56
[2019-10-26 02:14] VITALS: BP 108/56
[2019-10-26] MEDS: MORPHINE SULF INJ 2 MG/ML SYRINGE 1ML IV PRN ×4 (03:50→22:10)
[2019-10-26 05:00] VITALS: BP 106/59
[2019-10-26] MEDS: GABAPENTIN 300 MG CAP PO SCH ×3 (06:28→21:48)
[2019-10-26 07:39] LABS: Hemoglobin 8.8 g/dL (12.2-16.2)
[2019-10-26 07:42] LABS: Hematocrit 27.2 % (36.0-46.0)
[2019-10-26] MEDS: FERROUS SULFATE 325 MG TAB PO SCH ×2 (08:34→17:48)
[2019-10-26] MEDS: PANCREATIC ENZYMES 4200 UNIT CAP PO SCH ×3 (08:35→17:49)
[2019-10-26 09:28] VITALS: BP 108/64
[2019-10-26] MEDS: CHOLECALCIFEROL (VITD3) 1,000UNIT=25mCg TAB PO SCH (10:02)
[2019-10-26] MEDS: PANTOPRAZOLE 40 MG TAB PO SCH (10:02)
[2019-10-26] MEDS: FLUDROCORTISONE ACETATE 0.1 MG TAB PO SCH (10:02)
[2019-10-26] MEDS: RIVAROXABAN 10 MG TAB PO SCH (10:02)
[2019-10-26] MEDS: FLUoxetine HCL 20 MG CAP PO SCH (10:03)
[2019-10-26] MEDS: predniSONE 20 MG TAB PO SCH (10:04)
[2019-10-26 13:00] VITALS: BP 103/68
[2019-10-26] MEDS ORDERED: FER325T PO (13:06)
[2019-10-26] MEDS: SODIUM CHLORIDE 0.9% 1,000 ML IV SCH (14:52)
[2019-10-26 17:00] VITALS: BP 114/50
[2019-10-26] MEDS ORDERED: MORPHINE SULF INJ 2 MG/ML SYRINGE 1ML ONE (17:42)
[2019-10-26] MEDS: ATORVASTATIN 20 MG TAB PO SCH (21:48)
[2019-10-26 22:00] VITALS: BP 107/60
[2019-10-27] MEDS: MORPHINE SULF INJ 2 MG/ML SYRINGE 1ML IV PRN ×4 (02:40→23:21)
[2019-10-27] MEDS: SODIUM CHLORIDE 0.9% 1,000 ML IV SCH ×2 (02:40→21:45)
[2019-10-27 05:00] VITALS: BP 110/63
[2019-10-27] MEDS: GABAPENTIN 300 MG CAP PO SCH ×3 (06:00→21:44)
[2019-10-27 07:24] LABS: INR 1.17 (0.9-1.15)
[2019-10-27 08:00] VITALS: BP 122/56
[2019-10-27] MEDS: FERROUS SULFATE 325 MG TAB PO SCH ×2 (08:00→18:31)
[2019-10-27] MEDS: PANCREATIC ENZYMES 4200 UNIT CAP PO SCH ×3 (08:00→18:31)
[2019-10-27 09:13] LABS: Basophils # (auto) 0 10 ^3/uL (0-0.2); Basophils % (auto) 0.2 % (0.0-2.0); Eosinophils # (auto) 0 10 ^3/uL (0-0.8); Hemoglobin 9.4 g/dL (12.2-16.2); Lymphocytes # (auto) 1.4 10 ^3/uL (0.4-5.4); Monocytes # (auto) 0.2 10 ^3/uL (0-1.3); Nucleated Red Blood Cells % 0.2 %
[2019-10-27 09:15] LABS: Eosinophils % (auto) 0.5 % (0.0-7.0); Hematocrit 29.2 % (36.0-46.0); Lymphocytes % (auto) 27.7 % (10.0-50.0); Mean Corpuscular Hemoglobin 26.7 pg (28.0-32.0); Mean Corpuscular Volume 83.5 fL (80.0-100.0); Monocytes % (auto) 4.4 % (0.0-12.0); Neutrophils # (auto) 3.3 10 ^3/uL (1.6-8.6); Neutrophils % (auto) 67.2 % (37.0-80.0); Platelet Count (auto) 409 10^3/uL (140-450); Red Cell Distribution Width 17.8 % (11.8-14.3)
[2019-10-27 09:24] LABS: Calcium 8.5 mg/dL (8.5-10.1); Potassium 3.1 mmol/L (3.5-5.1)
[2019-10-27 09:34] LABS: BUN/Creatinine Ratio 21.3
[2019-10-27 09:35] VITALS: BP 122/56
[2019-10-27] MEDS: RIVAROXABAN 10 MG TAB PO SCH (10:00)
[2019-10-27] MEDS: PANTOPRAZOLE 40 MG TAB PO SCH (10:55)
[2019-10-27] MEDS: CHOLECALCIFEROL (VITD3) 1,000UNIT=25mCg TAB PO SCH (10:56)
[2019-10-27] MEDS: FLUDROCORTISONE ACETATE 0.1 MG TAB PO SCH (10:56)
[2019-10-27] MEDS: predniSONE 20 MG TAB PO SCH (10:56)
[2019-10-27] MEDS: FLUoxetine HCL 20 MG CAP PO SCH (10:56)
[2019-10-27 12:00] VITALS: BP 126/49
[2019-10-27] MEDS ORDERED: VANCOMYCIN 1GM/250ML 250 ML IV ONE ×2 (12:35→12:40)
[2019-10-27] MEDS ORDERED: LIDOCAINE 2%HCL (LOCAL ANESTH.) INJ 20ML MDV ONE (12:45)
[2019-10-27] MEDS ORDERED: diphenhdrAMINE HCL 50 MG/1 ML VL IV ONE (12:52)
[2019-10-27] MEDS ORDERED: diphenhdrAMINE HCL 50 MG/1 ML VL ONE (12:56)
[2019-10-27] MEDS ORDERED: MIDAZOLAM HCL 1MG/1ML-2 ML VIAL ONE (12:57)
[2019-10-27] MEDS ORDERED: fentaNYL CITRATE 100 MCG/2 ML VL ONE (12:57)
[2019-10-27] MEDS ORDERED: VANCOMYCIN HCL 1000 MG VL ONE (13:01)
[2019-10-27] MEDS ORDERED: POTASSIUM CHL 20 Meq TABLET PO ONE (14:00)
[2019-10-27] MEDS: ceFAZolin 1GM/50ML 50 ML IV SCH ×2 (18:30→23:32)
[2019-10-27] MEDS: ATORVASTATIN 20 MG TAB PO SCH (21:44)
[2019-10-27 22:33] VITALS: BP 136/70
[2019-10-28] MEDS: MORPHINE SULF INJ 2 MG/ML SYRINGE 1ML IV PRN ×2 (04:11→10:03)
[2019-10-28 05:00] VITALS: BP 123/59
[2019-10-28] MEDS: GABAPENTIN 300 MG CAP PO SCH (05:26)
[2019-10-28] MEDS: ceFAZolin 1GM/50ML 50 ML IV SCH (06:29)
[2019-10-28] MEDS: PANCREATIC ENZYMES 4200 UNIT CAP PO SCH ×2 (07:50→11:30)
[2019-10-28] MEDS: FERROUS SULFATE 325 MG TAB PO SCH (07:50)
[2019-10-28] MEDS: CHOLECALCIFEROL (VITD3) 1,000UNIT=25mCg TAB PO SCH (08:52)
[2019-10-28] MEDS: RIVAROXABAN 10 MG TAB PO SCH (08:52)
[2019-10-28] MEDS: FLUoxetine HCL 20 MG CAP PO SCH (08:52)
[2019-10-28] MEDS: FLUDROCORTISONE ACETATE 0.1 MG TAB PO SCH (08:52)
[2019-10-28] MEDS: predniSONE 20 MG TAB PO SCH (08:52)
[2019-10-28] MEDS: PANTOPRAZOLE 40 MG TAB PO SCH (08:52)
[2019-10-28 09:00] VITALS: BP 119/57
[2019-10-28 10:23] LABS: BUN/Creatinine Ratio 17.2; Calcium 8.4 mg/dL (8.5-10.1); Potassium 4.3 mmol/L (3.5-5.1)
[2019-10-28 10:50] LABS: Basophils # (auto) 0 10 ^3/uL (0-0.2); Basophils % (auto) 0.3 % (0.0-2.0); Eosinophils # (auto) 0 10 ^3/uL (0-0.8); Monocytes # (auto) 0.4 10 ^3/uL (0-1.3); Neutrophils # (auto) 3.1 10 ^3/uL (1.6-8.6)
[2019-10-28 10:52] LABS: Eosinophils % (auto) 0.2 % (0.0-7.0); Hematocrit 32.2 % (36.0-46.0); Lymphocytes # (auto) 1.5 10 ^3/uL (0.4-5.4); Lymphocytes % (auto) 30.2 % (10.0-50.0); Mean Corpuscular Hemoglobin 26.3 pg (28.0-32.0); Mean Corpuscular Hgb Conc. 31.2 g/dL (32.0-36.0); Mean Corpuscular Volume 84.4 fL (80.0-100.0); Monocytes % (auto) 8.1 % (0.0-12.0); Neutrophils % (auto) 61.2 % (37.0-80.0); Nucleated Red Blood Cells % 0.3 %; Platelet Count (auto) 364 10^3/uL (140-450); Red Blood Cells 3.82 10^6/uL (4.0-5.20); Red Cell Distribution Width 18.1 % (11.8-14.3); White Blood Cell 5.1 10^3/uL (4.4-10.8)
[2019-10-28] MEDS ORDERED: DOXY-346 PO (10:52)
[2019-10-28 11:05] VITALS: BP 119/57
[2019-10-28 13:00] VITALS: BP 122/65
== END 2019-10-28 13:16 | disposition home health service (06) | DRG 242 ==
LOC: ER 12:42 → EDBD 12:42 → TELE 12:43 → TELE-WESTW 21:45
PROVIDERS: ADMIT Hospitalist; ATTEND Internal Medicine
PROC: 0JH606Z Insertion of Pacemaker, Dual Chamber into Chest Subcutaneous Tissue and Fascia, Open Approach (ICD-10-PCS; principal; 2019-10-27)
PROC: 02HK3JZ Insertion of Pacemaker Lead into Right Ventricle, Percutaneous Approach (ICD-10-PCS; 2019-10-27)
PROC: 02H63JZ Insertion of Pacemaker Lead into Right Atrium, Percutaneous Approach (ICD-10-PCS; 2019-10-27)
DX: I95.89 Other hypotension (principal); E43 Unspecified severe protein-calorie malnutrition; K86.1 Other chronic pancreatitis; J96.10 Chronic respiratory failure, unspecified whether with hypoxia or hypercapnia; N39.0 Urinary tract infection, site not specified; I49.5 Sick sinus syndrome; I10 Essential (primary) hypertension; F45.9 Somatoform disorder, unspecified; G25.2 Other specified forms of tremor; D50.8 Other iron deficiency anemias; D53.9 Nutritional anemia, unspecified; J44.9 Chronic obstructive pulmonary disease, unspecified; K29.70 Gastritis, unspecified, without bleeding; K21.9 Gastro-esophageal reflux disease without esophagitis; E66.01 Morbid (severe) obesity due to excess calories; K44.9 Diaphragmatic hernia without obstruction or gangrene; K57.90 Diverticulosis of intestine, part unspecified, without perforation or abscess without bleeding; D17.71 Benign lipomatous neoplasm of kidney; J32.9 Chronic sinusitis, unspecified; E86.0 Dehydration; E78.5 Hyperlipidemia, unspecified; F41.9 Anxiety disorder, unspecified; G40.901 Epilepsy, unspecified, not intractable, with status epilepticus; M19.90 Unspecified osteoarthritis, unspecified site; E11.9 Type 2 diabetes mellitus without complications; E78.00 Pure hypercholesterolemia, unspecified; F32.9 Major depressive disorder, single episode, unspecified; I67.2 Cerebral atherosclerosis; R29.6 Repeated falls; Z79.01 Long term (current) use of anticoagulants; Z79.52 Long term (current) use of systemic steroids; Z79.899 Other long term (current) drug therapy; Z80.0 Family history of malignant neoplasm of digestive organs; Z80.1 Family history of malignant neoplasm of trachea, bronchus and lung; Z80.7 Family history of other malignant neoplasms of lymphoid, hematopoietic and related tissues; Z81.8 Family history of other mental and behavioral disorders; Z82.0 Family history of epilepsy and other diseases of the nervous system; Z82.3 Family history of stroke; Z82.49 Family history of ischemic heart disease and other diseases of the circulatory system; Z82.5 Family history of asthma and other chronic lower respiratory diseases; Z83.3 Family history of diabetes mellitus; Z86.718 Personal history of other venous thrombosis and embolism; Z86.73 Personal history of transient ischemic attack (TIA), and cerebral infarction without residual deficits; Z87.11 Personal history of peptic ulcer disease; Z90.49 Acquired absence of other specified parts of digestive tract; Z90.710 Acquired absence of both cervix and uterus; Z96.653 Presence of artificial knee joint, bilateral; Z98.84 Bariatric surgery status; Z68.36 Body mass index [BMI] 36.0-36.9, adult
CPT/HCPCS: 33208; 36415; 70450; 70551; 71045; 80048; 80053; 80061; 80307; 81001; 82607; 82728; 82962; 83036; 83540; 83550; 83615; 83735; 84100; 84443; 84484; 85014; 85018; 85025; 85045; 85610; 85730; 86850; 86900; 86901; 87040; 87086; 93005; 93306; 93971; 94760; 95819; 99152; 99153; G0378; J0690; J0696; J1815; J2250; J2405

== ENCOUNTER 2019-11-02 10:24 | Inpatient (IN) | payer OTHER, MEDICAID ==
[~2019-11-02] VITALS: Ht 165.1 cm; Wt 98.5 kg
[~2019-11-02 10:24] MED LIST changes: +DOXY-346 PO; +FER325T PO
[2019-11-02] MEDS ORDERED: SODIUM CHLORIDE 0.9% 500 ML IVB ONE (10:28)
[2019-11-02 11:14] LABS: Basophils # (auto) 0.1 10 ^3/uL (0-0.2); Basophils % (auto) 1.2 % (0.0-2.0); Eosinophils # (auto) 0.3 10 ^3/uL (0-0.8); Eosinophils % (auto) 3.6 % (0.0-7.0); Hematocrit 32.2 % (36.0-46.0); Hemoglobin 10.3 g/dL (12.2-16.2); Lymphocytes # (auto) 1.4 10 ^3/uL (0.4-5.4); Lymphocytes % (auto) 17.4 % (10.0-50.0); Mean Corpuscular Hemoglobin 27.2 pg (28.0-32.0); Mean Corpuscular Hgb Conc. 31.8 g/dL (32.0-36.0); Mean Corpuscular Volume 85.3 fL (80.0-100.0); Monocytes # (auto) 0.4 10 ^3/uL (0-1.3); Monocytes % (auto) 5.1 % (0.0-12.0); Neutrophils # (auto) 5.7 10 ^3/uL (1.6-8.6); Neutrophils % (auto) 72.7 % (37.0-80.0); Platelet Count (auto) 204 10^3/uL (140-450); Red Blood Cells 3.78 10^6/uL (4.0-5.20); Red Cell Distribution Width 18.7 % (11.8-14.3); White Blood Cell 7.9 10^3/uL (4.4-10.8)
[2019-11-02 11:49] LABS: Albumin 2.9 g/dL (3.4-5.0); Calcium 8.6 mg/dL (8.5-10.1); Magnesium 2.3 mg/dL (1.6-2.6); Potassium 3.6 mmol/L (3.5-5.1)
[2019-11-02 11:53] LABS: BUN/Creatinine Ratio 37.5; Bilirubin, Total 0.3 mg/dL (0.2-1.0); Total Protein 7.1 g/dL (6.4-8.2)
[2019-11-02] MEDS ORDERED: MORPHINE SULF INJ 2 MG/ML SYRINGE 1ML IV PRN (15:30)
[2019-11-02] MEDS ORDERED: NITROGLYCERIN 0.4 MG SL TAB SL PRN (15:30)
[2019-11-02] MEDS ORDERED: VANCOMYCIN PER PHARMACY 0 MG IV SCH (16:15)
[2019-11-02] MEDS ORDERED: PIPERACILLIN-TAZOB 3.375GM 100 ML IV SCH (16:15)
[2019-11-02] MEDS: MORPHINE SULF INJ 2 MG/ML SYRINGE 1ML IV PRN ×2 (16:52→21:00)
[2019-11-02] MEDS: ONDANSETRON HCL 4 MG/2 ML VIAL IV PRN ×2 (16:53→21:00)
[2019-11-02] MEDS: SODIUM CHLORIDE 0.9% 1,000 ML IV SCH (17:02)
[2019-11-02] MEDS ORDERED: PIPERACILLIN-TAZOB 3.375GM 100 ML IV ONE (17:15)
[2019-11-02] MEDS ORDERED: VANCOMYCIN 1GM/250ML 250 ML IV ONE (18:00)
[2019-11-02 21:21] LABS: Urine Bacteria NONE SEEN /hpf (None Seen); Urine Blood Negative /uL (Negative); Urine Mucus FEW (None Seen); Urine Specific Gravity 1.029 (1.001-1.035); Urine WBC 7 /hpf (0 - 5)
--- NOTE | 2019-11-03 00:10 | NUR ---
PATIENT ARRIVED TO UNIT via stretcher and was safely transferred to bed. Patient connected to 2L N.C. Patient is A&O X's 4 with no s/s of distress and does report pain 9/10 to left chest area where pacemaker is at and to left leg d/t recent surgery. Educated patient on POC/pain medication and management and to use call light when in need of assistance. Patient was oriented to unit/call light/phone/bathroom/tv. Patient verbalized understanding. Bed is in lowest/locked position with side rails up X's 2 and call light is within reach of patient. Will continue care. Bed alarm set for safety.
[2019-11-03] MEDS ORDERED: ACETAMINOPHEN 325 MG TAB PO PRN (00:30)
[2019-11-03] MEDS ORDERED: MORPHINE SULFATE 4 MG/ML SYR/VIAL IV PRN (00:30)
[2019-11-03] MEDS ORDERED: LORazepam 2MG/ML-1ML VIAL IV PRN ×2 (00:30→15:45)
[2019-11-03] MEDS ORDERED: IPRATROPIUM BROM 0.5 MG/2.5ML INH SOL NEB PRN (00:45)
[2019-11-03] MEDS ORDERED: ALBUTEROL SULF 2.5 MG/0.5ML(0.5%) NEB SOLN NEB PRN (00:45)
[2019-11-03] MEDS ORDERED: DEXTROSE (50%) 50ML SYRG IV PRN (00:45)
[2019-11-03] MEDS ORDERED: LACTATED RINGER'S 1,000 ML IV ONE (00:45)
[2019-11-03] MEDS: MORPHINE SULF INJ 2 MG/ML SYRINGE 1ML IV PRN ×2 (01:02→06:02)
[2019-11-03] MEDS: ONDANSETRON HCL 4 MG/2 ML VIAL IV PRN (01:02)
[2019-11-03 01:45] VITALS: BP 104/71
[2019-11-03] MEDS: SODIUM CHLORIDE 0.9% 1,000 ML IV SCH ×2 (03:47→13:10)
[2019-11-03 05:00] VITALS: BP 100/54
[2019-11-03] MEDS: HYDROCORTISONE SOD SUCC 100 MG/2ML INJ VIAL IV SCH ×2 (05:43→11:42)
[2019-11-03] MEDS: PIPERACILLIN-TAZOB 3.375GM 100 ML IV SCH ×3 (05:44→18:48)
[2019-11-03] MEDS: GABAPENTIN 300 MG CAP PO SCH ×3 (05:44→22:01)
[2019-11-03] MEDS: InsuLIN REG 1unit/0.01ml Soln (100units/ml) SC SCH ×2 (06:47→13:05)
[2019-11-03] MEDS: ACCU-CHEK COMFORT CURVE STRIP VI SCH ×2 (06:48→13:06)
--- NOTE | 2019-11-03 07:03 | NUR ---
PAGED HOSPITALIST Patient c/o feeling itchy. No s/s of distress noted at this time.
--- NOTE | 2019-11-03 07:42 | NUR ---
ENDORSED CARE TO DAY SHIFT RNCONNIE. RN AWARE OF PATIENT FEELING ITCHY AND NOTIFIED HOSPITALIST REGARDING THIS SITUATION. ORDERS RECEIVED. WILL PLACE ORDERS AND ENDORSE CARE TO CONNIE.
[2019-11-03] MEDS ORDERED: diphenhdrAMINE HCL 25 MG CAP PO ONE (07:45)
[2019-11-03] MEDS ORDERED: VANCOMYCIN 1GM/250ML 250 ML IV SCH (08:00)
[2019-11-03] MEDS: FERROUS SULFATE 325 MG TAB PO SCH ×3 (08:35→18:48)
--- NOTE | 2019-11-03 09:50 | NUR ---
Respiratory note: PRN MEDNEB CHECK. SPO2 99% ON RA HR 64 RR 14 B/S DIMINISHED. MEDNEB NOT INDICATED AT THIS TIME. PT AWARE TO HAVE RT PAGED IF THEY BECOME SOB.
[2019-11-03 09:57] VITALS: BP 91/51
[2019-11-03] MEDS ORDERED: RIVAROXABAN 10 MG TAB PO SCH (10:00)
--- NOTE | 2019-11-03 10:35 | NUR ---
WOUND CARE NOTE: Wound care in to see patient per wound care request multiple skin integrity issue that are noted present on admission. Bedside nurse took photograph of patient's wounds upon admission for reference. Patient is 64 years old female admitted for Altered Mentation, Acute Metabolic Encephalopathy. Patient is resting in bed in Rm. 279A. Patient is awake, alert and follow direction. She's self turning and repositioning. Her Hieu score is 17. Patient noted with 22cm well approximated incision to L knee. Patient reported koki recently removed at doctor's office. Dry scan noted to proximal aspect of L knee incision. L knee incision is clean, dry, well approximated with pink surrounding skin, left open to air. Patient has C/D/I dressing to left upper chest s/p pacemaker insertion a week ago. There's 0.5x1cm intact serum filled blister to josue wound/medial chest, could be from skin irritation or related to tape,skin is intact, left open to air. Her Rt lower leg noted with dry, thin brown scab around distal Rt lower leg from previous skin irritation form socks/stockings. Patient turned to her Rt. side, sacral, back, bony prominences are also examined, no other wound noted, no pressure injury noted. Patient tolerated well, repositioned for comfort on her back. Bed in low position, call marina on hand, bed alarm on. No further wound care monitoring needed at this time. RECOMMENDATION: PRN dressing change to medial chest blister if open/drain per MD order, reconsult for active wound, pressure injury, Low Hieu score of 12 and below. Addendum: 11/03/19 at 1449 by Maira Velazquez RN Amended: Links added.
[2019-11-03] MEDS: FAMOTIDINE (10MG/ML) 2ML VL IV SCH ×2 (11:28→22:01)
[2019-11-03] MEDS: CHOLECALCIFEROL (VITD3) 2,000 UNIT CAP PO SCH (11:28)
[2019-11-03] MEDS: FLUoxetine HCL 20 MG CAP PO SCH (11:29)
[2019-11-03 13:04] VITALS: BP 110/59
--- NOTE | 2019-11-03 14:51 | NUR ---
PT TAKEN TO RADIOLOGY FOR CT-SCAN. TRANSPORTED VIA BED, NO S/S OF DISTRESS.
[2019-11-03] MEDS ORDERED: MORPHINE SULF INJ 2 MG/ML SYRINGE 1ML IV PRN (15:30)
--- NOTE | 2019-11-03 15:40 | NUR ---
PT BACK FROM RADIOLOGY DEPT. NO S/S OF DISTRESS
[2019-11-03 17:04] VITALS: BP 97/49
[2019-11-03 20:00] LABS: INR 1.24 (0.9-1.15)
--- NOTE | 2019-11-03 20:00 | NUR ---
RECEIVED PATIENT FROM DAY SHIFT RN. PATIENT RESTING IN BED. NO S/S OF DISTRESS NOTED. C/O PAIN @ 6/10 AFTER PAIN MEDICATION GIVEN EARLIER. REINFORCED SCHEDULE OF PAIN MANAGEMENT. WILL COME BACK FOR PAIN MEDICATION LATER WHEN THE TIME IS DUE AND PER PATIENT REQUESTS. DRESSING ON SETH AND LT KNEE C/D/I. POC INSTRUCTED AND ENCOURAGED PATIENT TO CALL FOR LICENSED PRACTICAL NURSE IF NEEDED. BED IN LOWEST POSITION WITH SIDE RAILS UP X 2. CALL PHAM WITHIN REACH. ALARM ON. CONTINUE TO MONITOR FOR CHANGES Q1H AND PRN.
--- NOTE | 2019-11-03 20:52 | NUR ---
CALLED LAB, THERE IS NO [facility] INHOUSE COVID19 AVAILABLE NOW. ALL COVID19 TESTS SHOULD BE SENT OUT WITH DIFFERENT ORDER. CHARGE NURSE TEDDY AWARE AND INSTRUCTED TO CALL MD BALDERAS TOMORROW MORNING TO CONFIRM THE ORDER. CONTINUE TO MONITOR.
[2019-11-03 22:00] VITALS: BP 89/46
[2019-11-03] MEDS: ATORVASTATIN 20 MG TAB PO SCH (22:01)
--- NOTE | 2019-11-03 23:35 | NUR ---
PATIENT REQUESTED PAIN MEDICATION FOR PAIN @ 10/25, CHECKED PATIENT'S BP 89/50, HR 60. INSTRUCTED PATIENT THAT SHE COULD NOT HAVE MORPHINE SINCE HER BP IS LOW, OFFERED PATIENT TYLENOL, PATIENT REFUSED TYLENOL AND STATED TYLENOL DOES NOT HELP. PATIENT IS ON NS 100ML/HR, PATIENT AGREED TO REASSESS HER BP LATER. CONTINUE TO MONITOR.
[2019-11-04] VITALS (11 sets, daily range): BP systolic 76–116; BP diastolic 43–82
[2019-11-04] MEDS: SODIUM CHLORIDE 0.9% 1,000 ML IV SCH ×3 (00:31→18:04)
[2019-11-04] MEDS: PIPERACILLIN-TAZOB 3.375GM 100 ML IV SCH ×4 (00:31→18:05)
--- NOTE | 2019-11-04 00:40 | NUR ---
REASSESSED BP 76/52 ON RIGHT ARM, AND 80/44 ON LEFT ARM. WILL PAGE HOSPITALIST. CONTINUE TO MONITOR.
--- NOTE | 2019-11-04 00:50 | NUR ---
HOSPITALIST Called/paged LAVERNE RICHARDS called re:[REASSESSED PATIENT'S BP 80/44, AND 76/52] . Waiting for call back. Continue care.
--- NOTE | 2019-11-04 00:53 | NUR ---
HOSPITALIST returned call TELEPHONE CLEANER MAURICE returned call, updated on patient status and reason for call, orders received. 5% ALBUMIN 250ML IV Continue care.
[2019-11-04] MEDS ORDERED: ALBUMIN 5% 250 ML IV ONE (01:00)
--- NOTE | 2019-11-04 01:00 | NUR ---
2ND IV insertion IV access obtained, via clean sterile technique by inserting [22] gauge catheter at [RFA] after [1] attempt(s). IV secured properly. No trauma to site. Patient tolerated well. NOTE: []
--- NOTE | 2019-11-04 03:00 | NUR ---
REASSESSED PATIENT BP 93/50, HR 60. PATIENT DENIED DIZZINESS AND LIGHT HEADACHE. PATIENT UNDERSTOOD THAT SHE WILL NOT RECEIVE HER PAIN MEDICATION FOR HER PAIN @ 8/10 NOW. AND SHE SAID SHE COULD TOLERATE IT FOR NOW. CONTINUE TO MONITOR.
--- NOTE | 2019-11-04 05:09 | NUR ---
ASSISTED PATIENT UP TO BEDSIDE COMMODE. PATIENT TOLERATED WELL. NO S/S OF DISTRESS NOTED. DENIED DIZZINESS. CONTINUE TO MONITOR.
[2019-11-04] MEDS: GABAPENTIN 300 MG CAP PO SCH (06:43)
--- NOTE | 2019-11-04 06:55 | NUR ---
HOSPITALIST CALLED BACK LIQUIFIED NATURAL GAS TECHNICIAN MAURICE returned call FOR OTHER PATIENTS, UPDATED ON PATIENT'S CURRENT SITUATION, MAURICE AWARE OF PATIENT'S BP 92/52 NOW. ORDERED TO CONTINUE MONITORING. WILL PASS IT TO DAY SHIFT RN.
[2019-11-04 07:01] LABS: BUN/Creatinine Ratio 26.8; Potassium 3.5 mmol/L (3.5-5.1)
[2019-11-04 07:13] LABS: Basophils # (auto) 0.1 10 ^3/uL (0-0.2); Eosinophils # (auto) 0.2 10 ^3/uL (0-0.8); Eosinophils % (auto) 3.8 % (0.0-7.0); Hematocrit 30.9 % (36.0-46.0); Lymphocytes # (auto) 0.9 10 ^3/uL (0.4-5.4); Lymphocytes % (auto) 16.7 % (10.0-50.0); Mean Corpuscular Volume 92.9 fL (80.0-100.0); Monocytes # (auto) 0.3 10 ^3/uL (0-1.3); Monocytes % (auto) 6.2 % (0.0-12.0); Neutrophils # (auto) 3.8 10 ^3/uL (1.6-8.6); Neutrophils % (auto) 72.3 % (37.0-80.0); Nucleated Red Blood Cells % 0.1 %; Platelet Count (auto) 167 10^3/uL (140-450); Red Blood Cells 3.32 10^6/uL (4.0-5.20); Red Cell Distribution Width 20.1 % (11.8-14.3); White Blood Cell 5.3 10^3/uL (4.4-10.8)
--- NOTE | 2019-11-04 07:42 | NUR ---
Opening Shift Note Assumed care of patient, Pt awake and alert sitting up in bed. Patient is on room air with even and unlabored respirations No S/S of distress/SOB or pain at this time. Bed is in lowest position, wheels are locked, side rails up x2, and call light is within reach. pt expressing feeling of dizziness and just not feeling well. Pt has chronic hypotension and BP remains low at 90/41.will continue to monitor BP and will informed MD. Instructed on POC and to call for assist PRN, will continue to monitor for changes Q1hr and PRN.
[2019-11-04] MEDS: FERROUS SULFATE 325 MG TAB PO SCH ×3 (08:00→18:05)
--- NOTE | 2019-11-04 09:00 | NUR ---
SPOKE WITH DR. RIVERA SPOKE WITH DR. RIVERA, INFORMED OF CONTINUOUS LOW BLOOD PRESSURE. PER DR. RIVERA PT DOES IN FACT HAVE CHRONIC HYPOTENSION. PER DR. RIVERA WILL BE AT BESIDE SHORTLY. WILL CONTINUE TO MONITOR Q1H AND PRN.
[2019-11-04] MEDS: FAMOTIDINE (10MG/ML) 2ML VL IV SCH ×2 (09:27→22:40)
[2019-11-04] MEDS: CHOLECALCIFEROL (VITD3) 2,000 UNIT CAP PO SCH (09:28)
[2019-11-04] MEDS: FLUoxetine HCL 20 MG CAP PO SCH (09:28)
[2019-11-04] MEDS: FLUDROCORTISONE ACETATE 0.1 MG TAB PO SCH (09:28)
--- NOTE | 2019-11-04 09:30 | NUR ---
DR. RIVERA AT BEDSIDE DR. RIVERA AT BEDSIDE EVALUATING PT. PT BP REMAINS LOW AT 84/46 HR 60, PT EXPRESSING BEING ANXIOUS AND ROOM IS SPINNING. PT STATES "THE ROOM IS SPINNING, IM DIZZY, AND I JUST DON'T FEEL GOOD". NEW ORDERS RECEIVED. WILL CARRY OUT IN [facility]. WILL CONTINUE TO MONITOR Q1H AND PRN.
[2019-11-04] MEDS ORDERED: LORazepam 0.5 MG TAB PO ONE (09:45)
--- NOTE | 2019-11-04 09:45 | NUR ---
HOLD P.T. TODAY BECAUSE OF LOW BLOOD PRESSURE AND SYNCOPE.
--- NOTE | 2019-11-04 09:45 | NUR ---
PT C/O PAIN PT C/O PAIN IN LEFT KNEE. PT REQUESTING MORPHINE. INFORMED DR. RIVERA. PER MD BP TOO LOW TO GIVE IV PAIN MEDICATION. PT OFFERED TYLENOL, PER PT THAT DOESN'T WORK. PER DR. RIVERA, DUE TO ALLERGIES, SHE CANNOT GIVE ANY NSAIDS OR EVEN NORCO, OR PERCOCET. PT INFORMED. VERBALIZED UNDERSTANDING. PT OFFERED ELEVATION, ICE/HOT PACKS, AND EDUCATED ON RELAXATION/DISTRACTION TECHNIQUES. PT DECLINED. WILL CONTINUE TO MONITOR Q1H AND PRN.
[2019-11-04] MEDS ORDERED: predniSONE 20 MG TAB PO SCH (10:00)
[2019-11-04] MEDS ORDERED: SODIUM CHLORIDE 0.9% 250 ML IV ONE (10:00)
--- NOTE | 2019-11-04 10:58 | NUR ---
Respiratory note: PT ASSESSED FOR PRN MN TX. HR 65, RR 18, POX 97% ON 2L NC, BS ARE CLEAR/DIMINISHED. NO SOB OR DISTRESS NOTED. PT WAS NOTIFY TO HAVE RN PAGED IF MN TX WAS NEEDED.
--- NOTE | 2019-11-04 12:21 | NUR ---
ROUNDS PT IS ALERT AND AWAKE RESTING QUIETLY IN BED. BP NOW UP TO 105/46 HR 61. PT STATING DIZZINESS HAS IMPROVE SLIGHTLY. INFORMED PT TO REMAIN IN BED AND THAT A URINE SAMPLE IS NEEDED. PT VERBALIZED UNDERSTANDING. PT ENCOURAGED TO CALL NEEDED. WILL CONTINUE TO MONITOR Q1H AND PRN
--- NOTE | 2019-11-04 12:35 | NUR ---
Assessment Patient is a 64 year old female who is alert and oriented. Prior to admission patient lived home with family and her caregiver and functioned with assistance. Per patient she will return home to her prior living arrangements post discharge and family will transport her home. Patient has a fww, wheelchair, bedside commode, and oxygen for home use. Patient is on service with [facility]. Advised patient there is a social service consult to resume [facility]. Per patient she wants to resume with [facility]. Informed patient she has a right to speak to a foster care social worker regarding all care. Informed patient she has a right to participate in any and all discharge planning. Patient verbalized understanding and agreed to discharge plan. Faxed clinical information to [facility]. Addendum: 11/04/19 at 1250 by BELKIS HARPER Amended: Links added.
--- NOTE | 2019-11-04 13:30 | NUR ---
U/A CULTURE COLLECTED WITH STERILE TECHNIQUE AND SENT TO LAB VIA BULLET.
[2019-11-04 13:56] LABS: Urine Bacteria FEW /hpf (None Seen); Urine Blood Negative /uL (Negative); Urine Specific Gravity 1.011 (1.001-1.035); Urine WBC 8 /hpf (0 - 5)
[2019-11-04] MEDS ORDERED: LORazepam 0.5 MG TAB PO PRN (14:00)
--- NOTE | 2019-11-04 15:58 | NUR ---
D/C Planning Per Feli with [facility] they will resume service for patient within 24-48hrs upon d/c day.
--- NOTE | 2019-11-04 16:00 | NUR ---
FILIPE SERRA SWAB COLLECTED AND WALKED TO LAB
--- NOTE | 2019-11-04 16:15 | NUR ---
PT C/O PAIN PT C/O OF PAIN IN LEFT KNEE. STILL BP TOO LOW. PT ASKING FOR TYLENOL. WILL PROVIDE REQUESTED. WILL CONTINUE TO MONITOR Q1H AND PRN.
--- NOTE | 2019-11-04 17:05 | NUR ---
REPORT GIVEN TO HIWOT BUSBY. CARE ENDORSED.
--- NOTE | 2019-11-04 19:33 | NUR ---
RT NOTE PT WAS SEEN BY RT FOR PRN HHN TX ASSESSMENT. PT STATES NO TREATMENT NEEDED AT THIS TIME. HR 60, RR 16, BS CLEAR/DIM, POX 97% ON 2L NASAL CANNULA AND APPEARS TO TOLERATE WELL. CONT ORDERED Addendum: 11/04/19 at 2338 by Jenny Mayes RT Amended: Links added.
--- NOTE | 2019-11-04 19:35 | NUR ---
OPENING SHIFT NOTE Assumed care of patient who is A&O x4. Currently on 2L NC with no s/s of distress. Reports 10/10 pain to left upper chest pace maker site. requesting pain medication. Left knee surgical incision with steri strips at anterior portion noted. PIV in Right forearm intact and patent. IVF infusing as ordered. PIV in right AC intact and patent. Flushed [id number] NS. POC discussed with patient who verbalizes understanding. Bed is in low locked position with side rails up x2. Call light is within reach and patient encouraged to call for assistance when needed.
--- NOTE | 2019-11-04 20:00 | NUR ---
PAIN Patient reports 10/10 pain at pace maker insertion site. Requesting Morphine. Informed patient that Morphine order has been d/c'd due to patients low BP. Patient verbalizes understanding. Inquires about getting medication to help her sleep instead. Hospitalist paged.
--- NOTE | 2019-11-04 22:00 | NUR ---
HOSPITALIST Received call from Hospitalist Michael Lizama NP. New orders received. Read back for verification. Will follow through.
[2019-11-04] MEDS: ATORVASTATIN 20 MG TAB PO SCH (22:40)
[2019-11-04] MEDS ORDERED: TEMAZEPAM 15 MG CAP PO ONE (23:00)
[2019-11-05] MEDS: SODIUM CHLORIDE 0.9% 1,000 ML IV SCH ×2 (04:24→18:36)
[2019-11-05 05:00] VITALS: BP 122/66
[2019-11-05 05:29] LABS: Hemoglobin 8.5 g/dL (12.2-16.2)
[2019-11-05 05:48] LABS: Calcium 8.1 mg/dL (8.5-10.1); Potassium 3.3 mmol/L (3.5-5.1)
[2019-11-05 05:53] LABS: BUN/Creatinine Ratio 27.1
[2019-11-05] MEDS: PIPERACILLIN-TAZOB 3.375GM 100 ML IV SCH ×4 (06:00→18:36)
--- NOTE | 2019-11-05 06:00 | NUR ---
Covid swab collected and hand delivered to lab.
--- NOTE | 2019-11-05 07:30 | NUR ---
Opening Shift Note Assumed patient care from NOC RN. Patient currently shows no signs of distress at this time, respirations even and unlabored. Safety precautions in place, will continue to monitor.
[2019-11-05 08:50] VITALS: BP 113/57
[2019-11-05] MEDS: FERROUS SULFATE 325 MG TAB PO SCH ×3 (08:52→18:36)
--- NOTE | 2019-11-05 09:45 | NUR ---
at Bedside Dr. Tsnag at bedside. Per MD, patient to have one time dose of morphine, see EMAR. Patient to have no pain medication after one time dose is given. Possible discharge tomorrow.
[2019-11-05] MEDS ORDERED: CLOPIDOGREL BISULFATE 75 MG TAB PO SCH (10:00)
[2019-11-05] MEDS: CHOLECALCIFEROL (VITD3) 2,000 UNIT CAP PO SCH (10:00)
[2019-11-05] MEDS ORDERED: MORPHINE SULF INJ 2 MG/ML SYRINGE 1ML IV ONE (10:45)
[2019-11-05] MEDS: FAMOTIDINE (10MG/ML) 2ML VL IV SCH ×2 (11:14→22:00)
[2019-11-05] MEDS: FLUoxetine HCL 20 MG CAP PO SCH (11:18)
[2019-11-05] MEDS: predniSONE 20 MG TAB PO SCH (11:19)
[2019-11-05] MEDS: FLUDROCORTISONE ACETATE 0.1 MG TAB PO SCH (11:19)
[2019-11-05 13:00] VITALS: BP 118/58
--- NOTE | 2019-11-05 13:49 | NUR ---
Est energy needs 6430-6753 kcal (18-20 kcal/kg BW 98.8kg) Est protein needs 57-74g (1-1.3g/kg IBW 56.8kg) Will reassess prn. Addendum: 11/05/19 at [address] Amended: Links added.
[2019-11-05 16:51] VITALS: BP 121/66
--- NOTE | 2019-11-05 18:00 | NUR ---
Pain Patient currently complaining of pain 7/10 pain. Patient legs elevated and ice pack applied to knee for pain relief. Patient tolerated well, patient aware of MD order for discontinued pain medication at this time. Will continue to monitor.
--- NOTE | 2019-11-05 19:30 | NUR ---
OPENING SHIFT NOTE Assumed care of patient who is A&o x4. Currently on 2L NC with no s/s of distress. Reports 8/10 pain to left knee and left upper chest related to recent surgical procedures. Patient is aware that pain medications have been D/C'd due to labile blood pressures. Ice pack is present on left knee at this time. PIV in right forearm is intact and patent. Currently infusing ABX as ordered. POC discussed and patient verbalizes understanding. Bed is in low locked position with side rails up x2. Call light is within reach and patient encouraged to call for assistance when needed. Will continue to monitor fir changes PRN.
--- NOTE | 2019-11-05 19:35 | NUR ---
IV removal IV to right AC DC'd with clean sterile technique, catheter fully intact. Pressure dressing applied to site. Patient tolerated well.
[2019-11-05 22:00] VITALS: BP 137/63
[2019-11-05] MEDS: ATORVASTATIN 20 MG TAB PO SCH (22:00)
--- NOTE | 2019-11-05 22:00 | NUR ---
Patient requests sleeping pill. Hospitalist paged.
--- NOTE | 2019-11-05 22:15 | NUR ---
HOSPITALIST Received call from On-call hospitalist Michael Lizama NP. New orders received. Read back and verified. Will carry out.
[2019-11-05] MEDS ORDERED: TEMAZEPAM 15 MG CAP PO ONE (22:30)
[2019-11-06] MEDS: SODIUM CHLORIDE 0.9% 1,000 ML IV SCH (00:15)
[2019-11-06] MEDS: PIPERACILLIN-TAZOB 3.375GM 100 ML IV SCH ×3 (00:30→11:30)
[2019-11-06 05:00] VITALS: BP 126/60
--- NOTE | 2019-11-06 05:18 | NUR ---
After using the bedside commode, patient began to experience Seizure-like jerking movements on the lower extremities lasting approximately 15 seconds. During this time, patient did not respond verbally and failed to make eye contact. Vital signs assessed post episode and are as follows: T: 98.3, HR: 64, RR: 20 BP: 111/56 SPO2: 100% on 2L NC. Patient states, "I'm really tired". Per Dr. Burton's notes, patient has a history of psychogenic seizure activity. Patient positioned for comfort with aspiration, seizure, and fall precautions in place. Will continue to monitor for changes.
--- NOTE | 2019-11-06 06:44 | NUR ---
PT. ASSESSED FOR PRN. MN. TX., NO RESP. DISTRESS OR SOB NOTED AT THIS TIME. BS. ARE CLEAR AND DIMINISHED BILATERALLY. HR=60,RR=18,SP02=97% ON 2LPM NC. PRN. TX. NOT INDICATED AT THIS TIME. NO TX. GIVEN, PT. IS AWARE SHE MAY CALL IF NEEDED.
--- NOTE | 2019-11-06 07:30 | NUR ---
Opening Shift Note Assumed patient care from NOC RN. Patient currently resting on right side, no signs of distress at this time, respirations even and unlabored. Denies pain at this time. Safety precautions in place, will continue to monitor. Call light within reach.
[2019-11-06 07:35] LABS: Hematocrit 28.3 % (36.0-46.0); Hemoglobin 9.2 g/dL (12.2-16.2)
[2019-11-06 07:48] LABS: Magnesium 2.2 mg/dL (1.6-2.6); Potassium 3.4 mmol/L (3.5-5.1)
[2019-11-06 08:00] VITALS: BP 141/67
[2019-11-06] MEDS: FERROUS SULFATE 325 MG TAB PO SCH ×2 (08:00→11:30)
--- NOTE | 2019-11-06 09:52 | NUR ---
Lab Called Received call from [employer]; spoke with Rosalva. Patient COVID positive. Cinder Pit Worker, Dr. Tsang and overnight houseperson, Loretta santiago. Isolation precautions in place.
--- NOTE | 2019-11-06 10:00 | NUR ---
at Bedside Dr. Tsang at bedside discussing plan of care with patient. Dr. Tsang notified patient of covid results. Per MD patient is to self isolate at home as patient is asymptomatic at this time. Patient verbalized understanding and is agreeable to plan of care at this time.
[2019-11-06 11:25] VITALS: BP 141/67
[2019-11-06] MEDS: FLUoxetine HCL 20 MG CAP PO SCH (11:30)
[2019-11-06] MEDS: FAMOTIDINE (10MG/ML) 2ML VL IV SCH (11:30)
[2019-11-06] MEDS: FLUDROCORTISONE ACETATE 0.1 MG TAB PO SCH (11:30)
[2019-11-06] MEDS: predniSONE 20 MG TAB PO SCH (11:30)
[2019-11-06 12:00] VITALS: BP 149/86
[2019-11-06] MEDS ORDERED: POTASSIUM CHL 20 Meq TABLET PO ONE (13:15)
[2019-11-06] MEDS ORDERED: ASCORBIC ACID 500 MG TAB PO ONE (13:15)
[2019-11-06] MEDS ORDERED: ZINC SULFATE 220mg CAP or TAB PO ONE (13:15)
[2019-11-06] MEDS ORDERED: DOXY-286 PO (13:20)
[2019-11-06] MEDS ORDERED: METH4PAK PO (13:20)
[2019-11-06] MEDS ORDERED: ZINC220T6 PO (13:20)
[2019-11-06] MEDS ORDERED: ASCO500T11 PO ×2 (13:20→13:21)
[2019-11-06 13:59] VITALS: BP 149/86
--- NOTE | 2019-11-06 15:40 | NUR ---
Discharge Discharge instructions given as ordered. Encourage to follow up with PMD as instructed. All questions and concerns addressed. Patient verbalized understanding. Medication reconciliation form completed and copy given to patient. Home medications held in Pharmacy returned to patient, and needed vaccines given. IV removed with catheter intact, pressure dressing applied. Telemetry unit returned to ICU. Patient taken to vehicle via wheelchair with all personal belongings, accompanied by staff per COVID protocol (tank charger, Katherine; Abhinav marley; and security present). No distress noted at time of departure. Addendum: 11/06/19 at 1646 by BLAYNE BISWAS RN RN Patient provided with incentive spirometer. Explained purpose and benefits, patient verbalized understanding and returned demonstration.
[2019-11-07] MEDS ORDERED: CHOLECALCIFEROL (VITD3) 1,000UNIT=25mCg TAB PO SCH (10:00)
== END 2019-11-06 15:40 | disposition home health service (06) | DRG 177 ==
LOC: ER 10:24 → EDBD 10:24 → TELE 10:25 → TELE-WESTW 11-03 00:10
PROVIDERS: ADMIT Hospitalist; ATTEND Internal Medicine
DX: U07.1 COVID-19 (principal); G93.41 Metabolic encephalopathy; J12.89 Other viral pneumonia; J96.10 Chronic respiratory failure, unspecified whether with hypoxia or hypercapnia; J44.0 Chronic obstructive pulmonary disease with (acute) lower respiratory infection; K86.1 Other chronic pancreatitis; I82.621 Acute embolism and thrombosis of deep veins of right upper extremity; E66.01 Morbid (severe) obesity due to excess calories; I10 Essential (primary) hypertension; E86.0 Dehydration; K21.9 Gastro-esophageal reflux disease without esophagitis; D64.9 Anemia, unspecified; F41.9 Anxiety disorder, unspecified; E78.5 Hyperlipidemia, unspecified; I95.89 Other hypotension; F32.9 Major depressive disorder, single episode, unspecified; M19.90 Unspecified osteoarthritis, unspecified site; E11.42 Type 2 diabetes mellitus with diabetic polyneuropathy; Z96.653 Presence of artificial knee joint, bilateral; I49.5 Sick sinus syndrome; Z79.899 Other long term (current) drug therapy; Z95.0 Presence of cardiac pacemaker; Z80.0 Family history of malignant neoplasm of digestive organs; Z81.8 Family history of other mental and behavioral disorders; Z82.0 Family history of epilepsy and other diseases of the nervous system; Z82.3 Family history of stroke; Z82.49 Family history of ischemic heart disease and other diseases of the circulatory system; Z82.5 Family history of asthma and other chronic lower respiratory diseases; Z83.3 Family history of diabetes mellitus; Z86.718 Personal history of other venous thrombosis and embolism; Z86.73 Personal history of transient ischemic attack (TIA), and cerebral infarction without residual deficits; Z90.710 Acquired absence of both cervix and uterus; Z98.84 Bariatric surgery status; Z87.11 Personal history of peptic ulcer disease; Z79.82 Long term (current) use of aspirin; Z88.5 Allergy status to narcotic agent; Z88.1 Allergy status to other antibiotic agents; Z88.8 Allergy status to other drugs, medicaments and biological substances; Z68.36 Body mass index [BMI] 36.0-36.9, adult
CPT/HCPCS: 36415; 70450; 71045; 71250; 73560; 73700; 76536; 80048; 80053; 81001; 82550; 82565; 82962; 83605; 83735; 84132; 84443; 84484; 85014; 85018; 85025; 85610; 86850; 86900; 86901; 87040; 87081; 87086; 87426; 93005; G0378; J1815; J2405; J2543; J3490

== ENCOUNTER 2019-12-19 16:24 | Inpatient (IN) | payer OTHER, MEDICAID ==
[~2019-12-19] VITALS: Ht 167.6 cm; Wt 96.3 kg
[~2019-12-19 16:24] MED LIST changes: +ASCO500T11 PO; -AZIT250T9 PO; +DOXY-286 PO; -DOXY-346 PO; +METH4PAK PO; -NITR-52 PO; -PRED20TA2 PO; +ZINC220T6 PO
[2019-12-19 18:17] LABS: Basophils # (auto) 0.1 10 ^3/uL (0-0.2); Basophils % (auto) 0.8 % (0.0-2.0); Eosinophils # (auto) 0.7 10 ^3/uL (0-0.8); Eosinophils % (auto) 8.3 % (0.0-7.0); Monocytes # (auto) 0.5 10 ^3/uL (0-1.3); Red Blood Cells 3.93 10^6/uL (4.0-5.20)
[2019-12-19 18:19] LABS: Hematocrit 33.3 % (36.0-46.0); Hemoglobin 10.7 g/dL (12.2-16.2); Lymphocytes # (auto) 1.7 10 ^3/uL (0.4-5.4); Lymphocytes % (auto) 21.1 % (10.0-50.0); Mean Corpuscular Hemoglobin 27.3 pg (28.0-32.0); Mean Corpuscular Hgb Conc. 32.2 g/dL (32.0-36.0); Mean Corpuscular Volume 84.8 fL (80.0-100.0); Monocytes % (auto) 6.5 % (0.0-12.0); Neutrophils % (auto) 63.3 % (37.0-80.0); Platelet Count (auto) 290 10^3/uL (140-450); Red Cell Distribution Width 17.2 % (11.8-14.3)
[2019-12-19 18:29] LABS: Albumin 3.3 g/dL (3.4-5.0); Anion Gap 4 (5-15); Blood Urea Nitrogen 24 mg/dL (7-18); Calcium 8.5 mg/dL (8.5-10.1); Carbon Dioxide 25 mmol/L (21-32); Chloride 114 mmol/L (98-107); Glucose 98 mg/dL (74-106); Potassium 4.8 mmol/L (3.5-5.1); Sodium 143 mmol/L (136-145)
[2019-12-19 18:36] LABS: Alanine Aminotransferase 66 U/L (13-56); Alkaline Phosphatase 200 U/L (45-117); Aspartate Aminotransferase 32 U/L (15-37); BUN/Creatinine Ratio 33.3; Bilirubin, Total 0.2 mg/dL (0.2-1.0); GFR African American 105 mL/min; GFR Non-African American 86 mL/min; Total Protein 7.4 g/dL (6.4-8.2)
[2019-12-19 18:59] LABS: Urine Bacteria NONE SEEN /hpf (None Seen); Urine Blood Negative /uL (Negative); Urine Mucus FEW (None Seen); Urine Specific Gravity 1.025 (1.001-1.035); Urine WBC 25 /hpf (0 - 5)
[2019-12-19] MEDS ORDERED: ONDANSETRON HCL 4 MG/2 ML VIAL IV ONE ×2 (19:15→21:00)
[2019-12-19] MEDS ORDERED: SODIUM CHLORIDE 0.9% 1,000 ML IVB ONE (19:15)
[2019-12-19 20:09] LABS: Magnesium 2.4 mg/dL (1.6-2.6)
[2019-12-19] MEDS ORDERED: MORPHINE SULF INJ 2 MG/ML SYRINGE 1ML IV ONE (21:00)
[2019-12-19] MEDS ORDERED: cefTRIAXone 1GM/50ML D5W 50 ML IV ONE (21:00)
[2019-12-19] MEDS ORDERED: MORPHINE SULF INJ 2 MG/ML SYRINGE 1ML IV PRN (22:15)
[2019-12-19] MEDS ORDERED: SODIUM CHLORIDE 0.9% 3,000 ML IV ONE (22:15)
[2019-12-19] MEDS ORDERED: NITROGLYCERIN 0.4 MG SL TAB SL PRN (22:15)
[2019-12-19] MEDS ORDERED: ONDANSETRON HCL 4 MG/2 ML VIAL IV PRN (22:15)
[2019-12-19] MEDS ORDERED: ACETAMINOPHEN 325 MG TAB PO PRN (22:15)
--- NOTE | 2019-12-19 23:16 | NUR ---
Telemetry admit from [facility] admitted to Telemetry unit after SBAR received. Patient oriented to ISIDRO DOTY, shereen RN, unit, room, bed, and unit policies regarding patient care and visiting hours. Patient now on continuous telemetry monitoring, tele box # 57 and telemetry reading on arrival to unit is NSR at 68 . Patient weighed by bed scale and encouraged to call if they need something. All questions and concerns addressed, patient verbalized understanding. Note: Patient ambulated from [facility] to bed with her own walker.
[2019-12-19 23:30] VITALS: BP 103/55
[2019-12-20 05:09] VITALS: BP 109/54
[2019-12-20 06:56] LABS: Basophils # (auto) 0.1 10 ^3/uL (0-0.2); Basophils % (auto) 1.3 % (0.0-2.0); Eosinophils # (auto) 0.6 10 ^3/uL (0-0.8); Eosinophils % (auto) 11.3 % (0.0-7.0); Hemoglobin 10.5 g/dL (12.2-16.2); Lymphocytes # (auto) 1.6 10 ^3/uL (0.4-5.4); Lymphocytes % (auto) 29.3 % (10.0-50.0); Mean Corpuscular Hemoglobin 27.7 pg (28.0-32.0); Mean Corpuscular Volume 86.6 fL (80.0-100.0); Monocytes # (auto) 0.4 10 ^3/uL (0-1.3); Monocytes % (auto) 6.3 % (0.0-12.0); Neutrophils # (auto) 2.9 10 ^3/uL (1.6-8.6); Neutrophils % (auto) 51.8 % (37.0-80.0); Nucleated Red Blood Cells % 0.1 %; Platelet Count (auto) 201 10^3/uL (140-450); Red Blood Cells 3.81 10^6/uL (4.0-5.20); Red Cell Distribution Width 17.9 % (11.8-14.3); White Blood Cell 5.6 10^3/uL (4.4-10.8)
[2019-12-20 07:09] LABS: Albumin 2.8 g/dL (3.4-5.0); Calcium 8.1 mg/dL (8.5-10.1); Magnesium 2.7 mg/dL (1.6-2.6); Potassium 4.4 mmol/L (3.5-5.1)
[2019-12-20 07:14] LABS: Bilirubin, Total 0.2 mg/dL (0.2-1.0); Phosphorus 3.7 mg/dL (2.5-4.90); Total Protein 6.3 g/dL (6.4-8.2)
[2019-12-20 09:00] VITALS: BP 103/57
[2019-12-20] MEDS: cefTRIAXone 1GM/50ML D5W 50 ML IV SCH (09:14)
[2019-12-20] MEDS: ENOXAPARIN SOD 40 MG/0.4 ML SYRINGE SC SCH (09:14)
[2019-12-20] MEDS: MORPHINE SULF INJ 2 MG/ML SYRINGE 1ML IV PRN ×3 (09:15→20:49)
[2019-12-20 11:50] VITALS: BP 91/53
--- NOTE | 2019-12-20 15:05 | NUR ---
PT. ASSESSED FOR PRN. MN. TX. , PT. STATED THAT SHE JUST TOOK HER OWN PERSONAL INHALER ABOUT AN HOUR AGO AND DOESN'T NEED A TX. . PT. ADVISED NOT TO USE HER INHALER ANYMORE AND ALSO EXPLAINED TO HER THAT SHE WOULD BE GETTING NEBULIZER TX'S Q4PRN. PT. AGREES NOT TO TAKE INHALER ANYMORE AND IS AWARE SHE CAN CALL FOR TX. IF NEEDED. HR=60,RR=18,SP02=95% ON RA.
--- NOTE | 2019-12-20 16:14 | NUR ---
ASSOCIATE WEB DEVELOPER BLANCA CALLED TO INFORM ME THAT PART OF PATIENT'S HEP PANEL STILL NEEDS TO BE DRAWN BUT WILL NOT BE RAN/TESTED TODAY. D/T THIS SHE SAID THAT THEY WILL POKE THE PATIENT RIGHT NOW BUT THAT THE SPECIMEN WILL SIT IN THE [place] OVERNIGHT. SHE ASKED IF THAT LAB COULD BE ADDED TO THE MORNING LABS. THIS RN STATED "IF LAB WON'T BE RAN UNTIL TOMORROW THEN THERE IS NO REASON TO POKE THE PATIENT TWICE".
[2019-12-20 16:50] VITALS: BP 99/56
[2019-12-20] MEDS: ALBUTEROL SULF 2.5 MG/0.5ML(0.5%) NEB SOLN NEB PRN ×2 (19:14→22:45)
[2019-12-20 20:38] VITALS: BP 99/56
[2019-12-20 22:00] VITALS: BP 112/63
[2019-12-21] MEDS: ALBUTEROL SULF 2.5 MG/0.5ML(0.5%) NEB SOLN NEB PRN ×4 (02:29→19:03)
[2019-12-21 05:00] VITALS: BP 116/56
[2019-12-21 06:15] LABS: Hematocrit 31.1 % (36.0-46.0); Mean Corpuscular Hemoglobin 27.7 pg (28.0-32.0); Mean Corpuscular Volume 86.4 fL (80.0-100.0); Platelet Count (auto) 218 10^3/uL (140-450); Red Cell Distribution Width 17.6 % (11.8-14.3); White Blood Cell 3.9 10^3/uL (4.4-10.8)
--- NOTE | 2019-12-21 06:25 | NUR ---
Dr. Gloria Lundy rounded on patient this morning.
[2019-12-21 06:42] LABS: Basophils % (manual) 0 (0.0-2.0); Blast Cells 0; Metamyelocytes % 0; Myelocytes % 0; Promyelocytes % 0; Reactive Lymphocytes 0
[2019-12-21 06:47] LABS: Potassium 3.9 mmol/L (3.5-5.1)
[2019-12-21 06:57] LABS: Albumin 2.7 g/dL (3.4-5.0); BUN/Creatinine Ratio 25.6; Bilirubin, Direct 0.2 mg/dL (0-0.2); Bilirubin, Total 0.3 mg/dL (0.2-1.0); Calcium 8.4 mg/dL (8.5-10.1); Total Protein 6.1 g/dL (6.4-8.2)
--- NOTE | 2019-12-21 07:30 | NUR ---
Opening Shift Note Report received and assumed care of patient, awake and alert. eating breakfast, No S/S of distress/SOB or pain. Instructed on POC and nursing routines , call light within reach patient reminded instructed to call for assistance,patient verbalized understanding.will continue to monitor for changes Q1hr and PRN.
[2019-12-21 07:56] LABS: Band Neutrophils % (manual) 1; Lymphocytes % (manual) 24 (10.0-50.0)
[2019-12-21 07:57] LABS: Eosinophils % (manual) 13 (0-7); Monocytes % (manual) 3 (0-12)
[2019-12-21] MEDS: ENOXAPARIN SOD 40 MG/0.4 ML SYRINGE SC SCH (09:59)
[2019-12-21] MEDS: cefTRIAXone 1GM/50ML D5W 50 ML IV SCH (09:59)
[2019-12-21] MEDS: MORPHINE SULF INJ 2 MG/ML SYRINGE 1ML IV PRN ×3 (10:31→20:29)
--- NOTE | 2019-12-21 10:31 | NUR ---
c/o of abdominal pain,scale of 9/10,patient stated gets worst after eating breakfast,medicated with Mso4 2 mg ivp see eMAR for detail.
[2019-12-21 11:47] LABS: Hepatitis A Ab IgM Negative; Hepatitis B Core IgM Negative; Hepatitis B Surface Antigen Negative (Negative); Hepatitis C Antibody Negative (Negative)
--- NOTE | 2019-12-21 11:57 | NUR ---
Assessment Patient is a 64-year-old female who is alert and oriented. Prior to admission patient lived home with family and functioned with assistance. Per patient her caregiver Francine Laguna helps her with her ADLs M-F and on the weekends her family helps her with her ADLs. Per patient she will return home to her prior living arrangements post discharge and family will transport her home. Patient has a fww, wheelchair, bedside commode, and oxygen for home use. Patient is on service with [facility]. Advised patient there is a social service consult to resume [facility]. Per patient she wants to resume with [facility]. Informed patient she has a right to speak to a social services coordinator regarding all care. Informed patient she has a right to participate in all discharge planning. Patient verbalized understanding and agreed to discharge plan. Faxed clinical information to [facility] and [facility]. Per Feli with [facility] patient has been accepted and service to start within 24-48hrs upon d/c day. Obtain authorization from [facility] [id number]. Addendum: 12/21/19 at 1158 by BELKIS HARPER Amended: Links added.
[2019-12-21 13:35] VITALS: BP 110/70
[2019-12-21] MEDS: PANTOPRAZOLE 40 MG TAB PO SCH (14:23)
--- NOTE | 2019-12-21 16:41 | NUR ---
c/o abdominal pain scale of 9/10,patient medicated with MSO4 2 mg IVP see eMAR for detail.
[2019-12-21 17:17] VITALS: BP 115/62
[2019-12-21 22:00] VITALS: BP 105/67
[2019-12-22 05:00] VITALS: BP 102/52
[2019-12-22] MEDS: MORPHINE SULF INJ 2 MG/ML SYRINGE 1ML IV PRN (06:37)
[2019-12-22] MEDS: ALBUTEROL SULF 2.5 MG/0.5ML(0.5%) NEB SOLN NEB PRN (07:08)
--- NOTE | 2019-12-22 07:10 | NUR ---
PT REQUESTING BREATHING TX AT THIS TIME. HHN ADMINISTERED WITH NO ADVERSE REACTIONS TO MEDICATION.
--- NOTE | 2019-12-22 07:30 | NUR ---
Opening Shift Note Report received and assumed care of patient, awake and alert. eating breakfast, No S/S of distress/SOB or pain. Instructed on POC,to keep NPO post breakfast for expected procedure,instructed on nursing routines , call light within reach patient reminded instructed to call for assistance,patient verbalized understanding.will continue to monitor for changes Q1hr and PRN
[2019-12-22 09:00] VITALS: BP 101/63
--- NOTE | 2019-12-22 10:00 | NUR ---
MD VISIT DR.A. REAL HERE TO SEE AND EXAMINED PATIENT,INFORMED PATIENT STILL C/O NAUSEA AND ABDOMINAL PAIN AFTER EATING,RECEIVED ORDER TO CHANGED DIET TO FULL LIQUID.
[2019-12-22] MEDS: cefTRIAXone 1GM/50ML D5W 50 ML IV SCH (10:20)
[2019-12-22] MEDS: PANTOPRAZOLE 40 MG TAB PO SCH (10:20)
[2019-12-22] MEDS: ENOXAPARIN SOD 40 MG/0.4 ML SYRINGE SC SCH (10:20)
--- NOTE | 2019-12-22 12:12 | NUR ---
BIOTRONIC PACEMAKER REP. AT BEDSIDE,PACEMAKER TURNED OFF FOR MRI/MRCP
--- NOTE | 2019-12-22 12:22 | NUR ---
TO MRI DEPT. VIA WHEELCHAIR FOR MRI/MRCP TEST
[2019-12-22 13:00] VITALS: BP 102/63
[2019-12-22 14:14] LABS: Alanine Aminotransferase 161 U/L (13-56); Albumin 3.1 g/dL (3.4-5.0); Aspartate Aminotransferase 133 U/L (15-37); Bilirubin, Direct < 0.1 mg/dL (0-0.2)
[2019-12-22 14:16] LABS: Alkaline Phosphatase 330 U/L (45-117); Bilirubin, Total 0.3 mg/dL (0.2-1.0); Total Protein 6.9 g/dL (6.4-8.2)
[2019-12-22] MEDS ORDERED: CEPH-37 PO (15:52)
--- NOTE | 2019-12-22 16:15 | NUR ---
PAGED AND SPOKE TO DR. COTTON, RE CLEARANCE FOR DISCHARGE,RELAYED REPORT OF MRCP MRI,AST,ALT AND ALK PHOS. RESULT,RECEIVED CLEARANCE FOR DISCHARGE.
[2019-12-22 16:36] VITALS: BP 117/65
[2019-12-22 18:43] VITALS: BP 117/65
--- NOTE | 2019-12-22 19:15 | NUR ---
Discharge instructions given as ordered. Encourage to follow up with PMD as instructed. All questions and concerns addressed. Patient verbalized understanding. Medication reconciliation form completed and copy given to patient. IV removed with catheter intact, pressure dressing applied, Telemetry unit returned to ICU. Patient taken to vehicle via wheelchair with all personal belongings, picked up by staff and family member. No distress noted at time of departure.
== END 2019-12-22 19:25 | disposition home health service (06) | DRG 690 ==
LOC: ER 16:24 → TELE 16:25 → TELE-WESTW 23:10
PROVIDERS: ADMIT Internal Medicine; ATTEND Internal Medicine
DX: N39.0 Urinary tract infection, site not specified (principal); G62.9 Polyneuropathy, unspecified; D50.8 Other iron deficiency anemias; R74.01 Elevation of levels of liver transaminase levels; J45.909 Unspecified asthma, uncomplicated; Z88.6 Allergy status to analgesic agent; Z88.8 Allergy status to other drugs, medicaments and biological substances; Z82.3 Family history of stroke; Z80.1 Family history of malignant neoplasm of trachea, bronchus and lung
CPT/HCPCS: 36415; 71045; 74176; 74181; 80048; 80053; 80074; 80076; 81001; 82150; 82962; 83690; 83735; 84100; 84484; 85007; 85025; 85027; 87081; 93005; 94640; G0378; J0696; J2405

== ENCOUNTER 2020-02-19 19:58 | Inpatient (IN) | payer OTHER, MEDICAID ==
[~2020-02-19] VITALS: Ht 165.1 cm; Wt 72.6 kg
[~2020-02-19 19:58] MED LIST changes: -ASCO500T11 PO; -ATOR10TA52 PO; +CEPH-37 PO; -CETI10TA80 PO; -DOXY-286 PO; -FER325T PO; -FLU01T PO; -FLUO-125 PO; -METH4PAK PO; -ONDA-144 PO; -PANT40TA2 PO; -PERCOT PO; -POM NEB; -RIVA10TA PO; -TRAM50TA2 PO
[2020-02-20 00:32] LABS: Eosinophils # (auto) 0.5 10 ^3/uL (0-0.8); Lymphocytes # (auto) 2.5 10 ^3/uL (0.4-5.4); Monocytes # (auto) 0.4 10 ^3/uL (0-1.3); White Blood Cell 6.7 10^3/uL (4.4-10.8)
[2020-02-20 00:35] LABS: Basophils # (auto) 0.1 10 ^3/uL (0-0.2); Basophils % (auto) 0.8 % (0.0-2.0); Eosinophils % (auto) 7.3 % (0.0-7.0); Hematocrit 34.3 % (36.0-46.0); Hemoglobin 11.1 g/dL (12.2-16.2); Mean Corpuscular Hemoglobin 25.8 pg (28.0-32.0); Mean Corpuscular Hgb Conc. 32.3 g/dL (32.0-36.0); Mean Corpuscular Volume 80.1 fL (80.0-100.0); Monocytes % (auto) 5.7 % (0.0-12.0); Neutrophils # (auto) 3.3 10 ^3/uL (1.6-8.6); Neutrophils % (auto) 49.2 % (37.0-80.0); Nucleated Red Blood Cells % 0.2 %; Platelet Count (auto) 263 10^3/uL (140-450); Red Blood Cells 4.28 10^6/uL (4.0-5.20); Red Cell Distribution Width 16.7 % (11.8-14.3)
[2020-02-20 00:55] LABS: Alanine Aminotransferase 35 U/L (13-56); Albumin 3.6 g/dL (3.4-5.0); Anion Gap 6 (5-15); Aspartate Aminotransferase 27 U/L (15-37); BUN/Creatinine Ratio 36.9; Blood Urea Nitrogen 24 mg/dL (7-18); Carbon Dioxide 25 mmol/L (21-32); Chloride 108 mmol/L (98-107); GFR African American 118 mL/min; GFR Non-African American 97 mL/min; Glucose 108 mg/dL (74-106); Potassium 4.2 mmol/L (3.5-5.1); Sodium 139 mmol/L (136-145)
[2020-02-20 00:59] LABS: Alkaline Phosphatase 171 U/L (45-117); Bilirubin, Total 0.2 mg/dL (0.2-1.0); Total Protein 7.7 g/dL (6.4-8.2)
[2020-02-20 07:00] VITALS: BP 110/64
[2020-02-20] MEDS ORDERED: MORPHINE SULF INJ 2 MG/ML SYRINGE 1ML IV PRN (07:30)
[2020-02-20] MEDS ORDERED: DOCUSATE SOD 100 MG CAP PO PRN (07:30)
[2020-02-20] MEDS ORDERED: NITROGLYCERIN 0.4 MG SL TAB SL PRN (07:30)
[2020-02-20] MEDS ORDERED: MORPHINE SULFATE 4 MG/ML SYR/VIAL IV PRN (07:30)
[2020-02-20] MEDS ORDERED: ONDANSETRON HCL 4 MG/2 ML VIAL IV PRN (07:30)
[2020-02-20] MEDS ORDERED: SODIUM CHLORIDE 0.9% 1,000 ML IV SCH (07:30)
[2020-02-20 07:40] LABS: Basophils # (auto) 0.1 10 ^3/uL (0-0.2); Eosinophils # (auto) 0.5 10 ^3/uL (0-0.8); Hemoglobin 11.3 g/dL (12.2-16.2); Lymphocytes # (auto) 1.8 10 ^3/uL (0.4-5.4); Monocytes # (auto) 0.3 10 ^3/uL (0-1.3); Neutrophils # (auto) 2.9 10 ^3/uL (1.6-8.6); Nucleated Red Blood Cells % 0.1 %; Red Blood Cells 4.41 10^6/uL (4.0-5.20); White Blood Cell 5.6 10^3/uL (4.4-10.8)
[2020-02-20 07:43] LABS: Basophils % (auto) 1.2 % (0.0-2.0); Eosinophils % (auto) 8.1 % (0.0-7.0); Hematocrit 35.1 % (36.0-46.0); Lymphocytes % (auto) 32.3 % (10.0-50.0); Mean Corpuscular Hemoglobin 25.6 pg (28.0-32.0); Mean Corpuscular Hgb Conc. 32.2 g/dL (32.0-36.0); Mean Corpuscular Volume 79.6 fL (80.0-100.0); Monocytes % (auto) 5.8 % (0.0-12.0); Neutrophils % (auto) 52.6 % (37.0-80.0); Platelet Count (auto) 289 10^3/uL (140-450); Red Cell Distribution Width 16.8 % (11.8-14.3)
[2020-02-20 08:00] LABS: Potassium 4.1 mmol/L (3.5-5.1)
[2020-02-20 08:06] LABS: Albumin 3.6 g/dL (3.4-5.0); BUN/Creatinine Ratio 35.5; Bilirubin, Total 0.4 mg/dL (0.2-1.0); Calcium 8.9 mg/dL (8.5-10.1); Total Protein 7.8 g/dL (6.4-8.2)
[2020-02-20] MEDS ORDERED: ASCORBIC ACID 500 MG TAB PO SCH (10:00)
[2020-02-20] MEDS ORDERED: ENOXAPARIN SOD 40 MG/0.4 ML SYRINGE SC SCH (10:00)
[2020-02-20] MEDS ORDERED: ZINC SULFATE 220mg CAP or TAB PO SCH (10:00)
[2020-02-20] MEDS ORDERED: MULTIPLE VITAMIN TAB PO SCH (10:00)
[2020-02-20] MEDS ORDERED: FAMOTIDINE 20 MG TAB PO SCH (10:00)
[2020-02-20] MEDS ORDERED: SODIUM CHLOR 0.9% PF (SALINE LOCK) 10ML VIAL/SYR IV SCH (14:00)
== END 2020-02-20 13:15 | disposition home or self-care (01) | DRG 93 ==
LOC: ER 19:58 → EDBD 19:58 → TELE 19:59
PROVIDERS: ADMIT Nurse Practitioner Family; ATTEND Nurse Practitioner Family
DX: R25.1 Tremor, unspecified (principal); E78.00 Pure hypercholesterolemia, unspecified; E78.5 Hyperlipidemia, unspecified; F41.9 Anxiety disorder, unspecified; I10 Essential (primary) hypertension; J44.9 Chronic obstructive pulmonary disease, unspecified; K21.9 Gastro-esophageal reflux disease without esophagitis; Z80.0 Family history of malignant neoplasm of digestive organs; Z81.8 Family history of other mental and behavioral disorders; Z82.0 Family history of epilepsy and other diseases of the nervous system; Z82.3 Family history of stroke; Z82.49 Family history of ischemic heart disease and other diseases of the circulatory system; Z82.5 Family history of asthma and other chronic lower respiratory diseases; Z83.3 Family history of diabetes mellitus; Z86.19 Personal history of other infectious and parasitic diseases; Z90.710 Acquired absence of both cervix and uterus; Z95.0 Presence of cardiac pacemaker; Z98.84 Bariatric surgery status; Z90.49 Acquired absence of other specified parts of digestive tract; Z88.5 Allergy status to narcotic agent; Z88.6 Allergy status to analgesic agent; Z88.8 Allergy status to other drugs, medicaments and biological substances
CPT/HCPCS: 36415; 70450; 71045; 80053; 84484; 85025; G0378

== ENCOUNTER 2020-07-03 15:28 | Emergency (ER) | payer OTHER, MEDICAID ==
[~2020-07-03] VITALS: Ht 165.1 cm; Wt 99.8 kg
== END 2020-07-03 17:34 | disposition home or self-care (01) ==
LOC: ER 15:28
DX: M25.522 Pain in left elbow (principal); J44.9 Chronic obstructive pulmonary disease, unspecified; K21.9 Gastro-esophageal reflux disease without esophagitis; E78.5 Hyperlipidemia, unspecified; Z88.6 Allergy status to analgesic agent; Z88.8 Allergy status to other drugs, medicaments and biological substances; Z90.49 Acquired absence of other specified parts of digestive tract; Z90.710 Acquired absence of both cervix and uterus; W01.0XXA Fall on same level from slipping, tripping and stumbling without subsequent striking against object, initial encounter; Y93.89 Activity, other specified; Y92.090 Kitchen in other non-institutional residence as the place of occurrence of the external cause; Y99.8 Other external cause status
CPT/HCPCS: 29105; 73080

== ENCOUNTER 2020-09-24 18:07 | Inpatient (IN) | payer OTHER, MEDICAID ==
[~2020-09-24] VITALS: Ht 165.1 cm; Wt 105.5 kg
[2020-09-24 19:52] LABS: Basophils # (auto) 0.1 10 ^3/uL (0-0.2); Eosinophils # (auto) 0.4 10 ^3/uL (0-0.8); Hematocrit 35.1 % (36.0-46.0); Hemoglobin 11.3 g/dL (12.2-16.2); Mean Corpuscular Hemoglobin 25.4 pg (28.0-32.0); Monocytes # (auto) 0.5 10 ^3/uL (0-1.3)
[2020-09-24 19:55] LABS: Basophils % (auto) 0.7 % (0.0-2.0); Eosinophils % (auto) 4.5 % (0.0-7.0); Lymphocytes # (auto) 3.1 10 ^3/uL (0.4-5.4); Lymphocytes % (auto) 32.8 % (10.0-50.0); Mean Corpuscular Hgb Conc. 32.2 g/dL (32.0-36.0); Monocytes % (auto) 5.7 % (0.0-12.0); Neutrophils # (auto) 5.4 10 ^3/uL (1.6-8.6); Neutrophils % (auto) 56.3 % (37.0-80.0); Nucleated Red Blood Cells % 0.1 %; Red Blood Cells 4.45 10^6/uL (4.0-5.20); Red Cell Distribution Width 19.2 % (11.8-14.3); White Blood Cell 9.6 10^3/uL (4.4-10.8)
[2020-09-24 20:08] LABS: Chloride 112 mmol/L (98-107); Potassium 4.3 mmol/L (3.5-5.1); Sodium 140 mmol/L (136-145)
[2020-09-24 20:12] LABS: Alanine Aminotransferase 32 U/L (13-56); Albumin 3.7 g/dL (3.4-5.0); Anion Gap 7 (5-15); Aspartate Aminotransferase 28 U/L (15-37); BUN/Creatinine Ratio 36.2; Blood Urea Nitrogen 25 mg/dL (7-18); Calcium 8.8 mg/dL (8.5-10.1); Carbon Dioxide 21 mmol/L (21-32); GFR African American 109 mL/min; GFR Non-African American 90 mL/min; Glucose 94 mg/dL (74-106); Magnesium 2.3 mg/dL (1.6-2.6)
[2020-09-24 20:15] LABS: Alkaline Phosphatase 125 U/L (45-117); Bilirubin, Total 0.1 mg/dL (0.2-1.0); Total Protein 7.8 g/dL (6.4-8.2)
[2020-09-24] MEDS ORDERED: ONDANSETRON HCL 4 MG/2 ML VIAL IV ONE (21:00)
[2020-09-24] MEDS ORDERED: MORPHINE SULFATE INJECTION 2 MG/ML SYRG IV ONE (21:00)
[2020-09-24 22:29] LABS: INR 0.99 (0.9-1.15); Partial Thromboplastin Time 22.6 sec (23.0-31.2)
[2020-09-24] MEDS ORDERED: DOCUSATE SOD 100 MG CAP PO PRN (23:30)
[2020-09-24] MEDS ORDERED: NITROGLYCERIN 0.4 MG SL TAB SL PRN (23:30)
[2020-09-24] MEDS ORDERED: ONDANSETRON HCL 4 MG/2 ML VIAL IV PRN (23:30)
[2020-09-25] VITALS (8 sets, daily range): BP systolic 95–113; BP diastolic 48–67
[2020-09-25] MEDS: SODIUM CHLOR 0.9% PF (SALINE LOCK) 10ML VIAL/SYR IV SCH ×3 (05:40→21:46)
[2020-09-25 08:49] LABS: Basophils # (auto) 0.1 10 ^3/uL (0-0.2); Eosinophils # (auto) 0.6 10 ^3/uL (0-0.8); Eosinophils % (auto) 9.6 % (0.0-7.0); Monocytes # (auto) 0.3 10 ^3/uL (0-1.3)
[2020-09-25 08:52] LABS: Basophils % (auto) 1.2 % (0.0-2.0); Hematocrit 27.5 % (36.0-46.0); Hemoglobin 9.3 g/dL (12.2-16.2); Lymphocytes # (auto) 1.7 10 ^3/uL (0.4-5.4); Lymphocytes % (auto) 28.4 % (10.0-50.0); Mean Corpuscular Hemoglobin 25.7 pg (28.0-32.0); Mean Corpuscular Hgb Conc. 33.6 g/dL (32.0-36.0); Mean Corpuscular Volume 76.3 fL (80.0-100.0); Monocytes % (auto) 5.4 % (0.0-12.0); Neutrophils # (auto) 3.3 10 ^3/uL (1.6-8.6); Neutrophils % (auto) 55.4 % (37.0-80.0); Red Cell Distribution Width 18.4 % (11.8-14.3); White Blood Cell 5.9 10^3/uL (4.4-10.8)
[2020-09-25 09:08] LABS: Albumin 3.2 g/dL (3.4-5.0); Calcium 8.2 mg/dL (8.5-10.1); Potassium 3.8 mmol/L (3.5-5.1)
[2020-09-25 09:11] LABS: Bilirubin, Total 0.5 mg/dL (0.2-1.0); Total Protein 6.6 g/dL (6.4-8.2)
[2020-09-25] MEDS: FAMOTIDINE 20 MG TAB PO SCH ×2 (09:46→21:46)
[2020-09-25] MEDS: ZINC SULFATE 220mg CAP or TAB PO SCH (09:46)
[2020-09-25] MEDS: ASCORBIC ACID 500 MG TAB PO SCH ×2 (09:46→21:46)
[2020-09-25] MEDS: ENOXAPARIN SOD 40 MG/0.4 ML SYRINGE SC SCH ×2 (09:46→21:46)
[2020-09-25] MEDS: MULTIPLE VITAMIN TAB PO SCH (09:46)
[2020-09-25] MEDS: IPRATROPIUM BROM 0.5 MG/2.5ML INH SOL NEB SCH ×2 (12:01→19:19)
[2020-09-25] MEDS: ALBUTEROL SULF 2.5 MG/0.5ML(0.5%) NEB SOLN NEB PRN (12:01)
[2020-09-25] MEDS: ACETAMINOPHEN 325 MG TAB PO PRN (20:51)
[2020-09-25] MEDS: ATORVASTATIN 20 MG TAB PO SCH (21:46)
[2020-09-25] MEDS: methylPREDNISolone SOD SUCC 40 MG/ML VL IV SCH (21:47)
[2020-09-26] VITALS (7 sets, daily range): BP systolic 97–130; BP diastolic 52–71
[2020-09-26] MEDS: IPRATROPIUM BROM 0.5 MG/2.5ML INH SOL NEB SCH ×6 (00:50→18:31)
[2020-09-26] MEDS: ALBUTEROL SULF 2.5 MG/0.5ML(0.5%) NEB SOLN NEB PRN ×3 (00:50→18:31)
[2020-09-26] MEDS: SODIUM CHLOR 0.9% PF (SALINE LOCK) 10ML VIAL/SYR IV SCH ×3 (06:11→21:38)
[2020-09-26 06:12] LABS: Eosinophils # (auto) 0 10 ^3/uL (0-0.8); Eosinophils % (auto) 0.1 % (0.0-7.0); Hemoglobin 9.8 g/dL (12.2-16.2); Mean Corpuscular Hemoglobin 25.6 pg (28.0-32.0); Monocytes # (auto) 0 10 ^3/uL (0-1.3); Red Blood Cells 3.84 10^6/uL (4.0-5.20)
[2020-09-26 06:15] LABS: Basophils # (auto) 0 10 ^3/uL (0-0.2); Basophils % (auto) 0.7 % (0.0-2.0); Hematocrit 29.7 % (36.0-46.0); Lymphocytes # (auto) 0.6 10 ^3/uL (0.4-5.4); Lymphocytes % (auto) 10.5 % (10.0-50.0); Mean Corpuscular Hgb Conc. 33.1 g/dL (32.0-36.0); Mean Corpuscular Volume 77.2 fL (80.0-100.0); Monocytes % (auto) 0.8 % (0.0-12.0); Neutrophils # (auto) 5.3 10 ^3/uL (1.6-8.6); Neutrophils % (auto) 87.9 % (37.0-80.0); Red Cell Distribution Width 18.3 % (11.8-14.3)
[2020-09-26 06:30] LABS: Albumin 3.3 g/dL (3.4-5.0); Anion Gap 5 (5-15); Blood Urea Nitrogen 21 mg/dL (7-18); Calcium 8.5 mg/dL (8.5-10.1); Carbon Dioxide 24 mmol/L (21-32); Chloride 112 mmol/L (98-107); Glucose 177 mg/dL (74-106); Potassium 4.2 mmol/L (3.5-5.1); Sodium 141 mmol/L (136-145)
[2020-09-26 06:36] LABS: Alanine Aminotransferase 128 U/L (13-56); Alkaline Phosphatase 141 U/L (45-117); Aspartate Aminotransferase 98 U/L (15-37); BUN/Creatinine Ratio 42.9; Bilirubin, Total 0.5 mg/dL (0.2-1.0); GFR African American 162 mL/min; GFR Non-African American 134 mL/min; Total Protein 6.8 g/dL (6.4-8.2)
[2020-09-26] MEDS: methylPREDNISolone SOD SUCC 40 MG/ML VL IV SCH ×2 (10:04→21:37)
[2020-09-26] MEDS: ENOXAPARIN SOD 40 MG/0.4 ML SYRINGE SC SCH ×2 (10:05→21:37)
[2020-09-26] MEDS: ZINC SULFATE 220mg CAP or TAB PO SCH (10:05)
[2020-09-26] MEDS: AZITHROMYCIN 500MG/ 250ML 250 ML IV SCH (10:05)
[2020-09-26] MEDS: ASCORBIC ACID 500 MG TAB PO SCH (10:05)
[2020-09-26] MEDS: MULTIPLE VITAMIN TAB PO SCH (10:05)
[2020-09-26] MEDS: FAMOTIDINE 20 MG TAB PO SCH ×2 (10:05→21:38)
[2020-09-26] MEDS: ACETAMINOPHEN 325 MG TAB PO PRN ×2 (10:07→17:26)
[2020-09-26] MEDS ORDERED: BUDESONIDE (INHALATION) 0.5 MG/2 ML NEB NEB ONE (12:00)
[2020-09-26] MEDS: GABAPENTIN 300 MG CAP PO SCH ×2 (17:25→21:37)
[2020-09-26] MEDS: BUDESONIDE (INHALATION) 0.5 MG/2 ML NEB NEB SCH (18:31)
[2020-09-26 19:48] LABS: Urine Bacteria NONE SEEN /hpf (None Seen); Urine Blood Negative /uL (Negative); Urine Hyaline Cast FEW /lpf (0 - 2); Urine Mucus FEW (None Seen); Urine Specific Gravity 1.034 (1.001-1.035); Urine WBC 1 /hpf (0 - 5)
[2020-09-26] MEDS: ATORVASTATIN 20 MG TAB PO SCH (21:37)
[2020-09-27] MEDS: ACETAMINOPHEN 325 MG TAB PO PRN ×3 (00:12→18:24)
[2020-09-27] MEDS: IPRATROPIUM BROM 0.5 MG/2.5ML INH SOL NEB SCH ×4 (01:27→18:20)
[2020-09-27] MEDS: ALBUTEROL SULF 2.5 MG/0.5ML(0.5%) NEB SOLN NEB PRN ×3 (01:27→18:20)
[2020-09-27 05:01] VITALS: BP 108/60
[2020-09-27] MEDS: GABAPENTIN 300 MG CAP PO SCH ×3 (05:23→21:23)
[2020-09-27] MEDS: SODIUM CHLOR 0.9% PF (SALINE LOCK) 10ML VIAL/SYR IV SCH ×3 (05:23→21:23)
[2020-09-27] MEDS: BUDESONIDE (INHALATION) 0.5 MG/2 ML NEB NEB SCH ×2 (06:37→18:20)
[2020-09-27 06:56] LABS: Albumin 3.2 g/dL (3.4-5.0); Calcium 8.8 mg/dL (8.5-10.1); Potassium 4.3 mmol/L (3.5-5.1)
[2020-09-27 07:00] LABS: BUN/Creatinine Ratio 33.9; Bilirubin, Total 0.3 mg/dL (0.2-1.0); Total Protein 6.7 g/dL (6.4-8.2)
[2020-09-27 09:00] VITALS: BP 96/54
[2020-09-27] MEDS: ZINC SULFATE 220mg CAP or TAB PO SCH (10:37)
[2020-09-27] MEDS: methylPREDNISolone SOD SUCC 40 MG/ML VL IV SCH (10:37)
[2020-09-27] MEDS: AZITHROMYCIN 500MG/ 250ML 250 ML IV SCH (10:37)
[2020-09-27] MEDS: ENOXAPARIN SOD 40 MG/0.4 ML SYRINGE SC SCH ×2 (10:38→21:24)
[2020-09-27] MEDS: MULTIPLE VITAMIN TAB PO SCH (10:38)
[2020-09-27] MEDS: FAMOTIDINE 20 MG TAB PO SCH (10:38)
[2020-09-27] MEDS ORDERED: PANTOPRAZOLE 40 MG/10 ML VIAL INJ IV ONE (12:30)
[2020-09-27 13:00] VITALS: BP 109/60
[2020-09-27 17:00] VITALS: BP 105/59
[2020-09-27] MEDS: ATORVASTATIN 20 MG TAB PO SCH (21:23)
[2020-09-27 21:38] VITALS: BP 97/55
[2020-09-28] MEDS: ALBUTEROL SULF 2.5 MG/0.5ML(0.5%) NEB SOLN NEB PRN ×3 (04:57→11:54)
[2020-09-28] MEDS: IPRATROPIUM BROM 0.5 MG/2.5ML INH SOL NEB SCH ×4 (04:57→11:54)
[2020-09-28 05:17] VITALS: BP 101/58
[2020-09-28] MEDS: SODIUM CHLOR 0.9% PF (SALINE LOCK) 10ML VIAL/SYR IV SCH ×2 (05:28→14:00)
[2020-09-28] MEDS: ACETAMINOPHEN 325 MG TAB PO PRN (05:29)
[2020-09-28] MEDS: GABAPENTIN 300 MG CAP PO SCH (06:00)
[2020-09-28] MEDS ORDERED: ADENOSINE 89 MG in GIVE UN-DILUTED 0 ML IV ONE (08:15)
[2020-09-28 09:00] VITALS: BP 83/48
[2020-09-28] MEDS ORDERED: predniSONE 20 MG TAB PO SCH (10:00)
[2020-09-28] MEDS ORDERED: PANTOPRAZOLE 40 MG/10 ML VIAL INJ IV SCH (10:00)
[2020-09-28] MEDS ORDERED: guaiFENesin 200 MG/10 ML UD PO PRN (10:15)
[2020-09-28] MEDS ORDERED: ALBUTEROL SULF 2.5 MG/0.5ML(0.5%) NEB SOLN ONE (10:23)
[2020-09-28] MEDS ORDERED: MORPHINE SULFATE INJECTION 2 MG/ML SYRG IV ONE (11:45)
[2020-09-28] MEDS: AZITHROMYCIN 500MG/ 250ML 250 ML IV SCH (11:57)
[2020-09-28] MEDS: ENOXAPARIN SOD 40 MG/0.4 ML SYRINGE SC SCH (12:02)
[2020-09-28] MEDS: MULTIPLE VITAMIN TAB PO SCH (12:03)
[2020-09-28] MEDS: ZINC SULFATE 220mg CAP or TAB PO SCH (12:03)
[2020-09-28 12:21] VITALS: BP 102/81
[2020-09-28 17:07] VITALS: BP 89/40
[2020-09-28 17:09] VITALS: BP 114/63
[2020-09-28] MEDS ORDERED: Ensure HIGH Protein Chocolate 8oz Bottle PO SCH (18:00)
[2021-01-10] MEDS ORDERED: ALBUAER3 IN (11:00)
[2021-01-10] MEDS ORDERED: PRED20TA2 PO (11:00)
[2021-01-10] MEDS ORDERED: PANT40TA2 PO (11:00)
== END 2020-09-28 18:35 | disposition home or self-care (01) | DRG 191 ==
LOC: ER 18:08 → TELE 23:28 → TELE-EAST 09-25 03:50
PROVIDERS: ADMIT Nurse Practitioner Family; ATTEND Internal Medicine
PROC: 4B02XSZ Measurement of Cardiac Pacemaker, External Approach (ICD-10-PCS; principal; 2020-09-26)
DX: J44.1 Chronic obstructive pulmonary disease with (acute) exacerbation (principal); J98.11 Atelectasis; J96.10 Chronic respiratory failure, unspecified whether with hypoxia or hypercapnia; I42.9 Cardiomyopathy, unspecified; J20.9 Acute bronchitis, unspecified; J44.0 Chronic obstructive pulmonary disease with (acute) lower respiratory infection; I49.5 Sick sinus syndrome; D63.8 Anemia in other chronic diseases classified elsewhere; Z95.0 Presence of cardiac pacemaker; E66.01 Morbid (severe) obesity due to excess calories; N18.9 Chronic kidney disease, unspecified; R79.89 Other specified abnormal findings of blood chemistry; Z68.38 Body mass index [BMI] 38.0-38.9, adult; E78.5 Hyperlipidemia, unspecified; I12.9 Hypertensive chronic kidney disease with stage 1 through stage 4 chronic kidney disease, or unspecified chronic kidney disease; Z20.822 Contact with and (suspected) exposure to COVID-19; Z79.899 Other long term (current) drug therapy; Z81.8 Family history of other mental and behavioral disorders; Z82.0 Family history of epilepsy and other diseases of the nervous system; Z82.3 Family history of stroke; Z82.49 Family history of ischemic heart disease and other diseases of the circulatory system; Z82.5 Family history of asthma and other chronic lower respiratory diseases; Z83.3 Family history of diabetes mellitus; Z86.16 Personal history of COVID-19; Z87.891 Personal history of nicotine dependence; Z90.710 Acquired absence of both cervix and uterus; Z96.653 Presence of artificial knee joint, bilateral; K21.9 Gastro-esophageal reflux disease without esophagitis; F41.9 Anxiety disorder, unspecified; Z88.6 Allergy status to analgesic agent; Z88.1 Allergy status to other antibiotic agents; Z88.5 Allergy status to narcotic agent; Z88.8 Allergy status to other drugs, medicaments and biological substances; K72.90 Hepatic failure, unspecified without coma; I25.10 Atherosclerotic heart disease of native coronary artery without angina pectoris
CPT/HCPCS: 36415; 71045; 76705; 78452; 80053; 81001; 83690; 83735; 83880; 84443; 84484; 85025; 85049; 85610; 85730; 87426; 93005; 93017; 94640; 96374; 96375; C9113; G0378; J0153; J2405

== ENCOUNTER 2020-12-31 16:24 | Inpatient (IN) | payer OTHER, MEDICAID ==
[~2020-12-31] VITALS: Ht 165.1 cm; Wt 108.9 kg
[2020-12-31] MEDS ORDERED: methylPREDNISolone SOD SUCC 125 MG/2 ML VL IV ONE (17:00)
[2020-12-31] MEDS ORDERED: ALBUTEROL SULF 2.5 MG/0.5ML(0.5%) NEB SOLN NEB ONE ×2 (17:00→20:00)
[2020-12-31] MEDS ORDERED: IPRATROPIUM BROM 0.5 MG/2.5ML INH SOL NEB ONE (17:00)
[2020-12-31] MEDS ORDERED: ACETAMINOPHEN 325 MG TAB PO ONE (20:30)
[2020-12-31 22:07] LABS: Basophils # (auto) 0.1 10 ^3/uL (0-0.2); Eosinophils # (auto) 0.7 10 ^3/uL (0-0.8); Eosinophils % (auto) 8.4 % (0.0-7.0); Hemoglobin 9.8 g/dL (12.2-16.2); Lymphocytes # (auto) 2.3 10 ^3/uL (0.4-5.4); Mean Corpuscular Hemoglobin 23.9 pg (28.0-32.0); Neutrophils # (auto) 4.8 10 ^3/uL (1.6-8.6); Nucleated Red Blood Cells % 0.1 %; Red Blood Cells 4.09 10^6/uL (4.0-5.20)
[2020-12-31 22:09] LABS: Basophils % (auto) 1.3 % (0.0-2.0); Hematocrit 30.5 % (36.0-46.0); Lymphocytes % (auto) 27.6 % (10.0-50.0); Mean Corpuscular Volume 74.6 fL (80.0-100.0); Monocytes # (auto) 0.4 10 ^3/uL (0-1.3); Monocytes % (auto) 5.2 % (0.0-12.0); Neutrophils % (auto) 57.5 % (37.0-80.0); Red Cell Distribution Width 18.6 % (11.8-14.3); White Blood Cell 8.3 10^3/uL (4.4-10.8)
[2020-12-31 22:22] LABS: Albumin 3.4 g/dL (3.4-5.0); Anion Gap 9 (5-15); Blood Urea Nitrogen 28 mg/dL (7-18); Calcium 8.5 mg/dL (8.5-10.1); Carbon Dioxide 24 mmol/L (21-32); Chloride 113 mmol/L (98-107); Glucose 124 mg/dL (74-106); Magnesium 2.2 mg/dL (1.6-2.6); Potassium 3.8 mmol/L (3.5-5.1); Sodium 146 mmol/L (136-145)
[2020-12-31 22:24] LABS: Alanine Aminotransferase 27 U/L (13-56); Aspartate Aminotransferase 18 U/L (15-37); BUN/Creatinine Ratio 43.8; GFR African American 119 mL/min; GFR Non-African American 99 mL/min
[2020-12-31 22:29] LABS: Alkaline Phosphatase 142 U/L (45-117); Bilirubin, Total 0.3 mg/dL (0.2-1.0); Total Protein 7.1 g/dL (6.4-8.2)
[2020-12-31] MEDS ORDERED: DOCUSATE SOD 100 MG CAP PO PRN (23:30)
[2020-12-31] MEDS ORDERED: NITROGLYCERIN 0.4 MG SL TAB SL PRN (23:30)
[2020-12-31] MEDS ORDERED: MORPHINE SULFATE INJECTION 2 MG/ML SYRG IV PRN (23:30)
[2021-01-01] VITALS (7 sets, daily range): BP systolic 96–119; BP diastolic 56–68
[2021-01-01] MEDS: methylPREDNISolone SOD SUCC 125 MG/2 ML VL IV SCH ×2 (00:30→05:49)
[2021-01-01] MEDS: ALBUTEROL SULF 2.5 MG/0.5ML(0.5%) NEB SOLN NEB PRN ×3 (00:39→11:30)
[2021-01-01] MEDS: IPRATROPIUM BROM 0.5 MG/2.5ML INH SOL NEB PRN ×3 (00:40→11:30)
[2021-01-01] MEDS: guaiFENesin-DM 100/10mg/5ml SYR PO PRN ×5 (00:50→23:28)
[2021-01-01 06:09] LABS: Basophils # (auto) 0 10 ^3/uL (0-0.2); Eosinophils # (auto) 0 10 ^3/uL (0-0.8); Hemoglobin 9.4 g/dL (12.2-16.2); Mean Corpuscular Hemoglobin 23.6 pg (28.0-32.0); Mean Corpuscular Hgb Conc. 31.4 g/dL (32.0-36.0); Monocytes # (auto) 0.1 10 ^3/uL (0-1.3)
[2021-01-01 06:11] LABS: Basophils % (auto) 0.6 % (0.0-2.0); Eosinophils % (auto) 0.2 % (0.0-7.0); Lymphocytes # (auto) 0.4 10 ^3/uL (0.4-5.4); Lymphocytes % (auto) 7.2 % (10.0-50.0); Mean Corpuscular Volume 75.2 fL (80.0-100.0); Neutrophils # (auto) 5.5 10 ^3/uL (1.6-8.6); Red Blood Cells 3.98 10^6/uL (4.0-5.20); Red Cell Distribution Width 18.5 % (11.8-14.3); White Blood Cell 6.1 10^3/uL (4.4-10.8)
[2021-01-01] MEDS: ACETAMINOPHEN 325 MG TAB PO PRN ×3 (06:16→21:27)
[2021-01-01 06:33] LABS: Potassium 4.1 mmol/L (3.5-5.1)
[2021-01-01 06:45] LABS: Albumin 3.4 g/dL (3.4-5.0); BUN/Creatinine Ratio 40.6; Bilirubin, Total 0.3 mg/dL (0.2-1.0); Calcium 8.8 mg/dL (8.5-10.1); Total Protein 6.9 g/dL (6.4-8.2)
[2021-01-01] MEDS: MULTIPLE VITAMIN TAB PO SCH (10:11)
[2021-01-01] MEDS: ZINC SULFATE 220mg CAP or TAB PO SCH (10:11)
[2021-01-01] MEDS: FAMOTIDINE (10MG/ML) 2ML VL IV SCH ×2 (10:11→21:26)
[2021-01-01] MEDS: ASCORBIC ACID 500 MG TAB PO SCH ×2 (10:11→21:26)
[2021-01-01] MEDS: ENOXAPARIN SOD 40 MG/0.4 ML SYRINGE SC SCH (10:12)
[2021-01-01] MEDS ORDERED: ALBUTEROL SULF 2.5 MG/0.5ML(0.5%) NEB SOLN NEB PRN (11:45)
[2021-01-01] MEDS ORDERED: IPRATROPIUM BROM 0.5 MG/2.5ML INH SOL NEB PRN (11:45)
[2021-01-01] MEDS ORDERED: AZITHROMYCIN 250 MG TAB PO ONE (12:45)
[2021-01-01] MEDS: IPRATROPIUM BROM 0.5 MG/2.5ML INH SOL NEB SCH ×3 (13:06→22:44)
[2021-01-01] MEDS: ALBUTEROL SULF 2.5 MG/0.5ML(0.5%) NEB SOLN NEB SCH ×3 (13:06→22:44)
[2021-01-01] MEDS: methylPREDNISolone SOD SUCC 40 MG/ML VL IV SCH ×2 (17:51→23:28)
[2021-01-01] MEDS: BUDESONIDE (INHALATION) 0.5 MG/2 ML NEB NEB SCH (22:44)
[2021-01-01] MEDS ORDERED: TEMAZEPAM 15 MG CAP PO ONE (23:00)
[2021-01-02] MEDS: IPRATROPIUM BROM 0.5 MG/2.5ML INH SOL NEB SCH ×6 (02:11→22:00)
[2021-01-02] MEDS: ALBUTEROL SULF 2.5 MG/0.5ML(0.5%) NEB SOLN NEB SCH ×6 (02:11→22:00)
[2021-01-02 03:19] LABS: Urine Bacteria NONE SEEN /hpf (None Seen); Urine Blood Negative /uL (Negative); Urine Mucus FEW (None Seen); Urine Specific Gravity 1.035 (1.001-1.035); Urine WBC 4 /hpf (0 - 5)
[2021-01-02 05:00] VITALS: BP 92/41
[2021-01-02] MEDS: guaiFENesin-DM 100/10mg/5ml SYR PO PRN ×3 (05:49→21:14)
[2021-01-02] MEDS: methylPREDNISolone SOD SUCC 40 MG/ML VL IV SCH ×4 (05:49→23:49)
[2021-01-02] MEDS: ACETAMINOPHEN 325 MG TAB PO PRN ×3 (05:50→17:30)
[2021-01-02] MEDS: BUDESONIDE (INHALATION) 0.5 MG/2 ML NEB NEB SCH ×2 (06:46→19:25)
[2021-01-02 09:00] VITALS: BP_SYST 111; BP_SYST 94; BP_DIAS 51; BP_DIAS 69
[2021-01-02] MEDS: FAMOTIDINE (10MG/ML) 2ML VL IV SCH ×2 (09:53→21:13)
[2021-01-02] MEDS: MULTIPLE VITAMIN TAB PO SCH (09:54)
[2021-01-02] MEDS: ASCORBIC ACID 500 MG TAB PO SCH ×2 (09:54→21:13)
[2021-01-02] MEDS: AZITHROMYCIN 250 MG TAB PO SCH (09:54)
[2021-01-02] MEDS: ZINC SULFATE 220mg CAP or TAB PO SCH (09:54)
[2021-01-02] MEDS: ENOXAPARIN SOD 40 MG/0.4 ML SYRINGE SC SCH (09:55)
[2021-01-02] MEDS ORDERED: DEXTROSE (50%) 50ML SYRG IV PRN (10:45)
[2021-01-02] MEDS ORDERED: ACETYLCYSTEINE 20%(200MG/ML) SOL 4ML NEB SCH ×2 (10:45→19:00)
[2021-01-02] MEDS: ACCU-CHEK COMFORT CURVE STRIP VI SCH ×3 (11:57→23:49)
[2021-01-02] MEDS: InsuLIN REG 1unit/0.01ml Soln (100units/ml) SC SCH ×3 (12:06→23:48)
[2021-01-02] MEDS ORDERED: ACETYLCYSTEINE 20%(200MG/ML) SOL 4ML NEB ONE (12:45)
[2021-01-02 13:00] VITALS: BP 93/58
[2021-01-02] MEDS: GABAPENTIN 400 MG CAP PO SCH ×2 (14:31→21:13)
[2021-01-02 17:00] VITALS: BP 119/58
[2021-01-02] MEDS: TEMAZEPAM 15 MG CAP PO PRN (21:14)
[2021-01-02 22:00] VITALS: BP 125/47
[2021-01-02] MEDS: ACETYLCYSTEINE 20%(200MG/ML) SOL 4ML NEB SCH (22:00)
[2021-01-03] MEDS: ALBUTEROL SULF 2.5 MG/0.5ML(0.5%) NEB SOLN NEB SCH ×6 (02:29→22:09)
[2021-01-03] MEDS: IPRATROPIUM BROM 0.5 MG/2.5ML INH SOL NEB SCH ×6 (02:29→22:09)
[2021-01-03 05:00] VITALS: BP 101/71
[2021-01-03] MEDS: ACETAMINOPHEN 325 MG TAB PO PRN ×3 (05:13→18:04)
[2021-01-03] MEDS: GABAPENTIN 400 MG CAP PO SCH ×3 (06:08→21:07)
[2021-01-03] MEDS: methylPREDNISolone SOD SUCC 40 MG/ML VL IV SCH ×4 (06:08→23:53)
[2021-01-03] MEDS: InsuLIN REG 1unit/0.01ml Soln (100units/ml) SC SCH ×4 (06:09→23:55)
[2021-01-03] MEDS: ACCU-CHEK COMFORT CURVE STRIP VI SCH ×4 (06:09→23:53)
[2021-01-03] MEDS: guaiFENesin-DM 100/10mg/5ml SYR PO PRN ×4 (06:09→23:54)
[2021-01-03 06:42] LABS: Cholesterol 132 mg/dL (< 200); HDL Cholesterol 37 mg/dL (40-59); LDL Cholesterol 86 mg/dL (< 100); Triglycerides 76 mg/dL (< 150)
[2021-01-03] MEDS: ACETYLCYSTEINE 20%(200MG/ML) SOL 4ML NEB SCH ×3 (07:40→18:39)
[2021-01-03] MEDS: BUDESONIDE (INHALATION) 0.5 MG/2 ML NEB NEB SCH ×2 (07:40→18:39)
[2021-01-03] MEDS: FAMOTIDINE (10MG/ML) 2ML VL IV SCH ×2 (09:09→21:07)
[2021-01-03] MEDS: MULTIPLE VITAMIN TAB PO SCH (09:09)
[2021-01-03] MEDS: ASCORBIC ACID 500 MG TAB PO SCH ×2 (09:09→21:07)
[2021-01-03] MEDS: ZINC SULFATE 220mg CAP or TAB PO SCH (09:09)
[2021-01-03] MEDS: AZITHROMYCIN 250 MG TAB PO SCH (09:10)
[2021-01-03] MEDS: ENOXAPARIN SOD 40 MG/0.4 ML SYRINGE SC SCH (09:10)
[2021-01-03 09:16] VITALS: BP 105/65
[2021-01-03 13:00] VITALS: BP 106/55
[2021-01-03] MEDS ORDERED: DEXTROSE (50%) 50ML SYRG IV PRN (14:30)
[2021-01-03 18:00] VITALS: BP 109/66
[2021-01-03 20:34] VITALS: BP 109/66
[2021-01-03] MEDS: TEMAZEPAM 15 MG CAP PO PRN (21:08)
[2021-01-03 22:00] VITALS: BP 108/55
[2021-01-04] MEDS: IPRATROPIUM BROM 0.5 MG/2.5ML INH SOL NEB SCH ×6 (02:00→21:37)
[2021-01-04] MEDS: ALBUTEROL SULF 2.5 MG/0.5ML(0.5%) NEB SOLN NEB SCH ×6 (02:00→21:37)
[2021-01-04] MEDS: guaiFENesin-DM 100/10mg/5ml SYR PO PRN ×3 (04:18→14:23)
[2021-01-04] MEDS: ACETAMINOPHEN 325 MG TAB PO PRN ×4 (04:19→23:18)
[2021-01-04 05:00] VITALS: BP 109/62
[2021-01-04] MEDS: methylPREDNISolone SOD SUCC 40 MG/ML VL IV SCH ×3 (05:28→22:00)
[2021-01-04] MEDS: ACCU-CHEK COMFORT CURVE STRIP VI SCH ×3 (05:29→17:28)
[2021-01-04] MEDS: GABAPENTIN 400 MG CAP PO SCH ×3 (05:29→22:00)
[2021-01-04] MEDS: InsuLIN REG 1unit/0.01ml Soln (100units/ml) SC SCH ×3 (05:31→17:28)
[2021-01-04 06:18] LABS: Hematocrit 30.9 % (36.0-46.0); Hemoglobin 9.9 g/dL (12.2-16.2)
[2021-01-04] MEDS: BUDESONIDE (INHALATION) 0.5 MG/2 ML NEB NEB SCH ×2 (06:32→19:10)
[2021-01-04] MEDS: ACETYLCYSTEINE 20%(200MG/ML) SOL 4ML NEB SCH ×3 (06:33→21:49)
[2021-01-04 09:03] VITALS: BP 114/72
[2021-01-04] MEDS: FAMOTIDINE (10MG/ML) 2ML VL IV SCH (10:23)
[2021-01-04] MEDS: MULTIPLE VITAMIN TAB PO SCH (10:24)
[2021-01-04] MEDS: AZITHROMYCIN 250 MG TAB PO SCH (10:24)
[2021-01-04] MEDS: ASCORBIC ACID 500 MG TAB PO SCH ×2 (10:24→22:00)
[2021-01-04] MEDS: ENOXAPARIN SOD 40 MG/0.4 ML SYRINGE SC SCH (10:24)
[2021-01-04] MEDS: ZINC SULFATE 220mg CAP or TAB PO SCH (10:25)
[2021-01-04 13:00] VITALS: BP 117/68
[2021-01-04 16:42] VITALS: BP 116/68
[2021-01-04] MEDS: SUCRALFATE 1 GM TAB PO SCH ×2 (17:27→22:00)
[2021-01-04 22:00] VITALS: BP 111/57
[2021-01-04] MEDS: PANTOPRAZOLE 40 MG/10 ML VIAL INJ IV SCH (22:00)
[2021-01-04] MEDS: TEMAZEPAM 15 MG CAP PO PRN (22:50)
[2021-01-05] MEDS: ACCU-CHEK COMFORT CURVE STRIP VI SCH ×4 (01:02→17:23)
[2021-01-05] MEDS: InsuLIN REG 1unit/0.01ml Soln (100units/ml) SC SCH ×4 (01:02→17:24)
[2021-01-05] MEDS: guaiFENesin-DM 100/10mg/5ml SYR PO PRN ×2 (01:14→06:50)
[2021-01-05] MEDS: ALBUTEROL SULF 2.5 MG/0.5ML(0.5%) NEB SOLN NEB SCH ×6 (02:06→22:11)
[2021-01-05] MEDS: IPRATROPIUM BROM 0.5 MG/2.5ML INH SOL NEB SCH ×6 (02:06→22:12)
[2021-01-05 05:00] VITALS: BP 110/51
[2021-01-05] MEDS: methylPREDNISolone SOD SUCC 40 MG/ML VL IV SCH ×2 (06:00→22:00)
[2021-01-05] MEDS: GABAPENTIN 400 MG CAP PO SCH ×3 (06:00→22:00)
[2021-01-05] MEDS: SUCRALFATE 1 GM TAB PO SCH ×4 (06:50→22:00)
[2021-01-05] MEDS: ACETAMINOPHEN 325 MG TAB PO PRN (06:51)
[2021-01-05] MEDS: ACETYLCYSTEINE 20%(200MG/ML) SOL 4ML NEB SCH ×3 (07:10→19:39)
[2021-01-05 09:00] VITALS: BP 98/53
[2021-01-05] MEDS: PANTOPRAZOLE 40 MG/10 ML VIAL INJ IV SCH ×2 (09:20→22:00)
[2021-01-05] MEDS: MULTIPLE VITAMIN TAB PO SCH (09:21)
[2021-01-05] MEDS: ASCORBIC ACID 500 MG TAB PO SCH ×2 (09:21→22:00)
[2021-01-05] MEDS: ZINC SULFATE 220mg CAP or TAB PO SCH (09:21)
[2021-01-05] MEDS: ENOXAPARIN SOD 40 MG/0.4 ML SYRINGE SC SCH (09:22)
[2021-01-05] MEDS: AZITHROMYCIN 250 MG TAB PO SCH (09:22)
[2021-01-05] MEDS: BUDESONIDE (INHALATION) 0.5 MG/2 ML NEB NEB SCH ×2 (11:03→22:11)
[2021-01-05] MEDS ORDERED: PROMETHAZINE W/CODEINE 5 ML ORAL SYRUP PO ONE (11:15)
[2021-01-05] MEDS: MORPHINE SULFATE INJECTION 2 MG/ML SYRG IV PRN ×3 (12:34→18:45)
[2021-01-05 13:00] VITALS: BP 108/80
[2021-01-05 17:00] VITALS: BP 111/62
[2021-01-05] MEDS: PROMETHAZINE W/CODEINE 5 ML ORAL SYRUP PO PRN (17:23)
[2021-01-05 22:00] VITALS: BP 108/67
[2021-01-05] MEDS: TEMAZEPAM 15 MG CAP PO PRN (22:35)
[2021-01-06] MEDS: InsuLIN REG 1unit/0.01ml Soln (100units/ml) SC SCH ×4 (00:39→18:23)
[2021-01-06] MEDS: ACCU-CHEK COMFORT CURVE STRIP VI SCH ×4 (00:40→18:08)
[2021-01-06] MEDS: MORPHINE SULFATE INJECTION 2 MG/ML SYRG IV PRN ×2 (00:41→09:01)
[2021-01-06] MEDS: PROMETHAZINE W/CODEINE 5 ML ORAL SYRUP PO PRN ×4 (00:41→22:38)
[2021-01-06] MEDS: IPRATROPIUM BROM 0.5 MG/2.5ML INH SOL NEB SCH ×6 (02:20→21:49)
[2021-01-06] MEDS: ALBUTEROL SULF 2.5 MG/0.5ML(0.5%) NEB SOLN NEB SCH ×6 (02:20→21:49)
[2021-01-06 05:12] VITALS: BP 102/40
[2021-01-06] MEDS: GABAPENTIN 400 MG CAP PO SCH ×3 (06:00→22:00)
[2021-01-06 06:17] LABS: Basophils # (auto) 0 10 ^3/uL (0-0.2); Eosinophils # (auto) 0 10 ^3/uL (0-0.8); Monocytes # (auto) 0.3 10 ^3/uL (0-1.3); Neutrophils # (auto) 5.1 10 ^3/uL (1.6-8.6); Nucleated Red Blood Cells % 0.1 %; White Blood Cell 6.2 10^3/uL (4.4-10.8)
[2021-01-06 06:18] LABS: Basophils % (auto) 0.1 % (0.0-2.0); Hematocrit 29.3 % (36.0-46.0); Hemoglobin 9.3 g/dL (12.2-16.2); Lymphocytes # (auto) 0.7 10 ^3/uL (0.4-5.4); Mean Corpuscular Hemoglobin 23.9 pg (28.0-32.0); Mean Corpuscular Hgb Conc. 31.8 g/dL (32.0-36.0); Mean Corpuscular Volume 75.3 fL (80.0-100.0); Monocytes % (auto) 4.9 % (0.0-12.0); Red Blood Cells 3.88 10^6/uL (4.0-5.20); Red Cell Distribution Width 18.5 % (11.8-14.3)
[2021-01-06 06:47] LABS: BUN/Creatinine Ratio 42.1; Calcium 8.4 mg/dL (8.5-10.1); Magnesium 2.5 mg/dL (1.6-2.6)
[2021-01-06] MEDS: SUCRALFATE 1 GM TAB PO SCH ×4 (06:56→22:00)
[2021-01-06] MEDS: ACETYLCYSTEINE 20%(200MG/ML) SOL 4ML NEB SCH ×3 (07:17→21:49)
[2021-01-06 09:28] VITALS: BP 111/62
[2021-01-06] MEDS: ZINC SULFATE 220mg CAP or TAB PO SCH (11:25)
[2021-01-06] MEDS: BUDESONIDE (INHALATION) 0.5 MG/2 ML NEB NEB SCH ×2 (11:25→21:49)
[2021-01-06] MEDS: PANTOPRAZOLE 40 MG/10 ML VIAL INJ IV SCH (11:25)
[2021-01-06] MEDS: methylPREDNISolone SOD SUCC 40 MG/ML VL IV SCH ×2 (11:25→22:00)
[2021-01-06] MEDS: AZITHROMYCIN 250 MG TAB PO SCH (11:26)
[2021-01-06] MEDS: MULTIPLE VITAMIN TAB PO SCH (11:26)
[2021-01-06] MEDS: ASCORBIC ACID 500 MG TAB PO SCH ×2 (11:26→22:00)
[2021-01-06] MEDS: ENOXAPARIN SOD 40 MG/0.4 ML SYRINGE SC SCH (11:26)
[2021-01-06] MEDS: ONDANSETRON HCL 4 MG/2 ML VIAL IV PRN (11:27)
[2021-01-06] MEDS ORDERED: cefTRIAXone 1GM/50ML D5W 50 ML IV ONE (13:00)
[2021-01-06 13:05] VITALS: BP 101/48
[2021-01-06 15:58] LABS: % Iron Saturation 5.9 % (15-50)
[2021-01-06 17:00] VITALS: BP 110/66
[2021-01-06 22:00] VITALS: BP 101/48
[2021-01-06] MEDS: PANTOPRAZOLE 40 MG TAB PO SCH (22:00)
[2021-01-06 22:21] VITALS: BP 120/71
[2021-01-06] MEDS: TEMAZEPAM 15 MG CAP PO PRN (22:38)
[2021-01-07] MEDS: ACCU-CHEK COMFORT CURVE STRIP VI SCH ×5 (00:11→23:15)
[2021-01-07] MEDS: InsuLIN REG 1unit/0.01ml Soln (100units/ml) SC SCH ×5 (00:11→23:30)
[2021-01-07] MEDS: IPRATROPIUM BROM 0.5 MG/2.5ML INH SOL NEB SCH ×6 (02:15→23:38)
[2021-01-07] MEDS: ALBUTEROL SULF 2.5 MG/0.5ML(0.5%) NEB SOLN NEB SCH ×6 (02:15→23:38)
[2021-01-07] MEDS: PROMETHAZINE W/CODEINE 5 ML ORAL SYRUP PO PRN ×3 (04:10→15:38)
[2021-01-07 05:00] VITALS: BP 109/64
[2021-01-07] MEDS: ACETYLCYSTEINE 20%(200MG/ML) SOL 4ML NEB SCH ×3 (06:00→19:38)
[2021-01-07] MEDS: SUCRALFATE 1 GM TAB PO SCH ×4 (06:38→21:16)
[2021-01-07] MEDS: GABAPENTIN 400 MG CAP PO SCH ×3 (06:38→21:12)
[2021-01-07] MEDS: MORPHINE SULFATE INJECTION 2 MG/ML SYRG IV PRN ×3 (06:51→15:37)
[2021-01-07] MEDS: BUDESONIDE (INHALATION) 0.5 MG/2 ML NEB NEB SCH ×2 (07:20→23:38)
[2021-01-07 08:00] VITALS: BP 146/60
[2021-01-07] MEDS: methylPREDNISolone SOD SUCC 40 MG/ML VL IV SCH ×2 (09:05→21:12)
[2021-01-07] MEDS: ENOXAPARIN SOD 40 MG/0.4 ML SYRINGE SC SCH (09:05)
[2021-01-07] MEDS: MULTIPLE VITAMIN TAB PO SCH (09:06)
[2021-01-07] MEDS: ASCORBIC ACID 500 MG TAB PO SCH ×2 (09:06→21:13)
[2021-01-07] MEDS: PANTOPRAZOLE 40 MG TAB PO SCH ×2 (09:06→21:16)
[2021-01-07] MEDS: cefTRIAXone 1GM/50ML D5W 50 ML IV SCH (09:06)
[2021-01-07] MEDS: AZITHROMYCIN 250 MG TAB PO SCH (09:06)
[2021-01-07 12:00] VITALS: BP 117/73
[2021-01-07] MEDS ORDERED: POTASSIUM CHL 20 Meq TABLET PO ONE (12:15)
[2021-01-07] MEDS ORDERED: FUROSEMIDE 20 MG/2 ML VIAL IV ONE (12:15)
[2021-01-07 16:00] VITALS: BP 119/63
[2021-01-07] MEDS: ONDANSETRON HCL 4 MG/2 ML VIAL IV PRN (20:38)
[2021-01-07] MEDS: TEMAZEPAM 15 MG CAP PO PRN (21:22)
[2021-01-07 22:00] VITALS: BP_SYST 136; BP_SYST 94; BP_DIAS 59; BP_DIAS 77
[2021-01-08] MEDS: MORPHINE SULFATE INJECTION 2 MG/ML SYRG IV PRN ×3 (00:19→16:13)
[2021-01-08] MEDS: ONDANSETRON HCL 4 MG/2 ML VIAL IV PRN ×2 (00:20→16:13)
[2021-01-08] MEDS: IPRATROPIUM BROM 0.5 MG/2.5ML INH SOL NEB SCH ×6 (02:56→23:11)
[2021-01-08] MEDS: ALBUTEROL SULF 2.5 MG/0.5ML(0.5%) NEB SOLN NEB SCH ×6 (02:56→23:11)
[2021-01-08] MEDS: PROMETHAZINE W/CODEINE 5 ML ORAL SYRUP PO PRN ×5 (03:12→23:15)
[2021-01-08 05:00] VITALS: BP 96/46
[2021-01-08] MEDS: GABAPENTIN 400 MG CAP PO SCH ×3 (05:36→21:15)
[2021-01-08] MEDS: InsuLIN REG 1unit/0.01ml Soln (100units/ml) SC SCH ×4 (05:43→23:13)
[2021-01-08] MEDS: ACCU-CHEK COMFORT CURVE STRIP VI SCH ×4 (05:43→23:07)
[2021-01-08] MEDS: ACETYLCYSTEINE 20%(200MG/ML) SOL 4ML NEB SCH ×3 (06:44→18:47)
[2021-01-08] MEDS: BUDESONIDE (INHALATION) 0.5 MG/2 ML NEB NEB SCH ×2 (06:45→23:11)
[2021-01-08] MEDS: SUCRALFATE 1 GM TAB PO SCH ×4 (06:58→21:16)
[2021-01-08] MEDS: methylPREDNISolone SOD SUCC 40 MG/ML VL IV SCH ×2 (08:07→21:16)
[2021-01-08] MEDS: ENOXAPARIN SOD 40 MG/0.4 ML SYRINGE SC SCH (08:07)
[2021-01-08] MEDS: cefTRIAXone 1GM/50ML D5W 50 ML IV SCH (08:07)
[2021-01-08] MEDS: AZITHROMYCIN 250 MG TAB PO SCH (08:07)
[2021-01-08] MEDS: ASCORBIC ACID 500 MG TAB PO SCH ×2 (08:07→22:38)
[2021-01-08] MEDS: PANTOPRAZOLE 40 MG TAB PO SCH ×2 (08:08→21:16)
[2021-01-08] MEDS: MULTIPLE VITAMIN TAB PO SCH (08:08)
[2021-01-08 09:00] VITALS: BP 115/67
[2021-01-08 13:00] VITALS: BP 122/62
[2021-01-08 17:00] VITALS: BP 112/58
[2021-01-08] MEDS: TEMAZEPAM 15 MG CAP PO PRN (21:15)
[2021-01-08 22:00] VITALS: BP 101/65
[2021-01-09] MEDS: IPRATROPIUM BROM 0.5 MG/2.5ML INH SOL NEB SCH ×6 (02:33→21:45)
[2021-01-09] MEDS: ALBUTEROL SULF 2.5 MG/0.5ML(0.5%) NEB SOLN NEB SCH ×6 (02:33→21:44)
[2021-01-09] MEDS: MORPHINE SULFATE INJECTION 2 MG/ML SYRG IV PRN ×2 (03:07→09:24)
[2021-01-09] MEDS: ONDANSETRON HCL 4 MG/2 ML VIAL IV PRN ×2 (03:08→09:20)
[2021-01-09 05:00] VITALS: BP 105/47
[2021-01-09] MEDS: GABAPENTIN 400 MG CAP PO SCH ×3 (05:38→14:13)
[2021-01-09] MEDS: ACCU-CHEK COMFORT CURVE STRIP VI SCH ×3 (05:39→18:31)
[2021-01-09] MEDS: InsuLIN REG 1unit/0.01ml Soln (100units/ml) SC SCH ×3 (05:47→18:31)
[2021-01-09] MEDS: ACETYLCYSTEINE 20%(200MG/ML) SOL 4ML NEB SCH ×3 (06:24→21:45)
[2021-01-09 06:40] LABS: Basophils # (auto) 0 10 ^3/uL (0-0.2); Eosinophils # (auto) 0 10 ^3/uL (0-0.8); Hematocrit 27.1 % (36.0-46.0); Hemoglobin 8.8 g/dL (12.2-16.2); Lymphocytes # (auto) 0.8 10 ^3/uL (0.4-5.4); Lymphocytes % (auto) 7.4 % (10.0-50.0); Mean Corpuscular Hemoglobin 24.1 pg (28.0-32.0); Mean Corpuscular Hgb Conc. 32.3 g/dL (32.0-36.0); Mean Corpuscular Volume 74.7 fL (80.0-100.0); Monocytes # (auto) 0.5 10 ^3/uL (0-1.3); Monocytes % (auto) 4.4 % (0.0-12.0); Neutrophils # (auto) 9.8 10 ^3/uL (1.6-8.6); Neutrophils % (auto) 88.2 % (37.0-80.0); Nucleated Red Blood Cells % 0.1 %; Red Blood Cells 3.63 10^6/uL (4.0-5.20); White Blood Cell 11.2 10^3/uL (4.4-10.8)
[2021-01-09] MEDS: SUCRALFATE 1 GM TAB PO SCH ×4 (06:54→21:51)
[2021-01-09 07:01] LABS: BUN/Creatinine Ratio 44.4; Calcium 8.3 mg/dL (8.5-10.1); Potassium 4.9 mmol/L (3.5-5.1)
[2021-01-09] MEDS: PROMETHAZINE W/CODEINE 5 ML ORAL SYRUP PO PRN ×4 (08:04→18:48)
[2021-01-09 09:00] VITALS: BP 120/61
[2021-01-09] MEDS: cefTRIAXone 1GM/50ML D5W 50 ML IV SCH (09:20)
[2021-01-09] MEDS: ENOXAPARIN SOD 40 MG/0.4 ML SYRINGE SC SCH (09:20)
[2021-01-09] MEDS: methylPREDNISolone SOD SUCC 40 MG/ML VL IV SCH ×2 (09:20→21:51)
[2021-01-09] MEDS: ASCORBIC ACID 500 MG TAB PO SCH ×2 (09:24→21:52)
[2021-01-09] MEDS: AZITHROMYCIN 250 MG TAB PO SCH (09:24)
[2021-01-09] MEDS: MULTIPLE VITAMIN TAB PO SCH (09:24)
[2021-01-09] MEDS: PANTOPRAZOLE 40 MG TAB PO SCH ×2 (09:24→21:52)
[2021-01-09] MEDS: BUDESONIDE (INHALATION) 0.5 MG/2 ML NEB NEB SCH ×2 (10:03→18:21)
[2021-01-09 11:54] VITALS: BP 122/66
[2021-01-09 13:00] VITALS: BP 118/57
[2021-01-09 17:00] VITALS: BP 120/61
[2021-01-09] MEDS: TEMAZEPAM 15 MG CAP PO PRN (22:01)
[2021-01-09 22:04] VITALS: BP 99/58
[2021-01-10] MEDS: InsuLIN REG 1unit/0.01ml Soln (100units/ml) SC SCH ×3 (00:13→12:35)
[2021-01-10] MEDS: ACCU-CHEK COMFORT CURVE STRIP VI SCH ×3 (00:14→12:30)
[2021-01-10] MEDS: ALBUTEROL SULF 2.5 MG/0.5ML(0.5%) NEB SOLN NEB SCH ×4 (01:54→13:34)
[2021-01-10] MEDS: IPRATROPIUM BROM 0.5 MG/2.5ML INH SOL NEB SCH ×4 (01:54→13:34)
[2021-01-10] MEDS: MORPHINE SULFATE INJECTION 2 MG/ML SYRG IV PRN (02:34)
[2021-01-10] MEDS: ONDANSETRON HCL 4 MG/2 ML VIAL IV PRN ×2 (02:34→04:37)
[2021-01-10 05:00] VITALS: BP 107/54
[2021-01-10] MEDS: GABAPENTIN 400 MG CAP PO SCH ×2 (06:21→14:00)
[2021-01-10] MEDS: SUCRALFATE 1 GM TAB PO SCH ×2 (06:22→12:30)
[2021-01-10] MEDS: ACETYLCYSTEINE 20%(200MG/ML) SOL 4ML NEB SCH ×2 (07:05→13:34)
[2021-01-10 07:21] LABS: Basophils # (auto) 0 10 ^3/uL (0-0.2); Eosinophils # (auto) 0 10 ^3/uL (0-0.8); Hemoglobin 9.1 g/dL (12.2-16.2); Monocytes # (auto) 0.5 10 ^3/uL (0-1.3); Nucleated Red Blood Cells % 0.1 %; White Blood Cell 10.4 10^3/uL (4.4-10.8)
[2021-01-10 07:23] LABS: Basophils % (auto) 0.2 % (0.0-2.0); Hematocrit 28.4 % (36.0-46.0); Lymphocytes # (auto) 1.1 10 ^3/uL (0.4-5.4); Lymphocytes % (auto) 10.8 % (10.0-50.0); Mean Corpuscular Hemoglobin 23.9 pg (28.0-32.0); Mean Corpuscular Hgb Conc. 31.9 g/dL (32.0-36.0); Mean Corpuscular Volume 74.7 fL (80.0-100.0); Monocytes % (auto) 5.3 % (0.0-12.0); Neutrophils # (auto) 8.7 10 ^3/uL (1.6-8.6); Neutrophils % (auto) 83.7 % (37.0-80.0); Red Cell Distribution Width 18.5 % (11.8-14.3)
[2021-01-10] MEDS: ENOXAPARIN SOD 40 MG/0.4 ML SYRINGE SC SCH (08:33)
[2021-01-10] MEDS: PROMETHAZINE W/CODEINE 5 ML ORAL SYRUP PO PRN ×2 (08:34→12:42)
[2021-01-10] MEDS: cefTRIAXone 1GM/50ML D5W 50 ML IV SCH (08:35)
[2021-01-10] MEDS: MULTIPLE VITAMIN TAB PO SCH (08:35)
[2021-01-10] MEDS: PANTOPRAZOLE 40 MG TAB PO SCH (08:35)
[2021-01-10] MEDS: ASCORBIC ACID 500 MG TAB PO SCH (08:35)
[2021-01-10] MEDS: methylPREDNISolone SOD SUCC 40 MG/ML VL IV SCH (08:37)
[2021-01-10 09:00] VITALS: BP 97/55
[2021-01-10] MEDS: BUDESONIDE (INHALATION) 0.5 MG/2 ML NEB NEB SCH (10:22)
[2021-01-10] MEDS ORDERED: PANT40TA2 PO (11:00)
[2021-01-10] MEDS ORDERED: ALBUAER3 IN (11:00)
[2021-01-10] MEDS ORDERED: PRED20TA2 PO (11:00)
[2021-01-10 12:55] VITALS: BP 117/73
[2021-01-10 13:00] VITALS: BP 110/60
[2021-01-10] MEDS ORDERED: INFLUENZA QUAD 2021-2022 0.5 ML SYRG IM ONE (16:15)
[2021-01-10 16:58] VITALS: BP 104/52
== END 2021-01-10 16:30 | disposition home health service (06) | DRG 189 ==
LOC: ER 16:24 → TELE 23:23 → TELE-WESTW 01-01 00:50
PROVIDERS: ADMIT Nurse Practitioner Family; ATTEND Internal Medicine
PROC: 3E0234Z Introduction of Serum, Toxoid and Vaccine into Muscle, Percutaneous Approach (ICD-10-PCS; principal; 2021-01-10)
DX: J96.21 Acute and chronic respiratory failure with hypoxia (principal); J44.1 Chronic obstructive pulmonary disease with (acute) exacerbation; J45.901 Unspecified asthma with (acute) exacerbation; J44.0 Chronic obstructive pulmonary disease with (acute) lower respiratory infection; J20.9 Acute bronchitis, unspecified; E66.01 Morbid (severe) obesity due to excess calories; R73.03 Prediabetes; K21.9 Gastro-esophageal reflux disease without esophagitis; D64.9 Anemia, unspecified; E78.5 Hyperlipidemia, unspecified; F41.9 Anxiety disorder, unspecified; Z20.822 Contact with and (suspected) exposure to COVID-19; T38.0X5A Adverse effect of glucocorticoids and synthetic analogues, initial encounter; R19.7 Diarrhea, unspecified; Y92.89 Other specified places as the place of occurrence of the external cause; Z81.8 Family history of other mental and behavioral disorders; Z80.0 Family history of malignant neoplasm of digestive organs; Z82.0 Family history of epilepsy and other diseases of the nervous system; Z82.3 Family history of stroke; Z82.49 Family history of ischemic heart disease and other diseases of the circulatory system; Z82.5 Family history of asthma and other chronic lower respiratory diseases; Z83.3 Family history of diabetes mellitus; Z87.891 Personal history of nicotine dependence; Z90.710 Acquired absence of both cervix and uterus; Z87.19 Personal history of other diseases of the digestive system; Z90.49 Acquired absence of other specified parts of digestive tract; Z68.38 Body mass index [BMI] 38.0-38.9, adult; Z95.0 Presence of cardiac pacemaker; Z23 Encounter for immunization; D72.829 Elevated white blood cell count, unspecified
CPT/HCPCS: 36415; 36600; 71045; 80048; 80053; 80061; 81001; 82270; 82805; 82962; 83036; 83540; 83550; 83605; 83735; 83880; 84484; 85014; 85018; 85025; 87070; 87086; 87205; 87426; 94640; 96374; C9113; G0378; J0696; J1815; J2405; J3490

== ENCOUNTER 2021-02-18 03:53 | Emergency (ER) | payer OTHER, MEDICAID ==
[~2021-02-18] VITALS: Ht 165.1 cm; Wt 102.1 kg
[~2021-02-18 03:53] MED LIST changes: +ALBUAER3 IN; +PANT40TA2 PO; +PRED20TA2 PO
[2021-02-18 04:41] LABS: Hemoglobin 10.2 g/dL (12.2-16.2); White Blood Cell 5.8 10^3/uL (4.4-10.8)
[2021-02-18 04:43] LABS: Hematocrit 32.3 % (36.0-46.0); Mean Corpuscular Hemoglobin 23.9 pg (28.0-32.0); Mean Corpuscular Hgb Conc. 31.6 g/dL (32.0-36.0); Mean Corpuscular Volume 75.7 fL (80.0-100.0); Red Blood Cells 4.27 10^6/uL (4.0-5.20)
[2021-02-18 04:56] LABS: Albumin 3.2 g/dL (3.4-5.0); Calcium 8.3 mg/dL (8.5-10.1); Magnesium 2.9 mg/dL (1.6-2.6); Potassium 3.6 mmol/L (3.5-5.1)
[2021-02-18 05:03] LABS: BUN/Creatinine Ratio 27.4; Bilirubin, Total 0.4 mg/dL (0.2-1.0); Total Protein 6.9 g/dL (6.4-8.2)
[2021-02-18 05:11] LABS: Red Cell Distribution Width 20.3 % (11.8-14.3)
[2021-02-18 05:13] LABS: Basophils % (manual) 0 (0.0-2.0); Blast Cells 0; Metamyelocytes % 0; Myelocytes % 0; Promyelocytes % 0; Reactive Lymphocytes 0
[2021-02-18 05:41] LABS: Band Neutrophils % (manual) 2; Eosinophils % (manual) 19 (0-7); Lymphocytes % (manual) 26 (10.0-50.0); Monocytes % (manual) 3 (0-12)
[2021-02-18] MEDS ORDERED: ACETAMINOPHEN 325 MG TAB PO ONE (06:30)
[2021-02-18 06:33] LABS: Urine Bacteria FEW /hpf (None Seen); Urine Blood Negative /uL (Negative); Urine Mucus FEW (None Seen); Urine Specific Gravity 1.026 (1.001-1.035); Urine WBC 33 /hpf (0 - 5)
[2021-02-18] MEDS ORDERED: MORPHINE SULFATE INJECTION 2 MG/ML SYRG IV ONE (09:00)
[2021-02-18] MEDS ORDERED: ONDANSETRON HCL 4 MG/2 ML VIAL IV ONE (09:00)
[2021-02-18] MEDS ORDERED: cefTRIAXone 1GM/50ML D5W 50 ML IV ONE (13:30)
[2021-02-18] MEDS ORDERED: ALBUTEROL SULF 2.5 MG/0.5ML(0.5%) NEB SOLN NEB ONE (13:30)
[2021-02-18] MEDS ORDERED: IPRATROPIUM BROM 0.5 MG/2.5ML INH SOL NEB ONE (13:30)
[2021-02-18 16:03] VITALS: BP 104/37
== END 2021-02-18 16:04 | disposition home or self-care (01) ==
LOC: ER 03:53
DX: R07.89 Other chest pain (principal); N39.0 Urinary tract infection, site not specified; D50.9 Iron deficiency anemia, unspecified; E44.1 Mild protein-calorie malnutrition; J44.1 Chronic obstructive pulmonary disease with (acute) exacerbation; Z68.37 Body mass index [BMI] 37.0-37.9, adult; Z95.0 Presence of cardiac pacemaker; Z98.84 Bariatric surgery status; Z20.822 Contact with and (suspected) exposure to COVID-19; Z90.49 Acquired absence of other specified parts of digestive tract; Z90.710 Acquired absence of both cervix and uterus; Z88.1 Allergy status to other antibiotic agents; Z88.6 Allergy status to analgesic agent
CPT/HCPCS: 36415; 71045; 80053; 81001; 82962; 83735; 83880; 84484; 85007; 85027; 85379; 87426; 93005; 94640; 96365; 96375; 99285; J0696; J2270; J2405; J7644

== ENCOUNTER 2021-03-09 08:42 | Emergency (ER) | payer OTHER, MEDICAID ==
[~2021-03-09] VITALS: Ht 165.1 cm; Wt 102.1 kg
[2021-03-09 09:08] VITALS: BP 125/65
[2021-03-09] MEDS ORDERED: ALBUTEROL SULF 2.5 MG/0.5ML(0.5%) NEB SOLN ONE (10:20)
[2021-03-09] MEDS ORDERED: IPRATROPIUM BROM 0.5 MG/2.5ML INH SOL ONE (10:21)
[2021-03-09] MEDS ORDERED: ALBUTEROL SULF 2.5 MG/0.5ML(0.5%) NEB SOLN NEB ONE (10:30)
[2021-03-09] MEDS ORDERED: methylPREDNISolone SOD SUCC 125 MG/2 ML VL IM ONE (10:30)
[2021-03-09] MEDS ORDERED: IPRATROPIUM BROM 0.5 MG/2.5ML INH SOL NEB ONE (10:30)
== END 2021-03-09 11:24 | disposition home or self-care (01) ==
LOC: ER 08:42
DX: J44.1 Chronic obstructive pulmonary disease with (acute) exacerbation (principal); E78.5 Hyperlipidemia, unspecified; Z90.49 Acquired absence of other specified parts of digestive tract; Z20.822 Contact with and (suspected) exposure to COVID-19; Z90.710 Acquired absence of both cervix and uterus
CPT/HCPCS: 36415; 71046; 87426; 94640; 96372; 99284; J2930; J7644

== ENCOUNTER 2021-04-15 20:22 | Emergency (ER) | payer OTHER, MEDICAID ==
[~2021-04-15] VITALS: Ht 165.1 cm; Wt 102.1 kg
[2021-04-15 22:13] VITALS: BP 135/61
[2021-04-15] MEDS ORDERED: IOHEXOL 300 MG/ML 100ML BOTTLE IJ ONE (22:38)
[2021-04-15 23:40] LABS: Basophils # (auto) 0.1 10 ^3/uL (0-0.2); Hemoglobin 9.8 g/dL (12.2-16.2); Monocytes # (auto) 0.4 10 ^3/uL (0-1.3); Neutrophils # (auto) 2.9 10 ^3/uL (1.6-8.6); Nucleated Red Blood Cells % 0.1 %; White Blood Cell 6.6 10^3/uL (4.4-10.8)
[2021-04-15 23:42] LABS: Basophils % (auto) 1.2 % (0.0-2.0); Eosinophils % (auto) 14.8 % (0.0-7.0); Hematocrit 30.6 % (36.0-46.0); Lymphocytes # (auto) 2.2 10 ^3/uL (0.4-5.4); Mean Corpuscular Volume 78.2 fL (80.0-100.0); Monocytes % (auto) 6.1 % (0.0-12.0); Neutrophils % (auto) 43.9 % (37.0-80.0); Red Blood Cells 3.91 10^6/uL (4.0-5.20); Red Cell Distribution Width 19.2 % (11.8-14.3)
[2021-04-15 23:58] LABS: Albumin 3.4 g/dL (3.4-5.0); Calcium 8.9 mg/dL (8.5-10.1)
[2021-04-16 00:01] LABS: BUN/Creatinine Ratio 30.8; Bilirubin, Total 0.3 mg/dL (0.2-1.0); Total Protein 6.9 g/dL (6.4-8.2)
== END 2021-04-16 01:28 | disposition home or self-care (01) ==
LOC: ER 20:22
DX: R13.10 Dysphagia, unspecified (principal); J44.9 Chronic obstructive pulmonary disease, unspecified; E78.5 Hyperlipidemia, unspecified; K21.9 Gastro-esophageal reflux disease without esophagitis; Z90.49 Acquired absence of other specified parts of digestive tract; Z90.89 Acquired absence of other organs; Z90.710 Acquired absence of both cervix and uterus; Z95.0 Presence of cardiac pacemaker; Z88.6 Allergy status to analgesic agent; Z88.1 Allergy status to other antibiotic agents; Z88.8 Allergy status to other drugs, medicaments and biological substances
CPT/HCPCS: 36415; 70491; 80053; 85025; 99285; Q9967

== ENCOUNTER 2021-05-19 12:26 | Inpatient (IN) | payer OTHER, MEDICAID ==
[~2021-05-19] VITALS: Ht 165.1 cm; Wt 98.3 kg
[2021-05-19] MEDS ORDERED: SODIUM CHLORIDE 0.9% 500 ML IVB ONE (12:45)
[2021-05-19] MEDS ORDERED: ONDANSETRON HCL 4 MG/2 ML VIAL IV ONE (12:45)
[2021-05-19] MEDS ORDERED: MORPHINE SULFATE 4 MG/ML SYR/VIAL IV ONE (12:45)
[2021-05-19 13:11] LABS: Urine Bacteria FEW /hpf (None Seen); Urine Blood Negative /uL (Negative); Urine Mucus FEW (None Seen); Urine Specific Gravity 1.029 (1.001-1.035); Urine WBC 32 /hpf (0 - 5)
[2021-05-19 14:18] LABS: Basophils # (auto) 0.1 10 ^3/uL (0-0.2); Lymphocytes % (auto) 32.8 % (10.0-50.0); Mean Corpuscular Hemoglobin 25.2 pg (28.0-32.0); Monocytes # (auto) 0.4 10 ^3/uL (0-1.3)
[2021-05-19 14:21] LABS: Basophils % (auto) 1.1 % (0.0-2.0); Eosinophils # (auto) 0.6 10 ^3/uL (0-0.8); Hematocrit 34.4 % (36.0-46.0); Hemoglobin 10.8 g/dL (12.2-16.2); Mean Corpuscular Hgb Conc. 31.5 g/dL (32.0-36.0); Mean Corpuscular Volume 80.1 fL (80.0-100.0); Monocytes % (auto) 6.8 % (0.0-12.0); Neutrophils % (auto) 49.3 % (37.0-80.0); Nucleated Red Blood Cells % 0.2 %; Red Blood Cells 4.29 10^6/uL (4.0-5.20); Red Cell Distribution Width 18.7 % (11.8-14.3); White Blood Cell 6.1 10^3/uL (4.4-10.8)
[2021-05-19 14:29] LABS: Albumin 3.5 g/dL (3.4-5.0); BUN/Creatinine Ratio 30.3; Calcium 9.1 mg/dL (8.5-10.1); Magnesium 2.6 mg/dL (1.6-2.6)
[2021-05-19 14:44] LABS: Bilirubin, Total 0.2 mg/dL (0.2-1.0); Total Protein 7.3 g/dL (6.4-8.2)
[2021-05-19] MEDS ORDERED: ONDANSETRON HCL 4 MG/2 ML VIAL IV PRN (16:45)
[2021-05-19] MEDS: LACTATED RINGER'S 1,000 ML IV SCH (17:24)
[2021-05-19 17:42] LABS: Alcohol, Urine < 3.0 mg/dL (0-10); Amphetamine Screen, Urine NEGATIVE (NEGATIVE); Barbiturate Scree,Urine NEGATIVE (NEGATIVE); Benzodiazephine Screen, Urine NEGATIVE (NEGATIVE); Cannabinoid Screen, Urine NEGATIVE (NEGATIVE); Cocaine Screen, Urine NEGATIVE (NEGATIVE); Opiate Scree,Urine NEGATIVE (NEGATIVE); Phencyclidine Screen, Urine NEGATIVE (NEGATIVE)
[2021-05-19 18:09] LABS: Amylase 44 U/L (25-115); Lipase 97 U/L (73-393)
[2021-05-19] MEDS: cefTRIAXone 1GM/50ML D5W 50 ML IV SCH (18:30)
[2021-05-19 19:51] VITALS: BP 116/69
[2021-05-19 20:40] VITALS: BP 116/69
[2021-05-19] MEDS: MORPHINE SULFATE INJECTION 2 MG/ML SYRG IV PRN (21:38)
[2021-05-19] MEDS: TEMAZEPAM 15 MG CAP PO PRN (21:56)
[2021-05-20] VITALS (7 sets, daily range): BP systolic 93–132; BP diastolic 39–72
[2021-05-20] MEDS ORDERED: CHOL400T19 PO (01:35)
[2021-05-20] MEDS ORDERED: TEMA15CA2 PO (01:35)
[2021-05-20] MEDS ORDERED: GABA400C PO (01:35)
[2021-05-20] MEDS ORDERED: MULT-1018 PO (01:35)
[2021-05-20] MEDS: MORPHINE SULFATE INJECTION 2 MG/ML SYRG IV PRN ×3 (04:04→17:28)
[2021-05-20 05:13] LABS: Basophils # (auto) 0 10 ^3/uL (0-0.2); Eosinophils # (auto) 0.5 10 ^3/uL (0-0.8); Hemoglobin 9.7 g/dL (12.2-16.2); Monocytes # (auto) 0.3 10 ^3/uL (0-1.3); Nucleated Red Blood Cells % 0.2 %
[2021-05-20 05:16] LABS: Basophils % (auto) 1.1 % (0.0-2.0); Eosinophils % (auto) 13.3 % (0.0-7.0); Hematocrit 29.6 % (36.0-46.0); Lymphocytes % (auto) 26.7 % (10.0-50.0); Mean Corpuscular Hgb Conc. 32.8 g/dL (32.0-36.0); Mean Corpuscular Volume 79.1 fL (80.0-100.0); Monocytes % (auto) 7.4 % (0.0-12.0); Neutrophils % (auto) 51.5 % (37.0-80.0); Red Blood Cells 3.74 10^6/uL (4.0-5.20); Red Cell Distribution Width 18.3 % (11.8-14.3); White Blood Cell 3.9 10^3/uL (4.4-10.8)
[2021-05-20 05:50] LABS: Calcium 8.5 mg/dL (8.5-10.1); Potassium 3.8 mmol/L (3.5-5.1)
[2021-05-20 05:52] LABS: BUN/Creatinine Ratio 30.8
[2021-05-20] MEDS: LACTATED RINGER'S 1,000 ML IV SCH ×2 (06:05→19:25)
[2021-05-20 06:07] LABS: Bilirubin, Total 0.4 mg/dL (0.2-1.0); Total Protein 6.1 g/dL (6.4-8.2)
[2021-05-20] MEDS: cefTRIAXone 1GM/50ML D5W 50 ML IV SCH (09:00)
[2021-05-20] MEDS ORDERED: ALBUTEROL SULF 2.5 MG/0.5ML(0.5%) NEB SOLN ONE (09:17)
[2021-05-20] MEDS ORDERED: IPRATROPIUM BROM 0.5 MG/2.5ML INH SOL ONE (09:17)
[2021-05-20] MEDS: PANTOPRAZOLE 40 MG/10 ML VIAL INJ IV SCH (10:00)
[2021-05-20] MEDS ORDERED: ENOXAPARIN SOD 30 MG/0.3 ML SYRINGE SC SCH (10:00)
[2021-05-20] MEDS: IPRATROPIUM BROM 0.5 MG/2.5ML INH SOL NEB SCH ×3 (15:44→23:34)
[2021-05-20] MEDS: ALBUTEROL SULF 2.5 MG/0.5ML(0.5%) NEB SOLN NEB SCH ×3 (15:44→23:34)
[2021-05-20] MEDS: TEMAZEPAM 15 MG CAP PO PRN (20:24)
[2021-05-21] MEDS: IPRATROPIUM BROM 0.5 MG/2.5ML INH SOL NEB SCH ×2 (00:22→18:31)
[2021-05-21] MEDS: ALBUTEROL SULF 2.5 MG/0.5ML(0.5%) NEB SOLN NEB SCH ×2 (00:22→18:31)
[2021-05-21 05:00] VITALS: BP 109/61
[2021-05-21] MEDS: MORPHINE SULFATE INJECTION 2 MG/ML SYRG IV PRN ×3 (05:18→20:59)
[2021-05-21 05:37] LABS: Alanine Aminotransferase 102 U/L (13-56); Alkaline Phosphatase 193 U/L (45-117); Aspartate Aminotransferase 118 U/L (15-37); Bilirubin, Direct < 0.1 mg/dL (0-0.2); Bilirubin, Total 0.4 mg/dL (0.2-1.0)
[2021-05-21] MEDS: DOCUSATE SOD 100 MG CAP PO PRN (08:09)
[2021-05-21] MEDS: PANTOPRAZOLE 40 MG/10 ML VIAL INJ IV SCH (08:09)
[2021-05-21] MEDS: HYOSCYAMINE SULF 0.125 MG ODT TAB PO PRN ×2 (08:09→12:47)
[2021-05-21] MEDS: cefTRIAXone 1GM/50ML D5W 50 ML IV SCH (08:09)
[2021-05-21 09:00] VITALS: BP 108/57
[2021-05-21] MEDS: ENOXAPARIN SOD 40 MG/0.4 ML SYRINGE SC SCH (10:00)
[2021-05-21] MEDS: LACTATED RINGER'S 1,000 ML IV SCH ×2 (11:10→22:05)
[2021-05-21 13:00] VITALS: BP 108/71
[2021-05-21 17:00] VITALS: BP 102/46
[2021-05-21] MEDS: TEMAZEPAM 15 MG CAP PO PRN (20:59)
[2021-05-21 22:00] VITALS: BP 108/36
[2021-05-22] MEDS: ALBUTEROL SULF 2.5 MG/0.5ML(0.5%) NEB SOLN NEB SCH ×4 (00:13→19:36)
[2021-05-22] MEDS: IPRATROPIUM BROM 0.5 MG/2.5ML INH SOL NEB SCH ×4 (00:13→19:36)
[2021-05-22 05:00] VITALS: BP 104/27
[2021-05-22 06:10] LABS: Albumin 3.1 g/dL (3.4-5.0); Bilirubin, Direct < 0.1 mg/dL (0-0.2)
[2021-05-22 06:14] LABS: Alanine Aminotransferase 74 U/L (13-56); Alkaline Phosphatase 179 U/L (45-117); Aspartate Aminotransferase 58 U/L (15-37); Bilirubin, Total 0.4 mg/dL (0.2-1.0); Total Protein 6.4 g/dL (6.4-8.2)
[2021-05-22 09:00] VITALS: BP 105/55
[2021-05-22] MEDS: ENOXAPARIN SOD 40 MG/0.4 ML SYRINGE SC SCH (09:21)
[2021-05-22] MEDS: cefTRIAXone 1GM/50ML D5W 50 ML IV SCH (09:22)
[2021-05-22] MEDS: PANTOPRAZOLE 40 MG/10 ML VIAL INJ IV SCH (09:22)
[2021-05-22] MEDS: HYOSCYAMINE SULF 0.125 MG ODT TAB PO PRN (09:23)
[2021-05-22] MEDS: DOCUSATE SOD 100 MG CAP PO PRN (09:26)
[2021-05-22] MEDS: LACTATED RINGER'S 1,000 ML IV SCH ×2 (11:25→20:41)
[2021-05-22] MEDS: MORPHINE SULFATE INJECTION 2 MG/ML SYRG IV PRN ×2 (12:47→18:56)
[2021-05-22 13:00] VITALS: BP 100/58
[2021-05-22] MEDS ORDERED: GOLYTELY 4L KIT PO ONE (13:15)
[2021-05-22 15:13] LABS: INR 1.12 (0.9-1.15)
[2021-05-22 17:18] VITALS: BP 122/59
[2021-05-22 22:00] VITALS: BP 150/90
[2021-05-23] MEDS: ALBUTEROL SULF 2.5 MG/0.5ML(0.5%) NEB SOLN NEB SCH ×4 (01:14→19:00)
[2021-05-23] MEDS: IPRATROPIUM BROM 0.5 MG/2.5ML INH SOL NEB SCH ×4 (01:15→19:00)
[2021-05-23 05:00] VITALS: BP 100/35
[2021-05-23 06:27] LABS: Basophils # (auto) 0.1 10 ^3/uL (0-0.2); Basophils % (auto) 1.2 % (0.0-2.0); Eosinophils # (auto) 0.6 10 ^3/uL (0-0.8); Eosinophils % (auto) 13.7 % (0.0-7.0); Hemoglobin 9.2 g/dL (12.2-16.2); Lymphocytes # (auto) 1.2 10 ^3/uL (0.4-5.4); Monocytes # (auto) 0.3 10 ^3/uL (0-1.3); Neutrophils # (auto) 2.3 10 ^3/uL (1.6-8.6); Nucleated Red Blood Cells % 0.1 %
[2021-05-23 06:30] LABS: Hematocrit 27.6 % (36.0-46.0); Lymphocytes % (auto) 26.7 % (10.0-50.0); Mean Corpuscular Hemoglobin 26.1 pg (28.0-32.0); Mean Corpuscular Hgb Conc. 33.4 g/dL (32.0-36.0); Mean Corpuscular Volume 78.1 fL (80.0-100.0); Monocytes % (auto) 7.7 % (0.0-12.0); Neutrophils % (auto) 50.7 % (37.0-80.0); Red Blood Cells 3.53 10^6/uL (4.0-5.20); Red Cell Distribution Width 18.5 % (11.8-14.3); White Blood Cell 4.5 10^3/uL (4.4-10.8)
[2021-05-23 06:37] LABS: Albumin 2.9 g/dL (3.4-5.0); BUN/Creatinine Ratio 16.7; Calcium 8.4 mg/dL (8.5-10.1); Potassium 3.6 mmol/L (3.5-5.1)
[2021-05-23 06:39] LABS: Bilirubin, Total 0.3 mg/dL (0.2-1.0); Total Protein 5.7 g/dL (6.4-8.2)
[2021-05-23 09:00] VITALS: BP 104/62
[2021-05-23] MEDS: cefTRIAXone 1GM/50ML D5W 50 ML IV SCH (09:00)
[2021-05-23] MEDS: ENOXAPARIN SOD 40 MG/0.4 ML SYRINGE SC SCH (10:10)
[2021-05-23] MEDS: PANTOPRAZOLE 40 MG/10 ML VIAL INJ IV SCH (10:10)
[2021-05-23] MEDS: MORPHINE SULFATE INJECTION 2 MG/ML SYRG IV PRN ×2 (10:12→20:10)
[2021-05-23 10:33] VITALS: BP 102/58
[2021-05-23 12:54] VITALS: BP 113/63
[2021-05-23] MEDS ORDERED: SUCCINYLCHOLINE CHLORIDE 20 MG/ML 10ML VIAL IV ONE (12:59)
[2021-05-23] MEDS ORDERED: SODIUM CHLORIDE LOCK 10 ML ONE (13:09)
[2021-05-23] MEDS ORDERED: fentaNYL CITRATE 100 MCG/2 ML VL ONE (13:09)
[2021-05-23] MEDS ORDERED: MIDAZOLAM HCL 2MG/2ML 2ml VIAL (1mg/ml) ONE (13:09)
[2021-05-23] MEDS ORDERED: PROPOFOL 10 MG/ML 20 ML IV ONE (13:09)
[2021-05-23] MEDS ORDERED: ONDANSETRON HCL 4 MG/2 ML VIAL ONE (13:09)
[2021-05-23] MEDS ORDERED: DexAMETHasone SOD PHOS 10MG/1ML VIAL INJ ONE (13:35)
[2021-05-23] MEDS: LACTATED RINGER'S 1,000 ML IV SCH (14:05)
[2021-05-23 16:20] VITALS: BP 123/47
[2021-05-23] MEDS: TEMAZEPAM 15 MG CAP PO PRN (20:32)
[2021-05-23 21:40] VITALS: BP 109/58
[2021-05-24] MEDS: ALBUTEROL SULF 2.5 MG/0.5ML(0.5%) NEB SOLN NEB SCH ×4 (00:23→19:15)
[2021-05-24] MEDS: IPRATROPIUM BROM 0.5 MG/2.5ML INH SOL NEB SCH ×4 (00:23→19:14)
[2021-05-24] MEDS: MORPHINE SULFATE INJECTION 2 MG/ML SYRG IV PRN ×4 (02:35→21:38)
[2021-05-24 05:01] VITALS: BP 120/64
[2021-05-24 06:50] LABS: Anion Gap 6 (5-15); BUN/Creatinine Ratio 25.5; Blood Urea Nitrogen 13 mg/dL (7-18); Calcium 9.2 mg/dL (8.5-10.1); Carbon Dioxide 19 mmol/L (21-32); Chloride 112 mmol/L (98-107); GFR African American 155 mL/min; GFR Non-African American 128 mL/min; Glucose 188 mg/dL (74-106); Potassium 4.5 mmol/L (3.5-5.1); Sodium 137 mmol/L (136-145)
[2021-05-24 08:52] LABS: Basophils # (auto) 0 10 ^3/uL (0-0.2); Basophils % (auto) 0.4 % (0.0-2.0); Eosinophils # (auto) 0 10 ^3/uL (0-0.8); Lymphocytes # (auto) 1.1 10 ^3/uL (0.4-5.4); Monocytes # (auto) 0.4 10 ^3/uL (0-1.3); Neutrophils # (auto) 5.7 10 ^3/uL (1.6-8.6); Nucleated Red Blood Cells % 0.1 %; White Blood Cell 7.2 10^3/uL (4.4-10.8)
[2021-05-24 08:54] LABS: Hematocrit 29.5 % (36.0-46.0); Hemoglobin 9.7 g/dL (12.2-16.2); Lymphocytes % (auto) 14.9 % (10.0-50.0); Mean Corpuscular Hemoglobin 25.9 pg (28.0-32.0); Mean Corpuscular Hgb Conc. 32.9 g/dL (32.0-36.0); Mean Corpuscular Volume 78.6 fL (80.0-100.0); Monocytes % (auto) 5.9 % (0.0-12.0); Neutrophils % (auto) 78.8 % (37.0-80.0); Red Blood Cells 3.75 10^6/uL (4.0-5.20); Red Cell Distribution Width 18.1 % (11.8-14.3)
[2021-05-24 08:58] VITALS: BP 116/66
[2021-05-24] MEDS: cefTRIAXone 1GM/50ML D5W 50 ML IV SCH (09:16)
[2021-05-24] MEDS: PANTOPRAZOLE 40 MG/10 ML VIAL INJ IV SCH (09:16)
[2021-05-24] MEDS: ENOXAPARIN SOD 40 MG/0.4 ML SYRINGE SC SCH (09:16)
[2021-05-24] MEDS: LIDOCAINE 5% TOPICAL PATCH TOP SCH (12:18)
[2021-05-24] MEDS: methylPREDNISolone SOD SUCC 40 MG/ML VL IV SCH ×3 (12:27→21:39)
[2021-05-24 13:04] VITALS: BP 119/63
[2021-05-24 16:33] VITALS: BP 120/73
[2021-05-24] MEDS: LACTATED RINGER'S 1,000 ML IV SCH (16:45)
[2021-05-24 22:00] VITALS: BP 105/57
[2021-05-24] MEDS: TEMAZEPAM 15 MG CAP PO PRN (22:38)
[2021-05-25] MEDS: ALBUTEROL SULF 2.5 MG/0.5ML(0.5%) NEB SOLN NEB SCH ×3 (00:22→12:45)
[2021-05-25] MEDS: IPRATROPIUM BROM 0.5 MG/2.5ML INH SOL NEB SCH ×3 (00:22→12:45)
[2021-05-25 05:34] VITALS: BP 117/60
[2021-05-25] MEDS: LACTATED RINGER'S 1,000 ML IV SCH (06:05)
[2021-05-25] MEDS: methylPREDNISolone SOD SUCC 40 MG/ML VL IV SCH ×2 (06:09→14:32)
[2021-05-25] MEDS: MORPHINE SULFATE INJECTION 2 MG/ML SYRG IV PRN (06:10)
[2021-05-25] MEDS: PANTOPRAZOLE 40 MG/10 ML VIAL INJ IV SCH (08:39)
[2021-05-25] MEDS: ENOXAPARIN SOD 40 MG/0.4 ML SYRINGE SC SCH (08:39)
[2021-05-25] MEDS: cefTRIAXone 1GM/50ML D5W 50 ML IV SCH (08:39)
[2021-05-25] MEDS: LIDOCAINE 5% TOPICAL PATCH TOP SCH (08:40)
[2021-05-25 09:00] VITALS: BP 92/57
[2021-05-25] MEDS ORDERED: LIDO5DIS21 TOP (11:07)
[2021-05-25] MEDS ORDERED: PRED20TA2 PO (11:07)
[2021-05-25 11:23] VITALS: BP 92/57
[2021-05-25 13:00] VITALS: BP 116/61
== END 2021-05-25 15:26 | disposition home or self-care (01) | DRG 690 ==
LOC: ER 12:26 → OVERFLOW 16:56 → WEST WING 19:30
PROVIDERS: ADMIT Registered Nurse; ATTEND Internal Medicine Pulmonary Disease
PROC: 4B02XSZ Measurement of Cardiac Pacemaker, External Approach (ICD-10-PCS; 2021-05-23)
PROC: 0DJD8ZZ Inspection of Lower Intestinal Tract, Via Natural or Artificial Opening Endoscopic (ICD-10-PCS; principal; 2021-05-23 13:35)
DX: N30.00 Acute cystitis without hematuria (principal); J44.1 Chronic obstructive pulmonary disease with (acute) exacerbation; J45.901 Unspecified asthma with (acute) exacerbation; J96.11 Chronic respiratory failure with hypoxia; K57.30 Diverticulosis of large intestine without perforation or abscess without bleeding; D64.9 Anemia, unspecified; E61.1 Iron deficiency; Z20.822 Contact with and (suspected) exposure to COVID-19; E66.9 Obesity, unspecified; Z68.36 Body mass index [BMI] 36.0-36.9, adult; K64.8 Other hemorrhoids; E11.9 Type 2 diabetes mellitus without complications; F41.9 Anxiety disorder, unspecified; K21.9 Gastro-esophageal reflux disease without esophagitis; M54.50 Low back pain, unspecified; R79.89 Other specified abnormal findings of blood chemistry; R80.9 Proteinuria, unspecified; Z81.8 Family history of other mental and behavioral disorders; Z82.0 Family history of epilepsy and other diseases of the nervous system; Z82.49 Family history of ischemic heart disease and other diseases of the circulatory system; Z82.5 Family history of asthma and other chronic lower respiratory diseases; Z83.3 Family history of diabetes mellitus; Z82.3 Family history of stroke; Z90.49 Acquired absence of other specified parts of digestive tract; Z90.710 Acquired absence of both cervix and uterus; Z95.0 Presence of cardiac pacemaker; Z98.84 Bariatric surgery status; Z99.81 Dependence on supplemental oxygen; Z88.6 Allergy status to analgesic agent; Z88.1 Allergy status to other antibiotic agents; Z88.5 Allergy status to narcotic agent; Z88.8 Allergy status to other drugs, medicaments and biological substances; Z87.19 Personal history of other diseases of the digestive system
CPT/HCPCS: 36415; 71045; 74176; 74181; 80048; 80053; 80076; 80307; 81001; 82150; 83690; 83735; 85025; 85610; 87045; 87427; 93005; 94640; 96361; 96365; 96375; C9113; G0378; J0330; J0696; J1100; J2250; J2405; J2704

== ENCOUNTER 2021-06-14 13:35 | Inpatient (IN) | payer OTHER, MEDICAID ==
[~2021-06-14] VITALS: Ht 157.5 cm; Wt 110.0 kg
[~2021-06-14 13:35] MED LIST changes: -ALBUAER3 IN; -BECL80AE11 IN; -CEPH-37 PO; -CHOL20009 PO; +CHOL400T19 PO; -GABA-339 PO; +GABA400C PO; +LIDO5DIS21 TOP; +MULT-1018 PO; -PANT40TA2 PO; +TEMA15CA2 PO; -ZINC220T6 PO
[2021-06-14 14:22] LABS: Basophils # (auto) 0.1 10 ^3/uL (0-0.2); Basophils % (auto) 1.3 % (0.0-2.0); Eosinophils # (auto) 0.5 10 ^3/uL (0-0.8); Eosinophils % (auto) 7.4 % (0.0-7.0); Hematocrit 31.9 % (36.0-46.0); Hemoglobin 10.3 g/dL (12.2-16.2); Lymphocytes # (auto) 1.6 10 ^3/uL (0.4-5.4); Lymphocytes % (auto) 24.1 % (10.0-50.0); Mean Corpuscular Hemoglobin 25.1 pg (28.0-32.0); Mean Corpuscular Hgb Conc. 32.3 g/dL (32.0-36.0); Mean Corpuscular Volume 77.8 fL (80.0-100.0); Monocytes # (auto) 0.4 10 ^3/uL (0-1.3); Monocytes % (auto) 6.1 % (0.0-12.0); Neutrophils # (auto) 3.9 10 ^3/uL (1.6-8.6); Neutrophils % (auto) 61.1 % (37.0-80.0); Nucleated Red Blood Cells % 0.1 %; Red Cell Distribution Width 18.3 % (11.8-14.3); White Blood Cell 6.4 10^3/uL (4.4-10.8)
[2021-06-14 15:58] LABS: Albumin 3.4 g/dL (3.4-5.0); Calcium 8.7 mg/dL (8.5-10.1); Magnesium 2.6 mg/dL (1.6-2.6); Potassium 3.9 mmol/L (3.5-5.1)
[2021-06-14 16:03] LABS: Bilirubin, Total 0.3 mg/dL (0.2-1.0); Total Protein 7.2 g/dL (6.4-8.2)
[2021-06-14 20:45] LABS: Urine Bacteria NONE SEEN /hpf (None Seen); Urine Blood Negative /uL (Negative); Urine Mucus FEW (None Seen); Urine WBC 50 /hpf (0 - 5)
[2021-06-14] MEDS ORDERED: CLOPIDOGREL BISULFATE 75 MG TAB PO ONE (23:15)
[2021-06-14] MEDS ORDERED: ATORVASTATIN 20 MG TAB PO ONE (23:15)
[2021-06-15] VITALS (7 sets, daily range): BP systolic 99–147; BP diastolic 38–83
[2021-06-15 00:02] LABS: Eosinophils # (auto) 0.6 10 ^3/uL (0-0.8); Lymphocytes # (auto) 2.2 10 ^3/uL (0.4-5.4); Mean Corpuscular Hgb Conc. 33.3 g/dL (32.0-36.0); Monocytes # (auto) 0.4 10 ^3/uL (0-1.3); Neutrophils # (auto) 2.9 10 ^3/uL (1.6-8.6); Nucleated Red Blood Cells % 0.1 %; Red Blood Cells 3.73 10^6/uL (4.0-5.20); White Blood Cell 6.2 10^3/uL (4.4-10.8)
[2021-06-15 00:04] LABS: Basophils # (auto) 0 10 ^3/uL (0-0.2); Basophils % (auto) 0.4 % (0.0-2.0); Eosinophils % (auto) 10.4 % (0.0-7.0); Hematocrit 28.8 % (36.0-46.0); Hemoglobin 9.6 g/dL (12.2-16.2); Mean Corpuscular Hemoglobin 25.7 pg (28.0-32.0); Mean Corpuscular Volume 77.2 fL (80.0-100.0); Monocytes % (auto) 6.9 % (0.0-12.0); Neutrophils % (auto) 47.3 % (37.0-80.0)
[2021-06-15 00:20] LABS: Albumin 3.1 g/dL (3.4-5.0); Calcium 8.6 mg/dL (8.5-10.1); Potassium 3.8 mmol/L (3.5-5.1)
[2021-06-15 00:29] LABS: BUN/Creatinine Ratio 35.2; Bilirubin, Total 0.4 mg/dL (0.2-1.0); Total Protein 6.2 g/dL (6.4-8.2)
[2021-06-15 06:42] LABS: Cholesterol 147 mg/dL (< 200); Triglycerides 76 mg/dL (< 150)
[2021-06-15 06:45] LABS: HDL Cholesterol 35 mg/dL (40-59); LDL Cholesterol 104 mg/dL (< 100)
[2021-06-15] MEDS: LIDOCAINE 5% TOPICAL PATCH TOP SCH (09:47)
[2021-06-15] MEDS: MULTIPLE VITAMIN TAB PO SCH (09:47)
[2021-06-15] MEDS: GABAPENTIN 400 MG CAP PO SCH ×2 (13:21→21:42)
[2021-06-15] MEDS: traMADol HCL 50 MG TAB PO PRN ×2 (13:58→20:30)
[2021-06-15] MEDS ORDERED: LORazepam 2MG/ML-1ML VIAL IV PRN (21:30)
[2021-06-15] MEDS ORDERED: levETIRAcetam 500 MG/5ML INJ IV ONE (23:25)
[2021-06-16] VITALS (10 sets, daily range): BP systolic 98–123; BP diastolic 36–69
[2021-06-16] MEDS ORDERED: LORazepam 2MG/ML-1ML VIAL IV PRN
[2021-06-16] MEDS: GABAPENTIN 400 MG CAP PO SCH ×3 (06:00→22:55)
[2021-06-16] MEDS: MULTIPLE VITAMIN TAB PO SCH (09:47)
[2021-06-16] MEDS: LIDOCAINE 5% TOPICAL PATCH TOP SCH (10:00)
[2021-06-16] MEDS: SODIUM FERR GLUC 62.5MG/5ML 125 MG in SODIUM CHL 0.9% 100 ML IV SCH (12:30)
[2021-06-17] VITALS (7 sets, daily range): BP systolic 101–120; BP diastolic 48–69
[2021-06-17] MEDS: GABAPENTIN 400 MG CAP PO SCH ×3 (05:52→22:00)
[2021-06-17] MEDS: LORazepam 2MG/ML-1ML VIAL IV PRN ×3 (09:46→19:01)
[2021-06-17] MEDS: MULTIPLE VITAMIN TAB PO SCH (10:00)
[2021-06-17] MEDS: LIDOCAINE 5% TOPICAL PATCH TOP SCH (10:20)
[2021-06-17] MEDS: SODIUM FERR GLUC 62.5MG/5ML 125 MG in SODIUM CHL 0.9% 100 ML IV SCH (12:22)
[2021-06-18 05:00] VITALS: BP 107/59
[2021-06-18 05:21] LABS: Basophils # (auto) 0.2 10 ^3/uL (0-0.2); Basophils % (auto) 2.9 % (0.0-2.0); Eosinophils # (auto) 0.4 10 ^3/uL (0-0.8); Eosinophils % (auto) 8.1 % (0.0-7.0); Hematocrit 32.1 % (36.0-46.0); Hemoglobin 10.4 g/dL (12.2-16.2); Lymphocytes # (auto) 1.1 10 ^3/uL (0.4-5.4); Lymphocytes % (auto) 21.9 % (10.0-50.0); Mean Corpuscular Hemoglobin 25.6 pg (28.0-32.0); Mean Corpuscular Hgb Conc. 32.5 g/dL (32.0-36.0); Mean Corpuscular Volume 78.6 fL (80.0-100.0); Monocytes # (auto) 0.3 10 ^3/uL (0-1.3); Monocytes % (auto) 5.7 % (0.0-12.0); Neutrophils # (auto) 3.2 10 ^3/uL (1.6-8.6); Neutrophils % (auto) 61.4 % (37.0-80.0); Nucleated Red Blood Cells % 0.1 %; Red Blood Cells 4.08 10^6/uL (4.0-5.20); Red Cell Distribution Width 17.6 % (11.8-14.3); White Blood Cell 5.2 10^3/uL (4.4-10.8)
[2021-06-18 05:25] LABS: % Iron Saturation 82.9 % (15-50)
[2021-06-18 05:26] LABS: Calcium 8.6 mg/dL (8.5-10.1); Magnesium 2.4 mg/dL (1.6-2.6); Potassium 3.9 mmol/L (3.5-5.1)
[2021-06-18] MEDS: GABAPENTIN 400 MG CAP PO SCH ×3 (06:23→22:56)
[2021-06-18 07:13] LABS: Amphetamine Screen, Urine NEGATIVE (NEGATIVE); Barbiturate Scree,Urine NEGATIVE (NEGATIVE); Benzodiazephine Screen, Urine NEGATIVE (NEGATIVE); Cannabinoid Screen, Urine NEGATIVE (NEGATIVE); Opiate Scree,Urine NEGATIVE (NEGATIVE); Phencyclidine Screen, Urine NEGATIVE (NEGATIVE)
[2021-06-18 07:22] LABS: Cocaine Screen, Urine NEGATIVE (NEGATIVE)
[2021-06-18 08:00] VITALS: BP 110/69
[2021-06-18] MEDS: MULTIPLE VITAMIN TAB PO SCH (09:24)
[2021-06-18] MEDS: LIDOCAINE 5% TOPICAL PATCH TOP SCH (09:25)
[2021-06-18 12:00] VITALS: BP 105/64
[2021-06-18] MEDS: SODIUM FERR GLUC 62.5MG/5ML 125 MG in SODIUM CHL 0.9% 100 ML IV SCH (12:05)
[2021-06-18] MEDS: LORazepam 2MG/ML-1ML VIAL IV PRN ×2 (13:08→16:38)
[2021-06-18 16:00] VITALS: BP 96/61
[2021-06-18 22:00] VITALS: BP 111/74
[2021-06-19 05:00] VITALS: BP 114/67
[2021-06-19] MEDS: GABAPENTIN 400 MG CAP PO SCH ×3 (05:54→22:51)
[2021-06-19 09:00] VITALS: BP 105/61
[2021-06-19] MEDS: MULTIPLE VITAMIN TAB PO SCH (12:13)
[2021-06-19] MEDS: LIDOCAINE 5% TOPICAL PATCH TOP SCH (12:14)
[2021-06-19 13:00] VITALS: BP 105/51
[2021-06-19 17:00] VITALS: BP 99/64
[2021-06-19] MEDS: LORazepam 2MG/ML-1ML VIAL IV PRN (18:46)
[2021-06-20 04:57] VITALS: BP 104/53
[2021-06-20 05:29] LABS: Hematocrit 31.5 % (36.0-46.0); Hemoglobin 10.4 g/dL (12.2-16.2)
[2021-06-20 05:43] LABS: Magnesium 2.3 mg/dL (1.6-2.6)
[2021-06-20] MEDS: GABAPENTIN 400 MG CAP PO SCH ×3 (06:06→22:08)
[2021-06-20 08:00] VITALS: BP 105/67
[2021-06-20] MEDS: MULTIPLE VITAMIN TAB PO SCH (10:13)
[2021-06-20] MEDS: LIDOCAINE 5% TOPICAL PATCH TOP SCH (10:13)
[2021-06-20] MEDS: LORazepam 2MG/ML-1ML VIAL IV PRN ×2 (10:35→18:35)
[2021-06-20 11:55] VITALS: BP 98/59
[2021-06-20 16:00] VITALS: BP 112/65
[2021-06-20 21:44] VITALS: BP 97/59
[2021-06-21 04:42] VITALS: BP 106/53
[2021-06-21] MEDS: GABAPENTIN 400 MG CAP PO SCH ×2 (05:58→13:48)
[2021-06-21] MEDS: MULTIPLE VITAMIN TAB PO SCH (09:55)
[2021-06-21] MEDS: LIDOCAINE 5% TOPICAL PATCH TOP SCH (09:57)
[2021-06-21] MEDS ORDERED: SERT25TA84 PO (12:27)
[2021-06-21 14:46] VITALS: BP 96/47
== END 2021-06-21 16:45 | disposition home health service (06) | DRG 101 ==
LOC: ER 13:35 → TELE 23:11 → TELE-WESTW 23:31
PROVIDERS: ADMIT Internal Medicine; ATTEND Internal Medicine
DX: R56.9 Unspecified convulsions (principal); K86.1 Other chronic pancreatitis; J96.10 Chronic respiratory failure, unspecified whether with hypoxia or hypercapnia; J44.9 Chronic obstructive pulmonary disease, unspecified; E03.9 Hypothyroidism, unspecified; D64.9 Anemia, unspecified; E11.9 Type 2 diabetes mellitus without complications; E78.5 Hyperlipidemia, unspecified; F32.A Depression, unspecified; F41.9 Anxiety disorder, unspecified; I48.91 Unspecified atrial fibrillation; K21.9 Gastro-esophageal reflux disease without esophagitis; R47.9 Unspecified speech disturbances; Z20.822 Contact with and (suspected) exposure to COVID-19; J32.4 Chronic pansinusitis; K76.0 Fatty (change of) liver, not elsewhere classified; I10 Essential (primary) hypertension; Z98.84 Bariatric surgery status; Z79.02 Long term (current) use of antithrombotics/antiplatelets; Z79.899 Other long term (current) drug therapy; Z81.8 Family history of other mental and behavioral disorders; Z82.0 Family history of epilepsy and other diseases of the nervous system; Z82.3 Family history of stroke; Z82.49 Family history of ischemic heart disease and other diseases of the circulatory system; Z82.5 Family history of asthma and other chronic lower respiratory diseases; Z83.3 Family history of diabetes mellitus; Z86.718 Personal history of other venous thrombosis and embolism; Z86.73 Personal history of transient ischemic attack (TIA), and cerebral infarction without residual deficits; Z87.11 Personal history of peptic ulcer disease; Z87.891 Personal history of nicotine dependence; Z90.710 Acquired absence of both cervix and uterus; Z95.0 Presence of cardiac pacemaker; Z88.6 Allergy status to analgesic agent; Z88.1 Allergy status to other antibiotic agents; Z88.5 Allergy status to narcotic agent; Z88.8 Allergy status to other drugs, medicaments and biological substances; Z90.49 Acquired absence of other specified parts of digestive tract
CPT/HCPCS: 36415; 70450; 70551; 71045; 80048; 80053; 80061; 80307; 81001; 82306; 82542; 82962; 83540; 83550; 83735; 84132; 84443; 84484; 85014; 85018; 85025; 87081; 92610; 93005; 93306; 93886; 97116; 97163; 97530; G0378; J7042; J7060

== ENCOUNTER 2021-08-06 14:26 | Emergency (ER) | payer OTHER, MEDICAID ==
[~2021-08-06] VITALS: Ht 165.1 cm; Wt 93.0 kg
[~2021-08-06 14:26] MED LIST changes: +SERT25TA84 PO
[2021-08-06] MEDS ORDERED: ACETAMINOPHEN 325 MG TAB PO ONE (18:00)
[2021-08-06 18:03] VITALS: BP 105/55
== END 2021-08-06 18:36 | disposition home or self-care (01) ==
LOC: ER 14:26
DX: S63.501A Unspecified sprain of right wrist, initial encounter (principal); Z88.6 Allergy status to analgesic agent; Z88.8 Allergy status to other drugs, medicaments and biological substances; W01.0XXA Fall on same level from slipping, tripping and stumbling without subsequent striking against object, initial encounter; Y93.89 Activity, other specified; Y92.89 Other specified places as the place of occurrence of the external cause; Y99.8 Other external cause status
CPT/HCPCS: 29125; 73110

== ENCOUNTER 2021-08-10 12:33 | Inpatient (IN) | payer OTHER, MEDICAID ==
[~2021-08-10] VITALS: Ht 165.1 cm; Wt 99.9 kg
[2021-08-10] MEDS ORDERED: ACETAMINOPHEN 325 MG TAB PO ONE (17:00)
[2021-08-10 17:12] LABS: Basophils # (auto) 0 10 ^3/uL (0-0.2); Eosinophils # (auto) 0.6 10 ^3/uL (0-0.8); Eosinophils % (auto) 12.9 % (0.0-7.0); Hematocrit 37.5 % (36.0-46.0); Hemoglobin 12.4 g/dL (12.2-16.2); Lymphocytes # (auto) 1.6 10 ^3/uL (0.4-5.4); Lymphocytes % (auto) 31.5 % (10.0-50.0); Mean Corpuscular Hemoglobin 28.7 pg (28.0-32.0); Mean Corpuscular Volume 86.9 fL (80.0-100.0); Monocytes # (auto) 0.3 10 ^3/uL (0-1.3); Neutrophils # (auto) 2.5 10 ^3/uL (1.6-8.6); Neutrophils % (auto) 48.6 % (37.0-80.0); Red Blood Cells 4.32 10^6/uL (4.0-5.20); White Blood Cell 5.1 10^3/uL (4.4-10.8)
[2021-08-10 17:14] LABS: Red Cell Distribution Width 22.3 % (11.8-14.3)
[2021-08-10 17:23] LABS: Albumin 3.4 g/dL (3.4-5.0); BUN/Creatinine Ratio 25.9; Potassium 4.1 mmol/L (3.5-5.1)
[2021-08-10 17:41] LABS: Bilirubin, Total 0.5 mg/dL (0.2-1.0); Calcium 9.5 mg/dL (8.5-10.1); Total Protein 7.4 g/dL (6.4-8.2)
[2021-08-10] MEDS ORDERED: LORazepam 2MG/ML-1ML VIAL IV ONE (22:30)
[2021-08-10] MEDS ORDERED: SODIUM CHLORIDE 0.9% 1,000 ML IV ONE (22:30)
[2021-08-10] MEDS ORDERED: MECLIZINE HCL 25 MG TAB PO ONE (22:30)
[2021-08-10] MEDS ORDERED: ONDANSETRON HCL 4 MG/2 ML VIAL IV ONE (22:30)
[2021-08-11] MEDS ORDERED: DOCUSATE SOD 100 MG CAP PO PRN
[2021-08-11] MEDS ORDERED: diphenhdrAMINE HCL 50 MG/1 ML VL IV PRN
[2021-08-11] MEDS ORDERED: ONDANSETRON HCL 4 MG/2 ML VIAL IV PRN
[2021-08-11] MEDS ORDERED: MORPHINE SULFATE INJ 2 MG/ml SYRG IV PRN
[2021-08-11] MEDS ORDERED: NITROGLYCERIN 0.4 MG SL TAB SL PRN
[2021-08-11] MEDS ORDERED: LORazepam 2MG/ML-1ML VIAL IV PRN
[2021-08-11 07:08] LABS: Hematocrit 33.6 % (36.0-46.0); Hemoglobin 11.5 g/dL (12.2-16.2); Mean Corpuscular Hemoglobin 29.4 pg (28.0-32.0); Mean Corpuscular Hgb Conc. 34.2 g/dL (32.0-36.0); Mean Corpuscular Volume 85.8 fL (80.0-100.0); Red Blood Cells 3.91 10^6/uL (4.0-5.20); White Blood Cell 3.8 10^3/uL (4.4-10.8)
[2021-08-11 07:16] LABS: Band Neutrophils % (manual) 0; Basophils % (manual) 0 (0.0-2.0); Blast Cells 0; Metamyelocytes % 0; Myelocytes % 0; Promyelocytes % 0; Reactive Lymphocytes 0; Red Cell Distribution Width 21.4 % (11.8-14.3)
[2021-08-11 07:21] LABS: Potassium 3.9 mmol/L (3.5-5.1)
[2021-08-11 07:29] LABS: Albumin 2.9 g/dL (3.4-5.0); BUN/Creatinine Ratio 25.9; Bilirubin, Total 0.5 mg/dL (0.2-1.0); Calcium 8.4 mg/dL (8.5-10.1); Total Protein 6.2 g/dL (6.4-8.2)
[2021-08-11 08:00] VITALS: BP 110/50
[2021-08-11 09:00] VITALS: BP_SYST 123; BP_SYST 127; BP_DIAS 80; BP_DIAS 87
[2021-08-11 09:35] LABS: Lymphocytes % (manual) 37 (10.0-50.0); Monocytes % (manual) 4 (0-12)
[2021-08-11 09:36] LABS: Eosinophils % (manual) 14 (0-7)
[2021-08-11] MEDS: MULTIPLE VITAMIN TAB PO SCH (11:14)
[2021-08-11] MEDS: MECLIZINE HCL 25 MG TAB PO PRN ×2 (11:15→18:18)
[2021-08-11] MEDS: HEPARIN SODIUM (PORCINE) 5000 UNITS/ML 1ML VIAL SC SCH ×2 (11:16→21:44)
[2021-08-11 13:00] VITALS: BP_SYST 126; BP_SYST 181; BP_DIAS 68; BP_DIAS 91
[2021-08-11 17:00] VITALS: BP 126/68
[2021-08-11 22:00] VITALS: BP 121/49
[2021-08-12] MEDS ORDERED: PANT40T PO (02:26)
[2021-08-12 05:00] VITALS: BP 114/60
[2021-08-12] MEDS: MECLIZINE HCL 25 MG TAB PO PRN (05:08)
[2021-08-12 09:02] VITALS: BP 92/46
[2021-08-12] MEDS: HEPARIN SODIUM (PORCINE) 5000 UNITS/ML 1ML VIAL SC SCH ×2 (09:24→21:16)
[2021-08-12] MEDS: MULTIPLE VITAMIN TAB PO SCH (09:24)
[2021-08-12 13:00] VITALS: BP 100/44
[2021-08-12] MEDS: ACETAMINOPHEN 500 MG TAB PO PRN ×2 (14:33→21:25)
[2021-08-12] MEDS: SODIUM CHLORIDE 0.9% 1,000 ML IV SCH (14:34)
[2021-08-12 17:00] VITALS: BP 107/44
[2021-08-12] MEDS ORDERED: LORazepam 2MG/ML-1ML VIAL IV PRN (18:30)
[2021-08-12 22:00] VITALS: BP 129/47
[2021-08-13] MEDS: SODIUM CHLORIDE 0.9% 1,000 ML IV SCH (00:20)
[2021-08-13] MEDS ORDERED: ALBU108A5 INH (04:58)
[2021-08-13 05:00] VITALS: BP 101/63
[2021-08-13] MEDS: ACETAMINOPHEN 500 MG TAB PO PRN (05:06)
[2021-08-13] MEDS ORDERED: ALBUTEROL SULF 2.5 MG/0.5ML(0.5%) NEB SOLN NEB PRN (07:00)
[2021-08-13] MEDS ORDERED: MECL12.514 PO (08:40)
[2021-08-13 09:00] VITALS: BP 120/37
[2021-08-13] MEDS: HEPARIN SODIUM (PORCINE) 5000 UNITS/ML 1ML VIAL SC SCH (09:15)
[2021-08-13] MEDS: MULTIPLE VITAMIN TAB PO SCH (09:16)
[2021-08-13 13:00] VITALS: BP 120/59
== END 2021-08-13 13:05 | disposition home or self-care (01) | DRG 69 ==
LOC: EDBD 12:33 → ER 12:33 → TELE 23:59 → TELE-EAST 08-11 09:12
PROVIDERS: ADMIT Nurse Practitioner Family; ATTEND Family Medicine
DX: G45.9 Transient cerebral ischemic attack, unspecified (principal); K86.1 Other chronic pancreatitis; I95.9 Hypotension, unspecified; E11.9 Type 2 diabetes mellitus without complications; R25.1 Tremor, unspecified; Z20.822 Contact with and (suspected) exposure to COVID-19; E66.01 Morbid (severe) obesity due to excess calories; E78.5 Hyperlipidemia, unspecified; F41.1 Generalized anxiety disorder; K21.9 Gastro-esophageal reflux disease without esophagitis; I10 Essential (primary) hypertension; J44.9 Chronic obstructive pulmonary disease, unspecified; M12.9 Arthropathy, unspecified; Z81.8 Family history of other mental and behavioral disorders; Z82.0 Family history of epilepsy and other diseases of the nervous system; Z82.3 Family history of stroke; Z82.49 Family history of ischemic heart disease and other diseases of the circulatory system; Z86.73 Personal history of transient ischemic attack (TIA), and cerebral infarction without residual deficits; Z82.5 Family history of asthma and other chronic lower respiratory diseases; Z88.5 Allergy status to narcotic agent; Z88.1 Allergy status to other antibiotic agents; Z88.8 Allergy status to other drugs, medicaments and biological substances; Z88.6 Allergy status to analgesic agent; Z83.3 Family history of diabetes mellitus; Z86.718 Personal history of other venous thrombosis and embolism; Z87.11 Personal history of peptic ulcer disease; Z90.710 Acquired absence of both cervix and uterus; Z95.0 Presence of cardiac pacemaker; Z98.84 Bariatric surgery status; Z90.49 Acquired absence of other specified parts of digestive tract; Z68.36 Body mass index [BMI] 36.0-36.9, adult
CPT/HCPCS: 36415; 70450; 71045; 80053; 84484; 85007; 85025; 85027; 93005; 96361; 96374; G0378; J2405

== ENCOUNTER 2021-11-04 19:41 | Emergency (ER) | payer OTHER, MEDICAID ==
[~2021-11-04] VITALS: Ht 165.1 cm; Wt 102.3 kg
[~2021-11-04 19:41] MED LIST changes: +ALBU108A5 INH; +MECL12.514 PO; +PANT40T PO
[2021-11-04 21:10] LABS: Basophils # (auto) 0.1 10 ^3/uL (0-0.2); Basophils % (auto) 1.3 % (0.0-2.0); Eosinophils # (auto) 0.5 10 ^3/uL (0-0.8); Eosinophils % (auto) 7.9 % (0.0-7.0); Hematocrit 41.6 % (36.0-46.0); Hemoglobin 13.4 g/dL (12.2-16.2); Lymphocytes # (auto) 1.9 10 ^3/uL (0.4-5.4); Lymphocytes % (auto) 29.5 % (10.0-50.0); Mean Corpuscular Hemoglobin 29.4 pg (28.0-32.0); Mean Corpuscular Hgb Conc. 32.3 g/dL (32.0-36.0); Monocytes # (auto) 0.4 10 ^3/uL (0-1.3); Monocytes % (auto) 5.7 % (0.0-12.0); Neutrophils # (auto) 3.5 10 ^3/uL (1.6-8.6); Neutrophils % (auto) 55.6 % (37.0-80.0); Nucleated Red Blood Cells % 0.1 %; Red Blood Cells 4.57 10^6/uL (4.0-5.20); Red Cell Distribution Width 15.2 % (11.8-14.3); White Blood Cell 6.4 10^3/uL (4.4-10.8)
[2021-11-04 21:52] LABS: Albumin 3.6 g/dL (3.4-5.0); Calcium 8.9 mg/dL (8.5-10.1); Potassium 3.8 mmol/L (3.5-5.1)
[2021-11-04 21:55] LABS: BUN/Creatinine Ratio 29.2; Bilirubin, Total 0.3 mg/dL (0.2-1.0); Total Protein 7.6 g/dL (6.4-8.2)
[2021-11-04 22:20] LABS: Urine Bacteria NONE SEEN /hpf (None Seen); Urine Blood TRACE /uL (Negative); Urine Mucus FEW (None Seen); Urine Specific Gravity 1.031 (1.001-1.035); Urine WBC 147 /hpf (0 - 5)
[2021-11-05] MEDS ORDERED: KETOROLAC TROMETH 60MG/2ML VIAL IM ONE (03:00)
[2021-11-05] MEDS ORDERED: CEPH-510 PO (04:24)
[2021-11-05 06:00] VITALS: BP 125/48
== END 2021-11-05 07:34 | disposition home or self-care (01) ==
LOC: ER 19:41
DX: N39.0 Urinary tract infection, site not specified (principal); R11.10 Vomiting, unspecified; J44.9 Chronic obstructive pulmonary disease, unspecified; E11.9 Type 2 diabetes mellitus without complications; K21.9 Gastro-esophageal reflux disease without esophagitis; E78.5 Hyperlipidemia, unspecified; Z90.49 Acquired absence of other specified parts of digestive tract; Z90.710 Acquired absence of both cervix and uterus; Z90.89 Acquired absence of other organs; Z95.0 Presence of cardiac pacemaker; Z79.899 Other long term (current) drug therapy; Z88.5 Allergy status to narcotic agent; Z88.6 Allergy status to analgesic agent; Z88.8 Allergy status to other drugs, medicaments and biological substances
CPT/HCPCS: 36415; 74176; 80053; 81001; 85025; 96372; 99284; J1885

== ENCOUNTER 2021-12-08 12:33 | Emergency (ER) | payer OTHER, MEDICAID ==
[~2021-12-08] VITALS: Ht 160 cm; Wt 101.0 kg
[~2021-12-08 12:33] MED LIST changes: +CEPH-510 PO
[2021-12-08 15:10] VITALS: BP 114/53
== END 2021-12-08 15:21 | disposition home or self-care (01) ==
LOC: ER 12:33
DX: S56.911A Strain of unspecified muscles, fascia and tendons at forearm level, right arm, initial encounter (principal); J44.9 Chronic obstructive pulmonary disease, unspecified; E11.9 Type 2 diabetes mellitus without complications; K21.9 Gastro-esophageal reflux disease without esophagitis; E78.5 Hyperlipidemia, unspecified; Z90.49 Acquired absence of other specified parts of digestive tract; Z90.710 Acquired absence of both cervix and uterus; Z95.0 Presence of cardiac pacemaker; Z90.89 Acquired absence of other organs; Z79.899 Other long term (current) drug therapy; Z88.6 Allergy status to analgesic agent; Z88.8 Allergy status to other drugs, medicaments and biological substances; Z88.1 Allergy status to other antibiotic agents; X58.XXXA Exposure to other specified factors, initial encounter; Y93.89 Activity, other specified; Y92.89 Other specified places as the place of occurrence of the external cause; Y99.8 Other external cause status
CPT/HCPCS: 93005; 93971

== ENCOUNTER 2021-12-16 18:57 | Inpatient (IN) | payer OTHER, MEDICAID ==
[~2021-12-16] VITALS: Ht 165.1 cm; Wt 101.9 kg
[2021-12-16 21:07] LABS: Basophils # (auto) 0.1 10 ^3/uL (0-0.2); Eosinophils # (auto) 0.6 10 ^3/uL (0-0.8); Eosinophils % (auto) 8.3 % (0.0-7.0); Hematocrit 39.5 % (36.0-46.0); Hemoglobin 13.2 g/dL (12.2-16.2); Lymphocytes # (auto) 2.1 10 ^3/uL (0.4-5.4); Lymphocytes % (auto) 30.7 % (10.0-50.0); Mean Corpuscular Hemoglobin 30.1 pg (28.0-32.0); Mean Corpuscular Hgb Conc. 33.3 g/dL (32.0-36.0); Mean Corpuscular Volume 90.4 fL (80.0-100.0); Monocytes # (auto) 0.4 10 ^3/uL (0-1.3); Monocytes % (auto) 5.4 % (0.0-12.0); Neutrophils # (auto) 3.8 10 ^3/uL (1.6-8.6); Neutrophils % (auto) 54.6 % (37.0-80.0); Nucleated Red Blood Cells % 0.1 %; Red Blood Cells 4.37 10^6/uL (4.0-5.20); Red Cell Distribution Width 15.3 % (11.8-14.3); White Blood Cell 6.9 10^3/uL (4.4-10.8)
[2021-12-16 21:24] LABS: Albumin 3.5 g/dL (3.4-5.0); Calcium 8.5 mg/dL (8.5-10.1); Potassium 4.5 mmol/L (3.5-5.1)
[2021-12-16 21:28] LABS: BUN/Creatinine Ratio 30.3; Bilirubin, Total 0.2 mg/dL (0.2-1.0)
[2021-12-16] MEDS ORDERED: ONDANSETRON HCL 4 MG/2 ML VIAL IV PRN (23:30)
[2021-12-16] MEDS ORDERED: DOCUSATE SOD 100 MG CAP PO PRN (23:30)
[2021-12-16] MEDS ORDERED: MORPHINE SULFATE INJ 2 MG/ml SYRG IV PRN (23:30)
[2021-12-17] MEDS ORDERED: NITROGLYCERIN 0.4 MG SL TAB SL PRN
[2021-12-17] MEDS ORDERED: SODIUM CHLORIDE 0.9% 500 ML IV ONE (02:00)
[2021-12-17] MEDS: DOPamine 1600MCG/ML D5W 250 ML IV SCH ×2 (02:00→15:03)
[2021-12-17 04:12] LABS: Basophils # (auto) 0 10 ^3/uL (0-0.2); Basophils % (auto) 0.1 % (0.0-2.0); Eosinophils # (auto) 0.6 10 ^3/uL (0-0.8); Eosinophils % (auto) 10.2 % (0.0-7.0); Hematocrit 34.9 % (36.0-46.0); Hemoglobin 11.7 g/dL (12.2-16.2); Lymphocytes % (auto) 34.4 % (10.0-50.0); Mean Corpuscular Hemoglobin 30.2 pg (28.0-32.0); Mean Corpuscular Hgb Conc. 33.4 g/dL (32.0-36.0); Mean Corpuscular Volume 90.5 fL (80.0-100.0); Monocytes # (auto) 0.4 10 ^3/uL (0-1.3); Monocytes % (auto) 6.1 % (0.0-12.0); Neutrophils # (auto) 2.9 10 ^3/uL (1.6-8.6); Neutrophils % (auto) 49.2 % (37.0-80.0); Nucleated Red Blood Cells % 0.3 %; Red Blood Cells 3.86 10^6/uL (4.0-5.20)
[2021-12-17 04:36] LABS: Albumin 2.8 g/dL (3.4-5.0); Calcium 8.1 mg/dL (8.5-10.1); Potassium 3.9 mmol/L (3.5-5.1)
[2021-12-17 04:40] LABS: Bilirubin, Total 0.3 mg/dL (0.2-1.0)
[2021-12-17 05:10] VITALS: BP 109/34
[2021-12-17 05:26] VITALS: BP 109/34
[2021-12-17] MEDS ORDERED: DULO20CA PO (05:51)
[2021-12-17] MEDS ORDERED: MAGN400T40 PO (05:51)
[2021-12-17] MEDS ORDERED: MONT-8 PO (05:51)
[2021-12-17] MEDS ORDERED: TRAM50TA2 PO (05:52)
[2021-12-17] MEDS ORDERED: FERR18TA PO (05:52)
[2021-12-17] MEDS ORDERED: TRAZ50TA2 PO (05:52)
[2021-12-17] MEDS ORDERED: CYAN-17 PO (05:52)
[2021-12-17] MEDS: SODIUM CHLOR 0.9% PF (SALINE LOCK) 10ML VIAL/SYR IV SCH ×3 (05:54→21:41)
[2021-12-17 09:00] VITALS: BP 100/40
[2021-12-17] MEDS: ACETAMINOPHEN 325 MG TAB PO PRN (09:30)
[2021-12-17 13:00] VITALS: BP 110/55
[2021-12-17] MEDS: GABAPENTIN 400 MG CAP PO SCH ×2 (13:54→21:41)
[2021-12-17 17:00] VITALS: BP 90/54
[2021-12-18] VITALS (7 sets, daily range): BP systolic 81–135; BP diastolic 25–45
[2021-12-18] MEDS: DOPamine 1600MCG/ML D5W 250 ML IV SCH (04:06)
[2021-12-18] MEDS: GABAPENTIN 400 MG CAP PO SCH ×4 (05:22→21:06)
[2021-12-18] MEDS: SODIUM CHLOR 0.9% PF (SALINE LOCK) 10ML VIAL/SYR IV SCH ×2 (05:22→13:48)
[2021-12-18] MEDS: ACETAMINOPHEN 325 MG TAB PO PRN ×4 (05:23→21:27)
[2021-12-18] MEDS: IPRATROPIUM BROM 0.5 MG/2.5ML INH SOL NEB SCH ×3 (06:27→19:28)
[2021-12-18] MEDS: ALBUTEROL SULF 2.5 MG/0.5ML(0.5%) NEB SOLN NEB SCH ×3 (06:28→19:28)
[2021-12-18 06:54] LABS: Basophils # (auto) 0 10 ^3/uL (0-0.2); Basophils % (auto) 0.8 % (0.0-2.0); Eosinophils # (auto) 0.5 10 ^3/uL (0-0.8); Eosinophils % (auto) 8.3 % (0.0-7.0); Hematocrit 36.2 % (36.0-46.0); Hemoglobin 12.3 g/dL (12.2-16.2); Lymphocytes # (auto) 1.7 10 ^3/uL (0.4-5.4); Lymphocytes % (auto) 29.6 % (10.0-50.0); Mean Corpuscular Hemoglobin 30.6 pg (28.0-32.0); Mean Corpuscular Hgb Conc. 33.9 g/dL (32.0-36.0); Mean Corpuscular Volume 90.2 fL (80.0-100.0); Monocytes # (auto) 0.3 10 ^3/uL (0-1.3); Monocytes % (auto) 5.7 % (0.0-12.0); Neutrophils # (auto) 3.3 10 ^3/uL (1.6-8.6); Neutrophils % (auto) 55.6 % (37.0-80.0); Nucleated Red Blood Cells % 0.1 %; Red Blood Cells 4.01 10^6/uL (4.0-5.20); Red Cell Distribution Width 15.1 % (11.8-14.3); White Blood Cell 5.9 10^3/uL (4.4-10.8)
[2021-12-18 07:09] LABS: Calcium 8.4 mg/dL (8.5-10.1); Potassium 4.5 mmol/L (3.5-5.1)
[2021-12-18 07:11] LABS: BUN/Creatinine Ratio 38.6
[2021-12-18] MEDS ORDERED: SODIUM CHLORIDE 0.9% 500 ML IV ONE (11:15)
[2021-12-18] MEDS: SODIUM CHLORIDE 0.9% 1,000 ML IV SCH (18:03)
[2021-12-19] MEDS: ALBUTEROL SULF 2.5 MG/0.5ML(0.5%) NEB SOLN NEB SCH ×3 (00:32→12:41)
[2021-12-19] MEDS: IPRATROPIUM BROM 0.5 MG/2.5ML INH SOL NEB SCH ×3 (00:33→12:41)
[2021-12-19 05:00] VITALS: BP 95/40
[2021-12-19 06:23] LABS: Anion Gap 6 (5-15); BUN/Creatinine Ratio 42.3; Blood Urea Nitrogen 22 mg/dL (7-18); Carbon Dioxide 23 mmol/L (21-32); Chloride 114 mmol/L (98-107); GFR African American 151 mL/min; GFR Non-African American 125 mL/min; Glucose 96 mg/dL (74-106); Potassium 4.7 mmol/L (3.5-5.1); Sodium 143 mmol/L (136-145)
[2021-12-19 06:24] LABS: Calcium 8.8 mg/dL (8.5-10.1)
[2021-12-19] MEDS: SODIUM CHLORIDE 0.9% 1,000 ML IV SCH ×2 (06:26→13:45)
[2021-12-19] MEDS: GABAPENTIN 400 MG CAP PO SCH (06:27)
[2021-12-19] MEDS: SODIUM CHLOR 0.9% PF (SALINE LOCK) 10ML VIAL/SYR IV SCH ×3 (06:27→13:53)
[2021-12-19] MEDS: ACETAMINOPHEN 325 MG TAB PO PRN (06:28)
[2021-12-19 06:47] LABS: Basophils # (auto) 0.1 10 ^3/uL (0-0.2); Basophils % (auto) 1.1 % (0.0-2.0); Eosinophils # (auto) 0.5 10 ^3/uL (0-0.8); Eosinophils % (auto) 9.4 % (0.0-7.0); Hematocrit 37.6 % (36.0-46.0); Hemoglobin 12.5 g/dL (12.2-16.2); Lymphocytes # (auto) 1.9 10 ^3/uL (0.4-5.4); Lymphocytes % (auto) 35.4 % (10.0-50.0); Mean Corpuscular Hemoglobin 30.1 pg (28.0-32.0); Mean Corpuscular Hgb Conc. 33.3 g/dL (32.0-36.0); Mean Corpuscular Volume 90.6 fL (80.0-100.0); Monocytes # (auto) 0.3 10 ^3/uL (0-1.3); Monocytes % (auto) 6.6 % (0.0-12.0); Neutrophils # (auto) 2.5 10 ^3/uL (1.6-8.6); Neutrophils % (auto) 47.5 % (37.0-80.0); Nucleated Red Blood Cells % 0.1 %; Red Blood Cells 4.14 10^6/uL (4.0-5.20); Red Cell Distribution Width 14.8 % (11.8-14.3); White Blood Cell 5.2 10^3/uL (4.4-10.8)
[2021-12-19 09:00] VITALS: BP 103/41
[2021-12-19 13:00] VITALS: BP 101/53
[2021-12-19] MEDS ORDERED: GABAPENTIN 300 MG CAP PO SCH (14:00)
== END 2021-12-19 14:03 | disposition home or self-care (01) | DRG 312 ==
LOC: ER 18:57 → OVERFLOW 23:56 → WEST WING 12-17 04:55 → TELE-WESTW 12-17 11:06
PROVIDERS: ADMIT Nurse Practitioner Family; ATTEND Internal Medicine Pulmonary Disease
DX: R55 Syncope and collapse (principal); I95.9 Hypotension, unspecified; E11.43 Type 2 diabetes mellitus with diabetic autonomic (poly)neuropathy; E86.1 Hypovolemia; E66.9 Obesity, unspecified; W18.39XA Other fall on same level, initial encounter; E78.5 Hyperlipidemia, unspecified; Z20.822 Contact with and (suspected) exposure to COVID-19; J44.9 Chronic obstructive pulmonary disease, unspecified; Z88.6 Allergy status to analgesic agent; Z95.0 Presence of cardiac pacemaker; Z88.8 Allergy status to other drugs, medicaments and biological substances; Z80.0 Family history of malignant neoplasm of digestive organs; Z81.8 Family history of other mental and behavioral disorders; Z82.0 Family history of epilepsy and other diseases of the nervous system; Z82.3 Family history of stroke; Z82.49 Family history of ischemic heart disease and other diseases of the circulatory system; Z82.5 Family history of asthma and other chronic lower respiratory diseases; Z83.3 Family history of diabetes mellitus; Z90.710 Acquired absence of both cervix and uterus; Z90.49 Acquired absence of other specified parts of digestive tract; Z68.37 Body mass index [BMI] 37.0-37.9, adult; Y93.89 Activity, other specified; Y92.098 Other place in other non-institutional residence as the place of occurrence of the external cause; Y99.8 Other external cause status
CPT/HCPCS: 36415; 70450; 71045; 80048; 80053; 84484; 85025; 93005; 93306; 93886; 94640; 96360; G0378

== ENCOUNTER 2022-01-09 13:53 | Emergency (ER) | payer OTHER, MEDICAID ==
[~2022-01-09] VITALS: Ht 165.1 cm; Wt 96.6 kg
[~2022-01-09 13:53] MED LIST changes: +CYAN-17 PO; +DULO20CA PO; +FERR18TA PO; +MAGN400T40 PO; +MONT-8 PO; +TRAM50TA2 PO; +TRAZ50TA2 PO
[2022-01-09 14:22] VITALS: BP 105/57
[2022-01-09] MEDS ORDERED: AMOX-277 PO (16:19)
[2022-01-09] MEDS ORDERED: AMOXICILLIN/CLAVUL 875 MG TAB PO ONE (16:30)
[2022-01-09] MEDS ORDERED: HYDROcodone-ACET 10/325MG TAB PO ONE (16:30)
== END 2022-01-09 18:09 | disposition home or self-care (01) ==
LOC: ER 13:53
DX: K04.7 Periapical abscess without sinus (principal); J45.909 Unspecified asthma, uncomplicated; J44.9 Chronic obstructive pulmonary disease, unspecified; E11.9 Type 2 diabetes mellitus without complications; K21.9 Gastro-esophageal reflux disease without esophagitis; R22.9 Localized swelling, mass and lump, unspecified; Z88.5 Allergy status to narcotic agent; Z88.6 Allergy status to analgesic agent; Z88.8 Allergy status to other drugs, medicaments and biological substances; Z90.710 Acquired absence of both cervix and uterus; Z90.49 Acquired absence of other specified parts of digestive tract; Z90.89 Acquired absence of other organs; Z98.890 Other specified postprocedural states

== ENCOUNTER 2022-02-10 17:22 | Emergency (ER) | payer OTHER, MEDICAID ==
[~2022-02-10] VITALS: Ht 165.1 cm; Wt 100.0 kg
[~2022-02-10 17:22] MED LIST changes: +AMOX-277 PO
[2022-02-10] MEDS ORDERED: traMADol HCL 50 MG TAB PO ONE (22:30)
[2022-02-11] MEDS ORDERED: TRAM50TA2 PO (04:49)
[2022-02-11 05:15] VITALS: BP 113/68
== END 2022-02-11 05:53 | disposition home or self-care (01) ==
LOC: ER 17:22
DX: M25.562 Pain in left knee (principal); J44.9 Chronic obstructive pulmonary disease, unspecified; E11.9 Type 2 diabetes mellitus without complications; K21.9 Gastro-esophageal reflux disease without esophagitis; E78.5 Hyperlipidemia, unspecified; Z90.49 Acquired absence of other specified parts of digestive tract; Z90.710 Acquired absence of both cervix and uterus; Z90.89 Acquired absence of other organs; Z95.0 Presence of cardiac pacemaker; Z79.899 Other long term (current) drug therapy; Z79.2 Long term (current) use of antibiotics; Z88.1 Allergy status to other antibiotic agents; Z88.2 Allergy status to sulfonamides; Z88.5 Allergy status to narcotic agent; Z88.6 Allergy status to analgesic agent; Z88.8 Allergy status to other drugs, medicaments and biological substances; W01.0XXA Fall on same level from slipping, tripping and stumbling without subsequent striking against object, initial encounter; Y93.89 Activity, other specified; Y92.89 Other specified places as the place of occurrence of the external cause; Y99.8 Other external cause status
CPT/HCPCS: 73562

== ENCOUNTER 2022-03-18 13:25 | Inpatient (IN) | payer OTHER, MEDICAID ==
[~2022-03-18] VITALS: Ht 165.1 cm; Wt 104.0 kg
[2022-03-18] MEDS ORDERED: SODIUM CHLORIDE 0.9% 1,000 ML IV ONE (14:00)
[2022-03-18] MEDS ORDERED: methylPREDNISolone SOD SUCC 125 MG/2 ML VL IV ONE (14:00)
[2022-03-18] MEDS ORDERED: IPRATROPIUM BROM 0.5 MG/2.5ML INH SOL NEB ONE ×2 (14:00→17:15)
[2022-03-18] MEDS ORDERED: ALBUTEROL SULF 2.5 MG/0.5ML(0.5%) NEB SOLN NEB ONE ×2 (14:00→17:15)
[2022-03-18] MEDS ORDERED: ALBUTEROL MEDNEB 2.5 mg/3ml NEB ONE (14:04)
[2022-03-18 15:02] LABS: Albumin 3.3 g/dL (3.4-5.0); Calcium 9.1 mg/dL (8.5-10.1); Magnesium 2.6 mg/dL (1.6-2.6); Potassium 4.3 mmol/L (3.5-5.1)
[2022-03-18 15:05] LABS: BUN/Creatinine Ratio 28.1
[2022-03-18 15:07] LABS: Bilirubin, Total 0.2 mg/dL (0.2-1.0); Total Protein 7.5 g/dL (6.4-8.2)
[2022-03-18 15:12] LABS: Basophils # (auto) 0.1 10 ^3/uL (0-0.2); Basophils % (auto) 1.2 % (0.0-2.0); Eosinophils # (auto) 0.6 10 ^3/uL (0-0.8); Eosinophils % (auto) 9.8 % (0.0-7.0); Hemoglobin 13.4 g/dL (12.2-16.2); Lymphocytes # (auto) 1.7 10 ^3/uL (0.4-5.4); Lymphocytes % (auto) 27.4 % (10.0-50.0); Mean Corpuscular Hemoglobin 29.9 pg (28.0-32.0); Mean Corpuscular Hgb Conc. 33.5 g/dL (32.0-36.0); Monocytes # (auto) 0.4 10 ^3/uL (0-1.3); Monocytes % (auto) 6.6 % (0.0-12.0); Neutrophils # (auto) 3.5 10 ^3/uL (1.6-8.6); Nucleated Red Blood Cells % 0.1 %; Red Cell Distribution Width 14.5 % (11.8-14.3); White Blood Cell 6.3 10^3/uL (4.4-10.8)
[2022-03-18 16:57] LABS: Urine Bacteria NONE SEEN /hpf (None Seen); Urine Blood Negative /uL (Negative); Urine Specific Gravity 1.011 (1.001-1.035); Urine WBC 6 /hpf (0 - 5)
[2022-03-18] MEDS ORDERED: SODIUM CHLORIDE 0.9% 1,000 ML IV SCH (18:15)
[2022-03-18] MEDS ORDERED: KETOROLAC TROMETH 30 MG/ML 1ML VIAL IV ONE (18:15)
[2022-03-18] MEDS ORDERED: KETOROLAC TROMETH 30 MG/ML 1ML VIAL IV PRN (18:15)
[2022-03-18] MEDS ORDERED: PANTOPRAZOLE 40 MG/10 ML VIAL INJ IV ONE (18:30)
[2022-03-18 19:15] LABS: Cholesterol 171 mg/dL (< 200)
[2022-03-18 19:17] LABS: HDL Cholesterol 39 mg/dL (40-59); LDL Cholesterol 130 mg/dL (< 100); Triglycerides 90 mg/dL (< 150)
[2022-03-18] MEDS: IPRATROPIUM BROM 0.5 MG/2.5ML INH SOL NEB SCH (19:57)
[2022-03-18] MEDS: ALBUTEROL SULF 2.5 MG/0.5ML(0.5%) NEB SOLN NEB SCH (19:58)
[2022-03-18] MEDS: ALBUTEROL SULF 2.5 MG/0.5ML(0.5%) NEB SOLN NEB PRN (21:19)
[2022-03-18] MEDS: methylPREDNISolone SOD SUCC 125 MG/2 ML VL IV SCH (22:00)
[2022-03-18] MEDS ORDERED: MORPHINE SULFATE 4 MG/ML SYR/VIAL IV ONE (23:15)
[2022-03-18] MEDS ORDERED: ONDANSETRON HCL 4 MG/2 ML VIAL IV ONE (23:15)
[2022-03-19] MEDS: ALBUTEROL SULF 2.5 MG/0.5ML(0.5%) NEB SOLN NEB SCH ×4 (01:12→20:26)
[2022-03-19] MEDS: IPRATROPIUM BROM 0.5 MG/2.5ML INH SOL NEB SCH ×4 (01:13→20:26)
[2022-03-19 03:46] VITALS: BP 100/61
[2022-03-19] MEDS ORDERED: ALBUTEROL MEDNEB 2.5 mg/3ml NEB ONE ×4 (05:39→23:56)
[2022-03-19 06:44] LABS: Albumin 3.4 g/dL (3.4-5.0); BUN/Creatinine Ratio 21.8; Calcium 9.3 mg/dL (8.5-10.1); Potassium 4.5 mmol/L (3.5-5.1)
[2022-03-19 06:46] LABS: Bilirubin, Total 0.4 mg/dL (0.2-1.0); Total Protein 7.1 g/dL (6.4-8.2)
[2022-03-19 06:47] LABS: Basophils # (auto) 0 10 ^3/uL (0-0.2); Basophils % (auto) 0.2 % (0.0-2.0); Eosinophils # (auto) 0 10 ^3/uL (0-0.8); Eosinophils % (auto) 0.1 % (0.0-7.0); Hematocrit 39.6 % (36.0-46.0); Hemoglobin 13.2 g/dL (12.2-16.2); Lymphocytes # (auto) 0.5 10 ^3/uL (0.4-5.4); Mean Corpuscular Hemoglobin 30.4 pg (28.0-32.0); Mean Corpuscular Hgb Conc. 33.3 g/dL (32.0-36.0); Mean Corpuscular Volume 91.3 fL (80.0-100.0); Monocytes # (auto) 0.1 10 ^3/uL (0-1.3); Monocytes % (auto) 0.9 % (0.0-12.0); Neutrophils # (auto) 5.3 10 ^3/uL (1.6-8.6); Neutrophils % (auto) 89.8 % (37.0-80.0); Nucleated Red Blood Cells % 0.1 %; Red Blood Cells 4.34 10^6/uL (4.0-5.20); Red Cell Distribution Width 14.7 % (11.8-14.3); White Blood Cell 5.9 10^3/uL (4.4-10.8)
[2022-03-19] MEDS: PROMETHAZINE W/CODEINE 5 ML ORAL SYRUP PO PRN ×2 (09:01→21:35)
[2022-03-19] MEDS: ENOXAPARIN SOD 40 MG/0.4 ML SYRINGE SC SCH (09:01)
[2022-03-19] MEDS: methylPREDNISolone SOD SUCC 125 MG/2 ML VL IV SCH (09:02)
[2022-03-19] MEDS: MORPHINE SULFATE INJ 2 MG/ml SYRG IV PRN ×2 (09:03→15:10)
[2022-03-19] MEDS ORDERED: PANTOPRAZOLE 40 MG/10 ML VIAL INJ IV SCH (10:00)
[2022-03-19] MEDS ORDERED: PANTOPRAZOLE 40 MG TAB PO ONE (13:30)
[2022-03-19] MEDS ORDERED: predniSONE 20 MG TAB PO ONE (13:30)
[2022-03-19] MEDS ORDERED: DOXYCYCLINE 100 MG TAB/CAP PO ONE (13:30)
[2022-03-19] MEDS: GABAPENTIN 400 MG CAP PO SCH ×2 (14:20→21:34)
[2022-03-19] MEDS ORDERED: ACETAMINOPHEN 325 MG TAB PO ONE (15:04)
[2022-03-19] MEDS: DOXYCYCLINE 100 MG TAB/CAP PO SCH (21:34)
[2022-03-19] MEDS: traZODone HCL 50 MG TAB PO PRN (21:34)
[2022-03-19 22:00] VITALS: BP 90/36
[2022-03-19 23:45] VITALS: BP 95/54
[2022-03-20] MEDS: PROMETHAZINE W/CODEINE 5 ML ORAL SYRUP PO PRN ×2 (04:18→21:18)
[2022-03-20] MEDS: traMADol HCL 50 MG TAB PO PRN ×2 (04:18→13:40)
[2022-03-20] MEDS ORDERED: ALBUTEROL MEDNEB 2.5 mg/3ml NEB ONE (04:26)
[2022-03-20] MEDS: ALBUTEROL SULF 2.5 MG/0.5ML(0.5%) NEB SOLN NEB SCH ×4 (04:49→19:47)
[2022-03-20] MEDS: IPRATROPIUM BROM 0.5 MG/2.5ML INH SOL NEB SCH ×4 (04:50→19:48)
[2022-03-20 05:00] VITALS: BP 114/47
[2022-03-20] MEDS: GABAPENTIN 400 MG CAP PO SCH ×4 (05:14→21:18)
[2022-03-20 05:30] LABS: Basophils # (auto) 0 10 ^3/uL (0-0.2); Eosinophils # (auto) 0 10 ^3/uL (0-0.8); Hematocrit 34.9 % (36.0-46.0); Hemoglobin 11.4 g/dL (12.2-16.2); Lymphocytes # (auto) 1.2 10 ^3/uL (0.4-5.4); Mean Corpuscular Hemoglobin 29.4 pg (28.0-32.0); Mean Corpuscular Hgb Conc. 32.6 g/dL (32.0-36.0); Mean Corpuscular Volume 90.2 fL (80.0-100.0); Monocytes # (auto) 0.7 10 ^3/uL (0-1.3); Monocytes % (auto) 5.3 % (0.0-12.0); Neutrophils # (auto) 11.2 10 ^3/uL (1.6-8.6); Neutrophils % (auto) 85.7 % (37.0-80.0); Red Blood Cells 3.87 10^6/uL (4.0-5.20); Red Cell Distribution Width 14.6 % (11.8-14.3); White Blood Cell 13.1 10^3/uL (4.4-10.8)
[2022-03-20 05:44] LABS: Albumin 3.4 g/dL (3.4-5.0); Calcium 9.1 mg/dL (8.5-10.1); Potassium 4.7 mmol/L (3.5-5.1)
[2022-03-20 05:48] LABS: BUN/Creatinine Ratio 38.9; Bilirubin, Total 0.4 mg/dL (0.2-1.0); Total Protein 6.4 g/dL (6.4-8.2)
[2022-03-20] MEDS: predniSONE 20 MG TAB PO SCH (08:51)
[2022-03-20] MEDS: ENOXAPARIN SOD 40 MG/0.4 ML SYRINGE SC SCH (08:51)
[2022-03-20] MEDS: PANTOPRAZOLE 40 MG TAB PO SCH (08:51)
[2022-03-20] MEDS: DOXYCYCLINE 100 MG TAB/CAP PO SCH ×2 (08:51→21:18)
[2022-03-20 09:00] VITALS: BP 99/52
[2022-03-20 13:00] VITALS: BP 95/59
[2022-03-20 17:00] VITALS: BP 140/59
[2022-03-20] MEDS: MORPHINE SULFATE INJ 2 MG/ml SYRG IV PRN (18:07)
[2022-03-20 22:00] VITALS: BP 106/43
[2022-03-21] VITALS (7 sets, daily range): BP systolic 88–121; BP diastolic 34–57
[2022-03-21] MEDS: IPRATROPIUM BROM 0.5 MG/2.5ML INH SOL NEB SCH ×4 (00:14→19:32)
[2022-03-21] MEDS: ALBUTEROL SULF 2.5 MG/0.5ML(0.5%) NEB SOLN NEB SCH ×4 (00:14→19:32)
[2022-03-21] MEDS ORDERED: ALBUTEROL MEDNEB 2.5 mg/3ml NEB ONE ×4 (05:51→18:09)
[2022-03-21] MEDS: GABAPENTIN 400 MG CAP PO SCH ×3 (06:13→20:57)
[2022-03-21 07:05] LABS: Basophils # (auto) 0 10 ^3/uL (0-0.2); Basophils % (auto) 0.4 % (0.0-2.0); Eosinophils # (auto) 0.1 10 ^3/uL (0-0.8); Eosinophils % (auto) 0.8 % (0.0-7.0); Hematocrit 35.7 % (36.0-46.0); Hemoglobin 11.8 g/dL (12.2-16.2); Lymphocytes # (auto) 2.9 10 ^3/uL (0.4-5.4); Lymphocytes % (auto) 35.8 % (10.0-50.0); Mean Corpuscular Hemoglobin 30.1 pg (28.0-32.0); Mean Corpuscular Hgb Conc. 33.1 g/dL (32.0-36.0); Mean Corpuscular Volume 91.1 fL (80.0-100.0); Monocytes # (auto) 0.4 10 ^3/uL (0-1.3); Monocytes % (auto) 4.8 % (0.0-12.0); Neutrophils # (auto) 4.6 10 ^3/uL (1.6-8.6); Neutrophils % (auto) 58.2 % (37.0-80.0); Nucleated Red Blood Cells % 0.1 %; Red Blood Cells 3.92 10^6/uL (4.0-5.20); Red Cell Distribution Width 14.4 % (11.8-14.3)
[2022-03-21 07:20] LABS: Albumin 3.3 g/dL (3.4-5.0); Calcium 8.9 mg/dL (8.5-10.1); Potassium 4.4 mmol/L (3.5-5.1)
[2022-03-21 07:25] LABS: Bilirubin, Total 0.3 mg/dL (0.2-1.0); Total Protein 6.2 g/dL (6.4-8.2)
[2022-03-21] MEDS: predniSONE 20 MG TAB PO SCH (08:50)
[2022-03-21] MEDS: traMADol HCL 50 MG TAB PO PRN (08:51)
[2022-03-21] MEDS: PANTOPRAZOLE 40 MG TAB PO SCH (08:51)
[2022-03-21] MEDS: DOXYCYCLINE 100 MG TAB/CAP PO SCH ×2 (08:51→20:58)
[2022-03-21] MEDS: ENOXAPARIN SOD 40 MG/0.4 ML SYRINGE SC SCH (08:51)
[2022-03-21] MEDS: PROMETHAZINE W/CODEINE 5 ML ORAL SYRUP PO PRN ×3 (08:52→21:00)
[2022-03-21] MEDS: ALBUTEROL SULF 2.5 MG/0.5ML(0.5%) NEB SOLN NEB PRN (09:18)
[2022-03-21] MEDS: Ensure HIGH Protein Chocolate 8oz Bottle PO SCH (18:00)
[2022-03-21] MEDS: methylPREDNISolone SOD SUCC 125 MG/2 ML VL IV SCH (20:57)
[2022-03-22] MEDS ORDERED: ALBUTEROL MEDNEB 2.5 mg/3ml NEB ONE ×2 (00:16→05:42)
[2022-03-22] MEDS: traMADol HCL 50 MG TAB PO PRN (00:24)
[2022-03-22] MEDS: IPRATROPIUM BROM 0.5 MG/2.5ML INH SOL NEB SCH ×4 (00:30→19:10)
[2022-03-22] MEDS: ALBUTEROL SULF 2.5 MG/0.5ML(0.5%) NEB SOLN NEB SCH ×2 (00:31→06:48)
[2022-03-22 05:00] VITALS: BP 108/56
[2022-03-22] MEDS: GABAPENTIN 400 MG CAP PO SCH ×3 (05:34→21:38)
[2022-03-22] MEDS: MORPHINE SULFATE INJ 2 MG/ml SYRG IV PRN ×2 (05:35→17:35)
[2022-03-22] MEDS: PROMETHAZINE W/CODEINE 5 ML ORAL SYRUP PO PRN ×2 (05:35→14:49)
[2022-03-22 06:15] LABS: Basophils # (auto) 0 10 ^3/uL (0-0.2); Eosinophils # (auto) 0 10 ^3/uL (0-0.8); Hematocrit 36.2 % (36.0-46.0); Hemoglobin 11.9 g/dL (12.2-16.2); Lymphocytes # (auto) 0.6 10 ^3/uL (0.4-5.4); Lymphocytes % (auto) 10.3 % (10.0-50.0); Mean Corpuscular Hemoglobin 30.2 pg (28.0-32.0); Mean Corpuscular Hgb Conc. 32.8 g/dL (32.0-36.0); Mean Corpuscular Volume 91.9 fL (80.0-100.0); Monocytes # (auto) 0.1 10 ^3/uL (0-1.3); Monocytes % (auto) 1.4 % (0.0-12.0); Neutrophils # (auto) 5.1 10 ^3/uL (1.6-8.6); Neutrophils % (auto) 88.3 % (37.0-80.0); Nucleated Red Blood Cells % 0.1 %; Red Blood Cells 3.94 10^6/uL (4.0-5.20); Red Cell Distribution Width 14.8 % (11.8-14.3); White Blood Cell 5.8 10^3/uL (4.4-10.8)
[2022-03-22 06:26] LABS: Albumin 3.4 g/dL (3.4-5.0); Calcium 8.9 mg/dL (8.5-10.1); Potassium 4.9 mmol/L (3.5-5.1)
[2022-03-22 06:32] LABS: Bilirubin, Total 0.3 mg/dL (0.2-1.0); Total Protein 6.6 g/dL (6.4-8.2)
[2022-03-22] MEDS: Ensure HIGH Protein Chocolate 8oz Bottle PO SCH ×3 (08:00→18:05)
[2022-03-22 09:00] VITALS: BP 112/46
[2022-03-22] MEDS: methylPREDNISolone SOD SUCC 125 MG/2 ML VL IV SCH ×2 (09:55→21:38)
[2022-03-22] MEDS: ENOXAPARIN SOD 40 MG/0.4 ML SYRINGE SC SCH (09:55)
[2022-03-22] MEDS: DOXYCYCLINE 100 MG TAB/CAP PO SCH ×2 (09:55→21:39)
[2022-03-22] MEDS: PANTOPRAZOLE 40 MG TAB PO SCH (09:55)
[2022-03-22] MEDS ORDERED: SENNA 8.6 MG TAB PO PRN (10:30)
[2022-03-22] MEDS ORDERED: SENNA 8.6 MG TAB PO ONE (10:30)
[2022-03-22] MEDS ORDERED: POLYETHYLENE GLYCOL 17 GM PWDR PO PRN (10:30)
[2022-03-22] MEDS ORDERED: POLYETHYLENE GLYCOL 17 GM PWDR PO ONE (10:30)
[2022-03-22] MEDS ORDERED: ALBUTEROL MEDNEB 2.5 mg/3ml NEB NEB PRN (11:00)
[2022-03-22] MEDS: ONDANSETRON HCL 4 MG/2 ML VIAL IV PRN (11:51)
[2022-03-22] MEDS: ALBUTEROL MEDNEB 2.5 mg/3ml NEB NEB SCH ×2 (12:00→19:10)
[2022-03-22 13:00] VITALS: BP 127/47
[2022-03-22 16:57] VITALS: BP 134/70
[2022-03-22] MEDS: SENNA 8.6 MG TAB PO SCH (21:39)
[2022-03-22 23:08] VITALS: BP 106/50
[2022-03-23] MEDS: ALBUTEROL MEDNEB 2.5 mg/3ml NEB NEB SCH ×4 (00:55→18:55)
[2022-03-23] MEDS: IPRATROPIUM BROM 0.5 MG/2.5ML INH SOL NEB SCH ×4 (00:55→18:55)
[2022-03-23 05:00] VITALS: BP 95/52
[2022-03-23] MEDS: GABAPENTIN 400 MG CAP PO SCH ×3 (05:30→22:02)
[2022-03-23 05:58] VITALS: BP 112/73
[2022-03-23 06:19] LABS: Basophils # (auto) 0 10 ^3/uL (0-0.2); Basophils % (auto) 0.2 % (0.0-2.0); Eosinophils # (auto) 0 10 ^3/uL (0-0.8); Eosinophils % (auto) 0.1 % (0.0-7.0); Hematocrit 36.7 % (36.0-46.0); Hemoglobin 11.7 g/dL (12.2-16.2); Lymphocytes # (auto) 0.8 10 ^3/uL (0.4-5.4); Lymphocytes % (auto) 9.5 % (10.0-50.0); Mean Corpuscular Hemoglobin 28.9 pg (28.0-32.0); Mean Corpuscular Hgb Conc. 31.9 g/dL (32.0-36.0); Mean Corpuscular Volume 90.6 fL (80.0-100.0); Monocytes # (auto) 0.2 10 ^3/uL (0-1.3); Monocytes % (auto) 3.1 % (0.0-12.0); Neutrophils % (auto) 87.1 % (37.0-80.0); Nucleated Red Blood Cells % 0.1 %; Red Blood Cells 4.05 10^6/uL (4.0-5.20); Red Cell Distribution Width 14.5 % (11.8-14.3); White Blood Cell 8.1 10^3/uL (4.4-10.8)
[2022-03-23 06:31] LABS: Potassium 5.2 mmol/L (3.5-5.1)
[2022-03-23 06:39] LABS: Albumin 3.2 g/dL (3.4-5.0); BUN/Creatinine Ratio 42.4; Bilirubin, Total 0.3 mg/dL (0.2-1.0); Calcium 9.1 mg/dL (8.5-10.1); Total Protein 6.3 g/dL (6.4-8.2)
[2022-03-23] MEDS: PROMETHAZINE W/CODEINE 5 ML ORAL SYRUP PO PRN ×2 (07:01→20:23)
[2022-03-23] MEDS: Ensure HIGH Protein Chocolate 8oz Bottle PO SCH ×3 (08:00→18:00)
[2022-03-23 09:00] VITALS: BP 108/59
[2022-03-23] MEDS: POLYETHYLENE GLYCOL 17 GM PWDR PO SCH (10:40)
[2022-03-23] MEDS: predniSONE 20 MG TAB PO SCH (10:41)
[2022-03-23] MEDS: PANTOPRAZOLE 40 MG TAB PO SCH (10:41)
[2022-03-23] MEDS: ENOXAPARIN SOD 40 MG/0.4 ML SYRINGE SC SCH (10:41)
[2022-03-23] MEDS: DOXYCYCLINE 100 MG TAB/CAP PO SCH ×2 (10:41→22:02)
[2022-03-23] MEDS: traMADol HCL 50 MG TAB PO PRN (12:42)
[2022-03-23] MEDS ORDERED: ALBUTEROL SULF 2.5 MG/0.5ML(0.5%) NEB SOLN ONE (12:45)
[2022-03-23 13:00] VITALS: BP 112/65
[2022-03-23 17:00] VITALS: BP 104/68
[2022-03-23] MEDS: MORPHINE SULFATE INJ 2 MG/ml SYRG IV PRN (17:48)
[2022-03-23 22:00] VITALS: BP 117/62
[2022-03-23] MEDS: SENNA 8.6 MG TAB PO SCH (22:02)
[2022-03-24] VITALS (7 sets, daily range): BP systolic 95–114; BP diastolic 45–65
[2022-03-24] MEDS: IPRATROPIUM BROM 0.5 MG/2.5ML INH SOL NEB SCH ×4 (01:07→18:28)
[2022-03-24] MEDS: ALBUTEROL MEDNEB 2.5 mg/3ml NEB NEB SCH ×4 (01:07→18:28)
[2022-03-24] MEDS: traMADol HCL 50 MG TAB PO PRN ×2 (03:33→17:44)
[2022-03-24] MEDS: GABAPENTIN 400 MG CAP PO SCH ×3 (06:09→22:31)
[2022-03-24] MEDS: PROMETHAZINE W/CODEINE 5 ML ORAL SYRUP PO PRN (06:16)
[2022-03-24 07:20] LABS: Basophils # (auto) 0.1 10 ^3/uL (0-0.2); Basophils % (auto) 1.6 % (0.0-2.0); Eosinophils # (auto) 0 10 ^3/uL (0-0.8); Eosinophils % (auto) 0.5 % (0.0-7.0); Hemoglobin 11.6 g/dL (12.2-16.2); Lymphocytes # (auto) 2.6 10 ^3/uL (0.4-5.4); Lymphocytes % (auto) 33.1 % (10.0-50.0); Mean Corpuscular Hgb Conc. 33.1 g/dL (32.0-36.0); Mean Corpuscular Volume 90.6 fL (80.0-100.0); Monocytes # (auto) 0.5 10 ^3/uL (0-1.3); Monocytes % (auto) 6.7 % (0.0-12.0); Neutrophils # (auto) 4.6 10 ^3/uL (1.6-8.6); Neutrophils % (auto) 58.1 % (37.0-80.0); Red Blood Cells 3.86 10^6/uL (4.0-5.20); Red Cell Distribution Width 14.4 % (11.8-14.3)
[2022-03-24 07:37] LABS: Calcium 8.4 mg/dL (8.5-10.1); Potassium 4.4 mmol/L (3.5-5.1)
[2022-03-24 07:43] LABS: BUN/Creatinine Ratio 52.3; Bilirubin, Total 0.2 mg/dL (0.2-1.0)
[2022-03-24] MEDS: Ensure HIGH Protein Chocolate 8oz Bottle PO SCH ×3 (08:00→18:00)
[2022-03-24] MEDS: ENOXAPARIN SOD 40 MG/0.4 ML SYRINGE SC SCH (09:44)
[2022-03-24] MEDS: PANTOPRAZOLE 40 MG TAB PO SCH (09:45)
[2022-03-24] MEDS: ONDANSETRON HCL 4 MG/2 ML VIAL IV PRN (09:45)
[2022-03-24] MEDS: DOXYCYCLINE 100 MG TAB/CAP PO SCH ×2 (09:45→22:31)
[2022-03-24] MEDS: predniSONE 20 MG TAB PO SCH (09:45)
[2022-03-24] MEDS: POLYETHYLENE GLYCOL 17 GM PWDR PO SCH (10:00)
[2022-03-24] MEDS ORDERED: SODIUM CHLORIDE 0.9% 1,000 ML IV ONE (11:30)
[2022-03-24] MEDS: ACETAMINOPHEN 325 MG TAB PO PRN (14:15)
[2022-03-24] MEDS: SENNA 8.6 MG TAB PO SCH (22:31)
[2022-03-24] MEDS: PROMETHAZINE-DM 5 ML ORAL SYRUP PO PRN (22:31)
[2022-03-25] MEDS: IPRATROPIUM BROM 0.5 MG/2.5ML INH SOL NEB SCH ×4 (00:41→19:37)
[2022-03-25] MEDS: ALBUTEROL MEDNEB 2.5 mg/3ml NEB NEB SCH ×4 (00:41→19:38)
[2022-03-25 04:06] VITALS: BP 103/45
[2022-03-25 05:00] VITALS: BP 126/54
[2022-03-25] MEDS: GABAPENTIN 400 MG CAP PO SCH ×3 (05:38→22:00)
[2022-03-25] MEDS: traMADol HCL 50 MG TAB PO PRN ×2 (05:38→13:38)
[2022-03-25 07:17] LABS: Basophils # (auto) 0 10 ^3/uL (0-0.2); Basophils % (auto) 0.1 % (0.0-2.0); Eosinophils # (auto) 0.1 10 ^3/uL (0-0.8); Eosinophils % (auto) 0.8 % (0.0-7.0); Hematocrit 35.2 % (36.0-46.0); Hemoglobin 11.8 g/dL (12.2-16.2); Lymphocytes # (auto) 3.2 10 ^3/uL (0.4-5.4); Lymphocytes % (auto) 42.2 % (10.0-50.0); Mean Corpuscular Hemoglobin 29.9 pg (28.0-32.0); Mean Corpuscular Hgb Conc. 33.4 g/dL (32.0-36.0); Mean Corpuscular Volume 89.5 fL (80.0-100.0); Monocytes # (auto) 0.5 10 ^3/uL (0-1.3); Neutrophils # (auto) 3.8 10 ^3/uL (1.6-8.6); Neutrophils % (auto) 50.9 % (37.0-80.0); Red Blood Cells 3.93 10^6/uL (4.0-5.20); Red Cell Distribution Width 14.4 % (11.8-14.3); White Blood Cell 7.5 10^3/uL (4.4-10.8)
[2022-03-25 07:35] LABS: Potassium 4.4 mmol/L (3.5-5.1)
[2022-03-25 07:41] LABS: BUN/Creatinine Ratio 39.3; Calcium 8.7 mg/dL (8.5-10.1)
[2022-03-25 07:43] LABS: Bilirubin, Total 0.2 mg/dL (0.2-1.0)
[2022-03-25] MEDS: Ensure HIGH Protein Chocolate 8oz Bottle PO SCH ×3 (08:10→18:10)
[2022-03-25 09:00] VITALS: BP 85/52
[2022-03-25] MEDS: predniSONE 20 MG TAB PO SCH (09:57)
[2022-03-25] MEDS: POLYETHYLENE GLYCOL 17 GM PWDR PO SCH (09:57)
[2022-03-25] MEDS: PANTOPRAZOLE 40 MG TAB PO SCH (09:58)
[2022-03-25] MEDS: DOXYCYCLINE 100 MG TAB/CAP PO SCH ×2 (09:58→22:01)
[2022-03-25] MEDS: ENOXAPARIN SOD 40 MG/0.4 ML SYRINGE SC SCH (09:58)
[2022-03-25] MEDS ORDERED: SODIUM CHLORIDE 0.9% 1,000 ML IV ONE ×2 (10:15→18:30)
[2022-03-25 13:00] VITALS: BP 91/50
[2022-03-25 17:00] VITALS: BP 89/52
[2022-03-25] MEDS: PROMETHAZINE-DM 5 ML ORAL SYRUP PO PRN (18:30)
[2022-03-25 22:00] VITALS: BP 98/37
[2022-03-25] MEDS: SENNA 8.6 MG TAB PO SCH (22:00)
[2022-03-25] MEDS: ACETAMINOPHEN 325 MG TAB PO PRN (22:02)
[2022-03-26] MEDS: ALBUTEROL MEDNEB 2.5 mg/3ml NEB NEB SCH ×3 (01:06→11:51)
[2022-03-26] MEDS: IPRATROPIUM BROM 0.5 MG/2.5ML INH SOL NEB SCH ×3 (01:06→11:51)
[2022-03-26] MEDS: PROMETHAZINE-DM 5 ML ORAL SYRUP PO PRN ×2 (04:50→17:16)
[2022-03-26 05:00] VITALS: BP_SYST 115; BP_SYST 124; BP_DIAS 56; BP_DIAS 71
[2022-03-26] MEDS: GABAPENTIN 400 MG CAP PO SCH ×3 (05:18→22:02)
[2022-03-26 08:00] VITALS: BP 98/46
[2022-03-26 08:22] LABS: Basophils # (auto) 0 10 ^3/uL (0-0.2); Basophils % (auto) 0.2 % (0.0-2.0); Eosinophils # (auto) 0.1 10 ^3/uL (0-0.8); Eosinophils % (auto) 1.5 % (0.0-7.0); Hematocrit 33.9 % (36.0-46.0); Hemoglobin 11.3 g/dL (12.2-16.2); Lymphocytes # (auto) 3.2 10 ^3/uL (0.4-5.4); Lymphocytes % (auto) 41.8 % (10.0-50.0); Mean Corpuscular Hemoglobin 30.2 pg (28.0-32.0); Mean Corpuscular Hgb Conc. 33.3 g/dL (32.0-36.0); Mean Corpuscular Volume 90.5 fL (80.0-100.0); Monocytes # (auto) 0.5 10 ^3/uL (0-1.3); Monocytes % (auto) 6.4 % (0.0-12.0); Neutrophils # (auto) 3.8 10 ^3/uL (1.6-8.6); Neutrophils % (auto) 50.1 % (37.0-80.0); Nucleated Red Blood Cells % 0.1 %; Red Blood Cells 3.75 10^6/uL (4.0-5.20); Red Cell Distribution Width 14.3 % (11.8-14.3); White Blood Cell 7.6 10^3/uL (4.4-10.8)
[2022-03-26] MEDS: traMADol HCL 50 MG TAB PO PRN ×3 (08:31→23:12)
[2022-03-26] MEDS: Ensure HIGH Protein Chocolate 8oz Bottle PO SCH ×3 (08:33→22:02)
[2022-03-26 08:37] LABS: Albumin 2.9 g/dL (3.4-5.0); Calcium 8.4 mg/dL (8.5-10.1); Potassium 3.9 mmol/L (3.5-5.1)
[2022-03-26 08:47] LABS: BUN/Creatinine Ratio 28.8; Bilirubin, Total 0.3 mg/dL (0.2-1.0); Total Protein 5.9 g/dL (6.4-8.2)
[2022-03-26 09:00] VITALS: BP 98/46
[2022-03-26 09:02] LABS: Lactic Acid w/Reflex 2.8 mmol/L (0.4-2.0)
[2022-03-26] MEDS: POLYETHYLENE GLYCOL 17 GM PWDR PO SCH (10:00)
[2022-03-26] MEDS: predniSONE 20 MG TAB PO SCH (10:13)
[2022-03-26] MEDS: PANTOPRAZOLE 40 MG TAB PO SCH (10:13)
[2022-03-26] MEDS: ENOXAPARIN SOD 40 MG/0.4 ML SYRINGE SC SCH (10:14)
[2022-03-26] MEDS: DOXYCYCLINE 100 MG TAB/CAP PO SCH ×2 (10:14→22:01)
[2022-03-26] MEDS: MIDODRINE HCL 10 MG TAB PO SCH ×2 (11:29→17:55)
[2022-03-26 13:00] VITALS: BP 120/64
[2022-03-26] MEDS: methylPREDNISolone SOD SUCC 125 MG/2 ML VL IV SCH ×2 (13:54→22:02)
[2022-03-26 17:00] VITALS: BP 120/64
[2022-03-26] MEDS: SENNA 8.6 MG TAB PO SCH (22:01)
[2022-03-26 22:33] VITALS: BP 157/70
[2022-03-26] MEDS: traZODone HCL 50 MG TAB PO PRN (22:59)
[2022-03-27] MEDS: ALBUTEROL MEDNEB 2.5 mg/3ml NEB NEB SCH ×5 (00:28→19:19)
[2022-03-27] MEDS: IPRATROPIUM BROM 0.5 MG/2.5ML INH SOL NEB SCH ×5 (00:28→19:19)
[2022-03-27] MEDS: PROMETHAZINE-DM 5 ML ORAL SYRUP PO PRN (03:30)
[2022-03-27 04:53] VITALS: BP 117/56
[2022-03-27] MEDS: GABAPENTIN 400 MG CAP PO SCH ×3 (06:11→22:47)
[2022-03-27] MEDS: methylPREDNISolone SOD SUCC 125 MG/2 ML VL IV SCH ×3 (06:11→22:47)
[2022-03-27] MEDS: MIDODRINE HCL 10 MG TAB PO SCH ×4 (06:11→17:48)
[2022-03-27] MEDS: MORPHINE SULFATE INJ 2 MG/ml SYRG IV PRN ×2 (06:13→18:18)
[2022-03-27] MEDS: POLYETHYLENE GLYCOL 17 GM PWDR PO SCH (07:35)
[2022-03-27] MEDS: ENOXAPARIN SOD 40 MG/0.4 ML SYRINGE SC SCH (08:54)
[2022-03-27] MEDS: DOXYCYCLINE 100 MG TAB/CAP PO SCH ×2 (08:54→22:46)
[2022-03-27] MEDS: PANTOPRAZOLE 40 MG TAB PO SCH (08:54)
[2022-03-27 09:00] VITALS: BP 137/47
[2022-03-27] MEDS: ACETAMINOPHEN 325 MG TAB PO PRN (10:05)
[2022-03-27] MEDS: Ensure HIGH Protein Chocolate 8oz Bottle PO SCH ×3 (10:06→17:48)
[2022-03-27 11:23] LABS: Phosphorus 4.1 mg/dL (2.5-4.90)
[2022-03-27 13:00] VITALS: BP 96/44
[2022-03-27] MEDS: traMADol HCL 50 MG TAB PO PRN (13:58)
[2022-03-27 17:00] VITALS: BP 138/52
[2022-03-27] MEDS ORDERED: LORazepam 2MG/ML-1ML VIAL IV PRN (20:45)
[2022-03-27 22:00] VITALS: BP 119/67
[2022-03-27] MEDS: SENNA 8.6 MG TAB PO SCH (22:46)
[2022-03-28] MEDS: IPRATROPIUM BROM 0.5 MG/2.5ML INH SOL NEB SCH ×3 (00:23→14:00)
[2022-03-28] MEDS: ALBUTEROL MEDNEB 2.5 mg/3ml NEB NEB SCH ×3 (00:23→14:00)
[2022-03-28] MEDS: MORPHINE SULFATE INJ 2 MG/ml SYRG IV PRN ×2 (01:03→07:10)
[2022-03-28 05:00] VITALS: BP 115/52
[2022-03-28 06:09] LABS: Basophils # (auto) 0 10 ^3/uL (0-0.2); Basophils % (auto) 0.1 % (0.0-2.0); Eosinophils # (auto) 0 10 ^3/uL (0-0.8); Hematocrit 33.9 % (36.0-46.0); Hemoglobin 11.3 g/dL (12.2-16.2); Lymphocytes # (auto) 0.8 10 ^3/uL (0.4-5.4); Lymphocytes % (auto) 5.2 % (10.0-50.0); Mean Corpuscular Hemoglobin 29.9 pg (28.0-32.0); Mean Corpuscular Hgb Conc. 33.4 g/dL (32.0-36.0); Mean Corpuscular Volume 89.3 fL (80.0-100.0); Monocytes # (auto) 0.2 10 ^3/uL (0-1.3); Monocytes % (auto) 1.4 % (0.0-12.0); Neutrophils # (auto) 13.6 10 ^3/uL (1.6-8.6); Neutrophils % (auto) 93.3 % (37.0-80.0); Nucleated Red Blood Cells % 0.1 %; Red Cell Distribution Width 14.7 % (11.8-14.3); White Blood Cell 14.6 10^3/uL (4.4-10.8)
[2022-03-28 06:20] LABS: Albumin 2.9 g/dL (3.4-5.0); Calcium 8.5 mg/dL (8.5-10.1); Potassium 4.8 mmol/L (3.5-5.1)
[2022-03-28 06:22] LABS: BUN/Creatinine Ratio 40.3; Bilirubin, Total 0.2 mg/dL (0.2-1.0); Total Protein 5.6 g/dL (6.4-8.2)
[2022-03-28] MEDS: MIDODRINE HCL 10 MG TAB PO SCH ×2 (06:59→12:38)
[2022-03-28] MEDS: GABAPENTIN 400 MG CAP PO SCH ×2 (06:59→14:35)
[2022-03-28] MEDS: methylPREDNISolone SOD SUCC 125 MG/2 ML VL IV SCH (06:59)
[2022-03-28 07:55] VITALS: BP 118/53
[2022-03-28] MEDS: Ensure HIGH Protein Chocolate 8oz Bottle PO SCH ×2 (08:00→12:00)
[2022-03-28] MEDS: PANTOPRAZOLE 40 MG TAB PO SCH (09:55)
[2022-03-28] MEDS: DOXYCYCLINE 100 MG TAB/CAP PO SCH (09:55)
[2022-03-28] MEDS: POLYETHYLENE GLYCOL 17 GM PWDR PO SCH (09:55)
[2022-03-28] MEDS: ENOXAPARIN SOD 40 MG/0.4 ML SYRINGE SC SCH (09:55)
[2022-03-28] MEDS ORDERED: predniSONE 20 MG TAB PO SCH (10:00)
[2022-03-28] MEDS ORDERED: METH4PAK PO (11:27)
[2022-03-28 13:00] VITALS: BP 108/41
[2022-03-28 15:03] VITALS: BP 108/64
[2022-03-28] MEDS ORDERED: MIDO2.5T3 PO (15:30)
== END 2022-03-28 15:45 | disposition home or self-care (01) | DRG 189 ==
LOC: ER 13:31 → EDUNIT# 18:11 → OVERFLOW 18:11 → EAST 03-19 17:36 → TELE-EAST 03-26 11:38
PROVIDERS: ADMIT Nurse Practitioner Family; ATTEND Student in an Organized Health Care Education/Training Program
DX: J96.21 Acute and chronic respiratory failure with hypoxia (principal); J44.1 Chronic obstructive pulmonary disease with (acute) exacerbation; E44.1 Mild protein-calorie malnutrition; J45.901 Unspecified asthma with (acute) exacerbation; N39.0 Urinary tract infection, site not specified; K86.1 Other chronic pancreatitis; I95.1 Orthostatic hypotension; E66.01 Morbid (severe) obesity due to excess calories; G89.29 Other chronic pain; M17.0 Bilateral primary osteoarthritis of knee; K59.00 Constipation, unspecified; E87.5 Hyperkalemia; D64.9 Anemia, unspecified; Z96.653 Presence of artificial knee joint, bilateral; R56.9 Unspecified convulsions; Z20.822 Contact with and (suspected) exposure to COVID-19; R74.01 Elevation of levels of liver transaminase levels; E11.9 Type 2 diabetes mellitus without complications; Z82.3 Family history of stroke; Z82.0 Family history of epilepsy and other diseases of the nervous system; Z82.49 Family history of ischemic heart disease and other diseases of the circulatory system; Z82.5 Family history of asthma and other chronic lower respiratory diseases; Z68.34 Body mass index [BMI] 34.0-34.9, adult; Z83.3 Family history of diabetes mellitus; Z87.11 Personal history of peptic ulcer disease; Z88.6 Allergy status to analgesic agent; Z88.1 Allergy status to other antibiotic agents; Z81.8 Family history of other mental and behavioral disorders; Z90.49 Acquired absence of other specified parts of digestive tract; Z90.710 Acquired absence of both cervix and uterus; Z95.0 Presence of cardiac pacemaker; Z98.84 Bariatric surgery status; Z99.81 Dependence on supplemental oxygen; Z71.3 Dietary counseling and surveillance
CPT/HCPCS: 36415; 70551; 71045; 71046; 80053; 80061; 81001; 82533; 82550; 83036; 83605; 83735; 83880; 84100; 84146; 84443; 84484; 85025; 85379; 87040; 87070; 87205; 87426; 87804; 93005; 94640; 94644; 95819; 97163; C9113; G0378; J2405

== ENCOUNTER 2022-05-29 09:08 | Emergency (ER) | payer OTHER, MEDICAID ==
[~2022-05-29] VITALS: Ht 165.1 cm; Wt 91.8 kg
[~2022-05-29 09:08] MED LIST changes: +METH4PAK PO; +MIDO2.5T3 PO
[2022-05-29 12:14] VITALS: BP 114/51
[2022-05-29] MEDS ORDERED: IPRATROPIUM BROM 0.5 MG/2.5ML INH SOL NEB ONE (12:45)
[2022-05-29] MEDS ORDERED: ALBUTEROL SULF 2.5 MG/0.5ML(0.5%) NEB SOLN NEB ONE (12:45)
[2022-05-29] MEDS ORDERED: guaiFENesin-DM 100/10mg/5ml SYR PO ONE (13:00)
[2022-05-29] MEDS ORDERED: ACETAMINOPHEN 500 MG TAB PO ONE (13:00)
[2022-05-29] MEDS ORDERED: methylPREDNISolone SOD SUCC 125 MG/2 ML VL IM ONE (13:00)
[2022-05-29] MEDS ORDERED: DEXT1SYP9 PO (13:55)
[2022-05-29] MEDS ORDERED: BECL80AE11 IN (13:55)
[2022-05-29] MEDS ORDERED: ALBU1.257 IN (13:55)
[2022-05-29] MEDS ORDERED: AZITTAB PO (13:55)
[2022-05-29] MEDS ORDERED: PRED20TA2 PO (13:55)
== END 2022-05-29 14:03 | disposition home or self-care (01) ==
LOC: ER 09:08
DX: J44.1 Chronic obstructive pulmonary disease with (acute) exacerbation (principal); J06.9 Acute upper respiratory infection, unspecified; R07.89 Other chest pain; E03.9 Hypothyroidism, unspecified; Z90.49 Acquired absence of other specified parts of digestive tract; Z95.0 Presence of cardiac pacemaker; Z20.822 Contact with and (suspected) exposure to COVID-19
CPT/HCPCS: 36415; 71045; 87426; 94640; 96372; 99284; J2930; J7644

== ENCOUNTER → 2022-11-07 | Outpatient (CLI) | payer MEDICAID, OTHER ==
[~2022-11-07] VITALS: Ht 165.1 cm; Wt 95.3 kg
[~2022-11-07] MED LIST changes: +ADENOSINE 80 MG in GIVE UN-DILUTED 0 ML IV ONE; +ADENOSINE 90 MG/30 ML INJ IV ONE; +ALBU1.258 IN; +ALBUTEROL SULF 2.5 MG/0.5ML(0.5%) NEB SOLN NEB ONE; +ALBUTEROL SULF 2.5 MG/0.5ML(0.5%) NEB SOLN ONE; -AMOX-277 PO; +AMOX875T4 PO; +AZITTAB PO; +BECL80AE11 IN; +DEXT1SYP9 PO; -MECL12.514 PO; +MECL1TAB31 PO; +TRAZ-227 PO; -TRAZ50TA2 PO
== END | disposition home or self-care (01) ==
LOC: Rad HDHVI 13:18
PROVIDERS: ATTEND Internal Medicine Cardiovascular Disease
DX: R07.89 Other chest pain (principal); J44.9 Chronic obstructive pulmonary disease, unspecified; E78.5 Hyperlipidemia, unspecified; R63.5 Abnormal weight gain; Z95.0 Presence of cardiac pacemaker
CPT/HCPCS: 78452; 93005; 94640; 96374; 96375; A9500; J0153

== ENCOUNTER 2023-09-26 19:49 | Inpatient (IN) | payer OTHER, MEDICAID ==
[~2023-09-26] VITALS: Ht 165.1 cm; Wt 92.9 kg
[~2023-09-26 19:49] MED LIST changes: -ADENOSINE 80 MG in GIVE UN-DILUTED 0 ML IV ONE; -ADENOSINE 90 MG/30 ML INJ IV ONE; -ALBUTEROL SULF 2.5 MG/0.5ML(0.5%) NEB SOLN NEB ONE; -ALBUTEROL SULF 2.5 MG/0.5ML(0.5%) NEB SOLN ONE; +MECL12.586 PO; -MECL1TAB31 PO
[2023-09-26 20:35] VITALS: PULSE 57; RESP 11; O2SAT 92
[2023-09-26 21:35] LABS: Basophils # (auto) 0.1 10 ^3/uL (0-0.2); Basophils % (auto) 1.1 % (0.0-2.0); Eosinophils # (auto) 0.4 10 ^3/uL (0-0.8); Eosinophils % (auto) 7.8 % (0.0-7.0); Hematocrit 32.5 % (36.0-46.0); Hemoglobin 10.5 g/dL (12.2-16.2); Lymphocytes # (auto) 1.7 10 ^3/uL (0.4-5.4); Lymphocytes % (auto) 32.4 % (10.0-50.0); Mean Corpuscular Hemoglobin 28.3 pg (28.0-32.0); Mean Corpuscular Hgb Conc. 32.3 g/dL (32.0-36.0); Mean Corpuscular Volume 87.7 fL (80.0-100.0); Monocytes # (auto) 0.4 10 ^3/uL (0-1.3); Monocytes % (auto) 6.8 % (0.0-12.0); Neutrophils # (auto) 2.7 10 ^3/uL (1.6-8.6); Neutrophils % (auto) 51.9 % (37.0-80.0); Red Blood Cells 3.71 10^6/uL (4.0-5.20); Red Cell Distribution Width 16.2 % (11.8-14.3); White Blood Cell 5.2 10^3/uL (4.4-10.8)
[2023-09-26 21:46] LABS: Alanine Aminotransferase 40 U/L (7-40); Albumin 3.7 g/dL (3.2-4.8); Alkaline Phosphatase 123 U/L (46-116); Anion Gap 9 (5-15); Aspartate Aminotransferase 39 U/L (13-40); BUN/Creatinine Ratio 19.7 (10.0-20.0); Blood Urea Nitrogen 12 mg/dL (9-23); Calcium 9.1 mg/dL (8.7-10.4); Carbon Dioxide 24 mmol/L (20-30); Chloride 112 mmol/L (98-107); Glucose 110 mg/dL (74-106); Lipase 150 U/L (12-53); Potassium 4.2 mmol/L (3.5-5.1); Sodium 145 mmol/L (136-145)
[2023-09-26 21:47] LABS: Bilirubin, Total 0.3 mg/dL (0.2-1.0); Total Protein 5.8 g/dL (5.7-8.2)
[2023-09-26] MEDS: SODIUM CHLORIDE 0.9% 1,000 ML IV ONE (22:18)
[2023-09-26] MEDS ORDERED: PIPERACILLIN-TAZO 4.5GM 100 ML IV ONE (22:30)
[2023-09-26] MEDS: SODIUM CHLORIDE 0.9% 2,000 ML IV ONE (23:47)
[2023-09-26 23:53] LABS: Urine Bacteria None Seen /hpf (None Seen)
[2023-09-27] VITALS (9 sets, daily range): BP systolic 99; BP diastolic 40–41; PULSE 59–72; RESP 14–16; TEMP 98; O2SAT 96–100
[2023-09-27 00:09] LABS: Urine Blood TRACE /uL (Negative); Urine Clarity Clear (Clear); Urine Color Light-Yellow (Yellow); Urine Mucus FEW (None Seen); Urine Protein, UAD Negative (Negative); Urine Urobilinogen Normal (Negative); Urine WBC 5 /hpf (0 - 5)
[2023-09-27] MEDS: MORPHINE SULFATE 4 MG/ML SYR/VIAL IV ONE (01:07)
[2023-09-27] MEDS: ONDANSETRON HCL 4 MG/2 ML VIAL IV ONE (01:07)
[2023-09-27] MEDS ORDERED: MORPHINE SULFATE INJ 2 MG/ml SYRG IV PRN ×2 (09:15)
[2023-09-27] MEDS ORDERED: NITROGLYCERIN 0.4 MG SL TAB SL PRN (09:15)
[2023-09-27 09:24] LABS: Basophils # (auto) 0 10 ^3/uL (0-0.2); Basophils % (auto) 0.7 % (0.0-2.0); Eosinophils # (auto) 0.3 10 ^3/uL (0-0.8); Eosinophils % (auto) 6.1 % (0.0-7.0); Hematocrit 32.3 % (36.0-46.0); Hemoglobin 10.4 g/dL (12.2-16.2); Lymphocytes # (auto) 1.2 10 ^3/uL (0.4-5.4); Mean Corpuscular Hemoglobin 28.7 pg (28.0-32.0); Mean Corpuscular Hgb Conc. 32.1 g/dL (32.0-36.0); Mean Corpuscular Volume 89.5 fL (80.0-100.0); Monocytes # (auto) 0.4 10 ^3/uL (0-1.3); Monocytes % (auto) 6.5 % (0.0-12.0); Neutrophils # (auto) 3.6 10 ^3/uL (1.6-8.6); Neutrophils % (auto) 65.7 % (37.0-80.0); Red Blood Cells 3.61 10^6/uL (4.0-5.20); White Blood Cell 5.5 10^3/uL (4.4-10.8)
[2023-09-27] MEDS ORDERED: ALBUTEROL SULF 2.5 MG/0.5ML(0.5%) NEB SOLN NEB PRN (09:30)
[2023-09-27] MEDS: PANTOPRAZOLE 40 MG/10 ML VIAL INJ IV ONE (09:44)
[2023-09-27] MEDS: SODIUM CHLORIDE 0.9% 1,000 ML IV SCH (09:44)
[2023-09-27] MEDS: methylPREDNISolone SOD SUCC 125 MG/2 ML VL IV ONE (09:44)
[2023-09-27 09:48] LABS: Alanine Aminotransferase 35 U/L (7-40); Albumin 3.4 g/dL (3.2-4.8); Alkaline Phosphatase 122 U/L (46-116); Anion Gap 4 (5-15); Aspartate Aminotransferase 43 U/L (13-40); BUN/Creatinine Ratio 19.1 (10.0-20.0); Bilirubin, Total 0.2 mg/dL (0.2-1.0); Blood Urea Nitrogen 9 mg/dL (9-23); Calcium 8.2 mg/dL (8.5-10.1); Carbon Dioxide 24 mmol/L (20-30); Chloride 116 mmol/L (98-107); Glucose 95 mg/dL (74-106); Sodium 144 mmol/L (136-145); Total Protein 5.2 g/dL (5.7-8.2)
[2023-09-27] MEDS: PANTOPRAZOLE 40 MG/10 ML VIAL INJ IV SCH (09:54)
[2023-09-27] MEDS: ALBUTEROL SULF 2.5 MG/0.5ML(0.5%) NEB SOLN NEB SCH (10:18)
[2023-09-27] MEDS: IPRATROPIUM BROM 0.5 MG/2.5ML INH SOL NEB SCH (10:18)
[2023-09-27 10:23] LABS: Triglycerides 97 mg/dL (< 150)
[2023-09-27 10:24] LABS: LDL Cholesterol 55 mg/dL (< 100)
[2023-09-27 10:25] LABS: Cholesterol 102 mg/dL (< 200); HDL Cholesterol 26 mg/dL (40-59)
[2023-09-27 10:34] LABS: Lipase 113 U/L (12-53)
[2023-09-27 12:54] LABS: Anisocytosis Slight; Platelet Estimate Adequate
[2023-09-27 12:59] LABS: Folate (Folic Acid) 11.28 ng/mL (>5.38)
[2023-09-27 13:00] LABS: Nucleated Red Blood Cells % 0.2 %
[2023-09-27] MEDS: GASTROGRAFIN 120 ML SOL ONE (13:58)
[2023-09-27] MEDS: ONDANSETRON HCL 4 MG/2 ML VIAL IV PRN (15:44)
[2023-09-27] MEDS: methylPREDNISolone SOD SUCC 40 MG/ML VL IV SCH (21:56)
[2023-09-28] VITALS (21 sets, daily range): BP systolic 99–116; BP diastolic 36–83; PULSE 60–87; RESP 14–21; TEMP 97.3–98.3; O2SAT 70–100
[2023-09-28 05:03] LABS: Basophils # (auto) 0 10 ^3/uL (0-0.2); Basophils % (auto) 0.1 % (0.0-2.0); Eosinophils # (auto) 0 10 ^3/uL (0-0.8); Hematocrit 33.6 % (36.0-46.0); Hemoglobin 10.8 g/dL (12.2-16.2); Lymphocytes # (auto) 0.6 10 ^3/uL (0.4-5.4); Lymphocytes % (auto) 7.8 % (10.0-50.0); Mean Corpuscular Hemoglobin 28.3 pg (28.0-32.0); Mean Corpuscular Hgb Conc. 32.2 g/dL (32.0-36.0); Monocytes # (auto) 0.1 10 ^3/uL (0-1.3); Monocytes % (auto) 1.2 % (0.0-12.0); Neutrophils # (auto) 6.8 10 ^3/uL (1.6-8.6); Neutrophils % (auto) 90.9 % (37.0-80.0); Red Blood Cells 3.83 10^6/uL (4.0-5.20); White Blood Cell 7.5 10^3/uL (4.4-10.8)
[2023-09-28 05:32] LABS: Alanine Aminotransferase 31 U/L (7-40); Albumin 3.7 g/dL (3.2-4.8); Alkaline Phosphatase 135 U/L (46-116); Anion Gap 8 (5-15); Aspartate Aminotransferase 23 U/L (13-40); BUN/Creatinine Ratio 22.6 (10.0-20.0); Bilirubin, Total 0.5 mg/dL (0.2-1.0); Blood Urea Nitrogen 12 mg/dL (9-23); Calcium 9.2 mg/dL (8.7-10.4); Carbon Dioxide 22 mmol/L (20-30); Chloride 113 mmol/L (98-107); Glucose 192 mg/dL (74-106); Potassium 3.9 mmol/L (3.5-5.1); Sodium 143 mmol/L (136-145); Total Protein 5.8 g/dL (5.7-8.2)
[2023-09-28] MEDS: MECLIZINE HCL 25 MG TAB PO SCH (18:00)
[2023-09-28] MEDS: GABAPENTIN 400 MG CAP PO SCH (21:32)
[2023-09-29] VITALS (22 sets, daily range): BP systolic 105–135; BP diastolic 42–64; PULSE 60–75; RESP 17–21; TEMP 98–98.3; O2SAT 95–100
[2023-09-29] MEDS: DULOXETINE HCL 20 MG PO SCH (10:00)
[2023-09-29] MEDS: PANTOPRAZOLE 40 MG TAB PO SCH (10:00)
[2023-09-29] MEDS: MAGNESIUM OXIDE 400 MG TAB PO SCH (10:04)
[2023-09-29] MEDS: MULTIPLE VITAMIN TAB PO SCH (10:04)
[2023-09-29] MEDS: SERTRALINE HCL 50 MG TAB PO SCH (10:04)
[2023-09-29] MEDS ORDERED: levETIRAcetam 1000 mg/100ml 100 ML IV ONE (11:15)
[2023-09-29 11:31] LABS: Basophils # (auto) 0 10 ^3/uL (0-0.2); Basophils % (auto) 0.1 % (0.0-2.0); Eosinophils # (auto) 0 10 ^3/uL (0-0.8); Hematocrit 31.9 % (36.0-46.0); Hemoglobin 10.2 g/dL (12.2-16.2); Lymphocytes # (auto) 1.9 10 ^3/uL (0.4-5.4); Lymphocytes % (auto) 22.2 % (10.0-50.0); Mean Corpuscular Hemoglobin 28.3 pg (28.0-32.0); Mean Corpuscular Hgb Conc. 32.1 g/dL (32.0-36.0); Mean Corpuscular Volume 88.2 fL (80.0-100.0); Monocytes # (auto) 0.5 10 ^3/uL (0-1.3); Monocytes % (auto) 5.9 % (0.0-12.0); Neutrophils # (auto) 6.3 10 ^3/uL (1.6-8.6); Neutrophils % (auto) 71.8 % (37.0-80.0); Nucleated Red Blood Cells % 0.1 %; Red Blood Cells 3.62 10^6/uL (4.0-5.20); Red Cell Distribution Width 16.2 % (11.8-14.3); White Blood Cell 8.7 10^3/uL (4.4-10.8)
[2023-09-29] MEDS: LORazepam 2MG/ML-1ML VIAL ONE ×2 (11:40→11:41)
[2023-09-29] MEDS: levETIRAcetam 1000 mg/100ml 100 ML IV ONE (11:41)
[2023-09-29 11:52] LABS: Alanine Aminotransferase 25 U/L (7-40); Albumin 3.6 g/dL (3.2-4.8); Alkaline Phosphatase 109 U/L (46-116); Anion Gap 8 (5-15); Aspartate Aminotransferase 20 U/L (13-40); BUN/Creatinine Ratio 19.6 (10.0-20.0); Bilirubin, Total 0.3 mg/dL (0.2-1.0); Blood Urea Nitrogen 11 mg/dL (9-23); Calcium 9.4 mg/dL (8.7-10.4); Carbon Dioxide 24 mmol/L (20-30); Chloride 112 mmol/L (98-107); Glucose 149 mg/dL (74-106); Potassium 4.2 mmol/L (3.5-5.1); Sodium 144 mmol/L (136-145); Total Protein 5.8 g/dL (5.7-8.2)
[2023-09-29] MEDS ORDERED: MIRT-94 PO (11:56)
[2023-09-29] MEDS ORDERED: CYA100I PO (11:56)
[2023-09-29] MEDS ORDERED: KEP500T PO (11:56)
[2023-09-29] MEDS ORDERED: ONDA-155 PO (11:56)
[2023-09-29] MEDS ORDERED: ATOR10TA52 PO (11:56)
[2023-09-29] MEDS ORDERED: DONE5TAB80 PO (11:56)
[2023-09-29] MEDS ORDERED: MORP1TAB14 PO (11:56)
[2023-09-29] MEDS: LORazepam 2MG/ML-1ML VIAL IV PRN (12:00)
[2023-09-30] VITALS (17 sets, daily range): BP systolic 106–132; BP diastolic 45–57; PULSE 60–70; RESP 15–20; TEMP 97.7–98.7; O2SAT 94–98
[2023-09-30 07:02] LABS: Basophils # (auto) 0 10 ^3/uL (0-0.2); Basophils % (auto) 0.1 % (0.0-2.0); Eosinophils # (auto) 0 10 ^3/uL (0-0.8); Hematocrit 30.7 % (36.0-46.0); Hemoglobin 10.3 g/dL (12.2-16.2); Lymphocytes # (auto) 0.7 10 ^3/uL (0.4-5.4); Lymphocytes % (auto) 12.6 % (10.0-50.0); Mean Corpuscular Hemoglobin 28.9 pg (28.0-32.0); Mean Corpuscular Hgb Conc. 33.5 g/dL (32.0-36.0); Mean Corpuscular Volume 86.3 fL (80.0-100.0); Monocytes # (auto) 0.2 10 ^3/uL (0-1.3); Monocytes % (auto) 3.2 % (0.0-12.0); Neutrophils # (auto) 4.9 10 ^3/uL (1.6-8.6); Neutrophils % (auto) 84.1 % (37.0-80.0); Nucleated Red Blood Cells % 0.1 %; Red Blood Cells 3.55 10^6/uL (4.0-5.20); Red Cell Distribution Width 15.8 % (11.8-14.3); White Blood Cell 5.8 10^3/uL (4.4-10.8)
[2023-09-30 07:17] LABS: Alanine Aminotransferase 22 U/L (7-40); Albumin 3.5 g/dL (3.2-4.8); Alkaline Phosphatase 106 U/L (46-116); Anion Gap 6 (5-15); Aspartate Aminotransferase 12 U/L (13-40); BUN/Creatinine Ratio 27.5 (10.0-20.0); Blood Urea Nitrogen 14 mg/dL (9-23); Calcium 9.3 mg/dL (8.7-10.4); Carbon Dioxide 28 mmol/L (20-30); Chloride 110 mmol/L (98-107); Glucose 151 mg/dL (74-106); Potassium 4.2 mmol/L (3.5-5.1); Sodium 144 mmol/L (136-145)
[2023-09-30 07:18] LABS: Bilirubin, Total 0.3 mg/dL (0.2-1.0); Total Protein 5.6 g/dL (5.7-8.2)
[2023-09-30] MEDS: PANTOPRAZOLE 40 MG TAB PO SCH (10:07)
[2023-09-30] MEDS: levETIRAcetam 1000 mg/100ml 100 ML IV SCH (10:07)
[2023-10-01] VITALS (21 sets, daily range): BP systolic 99–131; BP diastolic 42–55; PULSE 60–70; RESP 15–20; TEMP 97.5–97.8; O2SAT 93–100
[2023-10-01 06:43] LABS: Alanine Aminotransferase 19 U/L (7-40); Albumin 3.6 g/dL (3.2-4.8); Alkaline Phosphatase 109 U/L (46-116); Anion Gap 5 (5-15); Aspartate Aminotransferase 12 U/L (13-40); BUN/Creatinine Ratio 29.3 (10.0-20.0); Bilirubin, Total 0.3 mg/dL (0.2-1.0); Blood Urea Nitrogen 17 mg/dL (9-23); Calcium 9.2 mg/dL (8.7-10.4); Carbon Dioxide 29 mmol/L (20-30); Chloride 109 mmol/L (98-107); Glucose 142 mg/dL (74-106); Potassium 4.1 mmol/L (3.5-5.1); Sodium 143 mmol/L (136-145); Total Protein 5.6 g/dL (5.7-8.2)
[2023-10-01 06:59] LABS: Basophils # (auto) 0 10 ^3/uL (0-0.2); Basophils % (auto) 0.1 % (0.0-2.0); Eosinophils # (auto) 0 10 ^3/uL (0-0.8); Hematocrit 30.7 % (36.0-46.0); Hemoglobin 10.5 g/dL (12.2-16.2); Lymphocytes # (auto) 0.8 10 ^3/uL (0.4-5.4); Lymphocytes % (auto) 15.2 % (10.0-50.0); Mean Corpuscular Hemoglobin 29.5 pg (28.0-32.0); Mean Corpuscular Hgb Conc. 34.1 g/dL (32.0-36.0); Mean Corpuscular Volume 86.5 fL (80.0-100.0); Monocytes # (auto) 0.2 10 ^3/uL (0-1.3); Monocytes % (auto) 4.1 % (0.0-12.0); Neutrophils # (auto) 4.3 10 ^3/uL (1.6-8.6); Neutrophils % (auto) 80.6 % (37.0-80.0); Nucleated Red Blood Cells % 0.1 %; Red Blood Cells 3.55 10^6/uL (4.0-5.20); Red Cell Distribution Width 15.8 % (11.8-14.3); White Blood Cell 5.3 10^3/uL (4.4-10.8)
[2023-10-01] MEDS: KETOROLAC TROMETH 30 MG/ML 1ML VIAL IV PRN (18:39)
[2023-10-01] MEDS: levETIRAcetam 500 MG TAB PO SCH (23:53)
[2023-10-02] VITALS (21 sets, daily range): BP systolic 88–123; BP diastolic 42–59; PULSE 51–69; RESP 16–21; TEMP 97.7–98.4; O2SAT 94–100
[2023-10-02] MEDS: levETIRAcetam 500 mg/100ml 100 ML IV ONE (10:38)
[2023-10-02] MEDS: levETIRAcetam 500 MG TAB PO SCH (22:00)
[2023-10-02] MEDS ORDERED: levETIRAcetam 500 mg/100ml 100 ML IV SCH (22:00)
[2023-10-03] VITALS (21 sets, daily range): BP systolic 96–114; BP diastolic 45–51; PULSE 60–70; RESP 16–18; TEMP 97.1–98.5; O2SAT 93–100
[2023-10-03] MEDS ORDERED: levETIRAcetam INJ 250 MG in SODIUM CHL 0.9% 25 ML IV SCH (10:00)
[2023-10-03] MEDS: levETIRAcetam INJ 250 MG in SODIUM CHL 0.9% 25 ML IV SCH (11:45)
[2023-10-03] MEDS ORDERED: LEVOFLOXACIN IV SCH (22:00)
[2023-10-03] MEDS ORDERED: SODIUM CHL 0.9% IV SCH (22:00)
[2023-10-03] MEDS: levETIRAcetam 500 MG/5ML INJ IV ONE (23:58)
[2023-10-04] VITALS (21 sets, daily range): BP systolic 94–144; BP diastolic 43–74; PULSE 60–78; RESP 16–19; TEMP 97.9–98.7; O2SAT 94–99
[2023-10-04 06:22] LABS: COVID19 ANTIGEN SOFIA FIA NEGATIVE (NEGATIVE)
[2023-10-05 01:00] VITALS: BP 107/46; PULSE 68; RESP 15; TEMP 98.1; O2SAT 97
[2023-10-05 02:15] VITALS: PULSE 64; RESP 16; O2SAT 96
[2023-10-05 02:22] VITALS: PULSE 63; RESP 16; O2SAT 99
== END 2023-10-05 03:19 | disposition short-term general hospital (02) | DRG 389 ==
LOC: ER 19:49 → TELE 09-27 09:18 → TELE-WESTW 09-27 19:10
PROVIDERS: ADMIT Nurse Practitioner Family; ATTEND Family Medicine
PROC: 0D9670Z Drainage of Stomach with Drainage Device, Via Natural or Artificial Opening (ICD-10-PCS; principal; 2023-09-27)
PROC: 05H933Z Insertion of Infusion Device into Right Brachial Vein, Percutaneous Approach (ICD-10-PCS; 2023-09-29)
PROC: B54MZZA Ultrasonography of Right Upper Extremity Veins, Guidance (ICD-10-PCS; 2023-09-29)
DX: K56.600 Partial intestinal obstruction, unspecified as to cause (principal); J44.1 Chronic obstructive pulmonary disease with (acute) exacerbation; K86.1 Other chronic pancreatitis; E03.9 Hypothyroidism, unspecified; E66.01 Morbid (severe) obesity due to excess calories; Z20.822 Contact with and (suspected) exposure to COVID-19; Z66 Do not resuscitate; I25.10 Atherosclerotic heart disease of native coronary artery without angina pectoris; E11.9 Type 2 diabetes mellitus without complications; F41.9 Anxiety disorder, unspecified; G40.909 Epilepsy, unspecified, not intractable, without status epilepticus; F17.200 Nicotine dependence, unspecified, uncomplicated; Z88.6 Allergy status to analgesic agent; Z98.84 Bariatric surgery status; Z99.81 Dependence on supplemental oxygen; Z95.0 Presence of cardiac pacemaker; Z87.11 Personal history of peptic ulcer disease; Z86.73 Personal history of transient ischemic attack (TIA), and cerebral infarction without residual deficits; Z90.710 Acquired absence of both cervix and uterus; Z81.8 Family history of other mental and behavioral disorders; Z82.0 Family history of epilepsy and other diseases of the nervous system; Z80.0 Family history of malignant neoplasm of digestive organs; Z82.3 Family history of stroke; Z82.49 Family history of ischemic heart disease and other diseases of the circulatory system; Z82.5 Family history of asthma and other chronic lower respiratory diseases; Z83.3 Family history of diabetes mellitus; Z68.34 Body mass index [BMI] 34.0-34.9, adult; Z79.4 Long term (current) use of insulin
CPT/HCPCS: 36415; 70450; 74176; 74250; 80053; 80061; 81001; 82542; 82607; 82746; 83540; 83550; 83605; 83690; 84443; 84484; 85025; 86850; 86900; 86901; 87040; 87426; 93005; 94640; 95819; 96361; 96374; 96375; 97110; 97116; 97163; 97530; G0378; J1885; J2405; J2470

== ENCOUNTER 2023-11-23 09:10 | Emergency (ER) | payer OTHER, MEDICAID ==
[~2023-11-23] VITALS: Ht 165.1 cm; Wt 81.8 kg
[~2023-11-23 09:10] MED LIST changes: +ATOR10TA52 PO; +CYA100I PO; +DONE5TAB80 PO; +KEP500T PO; +MIRT-94 PO; +MORP1TAB14 PO; +ONDA-155 PO
[2023-11-23 09:50] VITALS: BP 122/63; PULSE 66; RESP 16; TEMP 98; O2SAT 96
[2023-11-23] MEDS ORDERED: TRIA0.02 TOP (10:54)
== END 2023-11-23 11:00 | disposition home or self-care (01) ==
LOC: ER 09:10
DX: M67.442 Ganglion, left hand (principal); J44.9 Chronic obstructive pulmonary disease, unspecified; E03.9 Hypothyroidism, unspecified; Z88.8 Allergy status to other drugs, medicaments and biological substances; Z88.6 Allergy status to analgesic agent; Z79.52 Long term (current) use of systemic steroids; Z79.899 Other long term (current) drug therapy; Z90.49 Acquired absence of other specified parts of digestive tract; Z98.890 Other specified postprocedural states
CPT/HCPCS: 73130

== ENCOUNTER 2024-03-13 07:32 | Emergency (ER) | payer OTHER, MEDICAID ==
[~2024-03-13] VITALS: Ht 165.1 cm; Wt 86.0 kg
[~2024-03-13 07:32] MED LIST changes: +TRIA0.02 TOP
--- NOTE | 2024-03-13 08:09 | ED.PDOC ---
SOB-HPI HPI Comments 68 y.o female with PMH of COPD, asthma, thyroid and seizures, presents to the ED for a chief complaint of SOB associated with a cough, yellow phlegm, fever, chills, chest discomfort that started 3 days ago. As triage nurse was assessing patient and taking her vital signs, patient tensed up and had a blank stare. Prior to this event, patient reported last seizure was 3 weeks ago. Patient was sternal rubbed and placed in a bed where she became postictal. Chief Complaint: Shortness of Breath Time Seen by MD: 07:51 Primary Care Provider: KEE Reviewed notes: Nurses Notes, Medications, Allergies Information Source: Patient Mode of Arrival: Ambulatory Severity: Moderate Timing: Days (3) Duration: Since onset Context: At Rest PE Risk Factors: None History of: Asthma, COPD Modifying Factors: Nothing Associated Signs and Symptoms: Fever, Cough If cough with SOB: Productive Past Medical History PAST MEDICAL HISTORY: Asthma, COPD, Seizures, Thyroid Surgical History: Appendectomy, Cholecystectomy, Pacemaker FOOD TECHNOLOGY TEACHER History: No Pertinent FOOD TECHNOLOGY TEACHER History Family History Family History: Reviewed,noncontributory to illness Social History Smoker: Non-Smoker Alcohol: Denies ETOH Use Drugs: Denies Drug Use Lives In: Home Constitutional: reports: chills, fever; denies: diaphoresis, fatigue, malaise, sweats, weakness, others EENTM: denies: blurred vision, double vision, ear bleeding, ear discharge, ear drainage, ear pain, ear ringing, eye pain, eye redness, hearing loss, mouth pain, mouth swelling, nasal discharge, nose bleeding, nose congestion, nose pain, photophobia, tearing, throat pain, throat swelling, voice changes, others Respiratory: reports: cough, SOB at rest, shortness of breath; denies: hemoptysis, orthopnea, SOB with excertion, stridor, wheezing, others Cardiovascular: denies: chest pain, dizzy spells, diaphoresis, Dyspnea on exertion, edema, irregular heart beat, left arm pain, lightheadedness, palpi tations, PND, syncope, others Gastrointestinal: denies: abdomen distended, abdominal pain, blood streaked bowels, constipated, diarrhea, dysphagia, difficulty swallowing, hematemesis, melena, nausea, poor appetite, poor fluid intake, rectal bleeding, rectal pain, vomiting, others Genitourinary: denies: abnormal vagina bleeding, burning, dyspareunia, dysuria, flank pain, frequency, hematuria, incontinence, pain, , vagina discharge, urgency, others Neurological: reports: seizure; denies: dizziness, fainting, headache, left sided numbness, left sided weakness, numbness, paresthesia, pre-existing deficit, right sided numbness, right sided weakness, speech problems, tingling, tremors, weakness, others Musculoskeletal: denies: back pain, gout, joint pain, joint swelling, muscle pain, muscle stiffness, neck pain, others Integumetry: denies: bruises, change in color, change in hair/nails, dryness, laceration, lesions, lumps, rash, wounds, others Allergic/Immunocompromised: denies: Difficulty Healing, Frequent Infections, Hives, Itching, others Hematologic/Lymphatic: denies: anemia, blood clots, easy bleeding, easy bruising, swollen glands, others Endocrine: denies: excessive hunger, excessive sweating, excessive thirst, excessive urination, flushing, intolerance to cold, intolerance to heat, unexplained weight gain, unexplained weight loss, others Psychiatric: denies: anxiety, bipolar disorder, depression, hopeless, panic disorder, schizophrenia, sleepless, suicidal, others All Other Systems: Reviewed and Negative Physical Exam General Appearance: Other (postictal state, confused ) HEENT: Normal ENT Inspection, Pharynx Normal, TMs Normal Neck: Full Range of Motion, Non-Tender, Normal, Normal Inspection Respiratory: Chest Non-Tender, Lungs Clear, No Accessory Muscle Use, No Respiratory Distress, Normal Breath Sounds Cardiovascular: No Edema, No JVD, No Murmur, No Gallop, Normal Peripheral Pulses, Regular Rate/Rhythm Breast Exam: Deferred Gastrointestinal: No Organomegaly, Non Tender, No Pulsatile Mass, Normal Bowel Sounds, Soft Genitalia: Deferred Pelvic: Deferred Rectal: Deferred Extremities: No calf tenderness, Normal capillary refill, Normal inspection, Normal range of motion, Non-tender, No pedal edema Musculoskeletal : Apperance: Normal Neurologic: Seizure, Other (postictal state, alert ) Cerebellar Function: Normal Reflexes: Normal Skin: Dry, Normal Color, Warm Lymphatic: No Adenopathy Was a procedure done? Was a procedure done?: No Differential Dx Differential Diagnosis: Asthma, Bronchitis, COPD, Pneumonia, Respiratory Distress, URI X-Ray, Labs, Meds, VS Vital Signs Date Time Temp Pulse Resp B/P (MAP) Pulse Ox O2 Delivery O2 Flow Rate FiO2 03/13/24 10:36 62 18 125/46 (72) 100 03/13/24 09:14 60 18 98 Nasal Cannula* 2 03/13/24 09:13 98.1 60 18 118/46 (70) 100 98.1 03/13/24 08:00 18 97 Room Air* 0 03/13/24 07:48 98.7 86 18 133/55 (81) 97 Lab Test 03/13/24 11:50 03/13/24 11:20 03/13/24 09:59 03/13/24 09:27 Range/Units Influenza Type A Antigen Negative Negative Influenza Type B Antigen Negative Negative Troponin I High Sensitivity 4 3 L </=34 ng/L Urine Color Colorless Yellow Urine Clarity Clear Clear Urine pH 5.5 5.0-9.0 Urine Specific [place] 1.005 1.001-1.035 Urine Protein Negative Negative Urine Ketones Negative Negative Urine Blood Trace H Negative /uL Urine Nitrite Negative Negative Urine Bilirubin Negative Negative Urine Urobilinogen Normal Negative mg/dL Urine Leukocyte Esterase 3+ Negative /uL Urine RBC 5 0 - 4 /hpf Urine WBC 12 0 - 5 /hpf Urine Squamous Epithelial Cells Few <5 /hpf Urine Bacteria None seen None Seen /hpf Urine Glucose Normal Normal mg/dL Test 03/13/24 08:15 03/13/24 07:55 Range/Units White Blood Count 4.6 4.4-10.8 10^3/uL Red Blood Count 3.95 L 4.0-5.20 10^6/uL Hemoglobin 10.2 L 12.2-16.2 g/dL Hematocrit 32.0 L 36.0-46.0 % Mean Corpuscular Volume 81.0 80.0-100.0 fL Mean Corpuscular Hemoglobin 25.9 L 28.0-32.0 pg Mean Corpuscular Hemoglobin Concent 32.0 32.0-36.0 g/dL Red Cell Distribution Width 16.9 H 11.8-14.3 % Platelet Count 248 140-450 10^3/uL Mean Platelet Volume 7.9 6.9-10.8 fL Neutrophils (%) (Auto) 57.3 37.0-80.0 % Lymphocytes (%) (Auto) 29.4 10.0-50.0 % Monocytes (%) (Auto) 6.6 0.0-12.0 % Eosinophils (%) (Auto) 5.4 0.0-7.0 % Basophils (%) (Auto) 1.3 0.0-2.0 % Neutrophils # (Auto) 2.6 1.6-8.6 10 ^3/uL Lymphocytes # (Auto) 1.4 0.4-5.4 10 ^3/uL Monocytes # (Auto) 0.3 0-1.3 10 ^3/uL Eosinophils # (Auto) 0.3 0-0.8 10 ^3/uL Basophils # (Auto) 0.1 0-0.2 10 ^3/uL Nucleated Red Blood Cells 0.0 % Prothrombin Time 11.3 9.3-11.8 sec Prothrombin Time INR 1.07 0.9-1.15 Activated Partial Thromboplast Time 25.2 24.5-34.5 SEC D-Dimer, Quantitative 0.49 0.0-0.49 mg/L FEU Sodium Level 142 136-145 mmol/L Potassium Level 4.1 3.5-5.1 mmol/L Chloride Level 111 H 98-107 mmol/L Carbon Dioxide Level 23 20-31 mmol/L Anion Gap 8 5-15 Blood Urea Nitrogen 18 9-23 mg/dL Creatinine 0.66 0.550-1.02 mg/dL Glomerular Filtration Rate Calc 95 >90 mL/min BUN/Creatinine Ratio 27.3 H 10.0-20.0 Serum Glucose 100 74-106 mg/dL Calcium Level 9.4 8.7-10.4 mg/dL Magnesium Level 1.9 1.6-2.6 mg/dL Total Bilirubin 0.5 0.2-1.0 mg/dL Aspartate Amino Transferase (AST) 31 13-40 U/L Alanine Aminotransferase (ALT) 26 7-40 U/L Alkaline Phosphatase 152 H 46-116 U/L Troponin I High Sensitivity 4 </=34 ng/L B-Type Natriuretic Peptide 38.31 0-100 pg/mL Total Protein 6.1 5.7-8.2 g/dL Albumin 4.0 3.2-4.8 g/dL Phenytoin (Dilantin) Level < 2.0 L 10-20 ug/mL POC Glucose 102 70-106 mg/dl X-Ray, Labs, Meds, VS Comment This 68-year-old female presents secondary to cold like sitting including discontinuation of sore throat and cough. Her CT of the head showed. Nasal sinus disease. X-ray of the chest was negative. Workup here has benign. At time of discharge, the patient stated she felt well. We will discharge her home with inhaler, cough medication and Flonase. Time of 1ST Reevaluation: 08:01 Reevaluation 1ST: Unchanged Patient Education/Counseling: Diagnosis, Treatment, Prognosis Family Education/Counseling: No Family Present Additional Information I reviewed the following notes from patient's past medical encounters: The following tests were ordered, and results were reviewed by me: Labs, XY, EKG, CT head Additional Information was gathered from interviewing the following independent historians: Paramedics I reviewed and agreed with the following test results read by other providers: X ray and CT head I discussed treatment and results with medical personnel and patient [place] [address] Ph: [phone] DIAGNOSTIC IMAGING Diagnostic Imaging Report : [id number] Signed PATIENT: CHARLES HENDRICKS ACCT: [id number] UNIT: [id number] : 1955 LOC: ER ROOM / BED: / AGE / SEX: 68 / F ADM STATUS: REG ER SERVICE [id number] ORDERING PHYSICIAN: CHLOE VÁSQUEZ MD PROCEDURE(s): HWOCT - HEAD WITHOUT CONTRAST REASON: aloc ORDER NUMBER(s): [id number], ACCESSION NUMBER(s): [id number] EXAM: CT HEAD WITHOUT CONTRAST HISTORY: aloc COMPARISON: CT HEAD WITHOUT CONTRAST on DOS: 09/29/23, HEAD WITHOUT CONTRAST on DOS: 12/16/21 TECHNIQUE: Axial images were obtained and reformatted in coronal and sagittal planes. All CT scans at this medical facility are performed using dose modulation techniques as appropriate to a performed exam including the following: Automated exposure control was utilized; adjustment of the MA and/or KV according to patient size; and use of iterative reconstruction technique. CT Dose: CTDI volume is 56 mGy. Dose-length product is 989.3 mGy*cm FINDINGS: Supratentorial Region: No evidence for large acute territorial ischemia. No intracranial hemorrhage is noted. Posterior Fossa: No acute abnormality. Brainstem: Unremarkable. Sellar/Suprasellar Region: Unremarkable. Ventricles, Cisterns, Sulci: Age-appropriate. Orbits: Unremarkable. Paranasal Sinuses: Unremarkable. Mastoid Air Cells: Unremarkable. Vasculature: Near-complete opacification of the frontal and ethmoid sinuses. Air-fluid levels noted in the right maxillary and right sphenoid sinuses. Bones/Soft Tissues: No acute abnormality. Other: None. IMPRESSION: 1. No acute intracranial process. 2. Severe acute on chronic paranasal sinusitis. ATED BY: ELLYN MACIAS MD DICTATED DATE/TIME: 03/13/24924 SIGNED BY: ELLYN MACIAS MD SIGNED DATE/TIME: 03/13/24924 CC: [place] [address] Ph: [phone] DIAGNOSTIC IMAGING Diagnostic Imaging Report : [id number] Signed PATIENT: CHARLES HENDRICKS ACCT: [id number] UNIT: [id number] : 1955 LOC: ER ROOM / BED: / AGE / SEX: 68 / F ADM STATUS: REG ER SERVICE 075 ORDERING PHYSICIAN: CHLOE VÁSQUEZ MD PROCEDURE(s): CXRP - CHEST PORTABLE REASON: cough ORDER NUMBER(s): [id number], ACCESSION NUMBER(s): [id number] CHEST RADIOGRAPH Indication: cough Technique: Single frontal view of the chest was obtained COMPARISON: XY CHEST XRAY 1 VIEW on DOS: 05/29/22, CXR1 on DOS: 03/26/22, CHEST XRAY 1 VIEW on DOS: 03/26/22, CXRP on DOS: 12/16/21, CHEST PORTABLE on DOS: 12/16/21 FINDINGS: Lines and Tubes: Left chest wall pacemaker Lungs: Clear Pleura: No effusion. No pneumothorax. Cardiomediastinal contours: Unremarkable Bones: Unremarkable IMPRESSION: No acute disease. ATED BY: DAVID TORRES MD DICTATED DATE/TIME: 03/13/24904 SIGNED BY: DAVID TORRES MD SIGNED DATE/TIME: 03/13/24904 CC: Departure 1 Departure Time of Disposition: 13:55 Impression: Primary Impression: Upper respiratory infection Additional Impression: Cough Disposition: 01 HOME / SELF CARE / HOMELESS Condition: Good Discharged With: Self, Relative Critical Care Note Critical Care Time?: No Stability Stability form required: No I personally scribed for CHLOE VÁSQUEZ MD ([email or web address]) on 03/13/24 at 08:09. Electronically submitted by Sandra Tinajero ([facility]). I personally scribed for CHLOE VÁSQUEZ MD ([email or web address]) on 03/13/24 at 10:45. Electronically submitted by Sandra Tinajero ([facility]). CHLOE VÁSQUEZ MD Mar 13, 2024 08:09
[2024-03-13 08:41] LABS: Basophils # (auto) 0.1 10 ^3/uL (0-0.2); Basophils % (auto) 1.3 % (0.0-2.0); Eosinophils # (auto) 0.3 10 ^3/uL (0-0.8); Eosinophils % (auto) 5.4 % (0.0-7.0); Hemoglobin 10.2 g/dL (12.2-16.2); Lymphocytes # (auto) 1.4 10 ^3/uL (0.4-5.4); Lymphocytes % (auto) 29.4 % (10.0-50.0); Mean Corpuscular Hemoglobin 25.9 pg (28.0-32.0); Monocytes # (auto) 0.3 10 ^3/uL (0-1.3); Monocytes % (auto) 6.6 % (0.0-12.0); Neutrophils # (auto) 2.6 10 ^3/uL (1.6-8.6); Neutrophils % (auto) 57.3 % (37.0-80.0); Platelet Count (auto) 248 10^3/uL (140-450); Red Blood Cells 3.95 10^6/uL (4.0-5.20); Red Cell Distribution Width 16.9 % (11.8-14.3); White Blood Cell 4.6 10^3/uL (4.4-10.8)
[2024-03-13 09:03] LABS: INR 1.07 (0.9-1.15); Partial Thromboplastin Time 25.2 SEC (24.5-34.5); Prothrombin Time 11.3 sec (9.3-11.8)
[2024-03-13 09:05] LABS: Alanine Aminotransferase 26 U/L (7-40); Anion Gap 8 (5-15); Aspartate Aminotransferase 31 U/L (13-40); BUN/Creatinine Ratio 27.3 (10.0-20.0); Bilirubin, Total 0.5 mg/dL (0.2-1.0); Blood Urea Nitrogen 18 mg/dL (9-23); Calcium 9.4 mg/dL (8.7-10.4); Carbon Dioxide 23 mmol/L (20-31); Glucose 100 mg/dL (74-106); Magnesium 1.9 mg/dL (1.6-2.6); Potassium 4.1 mmol/L (3.5-5.1); Sodium 142 mmol/L (136-145)
[2024-03-13 09:06] LABS: Alkaline Phosphatase 152 U/L (46-116); Chloride 111 mmol/L (98-107); Total Protein 6.1 g/dL (5.7-8.2)
--- NOTE | 2024-03-13 09:07 | DVH ---
CHEST RADIOGRAPH Indication: cough Technique: Single frontal view of the chest was obtained COMPARISON: XY CHEST XRAY 1 VIEW on DOS: 05/29/22, CXR1 on DOS: 03/26/22, CHEST XRAY 1 VIEW on DOS: , CXRP on DOS: 12/16/21, CHEST PORTABLE on DOS: 12/16/21 FINDINGS: Lines and Tubes: Left chest wall pacemaker Lungs: Clear Pleura: No effusion. No pneumothorax. Cardiomediastinal contours: Unremarkable Bones: Unremarkable IMPRESSION: No acute disease.
[2024-03-13 09:13] VITALS: TEMP 98.1
[2024-03-13 09:14] VITALS: PULSE 60; RESP 18; O2SAT 98
--- NOTE | 2024-03-13 09:28 | DVH ---
EXAM: CT HEAD WITHOUT CONTRAST HISTORY: aloc COMPARISON: CT HEAD WITHOUT CONTRAST on DOS: 09/29/23, HEAD WITHOUT CONTRAST on DOS: 12/16/21 TECHNIQUE: Axial images were obtained and reformatted in coronal and sagittal planes. All CT scans at this medical facility are performed using dose modulation techniques as appropriate t o a performed exam including the following: Automated exposure control was utilized; adjustment of th e MA and/or KV according to patient size; and use of iterative reconstruction technique. CT Dose: CTDI volume is 56 mGy. Dose-length product is 989.3 mGy*cm FINDINGS: Supratentorial Region: No evidence for large acute territorial ischemia. No intracranial hemorrhage is noted. Posterior Fossa: No acute abnormality. Brainstem: Unremarkable. Sellar/Suprasellar Region: Unremarkable. Ventricles, Cisterns, Sulci: Age-appropriate. Orbits: Unremarkable. Paranasal Sinuses: Unremarkable. Mastoid Air Cells: Unremarkable. Vasculature: Near-complete opacification of the frontal and ethmoid sinuses. Air-fluid levels note d in the right maxillary and right sphenoid sinuses. Bones/Soft Tissues: No acute abnormality. Other: None. IMPRESSION: 1. No acute intracranial process. 2. Severe acute on chronic paranasal sinusitis.
[2024-03-13 09:53] LABS: Urine Bacteria None Seen /hpf (None Seen)
[2024-03-13 10:09] LABS: Urine Blood TRACE /uL (Negative); Urine Clarity Clear (Clear); Urine Color Colorless (Yellow); Urine Protein, UAD Negative (Negative); Urine Specific Gravity 1.005 (1.001-1.035); Urine Squamous Epithelial Cell FEW /hpf (<5); Urine Urobilinogen Normal (Negative); Urine WBC 12 /hpf (0 - 5); Urine pH 5.5 (5.0-9.0)
[2024-03-13 10:36] VITALS: BP 125/46; PULSE 62; RESP 18; O2SAT 100
[2024-03-13 13:10] LABS: Rapid Influenza A Negative (Negative); Rapid Influenza B Negative (Negative)
[2024-03-13] MEDS ORDERED: ALBU1AER4 IN (14:01)
--- NOTE | 2024-03-17 12:34 | ECG ---
[facility] Test Date: 2024-03-13 Test Time: 07:50:45 Pat Name: CHARLES HENDRICKS Department: ER Room: Gender: F Visual Journalist: HAYDEN : 1955 Requested By: CHLOE VÁQSUEZ Order Number: [id number] Reading MD: Alexandr Francis Measurements Intervals [place] Rate: 89 P: -20 ID: [id number] QRS: -2 QRSD: 111 T: -27 QT: 352 QTc: 429 Interpretive Statements Sinus rhythm Borderline T abnormalities, diffuse leads Electronically Signed On 03-17-2024 17:54:16 PST by Alexandr Francis Please click the below link to view image of tracing.
== END 2024-03-13 14:19 | disposition home or self-care (01) ==
LOC: ER 07:32
DX: J06.9 Acute upper respiratory infection, unspecified (principal); R05.9 Cough, unspecified; R51.9 Headache, unspecified; J44.9 Chronic obstructive pulmonary disease, unspecified; Z90.49 Acquired absence of other specified parts of digestive tract; Z95.0 Presence of cardiac pacemaker; Z98.890 Other specified postprocedural states; Z79.899 Other long term (current) drug therapy
CPT/HCPCS: 36415; 70450; 71045; 80053; 80185; 81001; 82962; 83735; 83880; 84484; 85025; 85379; 85610; 85730; 87804; 93005

== ENCOUNTER 2024-05-03 07:29 | Emergency (ER) | payer OTHER, MEDICAID ==
[~2024-05-03] VITALS: Ht 165.1 cm; Wt 79.3 kg
[2024-05-03 07:55] VITALS: TEMP 98
--- NOTE | 2024-05-03 08:55 | DVH ---
CLINICAL INFORMATION: 68 years old, Female; pain s/ status post fall injury. TECHNIQUE: 3 views of the left knee were obtained. COMPARISON: L KNEE 3V XRAY on DOS: 02/11/22 FINDINGS: Postsurgical changes of left total knee arthroplasty with cemented femoral and tibial compo nents. No evidence of acute prosthesis complication. No acute fracture. No significant arthropathy. Mild diffuse soft tissue swelling. Small joint effusion. IMPRESSION: Postsurgical changes of left total knee arthroplasty with no evidence of acute prosthesis complicatio n or acute fracture.
[2024-05-03 09:06] VITALS: O2SAT 97
--- NOTE | 2024-05-03 09:16 | ED.PDOC ---
Back pain HPI HPI Comments Patient complaining of left knee pain. three days ago she had a trip and fall landing on her left knee. Patient concerned because she does have knee replacements. has a hard time bending and walking on the left knee. Chief Complaint: Lower Extremity Time Seen by MD: 07:34 Primary Care Provider: pt does not know Reviewed Notes: Nurses Notes Allergies: Coded Allergies: Hydrocodone (Verified Allergy, Severe, 07/03/20) Aspirin (Verified Allergy, Unknown, 07/03/20) Codeine (Unverified Allergy, Unknown, 07/03/20) Ibuprofen (Verified Allergy, Unknown, 07/03/20) Levofloxacin (Verified Allergy, Unknown, 07/03/20) NSAIDs (Verified Allergy, Unknown, 07/03/20) Home Meds Active Scripts Triamcinolone Acetonide (Triamcinolone Acetonide) 0.025 % Cre, 1 APPLIC TOP BID, #30 GRAMS Prov:STEVE GAMEZ 11/23/23 Prednisone (Prednisone) 20 Mg Tab, 20 MG PO DAILY for 5 Days, #5 TAB 0 Refills Prov:SERENA ALEMAN [facility] 05/29/22 Azithromycin (Zithromax Z-Catrachito) 250 Mg Tab, 250 MG PO DAILY for 5 Days, #6 TAB 0 Refills Z-Catrachito as directed Prov:SERENA ALEMAN [facility] 05/29/22 Dextromethorphan-Guaifenesin (Robitussin-Dm) 10 Ml Sr, 10 ML PO Q6HPRN PRN, #120 SYP 1 Refill Prov:SERENA ALEMAN [facility] 05/29/22 Beclomethasone Dipropionate (Qvar Redihaler) 80 Mcg/Act Aer, 2 PUFF IN Q12HR, #1 INHALER 0 Refills Prov:SERENA ALEMAN [facility] 05/29/22 Albuterol Sulfate (Albuterol Sulfate) 1.25 Mg/3 Ml Neb, 2.5 MG IN Q4HPRN PRN, #1 BOX 0 Refills Dose: 2.5mg nebulized every 20 minutes x 3, then 2.5 mg nebulized every 4 hours as needed. Prov:SERENA ALEMAN [facility] 05/29/22 Midodrine Hcl (Midodrine Hcl) 2.5 Mg Tab, 2.5 MG PO TID PRN for 10 Days, #20 TAB Prov:TIA TRUJILLO MD 03/28/22 Methylprednisolone (Medrol Dosepak) 4 Mg Catrachito, 4 MG PO UD, #21 TAB UAD Prov:TIA TRUJILLO MD 03/28/22 Tramadol Hcl (Tramadol Hcl) 50 Mg Tab, 50 MG PO BID PRN for 14 Days, #28 TAB Prov:NOLA ADKINS [employer] 02/11/22 Amoxicillin & Pot Clavulanate (Amoxicillin/Potassium Cla) 875 Mg Tab, 1 TAB PO BID for 10 Days, #20 TAB Prov:TORRES DIOP PAC 01/09/22 Cephalexin ( Keflex 500) 500 Mg Cap, 1 CAP PO TID for 7 Days, #21 CAP Prov:JIMBO ALFARO DO 11/05/21 Meclizine Hcl (Meclizine Hcl) 12.5 Mg Tab, 25 MG PO Q6HR, #50 TAB Prov:FELICITAS SHARPE MD 08/13/21 Sertraline Hcl (Zoloft) 25 Mg Tab, 1 TAB PO DAILY, #30 TAB Prov:JOSE RIVERA MD 06/21/21 Prednisone (Prednisone) 20 Mg Tab, 20 MG PO BID for 5 Days, #10 TAB Prov:MARIZA DENNEY MD 05/25/21 Lidocaine (LIDODERM 5% TOPICAL PATCH) 1 Patch Ph, 1 PATCH TOP DAILY for 30 Days, #3 PATCH Prov:MARIZA DENNEY MD 05/25/21 Reported Medications Ondansetron HCl (Ondansetron) 4 Mg Tab, 4 MG PO PRN, TAB 09/29/23 Vitamin B12 (Vitamin B-12) 1,000 Mcg/1 Ml Ij, 500 MCG PO DAILY, INJ 09/29/23 Atorvastatin Calcium (ATORVASTATIN CALCIUM) 10 Mg Tab, 1 TAB PO DAILY, #30 TAB 5 Refills 09/29/23 Donepezil Hydrochloride (DONEPEZIL HCL) 5 Mg Tab, 5 MG PO DAILY for 30 Days, MG 09/29/23 Levetiracetam (KEPPRA TABLET) 500 Mg Tb, 1000 MG PO BID, TAB 09/29/23 Mirtazapine (REMERON) 30 Mg Tab, 7.5 MG PO DAILY, TAB 09/29/23 Morphine Sulfate (Morphine Sulfate Er) 60 Mg Tab, 30 MG PO BID, TAB 09/29/23 Cyanocobalamin (B12) 1,000 Mcg Cap, 1000 MCG PO, CAP 12/17/21 Tramadol Hcl (Tramadol Hcl) 50 Mg Tab, 50 MG PO Q6HP PRN for PAIN SCALE 1 THRU 6, MG 12/17/21 Trazodone Hcl (Trazodone Hcl) 50 Mg Tab, 50 MG PO, MG 12/17/21 Ferrous Sulfate (Iron) 90 Mg Tab, 65 MG PO, TAB 12/17/21 Magnesium Oxide (MAGNESIUM OXIDE) 400 Mg Tab, 1 TAB PO DAILY, #30 TAB 5 Refills 12/17/21 Montelukast Sodium (MONTELUKAST SODIUM) 10 Mg Tab, 1 TAB PO DAILY, #30 TAB 5 Refills 12/17/21 Duloxetine Hcl (Cymbalta) 20 Mg Cap, 1 CAP PO DAILY, #30 CAP 2 Refills 12/17/21 Albuterol Sulfate (Albuterol Sulfate Hfa) 108 Mcg/Act Aer, INH 08/13/21 Pantoprazole Sodium Sesquihydr (Pantoprazole Sodium) 40 Mg Tab, 1 TAB PO DAILYPRN 08/12/21 Multiple Vitamin (Multivitamins) Tab, 1 TAB PO DAILY, #90 TAB 3 Refills 05/20/21 Cholecalciferol (VITAMIN D-3) Unknown Strength Tab, PO DAILY, TAB 05/20/21 Gabapentin (Neurontin) 400 Mg Cap, 2 CAP PO TID, #90 CAP 1 Refill 05/20/21 Temazepam (Restoril) 15 Mg Cp, 1 CAP PO QPM, #30 CAP 1 Refill 05/20/21 Mode of Arrival: Wheelchair Past Medical History PAST MEDICAL HISTORY: Asthma, COPD, Seizures, Thyroid Surgical History: Appendectomy, Cholecystectomy, Pacemaker CAN DRAGGER History: No Pertinent CAN DRAGGER History Family History Family History: Reviewed,noncontributory to illness Social History Smoker: Non-Smoker Alcohol: Denies ETOH Use Drugs: Denies Drug Use Lives In: Home Constitutional: denies: chills, diaphoresis, fatigue, fever, malaise, sweats, weakness, others EENTM: denies: blurred vision, double vision, ear bleeding, ear discharge, ear drainage, ear pain, ear ringing, eye pain, eye redness, hearing loss, mouth pain, mouth swelling, nasal discharge, nose bleeding, nose congestion, nose pain, photophobia, tearing, throat pain, throat swelling, voice changes, others Respiratory: denies: cough, hemoptysis, orthopnea, SOB at rest, shortness of breath, SOB with excertion, stridor, wheezing, others Cardiovascular: denies: chest pain, dizzy spells, diaphoresis, Dyspnea on exertion, edema, irregular heart beat, left arm pain, lightheadedness, palpitations, PND, syncope, others Gastrointestinal: denies: abdomen distended, abdominal pain, blood streaked bowels, constipated, diarrhea, dysphagia, difficulty swallowing, hematemesis, melena, nausea, poor appetite, poor fluid intake, rectal bleeding, rectal pain, vomiting, others Genitourinary: denies: abnormal vagina bleeding, burning, dyspareunia, dysuria, flank pain, frequency, hematuria, incontinence, pain, , vagina discharge, urgency, others Neurological: denies: dizziness, fainting, headache, left sided numbness, left sided weakness, numbness, paresthesia, pre-existing deficit, right sided numbness, right sided weakness, seizure, speech problems, tingling, tremors, weakness, others Musculoskeletal: reports: joint pain; denies: back pain, gout, joint swelling, muscle pain, muscle stiffness, neck pain, others Integumetry: denies: bruises, change in color, change in hair/nails, dryness, laceration, lesions, lumps, rash, wounds, others Allergic/Immunocompromised: denies: Difficulty Healing, Frequent Infections, Hives, Itching, others Physical Exam General Appearance: No Apparent Distress, Normal HEENT: Normal ENT Inspection, Pharynx Normal, TMs Normal Neck: Full Range of Motion, Non-Tender, Normal, Normal Inspection Respiratory: Chest Non-Tender, Lungs Clear, No Accessory Muscle Use, No Respiratory Distress, Normal Breath Sounds Cardiovascular: No Edema, No JVD, No Murmur, No Gallop, Normal Peripheral Pulses, Regular Rate/Rhythm Breast Exam: Deferred Gastrointestinal: No Organomegaly, Non Tender, No Pulsatile Mass, Normal Bowel Sounds, Soft Genitalia: Deferred Pelvic: Deferred Rectal: Deferred Extremities: No calf tenderness, Normal capillary refill, Normal inspection, Normal range of motion, Non-tender, No pedal edema Musculoskeletal : Location: Left Extremity Location: Knee (With left knee straight, patella is mobile. As soon as patient bends of the left knee the patella becomes fixed in the lateral side.) Apperance: Normal Neurologic: Alert, field health officer II-XII nml as Tested, No Motor Deficits, Normal Affect, Normal Mood, No Sensory Deficits Cerebellar Function: Normal Reflexes: Normal Skin: Dry, Normal Color, Warm Lymphatic: No Adenopathy Was a procedure done? Was a procedure done?: No Back Pain Differential Dx Differential Diagnosis: Musculoskeletal Pain, Other (Patella dislocation) X-Ray, Labs, Meds, VS Vital Signs Date Time Temp Pulse Resp B/P (MAP) Pulse Ox O2 Delivery O2 Flow Rate FiO2 05/03/24 07:55 77 17 98 Room Air 05/03/24 07:55 98.0 77 18 112/46 (68) 98 98.0 05/03/24 07:43 98.0 77 17 117/34 (61) 98 Lab Test 05/03/24 07:42 Range/Units POC Glucose 102 70-106 mg/dl X-Ray, Labs, Meds, VS Comment Patient was placed knee immobilizer Imaging: X-rays and CT scans were reviewed and interpreted by this provider, imaging shows no fractures and no pathological disease. Pending radiology rev iew. Laboratory: Labs reviewed and interpreted by this provider. No significant abnormalities noted. Patient has prior medical visits reviewed. Med reconciliation performed Vital signs reviewed Time of 1ST Reevaluation: 09:16 Reevaluation 1ST: Improved Patient Education/Counseling: Diagnosis, Treatment, Need For Follow Up (Follow up with admissions specialist in next available appointment) Family Education/Counseling: Diagnosis Departure 1 Departure Time of Disposition: 09:14 Impression: Primary Impression: Contusion of left patella Qualified Codes: S80.02XA - Contusion of left knee, initial encounter Additional Impression: Dislocation of left patella Qualified Codes: S83.005A - Unspecified dislocation of left patella, initial encounter Disposition: HOME / SELF CARE / HOMELESS Condition: Fair Referrals: Orthopedics Discharged With: Self Critical Care Note Critical Care Time?: No Stability Stability form required: No Heart Score Heart Score: Heart Score Response (Comments) Value History N/A 0 EKG N/A 0 Age N/A 0 Risk Factors N/A 0 Troponin N/A 0 Total 0 ELIZABETH CONTE May 03, 2024 09:16
[2024-05-03] MEDS: MORPHINE SULFATE 4 MG/ML SYR/VIAL IM ONE (09:32)
[2024-05-03 09:49] VITALS: BP 106/54; PULSE 89; RESP 16
== END 2024-05-03 10:02 | disposition home or self-care (01) ==
LOC: ER 07:38
DX: S83.005A Unspecified dislocation of left patella, initial encounter (principal); S80.02XA Contusion of left knee, initial encounter; J44.89 Other specified chronic obstructive pulmonary disease; Z79.51 Long term (current) use of inhaled steroids; Z79.52 Long term (current) use of systemic steroids; Z79.899 Other long term (current) drug therapy; Z88.1 Allergy status to other antibiotic agents; Z88.5 Allergy status to narcotic agent; Z88.6 Allergy status to analgesic agent; Z90.49 Acquired absence of other specified parts of digestive tract; Z95.0 Presence of cardiac pacemaker; Z96.652 Presence of left artificial knee joint
CPT/HCPCS: 29505; 73562; 82962; 96372; 99285; J2270

== ENCOUNTER 2024-06-15 16:30 | Inpatient (IN) | payer OTHER, MEDICAID ==
[~2024-06-15] VITALS: Ht 165.1 cm; Wt 96.2 kg
[~2024-06-15 16:30] MED LIST changes: +BECL80AE11 INH; +GABA-1250 PO; +IPRIH PO; +MIRT1TAB PO; +OMEP1CAP70 PO
--- NOTE | 2024-06-15 16:46 | ED.PDOC ---
SOB-HPI HPI Comments 68 y.o female presents to the ED for a chief complaint of SOB that started a couple days ago but worsened the past 20 minutes prior to arrival. Patient has a productive cough, unable to complete a full sentence and is wheezing. Patient is on 2 liters of oxygen via NC at home, was placed on 4 liters today with minimal relief. Patient Denies any chest pain, nausea, vomiting, fever, chills, or blood thinner use. Vitals: BP: 118/43 HR: 74 Temp: N/A SPO2: 97% RA RR: 19 Past medical history: seizure, thyroid disease, asthma, COPD and on 2 liters of home oxygen via NC, and hypotension Past surgical history: pacemaker, cholecystectomy, appendectomy, gastric bypass, knee replacement x3 Allergies: HPI: Poor Historian. REVIEW OF SYSTEMS: CONSTITUTIONAL: Denies acute: fever, diaphoresis, chills, HEAD: Denies acute: headache, photophobia Eyes: Denies acute: Double vision, vision loss, eye pain, eye discharge. EARS: Denies acute: tinnitus, hearing loss, ear discharge, ear pain, THROAT: Denies acute: sore throat, swelling, difficulty swallowing , pain with swallow ing, change in voice. NECK: Denies acute: neck pain, neck swelling, stiff neck. HEART: Denies acute : chest pain, palpitations, LUNGS: Denies acute: hemoptysis ABDOMEN: Denies acute: abdominal pain, Nausea, Vomiting, diarrhea, melena , hematemesis, hematochezia SKIN: Denies acute: rash, redness, lesions, itchiness. EXTREMITIES: Denies acute: calf pain, numbness, tingling, weakness, denies pain in extremity. Denies acute: Low back pain. Neuro: Denies acute: focal neurological deficit, motor or sensory focal neurological deficit, tremors, seizure like activity, confusion, dizziness, change in mental status, loss of bowel or bladder function, cauda equina like symptoms. : Denies acute: dysuria, hematuria, flank pain, increase in urinary frequency. PSYCH: Denies acute: hallucination, suicidal ideation, homicidal ideation. FEMALE: Denies acute: abnormal vaginal bleeding, foul odor, unusual discharge. PHYSICAL EXAM: General: ----[id number]----acute distress, awake and alert. Head: normocephalic, atraumatic. Neck: supple, trachea is midline, no swelling. Throat: Normal phonation. Eyes:, no erythema, no purulent discharge, no proptosis, no icterus. Heart: regular rate, regular rhythm, no significant murmur appreciated. Lungs: [id number] respiratory distress, Able to speak in full sentences. Bilateral wheezing, bilateral rhonchi, no crackles. No stridors Abdomen: non tender to palpation, non distended, soft, no guarding, no rebound, + bowel sounds. Neuro: Awake, Alert, oriented to name, self, situation, follows commands GCS=15. Speech is normal. Skin: no petechia, no purpura, no cyanosis, non-pale, not jaundice. Lower extremities: --no - Pitting edema no deformity, no focal swelling, no calf TTP. Makes eye contact. moves all four extremities. Face: no apparent facial droop. Ambulating in the ED independently. ED COURSE: Time Seen by MD: 16:38 Primary Care Provider: pt does not know Reviewed notes: Nurses Notes, Allergies Information Source: Patient Mode of Arrival: Ambulatory Past Medical History PAST MEDICAL HISTORY: Asthma, COPD, Seizures, Thyroid Surgical History: Appendectomy, Cholecystectomy, Pacemaker DATABASE ADMIN History: No Pertinent DATABASE ADMIN History Family History Family History: Reviewed,noncontributory to illness Social History Smoker: Non-Smoker Alcohol: Denies ETOH Use Drugs: Denies Drug Use Lives In: Home Was a procedure done? Was a procedure done?: No Differential Dx Differential Diagnosis: Anxiety, Asthma, Bronchitis, CHF, COPD, Hyperventilation, Hyponatremia, Panic Attack, Pneumonia, Respiratory Distress, URI, Other (DDx include ACS, unstable angina, anxiety, PE, pneumothroax, neoplasm, cardiac ischemia, COPD, asthma, CHF, pleural effusion, tobacco abuse, pneumonia, hypoxia, hypercapnia, anemia., infection/sepsis., pulmonary edema. Asthma, Cardiac tamponade, infection.) X-Ray, Labs, Meds, VS Vital Signs Date Time Temp Pulse Resp B/P (MAP) Pulse Ox O2 Delivery O2 Flow Rate FiO2 06/15/24 20:09 98.7 90 15 108/43 (64) 99 98.7 06/15/24 20:00 67 06/15/24 18:00 72 18 115/50 (71) 98 06/15/24 17:47 13 Nasal Cannula* 3 32 06/15/24 17:46 74 19 118/43 (68) 97 06/15/24 17:45 74 06/15/24 17:00 34 97 Nasal Cannula* 2 28 06/15/24 16:52 22 91 Nasal Cannula* 4 36 06/15/24 16:49 98.6 90 24 117/61 (79) 93 98.6 Lab Test 06/15/24 19:23 06/15/24 19:02 06/15/24 18:15 06/15/24 17:04 Range/Units Prothrombin Time 10.8 9.3-11.8 sec Prothrombin Time INR 1.02 0.9-1.15 Activated Partial Thromboplast Time 25.6 24.5-34.5 SEC D-Dimer, Quantitative 0.33 0.0-0.49 mg/L FEU Troponin I High Sensitivity 7 7 </=34 ng/L Blood Gas Specimen Type Arterial Blood Gas Sample Site Left radial Blood Gas Patient Temperature 37.0 Arterial Blood Date Drawn [id number] Arterial Blood pH 7.429 7.350-7.450 Arterial Blood Partial Pressure CO2 30.5 L 32.0-45.0 mmHg Arterial Blood Partial Pressure O2 99.6 83.0-108.0 mmHg Arterial Blood HCO3 19.7 L 21.0-28.0 mmol/L Arterial Blood Oxygen Saturation 97.8 94.0-98.0 % Arterial Blood Base Excess -3.7 L -2.0-3.0 mmol/L Arterial Blood Oxyhemoglobin 96.9 94.0-98.0 % Arterial Blood Carboxyhemoglobin 0.4 L 0.5-1.5 % Arterial Blood Methemoglobin 0.5 0.0-1.5 % Roc Test Modified Blood Gas Total Hemoglobin 10.70 L 12.0-16.0 g/dL Blood Gas Liter Flow 28.00 Blood Gas Modality Nasal cannula FiO2 % 28.0 White Blood Count 6.0 4.4-10.8 10^3/uL Red Blood Count 4.52 4.0-5.20 10^6/uL Hemoglobin 11.4 L 12.2-16.2 g/dL Hematocrit 38.1 36.0-46.0 % Mean Corpuscular Volume 84.3 80.0-100.0 fL Mean Corpuscular Hemoglobin 25.3 L 28.0-32.0 pg Mean Corpuscular Hemoglobin Concent 30.0 L 32.0-36.0 g/dL Red Cell Distribution Width 17.5 H 11.8-14.3 % Platelet Count 239 140-450 10^3/uL Mean Platelet Volume 8.4 6.9-10.8 fL Neutrophils (%) (Auto) 46.5 37.0-80.0 % Lymphocytes (%) (Auto) 38.3 10.0-50.0 % Monocytes (%) (Auto) 6.8 0.0-12.0 % Eosinophils (%) (Auto) 7.5 H 0.0-7.0 % Basophils (%) (Auto) 0.9 0.0-2.0 % Neutrophils # (Auto) 2.8 1.6-8.6 10 ^3/uL Lymphocytes # (Auto) 2.3 0.4-5.4 10 ^3/uL Monocytes # (Auto) 0.4 0-1.3 10 ^3/uL Eosinophils # (Auto) 0.5 0-0.8 10 ^3/uL Basophils # (Auto) 0.1 0-0.2 10 ^3/uL Nucleated Red Blood Cells 0.1 % Sodium Level 143 136-145 mmol/L Potassium Level 4.7 3.5-5.1 mmol/L Chloride Level 113 H 98-107 mmol/L Carbon Dioxide Level 18 L 20-31 mmol/L Anion Gap 12 5-15 Blood Urea Nitrogen 20 9-23 mg/dL Creatinine 0.68 0.550-1.02 mg/dL Glomerular Filtration Rate Calc 94 >90 mL/min BUN/Creatinine Ratio 29.4 H 10.0-20.0 Serum Glucose 113 H 74-106 mg/dL Lactic Acid Level 1.6 0.4-2.0 mmol/L Calcium Level 9.6 8.7-10.4 mg/dL Magnesium Level 2.0 1.6-2.6 mg/dL Total Bilirubin 0.2 0.2-1.0 mg/dL Aspartate Amino Transferase (AST) 43 H 13-40 U/L Alanine Aminotransferase (ALT) 34 7-40 U/L Alkaline Phosphatase 170 H 46-116 U/L B-Type Natriuretic Peptide 25.90 0-100 pg/mL Total Protein 7.2 5.7-8.2 g/dL Albumin 4.7 3.2-4.8 g/dL Current Medications Medications (Trade) Dose Ordered Sig/Kaia Route Start Time Stop Time Status Last Admin Methylprednisolone Sodium Succinate (Solu Medrol) 125 mg ONCE ONCE IV 06/15/24 16:45 06/15/24 16:48 DC 06/15/24 17:07 Albuterol (Ventolin Medneb) 2.5 mg ONCE ONCE NEB 06/15/24 16:45 06/15/24 16:48 DC 06/15/24 16:57 Ipratropium Sears (Atrovent Medneb) 1 mg ONCE ONCE NEB 06/15/24 16:45 06/15/24 16:48 DC 06/15/24 16:57 [place] [id number] Ph: [phone] DIAGNOSTIC IMAGING Diagnostic Imaging Report : [id number] Signed PATIENT: CHARLES HENDRICKSCCT: [id number] UNIT: [id number] : 1955 LOC: ER ROOM / BED: / AGE / SEX: 68 / F ADM STATUS: REG ER SERVICE 44 ORDERING PHYSICIAN: CHRISTIANO RAWLS DO PROCEDURE(s): CXRP - CHEST PORTABLE REASON: sob ORDER NUMBER(s): [id number], ACCESSION NUMBER(s): [id number] CHEST RADIOGRAPH Indication: sob Technique: Single frontal view of the chest was obtained COMPARISON: XY CHEST PORTABLE on DOS: 03/13/24, XY CHEST XRAY 1 VIEW on DOS: 05/29/22, CXR1 on DOS: 03/26/22, CHEST XRAY 1 VIEW on DOS: 03/26/22, CXRP on DOS: 12/16/21 FINDINGS: Lines and Tubes: None Lungs: Clear Pleura: No effusion. No pneumothorax. Cardiomediastinal contours: Unremarkable Bones: Unremarkable IMPRESSION: 1. No acute disease. ATED BY: CHET BRAGA MD DICTATED DATE/TIME: 06/15/241749 SIGNED BY: CHET BRAGA MD SIGNED DATE/TIME: 06/15/241749 CC: Time of 1ST Reevaluation: 16:42 Reevaluation 1ST: Unchanged Time of 2ND Reevaluation: 18:51 (Troponin is still pending.) Patient Education/Counseling: Diagnosis, Treatment Family Education/Counseling: No Family Present Comments Patient presented with the above HPI.---dyspnea---workup was initiated. patient was found with the above mentioned diagnosis. the following medications were ordered: please refer to order lists of meds and tests obtained by myself Dr. Rawls. Patient ED course and VS have been stabilized. Patient has been reassessed in the ED and remained in a stable condition. Pertinent incidental findings were discussed with the patient and/or family. Patient/family voices understanding and is agreeable with plan. Patient has been observed in the ED adequate length of time to insure improvement/stability. Escalation of care considered: Consideration of escalation to observation or admission Patient was ADMITTED to the medicine team for further evaluation and treatment of their presentation. All the reports of any imaging studies that were ordered by myself were reviewed by myself. Departure 1 Departure Time of Disposition: 16:55 Impression: Primary Impression: Hypoxemia Additional Impression: COPD exacerbation Disposition: ADMITTED INPATIENT Admit to: Tele Condition: Guarded Discharged With: Self Critical Care Note Critical Care Time?: Yes (45 min-critical care time only) I personally scribed for CHRISTIANO RAWLS DO ([email or web address]) on 06/15/24 at 16:46. Electronically submitted by Sandra Tinajero ([facility]). I personally scribed for CHRISTIANO RAWLS DO ([email or web address]) on 06/15/24 at 20:09. Electronically submitted by Sandra Tinajero ([facility]). CHRISTIANO RAWLS DO Jun 15, 2024 16:46
[2024-06-15] MEDS: ALBUTEROL SULF 2.5 MG/0.5ML(0.5%) NEB SOLN NEB ONE (16:57)
[2024-06-15] MEDS: IPRATROPIUM BROM 0.5 MG/2.5ML INH SOL NEB ONE (16:57)
[2024-06-15] MEDS: methylPREDNISolone SOD SUCC 125 MG/2 ML VL IV ONE (17:07)
[2024-06-15 17:43] LABS: Basophils # (auto) 0.1 10 ^3/uL (0-0.2); Basophils % (auto) 0.9 % (0.0-2.0); Eosinophils # (auto) 0.5 10 ^3/uL (0-0.8); Eosinophils % (auto) 7.5 % (0.0-7.0); Hematocrit 38.1 % (36.0-46.0); Hemoglobin 11.4 g/dL (12.2-16.2); Lymphocytes # (auto) 2.3 10 ^3/uL (0.4-5.4); Lymphocytes % (auto) 38.3 % (10.0-50.0); Mean Corpuscular Hemoglobin 25.3 pg (28.0-32.0); Mean Corpuscular Volume 84.3 fL (80.0-100.0); Monocytes # (auto) 0.4 10 ^3/uL (0-1.3); Monocytes % (auto) 6.8 % (0.0-12.0); Neutrophils # (auto) 2.8 10 ^3/uL (1.6-8.6); Neutrophils % (auto) 46.5 % (37.0-80.0); Nucleated Red Blood Cells % 0.1 %; Platelet Count (auto) 239 10^3/uL (140-450); Red Blood Cells 4.52 10^6/uL (4.0-5.20); Red Cell Distribution Width 17.5 % (11.8-14.3)
[2024-06-15 17:47] VITALS: RESP 13
--- NOTE | 2024-06-15 17:52 | DVH ---
CHEST RADIOGRAPH Indication: sob Technique: Single frontal view of the chest was obtained COMPARISON: XY CHEST PORTABLE on DOS: 03/13/24, XY CHEST XRAY 1 VIEW on DOS: 05/29/22, CXR1 on DOS: 03/26/22, CHEST XRAY 1 VIEW on DOS: 03/26/22, CXRP on DOS: 12/16/21 FINDINGS: Lines and Tubes: None Lungs: Clear Pleura: No effusion. No pneumothorax. Cardiomediastinal contours: Unremarkable Bones: Unremarkable IMPRESSION: 1. No acute disease.
[2024-06-15 18:01] LABS: Alanine Aminotransferase 34 U/L (7-40); Albumin 4.7 g/dL (3.2-4.8); Anion Gap 12 (5-15); BUN/Creatinine Ratio 29.4 (10.0-20.0); Blood Urea Nitrogen 20 mg/dL (9-23); Calcium 9.6 mg/dL (8.7-10.4); Potassium 4.7 mmol/L (3.5-5.1); Sodium 143 mmol/L (136-145); Total Protein 7.2 g/dL (5.7-8.2)
[2024-06-15 18:02] LABS: Alkaline Phosphatase 170 U/L (46-116); Aspartate Aminotransferase 43 U/L (13-40); Bilirubin, Total 0.2 mg/dL (0.2-1.0); Carbon Dioxide 18 mmol/L (20-31); Chloride 113 mmol/L (98-107); Glucose 113 mg/dL (74-106)
[2024-06-15 19:07] LABS: Base Excess -3.7 mmol/L (-2.0-3.0)
[2024-06-15] MEDS ORDERED: TEMAZEPAM 15 MG CAP PO PRN (20:15)
[2024-06-15 20:17] VITALS: PULSE 71; RESP 14; O2SAT 97
[2024-06-15 20:34] LABS: INR 1.02 (0.9-1.15); Partial Thromboplastin Time 25.6 SEC (24.5-34.5); Prothrombin Time 10.8 sec (9.3-11.8)
--- NOTE | 2024-06-15 21:22 | DVHHP2 ---
History of Present Illness Reason for Visit: Shortness for breath History of Present Illness 68-year-old female presents for evaluation of shortness for breath. Patient reports a two day history of worsening shortness for breath with associated nonproductive cough. Denies chest pain or palpitations. Patient currently uses 2 L of nasal cannula oxygen at home. She was noted to be hypoxic in the lower 80s on arrival therefore she was placed on 4 L nasal cannula. Currently saturating 92%. Past Medical History Thyroid, COPD, asthma, seizure, hypotension Past Surgical History Cholecystectomy, gastric bypass, knee replacement, appendectomy, pacemaker Family History Noncontributory Smoke: No ALCOHOL: none Drugs: None Lives: with Family Review of Systems Review of Systems Review of systems are currently negative otherwise addressed in HPI. Allergies: Coded Allergies: Hydrocodone (Verified Allergy, Severe, 07/03/20) Aspirin (Verified Allergy, Unknown, 07/03/20) Codeine (Unverified Allergy, Unknown, 07/03/20) Ibuprofen (Verified Allergy, Unknown, 07/03/20) Levofloxacin (Verified Allergy, Unknown, 07/03/20) NSAIDs (Verified Allergy, Unknown, 07/03/20) Medications Current Medications Medications Dose Ordered Sig/Kaia Route Start Time Stop Time Status Last Admin Dose Admin Methylprednisolone Sodium Succinate 40 mg BID IV 06/15/24 22:00 UNV Atorvastatin Calcium 10 mg HS PO 06/15/24 22:00 UNV Guaifenesin/ Dextromethorphan 10 ml Q4HP PRN PO 06/15/24 20:15 UNV Donepezil HCl 5 mg HS PO 06/15/24 22:00 UNV Gabapentin 400 mg BID PO 06/15/24 22:00 UNV Levetiracetam 1,000 mg BID PO 06/15/24 22:00 UNV Montelukast Sodium 10 mg HS PO 06/15/24 22:00 UNV Sertraline HCl 25 mg DAILY PO 06/16/24 10:00 UNV Temazepam 15 mg QHSP PRN PO 06/15/24 20:15 UNV Ondansetron HCl 4 mg Q4HP PRN IV 06/15/24 20:15 UNV Acetaminophen 650 mg Q6HP PRN PO 06/15/24 20:15 UNV Exam Vital Signs Vital Signs Date Time Temp Pulse Resp B/P (MAP) Pulse Ox O2 Delivery O2 Flow Rate FiO2 06/15/24 20:17 71 14 97 Nasal Cannula* 3 32 06/15/24 20:09 98.7 108/43 (64) 98.7 Exam Gen: 68-year-old female in mild distress. Skin: Warm, dry, normal color and texture, no rash. HEENT: Normocephalic atraumatic, mucous membranes moist and pink. Neck: Cervical and supraclavicular nodes normal without enlargement, trachea is midline, thyroid gland is normal without masses. Pulmonary: Diminished breath sounds bilaterally Cardiac: Regular rate and rhythm. No murmur Abdomen: Soft, nontender, nondistended, bowel sounds present all 4 quadrants, no guarding, no rigidity, no organomegaly. Extremities: No cyanosis, clubbing, no edema Neuro: Cranial nerves II through XII grossly intact, normal affect and speech, no focal motor deficits. Labs/Xrays ORDERING PHYSICIAN: CHRISTIANO RAWLS DO PROCEDURE(s): CXRP - CHEST PORTABLE REASON: sob ORDER NUMBER(s): [id number], ACCESSION NUMBER(s): [id number] CHEST RADIOGRAPH Indication: sob Technique: Single frontal view of the chest was obtained COMPARISON: XY CHEST PORTABLE on DOS: 03/13/24, XY CHEST XRAY 1 VIEW on DOS: 05/29/22, CXR1 on DOS: 03/26/22, CHEST XRAY 1 VIEW on DOS: 03/26/22, CXRP on DOS: 12/16/21 FINDINGS: Lines and Tubes: None Lungs: Clear Pleura: No effusion. No pneumothorax. Cardiomediastinal contours: Unremarkable Bones: Unremarkable IMPRESSION: 1. No acute disease. Labs Test 06/15/24 19:23 06/15/24 19:02 06/15/24 17:04 Range/Units Prothrombin Time 10.8 9.3-11.8 sec Prothrombin Time INR 1.02 0.9-1.15 Activated Partial Thromboplast Time 25.6 24.5-34.5 SEC D-Dimer, Quantitative 0.33 0.0-0.49 mg/L FEU Troponin I High Sensitivity 7 </=34 ng/L Blood Gas Specimen Type Arterial Blood Gas Sample Site Left radial Blood Gas Patient Temperature 37.0 Arterial Blood Date Drawn [id number] Arterial Blood pH 7.429 7.350-7.450 Arterial Blood Partial Pressure CO2 30.5 L 32.0-45.0 mmHg Arterial Blood Partial Pressure O2 99.6 83.0-108.0 mmHg Arterial Blood HCO3 19.7 L 21.0-28.0 mmol/L Arterial Blood Oxygen Saturation 97.8 94.0-98.0 % Arterial Blood Base Excess -3.7 L -2.0-3.0 mmol/L Arterial Blood Oxyhemoglobin 96.9 94.0-98.0 % Arterial Blood Carboxyhemoglobin 0.4 L 0.5-1.5 % Arterial Blood Methemoglobin 0.5 0.0-1.5 % Roc Test Modified Blood Gas Total Hemoglobin 10.70 L 12.0-16.0 g/dL Blood Gas Liter Flow 28.00 Blood Gas Modality Nasal cannula FiO2 % 28.0 White Blood Count 6.0 4.4-10.8 10^3/uL Red Blood Count 4.52 4.0-5.20 10^6/uL Hemoglobin 11.4 L 12.2-16.2 g/dL Hematocrit 38.1 36.0-46.0 % Mean Corpuscular Volume 84.3 80.0-100.0 fL Mean Corpuscular Hemoglobin 25.3 L 28.0-32.0 pg Mean Corpuscular Hemoglobin Concent 30.0 L 32.0-36.0 g/dL Red Cell Distribution Width 17.5 H 11.8-14.3 % Platelet Count 239 140-450 10^3/uL Mean Platelet Volume 8.4 6.9-10.8 fL Neutrophils (%) (Auto) 46.5 37.0-80.0 % Lymphocytes (%) (Auto) 38.3 10.0-50.0 % Monocytes (%) (Auto) 6.8 0.0-12.0 % Eosinophils (%) (Auto) 7.5 H 0.0-7.0 % Basophils (%) (Auto) 0.9 0.0-2.0 % Neutrophils # (Auto) 2.8 1.6-8.6 10 ^3/uL Lymphocytes # (Auto) 2.3 0.4-5.4 10 ^3/uL Monocytes # (Auto) 0.4 0-1.3 10 ^3/uL Eosinophils # (Auto) 0.5 0-0.8 10 ^3/uL Basophils # (Auto) 0.1 0-0.2 10 ^3/uL Nucleated Red Blood Cells 0.1 % Sodium Level 143 136-145 mmol/L Potassium Level 4.7 3.5-5.1 mmol/L Chloride Level 113 H 98-107 mmol/L Carbon Dioxide Level 18 L 20-31 mmol/L Anion Gap 12 5-15 Blood Urea Nitrogen 20 9-23 mg/dL Creatinine 0.68 0.550-1.02 mg/dL Glomerular Filtration Rate Calc 94 >90 mL/min BUN/Creatinine Ratio 29.4 H 10.0-20.0 Serum Glucose 113 H 74-106 mg/dL Lactic Acid Level 1.6 0.4-2.0 mmol/L Calcium Level 9.6 8.7-10.4 mg/dL Magnesium Level 2.0 1.6-2.6 mg/dL Total Bilirubin 0.2 0.2-1.0 mg/dL Aspartate Amino Transferase (AST) 43 H 13-40 U/L Alanine Aminotransferase (ALT) 34 7-40 U/L Alkaline Phosphatase 170 H 46-116 U/L B-Type Natriuretic Peptide 25.90 0-100 pg/mL Total Protein 7.2 5.7-8.2 g/dL Albumin 4.7 3.2-4.8 g/dL Assessment/Plan Assessment/Plan Assessment Acute on chronic hypoxic respiratory failure Acute asthma exacerbation History of seizure Plan Admit the patient to [facility] to the hospitalist [facility] Methylprednisone b.i.d. Resume home medications Continue treatment per orders. Plan discussed with: Patient My Orders Orders - DIONISIO RICHARDS AGACNP Procedure Category Date Status Time Admit ADMIT 06/15/24 Transmitted 20:09 Methylprednisolone PHA 06/15/24 Logged Sod Succ (Solu Medrol 22:00 Atorvastatin (Lipitor) PHA 06/15/24 Logged 22:00 Guaifenesin-Dextromet PHA 06/15/24 Logged Liquid (Robitussin 20:15 Donepezil Tablet PHA 06/15/24 Logged (Aricept Tablet) 22:00 Gabapentin Capsule PHA 06/15/24 Logged (Neurontin Capsule) 22:00 Levetiracetam Tablet PHA 06/15/24 Logged (Keppra Tablet) 22:00 Montelukast Tablet PHA 06/15/24 Logged (Singulair Tablet) 22:00 Sertraline Hcl PHA 06/16/24 Logged (Zoloft) 10:00 Basic Metabolic Panel LAB 06/16/24 Verified 04:00 Temazepam (Restoril) PHA 06/15/24 Logged 20:15 Ondansetron Hcl PHA 06/15/24 Logged (Zofran) 20:15 Cardiac DIET 06/16/24 Transmitted Diet-2gna,Lofat,Lochol Breakfast Condition: Fair GATO 06/15/24 In Process 20:11 Acetaminophen Tablet PHA 06/15/24 Logged (Tylenol Tablet) 20:15 Bedrest With Bathroom [facility] 06/15/24 In Process Privileg 20:11 Date of Service: Jun 15, 2024 Billing Provider: DIONISIO RICHARDS Common Visit Codes: [id number] INP/OBS CARE (HIGH) DINOISIO RICHARDS Jun 15, 2024 21:22
[2024-06-15] MEDS: ATORVASTATIN 20 MG TAB PO SCH (22:14)
[2024-06-15] MEDS: methylPREDNISolone SOD SUCC 40 MG/ML VL IV SCH (22:14)
[2024-06-15] MEDS: levETIRAcetam 500 MG TAB PO SCH (22:15)
[2024-06-15] MEDS: MONTELUKAST SODIUM 10 MG TAB PO SCH (22:15)
[2024-06-15] MEDS: GABAPENTIN 400 MG CAP PO SCH (22:22)
[2024-06-15] MEDS: DONEPEZIL HYDROCHLORIDE 5 MG TAB PO SCH (22:22)
[2024-06-16] VITALS (10 sets, daily range): BP systolic 96–135; BP diastolic 33–63; PULSE 50–70; RESP 14–20; TEMP 97.6–98.1; O2SAT 90–100
[2024-06-16 00:25] LABS: Urine Bacteria None Seen /hpf (None Seen)
[2024-06-16 00:33] LABS: Urine Blood Negative /uL (Negative); Urine Clarity Clear (Clear); Urine Color Light-Yellow (Yellow); Urine Protein, UAD Negative (Negative); Urine Specific Gravity 1.017 (1.001-1.035); Urine Squamous Epithelial Cell MOD /hpf (<5); Urine Urobilinogen Normal (Negative); Urine WBC 24 /HPF (0-5)
[2024-06-16] MEDS: ACETAMINOPHEN 325 MG TAB PO PRN (04:27)
[2024-06-16] MEDS: ONDANSETRON HCL 4 MG/2 ML VIAL IV PRN (05:37)
[2024-06-16 06:27] LABS: Anion Gap 8 (5-15); Calcium 9.6 mg/dL (8.7-10.4); Carbon Dioxide 23 mmol/L (20-31); Potassium 4.2 mmol/L (3.5-5.1); Sodium 142 mmol/L (136-145)
[2024-06-16 06:32] LABS: Chloride 111 mmol/L (98-107)
[2024-06-16 06:33] LABS: BUN/Creatinine Ratio 28.4 (10.0-20.0); Blood Urea Nitrogen 19 mg/dL (9-23)
[2024-06-16 06:39] LABS: Glucose 205 mg/dL (74-106)
[2024-06-16] MEDS: guaiFENesin-DM 100/10mg/5ml SYR PO PRN (07:53)
[2024-06-16] MEDS: SERTRALINE HCL 50 MG TAB PO SCH (10:26)
--- NOTE | 2024-06-16 16:29 | DVHPN2 ---
Subjective Patient with severe dyspnea, wheezing. Unable to communicate at this time. Reviewed: Care Plan, H&P, Labs, Medications Changes from previous H/P or p: No Changes General: Per HPI Objective Vitals Vital Signs Date Time Temp Pulse Resp B/P (MAP) Pulse Ox O2 Delivery O2 Flow Rate FiO2 06/16/24 16:03 19 Nasal Cannula* 3 32 06/16/24 14:00 66 135/63 (87) 96 06/16/24 12:00 98.1 98.1 General Appearance: Alert, Oriented X3, Cooperative, moderate distress HEENT: Atraumatic, PERRLA Lungs: Other (Severe inspiratory and expiratory wheezing in upper and lower lobe) Cardiovascular: Normal S1, Normal S2 Musculoskeletal: Normal sensory function, Normal motor function Neuro: Cranial nerves 3-12 NL Psych/Mental Status: Mental status NL, Mood NL Medications Current Medications Medications Dose Ordered Sig/Kaia Route Start Time Stop Time Status Last Admin Dose Admin Methylprednisolone Sodium Succinate 40 mg BID IV 06/15/24 22:00 06/16/24 10:27 40 MG Atorvastatin Calcium 10 mg HS PO 06/15/24 22:00 06/15/24 22:14 10 MG Guaifenesin/ Dextromethorphan 10 ml Q4HP PRN PO 06/15/24 20:15 06/16/24 12:30 10 ML Donepezil HCl 5 mg HS PO 06/15/24 22:00 06/15/24 22:22 5 MG Gabapentin 400 mg BID PO 06/15/24 22:00 06/16/24 10:26 400 MG Levetiracetam 1,000 mg BID PO 06/15/24 22:00 06/16/24 10:26 1,000 MG Montelukast Sodium 10 mg HS PO 06/15/24 22:00 06/15/24 22:15 10 MG Sertraline HCl 25 mg DAILY PO 06/16/24 10:00 06/16/24 10:26 25 MG Temazepam 15 mg QHSP PRN PO 06/15/24 20:15 Ondansetron HCl 4 mg Q4HP PRN IV 06/15/24 20:15 06/16/24 05:37 4 MG Acetaminophen 650 mg Q6HP PRN PO 06/15/24 20:15 06/16/24 04:27 650 MG Laboratory Results Laboratory Tests 06/15/24 17:04 06/16/24 05:30 Chemistry Test 06/15/24 17:04 06/16/24 05:30 Albumin 4.7 g/dL (3.2-4.8) Calcium Level 9.6 mg/dL (8.7-10.4) 9.6 mg/dL (8.7-10.4) Magnesium Level 2.0 mg/dL (1.6-2.6) Total Protein 7.2 g/dL (5.7-8.2) Coagulation Test 06/15/24 19:23 Prothrombin Time 10.8 sec (9.3-11.8) Prothrombin Time INR 1.02 (0.9-1.15) Activated Partial Thromboplast Time 25.6 SEC (24.5-34.5) D-Dimer, Quantitative 0.33 mg/L FEU (0.0-0.49) Cardiac Markers Test 06/15/24 17:04 B-Type Natriuretic Peptide 25.90 pg/mL (0-100) LFT Test 06/15/24 17:04 Alanine Aminotransferase (ALT) 34 U/L (7-40) Alkaline Phosphatase 170 U/L (46-116) H Aspartate Amino Transferase (AST) 43 U/L (13-40) H Total Bilirubin 0.2 mg/dL (0.2-1.0) Urinalysis Test 06/15/24 21:04 Urine Color Light-yellow (Yellow) Urine Clarity Clear (Clear) Urine pH 5.0 (5.0-9.0) Urine Specific [place] 1.017 (1.001-1.035) Urine Protein Negative (Negative) Urine Ketones Negative (Negative) Urine Blood Negative /uL (Negative) Urine Nitrite Negative (Negative) Urine Bilirubin Negative (Negative) Urine Urobilinogen Normal mg/dL (Negative) Urine Leukocyte Esterase 3+ /uL (Negative) Urine RBC 3 /hpf (0 - 4) Urine Microscopic WBC 24 /HPF (0-5) H Urine Squamous Epithelial Cells Mod /hpf (<5) Urine Bacteria None seen /hpf (None Seen) Urine Glucose Normal mg/dL (Normal) Blood Gas Results Test 06/15/24 19:02 Arterial Blood pH 7.429 (7.350-7.450) FiO2 % 28.0 Labs and/or images reviewed: Labs reviewed by me, Image(s) reviewed by me Assessment/Plan Assessment/Plan Impression: -acute hypoxic respiratory failure -COPD with exacerbation -obesity -hyperglycemia -asthma exacerbation -seizure disorder Plan: -assess patient to be in severe respiratory distress while on the Medical/Surgical floor. Severe inspiratory and expiratory wheezing with the patient having severe dyspnea where she can not communicate. -Stat IV Solu-Medrol, albuterol and Atrovent treatment 07/16, IV magnesium -bronchodilators q.4 hours while awake -Pulmicort -O2 supplementation to keep saturation greater than 90% -check A1c -repeat labs in a.m. Critical care time spent with patient discussing and formulating plan of care: 40 minutes. This does not include time spent performing procedures. This medical document was created using an electronic medical record system with [employer] dictation system. Although this document has been carefully reviewed, there may still be some phonetic and typographical errors. These areas are purely typographical due to imperfections of the software programs, and do not reflect any compromise in the patient's medical care. Plan discussed with: Patient, Other (RN) My Orders Orders - GUILLE MARQUEZ NP Procedure Category Date Status Time Albuterol Medneb PHA 06/16/24 Verified (Ventolin Medneb) 18:00 Albuterol Medneb PHA 06/16/24 Verified (Ventolin Medneb) 16:30 Ipratropium Medneb PHA 06/16/24 Verified (Atrovent Medneb) 18:00 Ipratropium Medneb PHA 06/16/24 Verified (Atrovent Medneb) 16:30 Budesonide PHA 06/16/24 Verified (Inhalation) 22:00 Doxycycline PHA 06/16/24 Verified 100mg/100ml 16:30 Ceftriaxone Ivpb PHA 06/17/24 Verified Rocephin 09:00 Methylprednisolone PHA 06/16/24 Verified Sod Succ (Solu Medrol 16:30 Hemoglobin A1c LAB 06/16/24 Verified 16:21 Date of Service: Jun 16, 2024 Billing Provider: GUILLE MARQUEZ NP Common Visit Codes: [id number] CARE 30-74 MIN GUILLE MARQUEZ NP Jun 16, 2024 16:29
[2024-06-16] MEDS: IPRATROPIUM BROM 0.5 MG/2.5ML INH SOL ONE (16:36)
[2024-06-16] MEDS: ALBUTEROL SULF 2.5 MG/0.5ML(0.5%) NEB SOLN ONE (16:36)
[2024-06-16] MEDS: IPRATROPIUM BROM 0.5 MG/2.5ML INH SOL NEB ONE (16:42)
[2024-06-16] MEDS: ALBUTEROL SULF 2.5 MG/0.5ML(0.5%) NEB SOLN NEB ONE (16:43)
[2024-06-16] MEDS: methylPREDNISolone SOD SUCC 125 MG/2 ML VL IV ONE (16:50)
[2024-06-16] MEDS: MAGNESIUM SULFATE 1GM/100ML 100 ML IV ONE (16:52)
[2024-06-16] MEDS: ALBUTEROL SULF 2.5 MG/0.5ML(0.5%) NEB SOLN NEB SCH (18:00)
[2024-06-16] MEDS: DOXYCYCLINE 100MG/100ML 100 ML IV SCH (18:00)
[2024-06-16] MEDS: IPRATROPIUM BROM 0.5 MG/2.5ML INH SOL NEB SCH (18:00)
[2024-06-16] MEDS: BUDESONIDE (INHALATION) 0.5 MG/2 ML NEB NEB SCH (21:44)
[2024-06-17] VITALS (15 sets, daily range): BP systolic 96–124; BP diastolic 37–97; PULSE 45–79; RESP 16–19; TEMP 97.9–98.4; O2SAT 91–100
[2024-06-17] MEDS: LORazepam 2MG/ML-1ML VIAL ONE (06:02)
[2024-06-17] MEDS: LORazepam 2MG/ML-1ML VIAL IV ONE ×3 (06:18→12:02)
[2024-06-17] MEDS: cefTRIAXone 1GM/50ML D5W 50 ML IV SCH (09:01)
--- NOTE | 2024-06-17 12:27 | DVHPN2 ---
Subjective Pt encephalopathic Reviewed: Care Plan, H&P, Labs, Medications Changes from previous H/P or p: No Changes General: Per HPI Objective Vitals Vital Signs Date Time Temp Pulse Resp B/P (MAP) Pulse Ox O2 Delivery O2 Flow Rate FiO2 06/17/24 09:23 71 16 100 06/17/24 09:17 Nasal Cannula* 2 28 06/17/24 04:59 98.1 116/46 (69) 98.1 Intake/Output Intake and Output 06/17/24 06:59 Intake Total 500 ml Balance 500 ml Intake Oral 400 ml IV Total 100 ml # Voids 2 General Appearance: Alert, Oriented X3, Cooperative, moderate distress HEENT: Atraumatic, PERRLA Lungs: Other (Severe inspiratory and expiratory wheezing in upper and lower lobe) Cardiovascular: Normal S1, Normal S2 Abdomen: Normal bowel sounds, Soft, No tenderness, No hepatospenomegaly, No masses Musculoskeletal: Normal sensory function, Normal motor function Neuro: Cranial nerves 3-12 NL Skin: Dry, Intact Psych/Mental Status: Mental status NL, Mood NL Medications Current Medications Medications Dose Ordered Sig/Kaia Route Start Time Stop Time Status Last Admin Dose Admin Methylprednisolone Sodium Succinate 40 mg BID IV 06/15/24 22:00 06/17/24 10:00 40 MG Atorvastatin Calcium 10 mg HS PO 06/15/24 22:00 06/16/24 21:09 10 MG Guaifenesin/ Dextromethorphan 10 ml Q4HP PRN PO 06/15/24 20:15 06/16/24 12:30 10 ML Donepezil HCl 5 mg HS PO 06/15/24 22:00 06/16/24 21:09 5 MG Gabapentin 400 mg BID PO 06/15/24 22:00 06/17/24 09:01 400 MG Levetiracetam 1,000 mg BID PO 06/15/24 22:00 06/17/24 09:01 1,000 MG Montelukast Sodium 10 mg HS PO 06/15/24 22:00 06/16/24 21:09 10 MG Sertraline HCl 25 mg DAILY PO 06/16/24 10:00 06/17/24 09:01 25 MG Temazepam 15 mg QHSP PRN PO 06/15/24 20:15 Ondansetron HCl 4 mg Q4HP PRN IV 06/15/24 20:15 06/16/24 05:37 4 MG Acetaminophen 650 mg Q6HP PRN PO 06/15/24 20:15 06/16/24 04:27 650 MG Albuterol 2.5 mg Q4HWA NEB 06/16/24 18:00 06/17/24 09:17 2.5 MG Ipratropium [place] 0.5 mg Q4HWA NEB 06/16/24 18:00 06/17/24 09:17 0.5 MG Budesonide 0.5 mg BID NEB 06/16/24 22:00 06/17/24 07:29 0.5 MG Doxycycline Hyclate 100 ml @ 50 mls/hr Q12H IV 06/16/24 16:30 06/17/24 05:33 50 MLS/HR Ceftriaxone Sodium 50 ml @ 100 mls/hr DAILY@09 IV 06/17/24 09:00 06/17/24 09:01 100 MLS/HR Laboratory Results Laboratory Tests 06/15/24 17:04 06/16/24 05:30 Urinalysis Test 06/15/24 21:04 Urine Color Light-yellow (Yellow) Urine Clarity Clear (Clear) Urine pH 5.0 (5.0-9.0) Urine Specific [place] 1.017 (1.001-1.035) Urine Protein Negative (Negative) Urine Ketones Negative (Negative) Urine Blood Negative /uL (Negative) Urine Nitrite Negative (Negative) Urine Bilirubin Negative (Negative) Urine Urobilinogen Normal mg/dL (Negative) Urine Leukocyte Esterase 3+ /uL (Negative) Urine RBC 3 /hpf (0 - 4) Urine Microscopic WBC 24 /HPF (0-5) H Urine Squamous Epithelial Cells Mod /hpf (<5) Urine Bacteria None seen /hpf (None Seen) Urine Glucose Normal mg/dL (Normal) Labs and/or images reviewed: Labs reviewed by me, Image(s) reviewed by me Assessment/Plan Assessment/Plan Impression: -acute hypoxic respiratory failure -COPD with exacerbation -obesity -hyperglycemia -asthma exacerbation -seizure disorder Plan: -Respiratory status improved. Now with ? seizure activity. -Prolactin, CPK. -Neuro consult -Continue Keppra and Prn Ativan. -bronchodilators q.4 hours while awake -Pulmicort -O2 supplementation to keep saturation greater than 90% -repeat labs in a.m. Critical care time spent with patient discussing and formulating plan of care: 40 minutes. This does not include time spent performing procedures. This medical document was created using an electronic medical record system with [employer] dictation system. Although this document has been carefully reviewed, there may still be some phonetic and typographical errors. These areas are purely typographical due to imperfections of the software programs, and do not reflect any compromise in the patient's medical care. Plan discussed with: Patient, Son, Other (RN) My Orders Orders - GUILLE MARQUEZ NP Procedure Category Date Status Time Albuterol Medneb PHA 06/16/24 In Process (Ventolin Medneb) 18:00 Ipratropium Medneb PHA 06/16/24 In Process (Atrovent Medneb) 18:00 Budesonide PHA 06/16/24 In Process (Inhalation) 22:00 Doxycycline PHA 06/16/24 In Process 100mg/100ml 16:30 Ceftriaxone 1gm/50ml PHA 06/17/24 In Process D5w (Rocephin) 09:00 * Neurology Consult CONS 06/17/24 Transmitted 11:51 Prolactin LAB 06/17/24 Logged 12:18 Creatine Kinase LAB 06/17/24 Logged 12:21 Drug Screen LAB 06/17/24 Transmitted 12:22 Date of Service: Jun 17, 2024 Billing Provider: GUILLE MARQUEZ NP Common Visit Codes: [id number] CARE 30-74 MIN GUILEL MARQUEZ NP Jun 17, 2024 12:27
[2024-06-17 14:08] LABS: Basophils # (auto) 0 10 ^3/uL (0-0.2); Eosinophils # (auto) 0 10 ^3/uL (0-0.8); Hemoglobin 9.3 g/dL (12.2-16.2); Lymphocytes # (auto) 0.6 10 ^3/uL (0.4-5.4)
[2024-06-17 14:09] LABS: Hematocrit 28.7 % (36.0-46.0); Lymphocytes % (auto) 4.6 % (10.0-50.0); Mean Corpuscular Hemoglobin 25.7 pg (28.0-32.0); Mean Corpuscular Hgb Conc. 32.3 g/dL (32.0-36.0); Mean Corpuscular Volume 79.5 fL (80.0-100.0); Monocytes # (auto) 0.2 10 ^3/uL (0-1.3); Monocytes % (auto) 1.7 % (0.0-12.0); Neutrophils # (auto) 11.7 10 ^3/uL (1.6-8.6); Neutrophils % (auto) 93.7 % (37.0-80.0); Platelet Count (auto) 231 10^3/uL (140-450); Red Blood Cells 3.61 10^6/uL (4.0-5.20); Red Cell Distribution Width 17.7 % (11.8-14.3); White Blood Cell 12.5 10^3/uL (4.4-10.8)
[2024-06-17 14:25] LABS: Alanine Aminotransferase 24 U/L (7-40); Albumin 4.2 g/dL (3.2-4.8); Anion Gap 9 (5-15); Aspartate Aminotransferase 21 U/L (13-40); BUN/Creatinine Ratio 35.6 (10.0-20.0); Calcium 9.4 mg/dL (8.7-10.4); Carbon Dioxide 24 mmol/L (20-31); Potassium 4.5 mmol/L (3.5-5.1); Sodium 142 mmol/L (136-145); Total Protein 6.6 g/dL (5.7-8.2)
[2024-06-17 14:26] LABS: Alkaline Phosphatase 138 U/L (46-116); Bilirubin, Total 0.2 mg/dL (0.2-1.0); Blood Urea Nitrogen 26 mg/dL (9-23); Chloride 109 mmol/L (98-107); Glucose 182 mg/dL (74-106)
[2024-06-17] MEDS ORDERED: NALO4SPR3 NAS (16:11)
[2024-06-18] VITALS (19 sets, daily range): BP systolic 104–130; BP diastolic 44–61; PULSE 7–75; RESP 16–20; TEMP 97.6–98.3; O2SAT 92–99
--- NOTE | 2024-06-18 13:09 | DVHPN2 ---
Subjective Pt encephalopathic Reviewed: Care Plan, H&P, Labs, Medications Changes from previous H/P or p: No Changes General: Per HPI Objective Vitals Vital Signs Date Time Temp Pulse Resp B/P (MAP) Pulse Ox O2 Delivery O2 Flow Rate FiO2 06/18/24 09:44 67 20 98 06/18/24 09:35 Nasal Cannula* 2 28 06/18/24 09:00 98.3 130/61 (84) 98.3 Intake/Output Intake and Output 06/18/24 06:59 Intake Total 910 ml Balance 910 ml Intake Oral 760 ml IV Total 150 ml # Voids 5 General Appearance: Alert, Oriented X3, Cooperative, moderate distress HEENT: Atraumatic, PERRLA Lungs: Other (Severe inspiratory and expiratory wheezing in upper and lower lobe) Cardiovascular: Normal S1, Normal S2 Abdomen: Normal bowel sounds, Soft, No tenderness, No hepatospenomegaly, No masses Musculoskeletal: Normal sensory function, Normal motor function Neuro: Cranial nerves 3-12 NL Skin: Dry, Intact Psych/Mental Status: Mental status NL, Mood NL Medications Current Medications Medications Dose Ordered Sig/Kaia Route Start Time Stop Time Status Last Admin Dose Admin Methylprednisolone Sodium Succinate 40 mg BID IV 06/15/24 22:00 06/18/24 13:04 40 MG Atorvastatin Calcium 10 mg HS PO 06/15/24 22:00 06/17/24 21:53 10 MG Guaifenesin/ Dextromethorphan 10 ml Q4HP PRN PO 06/15/24 20:15 06/18/24 08:23 10 ML Donepezil HCl 5 mg HS PO 06/15/24 22:00 06/17/24 21:53 5 MG Gabapentin 400 mg BID PO 06/15/24 22:00 06/18/24 09:34 400 MG Levetiracetam 1,000 mg BID PO 06/15/24 22:00 06/18/24 09:36 1,000 MG Montelukast Sodium 10 mg HS PO 06/15/24 22:00 06/17/24 21:53 10 MG Sertraline HCl 25 mg DAILY PO 06/16/24 10:00 06/18/24 09:34 25 MG Temazepam 15 mg QHSP PRN PO 06/15/24 20:15 Ondansetron HCl 4 mg Q4HP PRN IV 06/15/24 20:15 06/16/24 05:37 4 MG Acetaminophen 650 mg Q6HP PRN PO 06/15/24 20:15 06/16/24 04:27 650 MG Albuterol 2.5 mg Q4HWA NEB 06/16/24 18:00 06/18/24 09:35 2.5 MG Ipratropium [place] 0.5 mg Q4HWA NEB 06/16/24 18:00 06/18/24 09:35 0.5 MG Budesonide 0.5 mg BID NEB 06/16/24 22:00 06/18/24 05:42 0.5 MG Doxycycline Hyclate 100 ml @ 50 mls/hr Q12H IV 06/16/24 16:30 06/18/24 05:12 50 MLS/HR Ceftriaxone Sodium 50 ml @ 100 mls/hr DAILY@09 IV 06/17/24 09:00 06/18/24 08:41 100 MLS/HR Laboratory Results Laboratory Tests 06/17/24 13:15 Chemistry Test 06/17/24 13:15 Albumin 4.2 g/dL (3.2-4.8) Calcium Level 9.4 mg/dL (8.7-10.4) Total Protein 6.6 g/dL (5.7-8.2) LFT Test 06/17/24 13:15 Alanine Aminotransferase (ALT) 24 U/L (7-40) Alkaline Phosphatase 138 U/L (46-116) H Aspartate Amino Transferase (AST) 21 U/L (13-40) Total Bilirubin 0.2 mg/dL (0.2-1.0) Urinalysis Test 06/15/24 21:04 Urine Color Light-yellow (Yellow) Urine Clarity Clear (Clear) Urine pH 5.0 (5.0-9.0) Urine Specific [place] 1.017 (1.001-1.035) Urine Protein Negative (Negative) Urine Ketones Negative (Negative) Urine Blood Negative /uL (Negative) Urine Nitrite Negative (Negative) Urine Bilirubin Negative (Negative) Urine Urobilinogen Normal mg/dL (Negative) Urine Leukocyte Esterase 3+ /uL (Negative) Urine RBC 3 /hpf (0 - 4) Urine Microscopic WBC 24 /HPF (0-5) H Urine Squamous Epithelial Cells Mod /hpf (<5) Urine Bacteria None seen /hpf (None Seen) Urine Glucose Normal mg/dL (Normal) Labs and/or images reviewed: Labs reviewed by me, Image(s) reviewed by me Assessment/Plan Assessment/Plan Impression: -acute hypoxic respiratory failure -COPD with exacerbation -obesity -hyperglycemia -asthma exacerbation -seizure disorder Plan: Events: Patient with? Seizure activity. Probably pseudoseizures. Prolactin and CPK negative after same behaviors yesterday. Discussion made with the patient's son, Johnny. Apparently, patient has had previous episodes similar to this in the past for which she was had 24 hour monitoring. Awaiting neuro consult. Plans to DC once cleared by Neurology. -Prolactin, CPK. -Neuro consult -Continue Keppra and Prn Ativan. -bronchodilators q.4 hours while awake -Pulmicort -O2 supplementation to keep saturation greater than 90% Total time spent with patient discussing and formulating plan of care: 35 minutes. Total time spent with patient and family regarding advance care plannin minutes. This medical document was created using an electronic medical record system with [employer] dictation system. Although this document has been carefully reviewed, there may still be some phonetic and typographical errors. These areas are purely typographical due to imperfections of the software programs, and do not reflect any compromise in the patient's medical care. Plan discussed with: Patient, Son, Other (RN) Date of Service: Jun 18, 2024 Billing Provider: GUILLE MARQUEZ NP Common Visit Codes: [id number] INP/OBS CARE(HIGH) Secondary Visit Codes: [id number] CARE PLAN 30 MINUTES GUILLE MARQUEZ NP Jun 18, 2024 13:09
[2024-06-19] VITALS (17 sets, daily range): BP systolic 103–121; BP diastolic 42–102; PULSE 64–79; RESP 14–19; TEMP 97.4–98.4; O2SAT 92–99
[2024-06-19] MEDS: methylPREDNISolone SOD SUCC 40 MG/ML VL IV SCH (09:28)
--- NOTE | 2024-06-19 18:33 | DVHPN2 ---
Subjective Pt encephalopathic Reviewed: Care Plan, H&P, Labs, Medications Changes from previous H/P or p: No Changes General: Per HPI Objective Vitals Vital Signs Date Time Temp Pulse Resp B/P (MAP) Pulse Ox O2 Delivery O2 Flow Rate FiO2 06/19/24 16:57 98.4 71 17 116/43 (67) 95 98.4 06/19/24 16:40 2.0 06/19/24 08:00 Nasal Cannula* 32 Intake/Output Intake and Output 06/19/24 07:00 Intake Total 2050 ml Output Total 400 ml Balance 1650 ml Intake Oral 1800 ml IV Total 250 ml Output Urine Total 400 ml # Voids 3 # Bowel Movements 1 General Appearance: Alert, Oriented X3, Cooperative, moderate distress HEENT: Atraumatic, PERRLA Lungs: Other (Severe inspiratory and expiratory wheezing in upper and lower lobe) Cardiovascular: Normal S1, Normal S2 Abdomen: Normal bowel sounds, Soft, No tenderness, No hepatospenomegaly, No masses Musculoskeletal: Normal sensory function, Normal motor function Neuro: Cranial nerves 3-12 NL Skin: Dry, Intact Psych/Mental Status: Mental status NL, Mood NL Medications Current Medications Medications Dose Ordered Sig/Kaia Route Start Time Stop Time Status Last Admin Dose Admin Atorvastatin Calcium 10 mg HS PO 06/15/24 22:00 06/18/24 21:15 10 MG Guaifenesin/ Dextromethorphan 10 ml Q4HP PRN PO 06/15/24 20:15 06/19/24 17:25 10 ML Donepezil HCl 5 mg HS PO 06/15/24 22:00 06/18/24 21:15 5 MG Gabapentin 400 mg BID PO 06/15/24 22:00 06/19/24 09:28 400 MG Levetiracetam 1,000 mg BID PO 06/15/24 22:00 06/19/24 09:27 1,000 MG Montelukast Sodium 10 mg HS PO 06/15/24 22:00 06/18/24 21:15 10 MG Sertraline HCl 25 mg DAILY PO 06/16/24 10:00 06/19/24 09:27 25 MG Temazepam 15 mg QHSP PRN PO 06/15/24 20:15 Ondansetron HCl 4 mg Q4HP PRN IV 06/15/24 20:15 06/16/24 05:37 4 MG Acetaminophen 650 mg Q6HP PRN PO 06/15/24 20:15 06/19/24 17:26 650 MG Albuterol 2.5 mg Q4HWA NEB 06/16/24 18:00 06/19/24 18:27 2.5 MG Ipratropium [place] 0.5 mg Q4HWA NEB 06/16/24 18:00 06/19/24 18:27 0.5 MG Budesonide 0.5 mg BID NEB 06/16/24 22:00 06/19/24 18:27 0.5 MG Doxycycline Hyclate 100 ml @ 50 mls/hr Q12H IV 06/16/24 16:30 06/19/24 17:25 50 MLS/HR Ceftriaxone Sodium 50 ml @ 100 mls/hr DAILY@09 IV 06/17/24 09:00 06/19/24 09:28 100 MLS/HR Laboratory Results Laboratory Tests 06/17/24 13:15 Urinalysis Test 06/15/24 21:04 Urine Color Light-yellow (Yellow) Urine Clarity Clear (Clear) Urine pH 5.0 (5.0-9.0) Urine Specific [place] 1.017 (1.001-1.035) Urine Protein Negative (Negative) Urine Ketones Negative (Negative) Urine Blood Negative /uL (Negative) Urine Nitrite Negative (Negative) Urine Bilirubin Negative (Negative) Urine Urobilinogen Normal mg/dL (Negative) Urine Leukocyte Esterase 3+ /uL (Negative) Urine RBC 3 /hpf (0 - 4) Urine Microscopic WBC 24 /HPF (0-5) H Urine Squamous Epithelial Cells Mod /hpf (<5) Urine Bacteria None seen /hpf (None Seen) Urine Glucose Normal mg/dL (Normal) Labs and/or images reviewed: Labs reviewed by me, Image(s) reviewed by me Assessment/Plan Assessment/Plan Impression: -acute hypoxic respiratory failure -COPD with exacerbation -obesity -hyperglycemia -asthma exacerbation -seizure disorder Plan: Events: Respiratory status improved. No seizure-type activity. Neuro consult still has not seen the patient. Long discussion made with the family yesterday regarding her questionable seizure activity. Reassess for discharge tomorrow -Neuro consult -Continue Keppra -bronchodilators q.4 hours while awake -Pulmicort -O2 supplementation to keep saturation greater than 90% Total time spent with patient discussing and formulating plan of care: 35 minutes. This medical document was created using an electronic medical record system with [employer] dictation system. Although this document has been carefully reviewed, there may still be some phonetic and typographical errors. These areas are purely typographical due to imperfections of the software programs, and do not reflect any compromise in the patient's medical care. Plan discussed with: Patient, Other (RN) My Orders Orders - GUILLE MARQUEZ NP Procedure Category Date Status Time Basic Metabolic Panel LAB 06/20/24 Verified 04:00 Complete Blood Count LAB 06/20/24 Verified 04:00 Date of Service: Jun 19, 2024 Billing Provider: GUILLE MARQUEZ NP Common Visit Codes: [id number] INP/OBS CARE(HIGH) GUILLE MARQUEZ NP Jun 19, 2024 18:33
[2024-06-20] VITALS (9 sets, daily range): BP systolic 97–115; BP diastolic 36–49; PULSE 62–74; RESP 16–18; TEMP 97.7–98.7; O2SAT 95–100
[2024-06-20 06:48] LABS: Basophils # (auto) 0 10 ^3/uL (0-0.2); Basophils % (auto) 0.1 % (0.0-2.0); Eosinophils # (auto) 0.1 10 ^3/uL (0-0.8); Eosinophils % (auto) 0.9 % (0.0-7.0); Hemoglobin 9.8 g/dL (12.2-16.2); Lymphocytes # (auto) 3.1 10 ^3/uL (0.4-5.4); Monocytes # (auto) 0.4 10 ^3/uL (0-1.3); Nucleated Red Blood Cells % 0.1 %
[2024-06-20 06:52] LABS: Mean Corpuscular Hemoglobin 24.9 pg (28.0-32.0); Mean Corpuscular Hgb Conc. 31.7 g/dL (32.0-36.0); Mean Corpuscular Volume 78.7 fL (80.0-100.0); Monocytes % (auto) 6.1 % (0.0-12.0); Neutrophils # (auto) 3.2 10 ^3/uL (1.6-8.6); Neutrophils % (auto) 46.9 % (37.0-80.0); Platelet Count (auto) 226 10^3/uL (140-450); Red Blood Cells 3.94 10^6/uL (4.0-5.20); Red Cell Distribution Width 16.7 % (11.8-14.3); White Blood Cell 6.8 10^3/uL (4.4-10.8)
[2024-06-20 06:55] LABS: Sodium 143 mmol/L (136-145)
[2024-06-20 06:56] LABS: Anion Gap 7 (5-15); Calcium 9.4 mg/dL (8.7-10.4); Carbon Dioxide 29 mmol/L (20-31); Chloride 107 mmol/L (98-107)
[2024-06-20 07:01] LABS: BUN/Creatinine Ratio 39.1 (10.0-20.0); Glucose 96 mg/dL (74-106)
[2024-06-20 07:08] LABS: Blood Urea Nitrogen 25 mg/dL (9-23)
[2024-06-20] MEDS ORDERED: PANT40TA2 PO (10:06)
[2024-06-20] MEDS ORDERED: PRED20TA2 PO (10:06)
--- NOTE | 2024-06-20 10:11 | DVHDS2 ---
Discharge Summary Date of Admission Jun 15, 2024 at 20:09 Date of Discharge: Jun 20, 2024 Admitting Diagnosis Acute on chronic respiratory failure Labs/Diagnostic Data: Laboratory Results Test 06/20/24 06:00 06/17/24 13:15 06/16/24 05:30 06/15/24 22:25 White Blood Count 6.8 10^3/uL (4.4-10.8) Red Blood Count 3.94 10^6/uL (4.0-5.20) Hemoglobin 9.8 g/dL (12.2-16.2) Hematocrit 31.0 % (36.0-46.0) Mean Corpuscular Volume 78.7 fL (80.0-100.0) Mean Corpuscular Hemoglobin 24.9 pg (28.0-32.0) Mean Corpuscular Hemoglobin Concent 31.7 g/dL (32.0-36.0) Red Cell Distribution Width 16.7 % (11.8-14.3) Platelet Count 226 10^3/uL (140-450) Mean Platelet Volume 8.5 fL (6.9-10.8) Neutrophils (%) (Auto) 46.9 % (37.0-80.0) Lymphocytes (%) (Auto) 46.0 % (10.0-50.0) Monocytes (%) (Auto) 6.1 % (0.0-12.0) Eosinophils (%) (Auto) 0.9 % (0.0-7.0) Basophils (%) (Auto) 0.1 % (0.0-2.0) Neutrophils # (Auto) 3.2 10 ^3/uL (1.6-8.6) Lymphocytes # (Auto) 3.1 10 ^3/uL (0.4-5.4) Monocytes # (Auto) 0.4 10 ^3/uL (0-1.3) Eosinophils # (Auto) 0.1 10 ^3/uL (0-0.8) Basophils # (Auto) 0 10 ^3/uL (0-0.2) Nucleated Red Blood Cells 0.1 % Sodium Level 143 mmol/L (136-145) Potassium Level 4.0 mmol/L (3.5-5.1) Chloride Level 107 mmol/L (98-107) Carbon Dioxide Level 29 mmol/L (20-31) Anion Gap 7 (5-15) Blood Urea Nitrogen 25 mg/dL (9-23) Creatinine 0.64 mg/dL (0.550-1.02) Glomerular Filtration Rate Calc 96 mL/min (>90) BUN/Creatinine Ratio 39.1 (10.0-20.0) Serum Glucose 96 mg/dL (74-106) Calcium Level 9.4 mg/dL (8.7-10.4) Total Bilirubin 0.2 mg/dL (0.2-1.0) Aspartate Amino Transferase (AST) 21 U/L (13-40) Alanine Aminotransferase (ALT) 24 U/L (7-40) Alkaline Phosphatase 138 U/L (46-116) Creatine Kinase 104 U/L (34-145) Total Protein 6.6 g/dL (5.7-8.2) Albumin 4.2 g/dL (3.2-4.8) Prolactin 7.43 ng/mL (2.8-29.2) Hemoglobin A1c 6.1 % A1C (<5.7) Troponin I High Sensitivity 7 ng/L (</=34) Test 06/15/24 21:04 06/15/24 19:23 06/15/24 19:02 06/15/24 17:04 Urine Color Light-yellow (Yellow) Urine Clarity Clear (Clear) Urine pH 5.0 (5.0-9.0) Urine Specific [place] 1.017 (1.001-1.035) Urine Protein Negative (Negative) Urine Ketones Negative (Negative) Urine Blood Negative /uL (Negative) Urine Nitrite Negative (Negative) Urine Bilirubin Negative (Negative) Urine Urobilinogen Normal mg/dL (Negative) Urine Leukocyte Esterase 3+ /uL (Negative) Urine RBC 3 /hpf (0 - 4) Urine Microscopic WBC 24 /HPF (0-5) Urine Squamous Epithelial Cells Mod /hpf (<5) Urine Bacteria None seen /hpf (None Seen) Urine Glucose Normal mg/dL (Normal) Prothrombin Time 10.8 sec (9.3-11.8) Prothrombin Time INR 1.02 (0.9-1.15) Activated Partial Thromboplast Time 25.6 SEC (24.5-34.5) D-Dimer, Quantitative 0.33 mg/L FEU (0.0-0.49) Blood Gas Specimen Type Arterial Blood Gas Sample Site Left radial Blood Gas Patient Temperature 37.0 Arterial Blood Date Drawn [id number] Arterial Blood pH 7.429 (7.350-7.450) Arterial Blood Partial Pressure CO2 30.5 mmHg (32.0-45.0) Arterial Blood Partial Pressure O2 99.6 mmHg (83.0-108.0) Arterial Blood HCO3 19.7 mmol/L (21.0-28.0) Arterial Blood Oxygen Saturation 97.8 % (94.0-98.0) Arterial Blood Base Excess -3.7 mmol/L (-2.0-3.0) Arterial Blood Oxyhemoglobin 96.9 % (94.0-98.0) Arterial Blood Carboxyhemoglobin 0.4 % (0.5-1.5) Arterial Blood Methemoglobin 0.5 % (0.0-1.5) Roc Test Modified Blood Gas Total Hemoglobin 10.70 g/dL (12.0-16.0) Blood Gas Liter Flow 28.00 Blood Gas Modality Nasal cannula FiO2 % 28.0 Lactic Acid Level 1.6 mmol/L (0.4-2.0) Magnesium Level 2.0 mg/dL (1.6-2.6) B-Type Natriuretic Peptide 25.90 pg/mL (0-100) Other Laboratory Tests 06/20/24 06:00 Brief Hx & Hospital Course: History of Present Illness 68-year-old female presents for evaluation of shortness for breath. Patient reports a two day history of worsening shortness for breath with associated nonproductive cough. Denies chest pain or palpitations. Patient currently uses 2 L of nasal cannula oxygen at home. She was noted to be hypoxic in the lower 80s on arrival therefore she was placed on 4 L nasal cannula. Currently saturating 92%. Course of hospitalization: Patient had severe respiratory distress upon my assessment while she was on the telemetry floor. Patient was treated with IV magnesium, IV Solu-Medrol, and q.4 breathing treatments. Patient was respiratory status improved. Patient did have questionable pseudo seizure activity. Discussion was made with the patient's son, for which the patient had continuous EEG monitoring which was negative for acute seizure activity with her movements and behaviors. Patient was continued on Keppra. Patient's overall clinical status has improved dramatically. She was agreeable to be discharged home and continue on her home oxygen that she states she has a 2 L/min. She will continue all previous home medications as well as continuing with steroid treatment with prednisone 20 mg p.o. daily x5 days. Patient will also be provided Protonix 40 mg p.o. daily for GERD type of symptoms. She was agreeable with discharge plan. All questions answered. Physical examination General: Alert and Oriented x3. No acute distress. Well-nourished. Eyes: EOMI. Anicteric. HENT: Moist mucous membranes. Lungs: Clear to auscultation bilaterally. No accessory muscle use. Cardiovascular: Regular rate and rhythm. No murmur. No JVD. Abdomen: Soft, non-tender and non-distended. No palpable masses. Extremities: No edema. Non-tender. Skin: No rashes or lesions. Warm. Neurologic: No focal neurological deficits. CN II-XII grossly intact, but not individually tested. Psychiatric: Cooperative. Appropriate mood and affect. Total time spent with patient discussing and formulating plan of care: 35 minutes. This medical document was created using an electronic medical record system with [employer] dictation system. Although this document has been carefully reviewed, there may still be some phonetic and typographical errors. These areas are purely typographical due to imperfections of the software programs, and do not reflect any compromise in the patient's medical care. Consults/Reason for consult Neurology: Questionable seizures Condition at Discharge: Poor Final Diagnosis/Problems List Acute on chronic hypoxic respiratory failure Secondary diagnosis: -COPD with exacerbation -obesity -hyperglycemia -asthma exacerbation -seizure disorder Discharge Disposition: Home Discharge Instruct/Medications Diet: Consistent carbohydrate, Cardiac 2g Na,low cholest Activity: No Restrictions, As Tolerated Follow Up/Referral: Follow up with PCP in 1-2 weeks Medications: Prednisone 20 mg p.o. daily x5 days Protonix 40 mg p.o. daily times 30 days Continue all medications per medication reconciliation form 36 Discharge Statement: "Patient was advised to return to the ER or call 911 if any headaches, dizziness, shortness of breath, chest pain, abdominal pain, bleeding, fevers, or worsening of medical condition. Patient was counseled about treatment plan, medications, possible side effects, patientverbalized understanding. All questions were answered to the best of my ability. This discharge took greater then 30 minutes in planning, reviewing documentation, counseling the patient, and discussing with other team members." ASSESSMENT ASSESSMENT Assessment Acute on chronic hypoxic respiratory failure Date of Service: Jun 20, 2024 Billing Provider: GUILLE MARQUEZ NP Common Visit Codes: [id number]-[id number]/[id number] DISCH DAY >30min GUILLE MARQUEZ NP Jun 20, 2024 10:11
== END 2024-06-20 12:14 | disposition home or self-care (01) | DRG 189 ==
LOC: ER 16:30 → OVERFLOW 20:09 → WEST WING 06-16 15:50
PROVIDERS: ADMIT Nurse Practitioner Acute Care; ATTEND Nurse Practitioner Acute Care
DX: J96.21 Acute and chronic respiratory failure with hypoxia (principal); J44.1 Chronic obstructive pulmonary disease with (acute) exacerbation; J45.901 Unspecified asthma with (acute) exacerbation; E66.9 Obesity, unspecified; G40.909 Epilepsy, unspecified, not intractable, without status epilepticus; R73.9 Hyperglycemia, unspecified; Z96.659 Presence of unspecified artificial knee joint; E07.9 Disorder of thyroid, unspecified; Z98.84 Bariatric surgery status; Z90.49 Acquired absence of other specified parts of digestive tract; Z99.81 Dependence on supplemental oxygen; Z88.5 Allergy status to narcotic agent; Z88.6 Allergy status to analgesic agent; Z88.1 Allergy status to other antibiotic agents; Z88.8 Allergy status to other drugs, medicaments and biological substances; Z79.899 Other long term (current) drug therapy; Z68.35 Body mass index [BMI] 35.0-35.9, adult
CPT/HCPCS: 36415; 36600; 71045; 80048; 80053; 81001; 82550; 82805; 83036; 83605; 83735; 83880; 84146; 84484; 85025; 85379; 85610; 85730; 94640; 96374; 99291; G0378; J2405

== ENCOUNTER 2024-10-24 18:50 | Emergency (ER) | payer OTHER, MEDICAID ==
[~2024-10-24] VITALS: Ht 165.1 cm; Wt 100.0 kg
[~2024-10-24 18:50] MED LIST changes: +ALBU1AER4 IN; -AMOX875T4 PO; -AZITTAB PO; -BECL80AE11 IN; -CEPH-510 PO; -GABA400C PO; -LIDO5DIS21 TOP; -MECL12.586 PO; -METH4PAK PO; -MIDO2.5T3 PO; -MIRT-94 PO; +NALO4SPR3 NAS; -ONDA-155 PO; +PANT40TA2 PO
[2024-10-24] MEDS: ONDANSETRON ODT 4 MG TAB PO ONE (19:35)
[2024-10-24] MEDS: MORPHINE SULFATE INJ 2 MG/ml SYRG IM ONE (19:36)
[2024-10-24 19:45] VITALS: TEMP 98.6; O2SAT 96
--- NOTE | 2024-10-24 19:46 | DVH ---
CLINICAL INDICATION: Fall/trauma TECHNIQUE: 3 radiographic views of the left wrist were obtained. Comparison: XY R HAND 3 VIEW XRAY on DOS: 11/23/23 FINDINGS/IMPRESSION: Bony alignment is normal. There are no fractures or dislocations.
--- NOTE | 2024-10-24 19:49 | DVH ---
CLINICAL INDICATION: Fall/trauma TECHNIQUE: 1 radiographic views of the left forearm were obtained. Comparison: None FINDINGS/IMPRESSION: No fracture or dislocation. Normal bony alignment
[2024-10-24 20:06] VITALS: BP 119/57; PULSE 81; RESP 17
--- NOTE | 2024-10-24 20:14 | ED.PDOC ---
Musculoskeletal HPI Comments 69 y/o morbidly obese F presents with left wrist pain s/p fall and injury. Patient endorses on injuring her left wrist after falling on it after her left knee buckled and gave out when attempting to stand up from using a toilet, today. Patient has a history of bilateral knee concerns. No head or additional sites of injury. No further acute associated symptoms. Vital signs were stable on arrival. Chief Complaint: Upper Extremity Time Seen by MD: 19:15 Primary Care Provider: unknown Reviewed Notes: Nurses Notes, Medications, Allergies Allergies: Coded Allergies: Hydrocodone (Verified Allergy, Severe, 10/24/24) Aspirin (Verified Allergy, Unknown, 10/24/24) Codeine (Unverified Allergy, Unknown, 10/24/24) Ibuprofen (Verified Allergy, Unknown, 10/24/24) Levofloxacin (Verified Allergy, Unknown, 10/24/24) NSAIDs (Verified Allergy, Unknown, 10/24/24) Home Meds Active Scripts Prednisone (Prednisone) 20 Mg Tab, 20 MG PO DAILY for 5 Days, #5 MG Prov:GUILLE MARQUEZ RODEO RIDER 06/20/24 Pantoprazole Sodium Sesquihydr (Protonix) 40 Mg Tab, 40 MG PO DAILY for 30 Days, #30 TAB Prov:GUILLE MARQUEZ RODEO RIDER 06/20/24 Albuterol Sulfate (Proair Respiclick) 108 Mcg/Act Aer, 108 MCG IN QID PRN, #1 AER Prov:CHLOE VÁSQUEZ MD 03/13/24 Triamcinolone Acetonide (Triamcinolone Acetonide) 0.025 % Cre, 1 APPLIC TOP BID, #30 GRAMS Prov:STEVE GAMEZ 11/23/23 Dextromethorphan-Guaifenesin (Robitussin-Dm) 10 Ml Sr, 10 ML PO Q6HPRN PRN, #120 SYP 1 Refill Prov:SERENA ALEMAN 05/29/22 Albuterol Sulfate (Albuterol Sulfate) 1.25 Mg/3 Ml Neb, 2.5 MG IN Q4HPRN PRN, #1 BOX 0 Refills Dose: 2.5mg nebulized every 20 minutes x 3, then 2.5 mg nebulized every 4 hours as needed. Prov:SERENA ALEMAN 05/29/22 Sertraline Hcl (Zoloft) 25 Mg Tab, 1 TAB PO DAILY, #30 TAB Prov:JOSE RIVERA MD 06/21/21 Reported Medications Beclomethasone Dipropionate (Qvar Redihaler) 80 Mcg/Act Aer, 1 PUFF INH BID for 60 Days, #10.6 06/17/24 Ipratropium [place] Hfa (Atrovent Hfa) 17 Mcg Aer, 2 PUFF PO QID for 75 Days, #38.7 06/17/24 Naloxone HCl (Naloxone Hydrochloride) 4 Mg/0.1 Ml Spr, 1 SPRAY RAJESH PRN PRN for OPIOID OVERDOSE for 30 Days, #2 06/17/24 Gabapentin (Gabapentin) 300 Mg Cap, 1 CAP PO TID for 30 Days, #90 06/17/24 Omeprazole (Omeprazole Dr) 20 Mg Cap, 1 CAP PO DAILY for 30 Days, #30 06/17/24 Mirtazapine (Mirtazapine Oral Disintegrating Tablet) 7.5 Mg Tab, 1 TAB PO HS for 90 Days, #90 06/17/24 Vitamin B12 (Vitamin B-12) 1,000 Mcg/1 Ml Ij, 500 MCG PO DAILY, INJ 09/29/23 Atorvastatin Calcium (ATORVASTATIN CALCIUM) 10 Mg Tab, 1 TAB PO DAILY for 90 Days, #90 09/29/23 Donepezil Hydrochloride (DONEPEZIL HCL) 5 Mg Tab, 5 MG PO DAILY for 30 Days, MG 09/29/23 Levetiracetam (KEPPRA TABLET) 500 Mg Tb, 1000 MG PO BID, TAB 09/29/23 Morphine Sulfate (Morphine Sulfate Er) 60 Mg Tab, 30 MG PO BID, TAB 09/29/23 Cyanocobalamin (B12) 1,000 Mcg Cap, 1000 MCG PO, CAP 12/17/21 Tramadol Hcl (Tramadol Hcl) 50 Mg Tab, 50 MG PO Q6HP PRN for PAIN SCALE 1 THRU 6, MG 12/17/21 Trazodone Hcl (Trazodone Hcl) 50 Mg Tab, 50 MG PO, MG 12/17/21 Ferrous Sulfate (Iron) 90 Mg Tab, 65 MG PO, TAB 12/17/21 Magnesium Oxide (MAGNESIUM OXIDE) 400 Mg Tab, 1 TAB PO DAILY, #30 TAB 5 Refills 12/17/21 Montelukast Sodium (MONTELUKAST SODIUM) 10 Mg Tab, 1 TAB PO DAILY for 90 Days, #90 12/17/21 Duloxetine Hcl (Cymbalta) 20 Mg Cap, 1 CAP PO DAILY, #30 CAP 2 Refills 12/17/21 Albuterol Sulfate (Albuterol Sulfate Hfa) 108 Mcg/Act Aer, INH 08/13/21 Pantoprazole Sodium Sesquihydr (Pantoprazole Sodium) 40 Mg Tab, 1 TAB PO DAILYPRN 08/12/21 Multiple Vitamin (Multivitamins) Tab, 1 TAB PO DAILY, #90 TAB 3 Refills 05/20/21 Cholecalciferol (VITAMIN D-3) Unknown Strength Tab, PO DAILY, TAB 05/20/21 Temazepam (Restoril) 15 Mg Cp, 1 CAP PO QPM, #30 CAP 1 Refill 05/20/21 Information Source: Patient, Relative Mode of Arrival: Wheelchair Location: Left Extremity Location: Forearm Timing: Minutes Prehospital treatment: None Severity: Moderate Able to Move Extremity: Yes Bear Weight: Limited Pain: Moderate Hand Dominance: Right Mechanism: Blunt Trauma Circumstances: Fall Onset of Symptoms: After Trauma Symptoms: Swelling, Pain DVT Risk Factors: NONE Past Medical History PAST MEDICAL HISTORY: Asthma, COPD, Seizures, Thyroid Surgical History: Appendectomy, Cholecystectomy, Pacemaker PHOTOCOPY OPERATOR History: No Pertinent PHOTOCOPY OPERATOR History Family History Family History: Reviewed,noncontributory to illness Social History Smoker: Non-Smoker Alcohol: Denies ETOH Use Drugs: Denies Drug Use Lives In: Home Constitutional: denies: chills, diaphoresis, fatigue, fever, malaise, sweats, weakness, others EENTM: denies: blurred vision, double vision, ear bleeding, ear discharge, ear drainage, ear pain, ear ringing, eye pain, eye redness, hearing loss, mouth pain, mouth swelling, nasal discharge, nose bleeding, nose congestion, nose pain, photophobia, tearing, throat pain, throat swelling, voice changes, others Respiratory: denies: cough, hemoptysis, orthopnea, SOB at rest, shortness of breath, SOB with excertion, stridor, wheezing, others Cardiovascular: denies: chest pain, dizzy spells, diaphoresis, Dyspnea on exertion, edema, irregular heart beat, left arm pain, lightheadedness, palpitations, PND, syncope, others Gastrointestinal: denies: abdomen distended, abdominal pain, blood streaked bowels, constipated, diarrhea, dysphagia, difficulty swallowing, hematemesis, melena, nausea, poor appetite, poor fluid intake, rectal bleeding, rectal pain, vomiting, others Genitourinary: denies: abnormal vagina bleeding, burning, dyspareunia, dysuria, flank pain, frequency, hematuria, incontinence, pain, , vagina discharge, urgency, others Neurological: denies: dizziness, fainting, headache, left sided numbness, left sided weakness, numbness, paresthesia, pre-existing deficit, right sided numbness, right sided weakness, seizure, speech problems, tingling, tremors, weakness, others Musculoskeletal: reports: others (Left wrist and bilateral knee pain); denies: back pain, gout, joint pain, joint swelling, muscle pain, muscle stiffness, neck pain Integumetry: denies: bruises, change in color, change in hair/nails, dryness, laceration, lesions, lumps, rash, wounds, others Allergic/Immunocompromised: denies: Difficulty Healing, Frequent Infections, Hives, Itching, others Hematologic/Lymphatic: denies: anemia, blood clots, easy bleeding, easy br uising, swollen glands, others Endocrine: denies: excessive hunger, excessive sweating, excessive thirst, excessive urination, flushing, intolerance to cold, intolerance to heat, unexplained weight gain, unexplained weight loss, others Psychiatric: denies: anxiety, bipolar disorder, depression, hopeless, panic disorder, schizophrenia, sleepless, suicidal, others All Other Systems: Reviewed and Negative (as per HPI) Physical Exam General Appearance: Moderate Distress (Due to wrist and knee pain), Normal HEENT: Normal ENT Inspection, Pharynx Normal, TMs Normal Neck: Full Range of Motion, Non-Tender, Normal, Normal Inspection Respiratory: Chest Non-Tender, Lungs Clear, No Accessory Muscle Use, No Respiratory Distress, Normal Breath Sounds Cardiovascular: No Edema, No JVD, No Murmur, No Gallop, Normal Peripheral Pulses, Regular Rate/Rhythm Breast Exam: Deferred Gastrointestinal: No Organomegaly, Non Tender, No Pulsatile Mass, Normal Bowel Sounds, Soft Genitalia: Deferred Pelvic: Deferred Rectal: Deferred Extremities: Other (Diffuse tenderness to palpation noted throughout the left wrist with the majority of pain on the dorsal aspect. Possible mild edema noted. Difficult to assess due to body habitus. Bilateral knees show multiple scars on each knee due to multiple invasive procedures.) Neurologic: Alert, No Motor Deficits, Normal Affect, Normal Mood, No Sensory Deficits Cerebellar Function: NOT DONE Reflexes: NOT DONE Skin: Dry, Normal Color, Warm Lymphatic: No Adenopathy Was a procedure done? Was a procedure done?: No Differential Diagnosis EXT Differential Diagnosis: Fracture, Sprain, Dislocation, Contusion, Strain X-Ray, Labs, Meds, VS Vital Signs Date Time Temp Pulse Resp B/P (MAP) Pulse Ox O2 Delivery O2 Flow Rate FiO2 10/24/24 20:06 81 17 119/57 10/24/24 19:45 71 18 96 Room Air 10/24/24 19:45 98.6 71 18 123/85 (98) 96 98.6 10/24/24 19:36 71 18 123/85 10/24/24 18:54 98.0 75 20 112/57 98 98.0 Current Medications Medications (Trade) Dose Ordered Sig/Kaia Route Start Time Stop Time Status Last Admin Morphine Sulfate 3 mg ONCE ONCE IM 10/24/24 19:15 10/24/24 19:17 DC 10/24/24 19:36 Ondansetron HCl (Zofran Po) 4 mg ONCE ONCE PO 10/24/24 19:15 10/24/24 19:17 DC 10/24/24 19:35 [place] [id number] Ph: [phone] DIAGNOSTIC IMAGING Diagnostic Imaging Report : [id number] Signed PATIENT: CHARLES HENDRICKSCCT: [id number] UNIT: [id number] : 1955 LOC: ER ROOM / BED: / AGE / SEX: 69 / F ADM STATUS: REG ER SERVICE 14 ORDERING PHYSICIAN: TORRES DIOP PAC PROCEDURE(s): LWRI - L WRIST 3+ VIEW XRAY REASON: Fall/trauma ORDER NUMBER(s): [id number], ACCESSION NUMBER(s): [id number] CLINICAL INDICATION: Fall/trauma TECHNIQUE: 3 radiographic views of the left wrist were obtained. Comparison: XY R HAND 3 VIEW XRAY on DOS: 11/23/23 FINDINGS/IMPRESSION: Bony alignment is normal. There are no fractures or dislocations. ATED BY: CHET VAZQUEZ Jr., DO DICTATED DATE/TIME: 10/24/241942 SIGNED BY: CHET VAZQUEZ Jr., DO SIGNED DATE/TIME: 10/24/241942 CC: [place] [id number] Ph: [phone] DIAGNOSTIC IMAGING Diagnostic Imaging Report : [id number] Signed PATIENT: CHARLES HENDRICKS ACCT: [id number] UNIT: [id number] : 1955 LOC: ER ROOM / BED: / AGE / SEX: 69 / F ADM STATUS: REG ER SERVICE 14 ORDERING PHYSICIAN: TORRES DIOP PAC PROCEDURE(s): LFOR - L FOREARM XRAY REASON: Fall/trauma ORDER NUMBER(s): [id number], ACCESSION NUMBER(s): [id number] CLINICAL INDICATION: Fall/trauma TECHNIQUE: 1 radiographic views of the left forearm were obtained. Comparison: None FINDINGS/IMPRESSION: No fracture or dislocation. Normal bony alignment ATED BY: CHET VAZQUEZ Jr., DO DICTATED DATE/TIME: 10/24/241946 SIGNED BY: CHET VAZQUEZ Jr., DO SIGNED DATE/TIME: 10/24/241946 CC: X-Ray, Labs, Meds, VS Comment All studies performed the ED were evaluated by me personally. Imaging studies were unremarkable for any acute fractures. Patient sustained a wrist sprain due to her event. Advised pain medication as needed. Patient has medications available at home. Time of 1ST Reevaluation: 21:04 Reevaluation 1ST: Improved Consultation: PCP Patient Education/Counseling: Diagnosis, Treatment Family Education/Counseling: Diagnosis, Treatment, No Family Present Sepsis Recent Procedure: No On Antibiotic Therapy: No Respiratory Rate >20: No Heart Rate >90: No Temp<36 C (96.8 F) or >38.3 C: No SBP <90 or MAP <65 mmHG: No New Acute Mental Status Change: No Is the patient on CPAP, BIPAP,: No IV fluid given: No Departure 1 Departure Time of Disposition: 21:05 Impression: Primary Impression: Wrist sprain Disposition: HOME / SELF CARE / HOMELESS Condition: Stable Additional Instructions: Advised patient utilize what ever home pain medication she has for symptomatic relief as well as ice therapy. Discharged With: Self, Relative Critical Care Note Critical Care Time?: No Stability Stability form required: No Heart Score Heart Score: Heart Score Response (Comments) Value History N/A 0 EKG N/A 0 Age N/A 0 Risk Factors N/A 0 Troponin N/A 0 Total 0 I personally scribed for TORRES DIOP PAC ([email or web address]) on 10/24/24 at 20:14. Electronically submitted by Gorge Cyr ([email or web address]). I personally scribed for TORRES DIOP PAC ([email or web address]) on 10/24/24 at 20:56. Electronically submitted by Gorge Cyr ([email or web address]). TORRES DIOP PAC Oct 24, 2024 20:14
== END 2024-10-24 21:19 | disposition home or self-care (01) ==
LOC: ER 19:02
DX: S63.592A Other specified sprain of left wrist, initial encounter (principal); M25.562 Pain in left knee; M25.561 Pain in right knee; E03.9 Hypothyroidism, unspecified; J44.89 Other specified chronic obstructive pulmonary disease; J45.909 Unspecified asthma, uncomplicated; Z79.899 Other long term (current) drug therapy; Z90.49 Acquired absence of other specified parts of digestive tract; Z95.0 Presence of cardiac pacemaker; Z88.1 Allergy status to other antibiotic agents; Z88.5 Allergy status to narcotic agent; Z88.6 Allergy status to analgesic agent; Z88.8 Allergy status to other drugs, medicaments and biological substances; W18.39XA Other fall on same level, initial encounter; Y93.89 Activity, other specified; Y92.89 Other specified places as the place of occurrence of the external cause; Y99.8 Other external cause status
CPT/HCPCS: 73090; 73110; 96372; 99284; J2270; Q0162